=== PATIENT | female | born 1975 | race Caucasian/White ===

== ENCOUNTER 2023-09-02 18:25 | Emergency (ER) | payer OTHER, SELFPAY ==
[2023-09-02] VITALS (12 sets, daily range): BP systolic 134–200; BP diastolic 99–113; PULSE 102–114; RESP 8–26; TEMP 36.7; O2SAT 95–99; BMI 33.8
--- NOTE | 2023-09-02 18:37 | XR_ITS ---
The [address] [address] Patient Name: DAMION SARAVIA MRN: [id number] date: 1975 Sex: F Assigned Patient Location: ED.MAIN Current Patient Location: ER Accession/Order Number: [id number] Exam Date: 09/02/2023 18:40 Report Date: 09/02/2023 19:10 At the request of: YOANDY JOE Procedure: XR wrist LT min 3V IMAGES REVIEWED: XR wrist LT min 3V r COMPARISON: None available. CLINICAL INDICATION: injury FINDINGS/IMPRESSION: Acute intra-articular comminuted distal radial fracture demonstrating approximately 2 cm dorsal displacement, fairly significant foreshortening of fracture fragments, mild apex volar angulation. Acute comminuted distal ulnar fracture demonstrating moderate dorsal displacement, foreshortening, apex volar angulation. Radiocarpal alignment maintained. No dislocation. Positive ulnar variance. Otherwise the left wrist appears intact. Electronically authenticated by: GI ANDRADE Date: 09/02/2023 19:10
[2023-09-02] MEDS: HYDROMORPHONE HCL 1 MG/ML CARTRIDGE IVP (18:41)
[2023-09-02] MEDS: ONDANSETRON PF 4 MG/2 ML VIAL IV (18:42)
[2023-09-02] MEDS: CEFAZOLIN SODIUM/DEXTROSE,ISO 1 GM/50 ML IV.SOLN IV (18:51)
--- NOTE | 2023-09-02 18:57 | ED.TRAUMA1 ---
HPI - Trauma General Chief Complaint: Extremity Injury, Upper Stated Complaint: LAC TO LEFT HAND Time Seen by Provider: 09/02/23 18:36 Source: patient Mode of arrival: Wheelchair History of Present Illness HPI narrative: patient is a good historian. She said she slipped at home and fell on her left wrist. She has no other injury today. He has no known ALLERGIES. She has obvious deformity to the left wrist witha small laceration to the volar side of her wrist. She has no pain in her elbow or shoulder. She was Nothing by mouth.she was given analgesics on arrival here area I immediately sent the pictures of her injury to the on-call orthopedic surgeon Dr. Roman. He suggested that we do a reduction here in the Emergency Room and he can see her this coming Monday in the office. Related Data Previous Rx's Medication Instructions Recorded amoxicillin 875 mg-potassium 1 tab PO BID #20 tabs 09/02/23 clavulanate 125 mg tablet ondansetron 4 mg disintegrating 4 mg PO Q8H PRN nausea and 09/02/23 tablet vomiting 3 days #10 tabs Allergies Allergy/AdvReac Type Severity Reaction Status Date / Time No Known Drug Allergies Allergy Verified 09/02/23 18:34 [facility] Medical History (Updated 09/04/23 @ 13:28 by Jyoti Diaz) Fx. left wrist ?S62.102A - Fracture of unspecified carpal bone, left wrist, initial encounter for closed fracture (ICD-10) Surgical History (Updated 09/04/23 @ 13:26 by Jyoti Diaz) History of colectomy ?Z90.49 - Acquired absence of other specified parts of digestive tract (ICD-10) History of colonoscopy ?Z98.890 - Other specified postprocedural states (ICD-10) History of foot surgery ?Z98.890 - Other specified postprocedural states (ICD-10) History of hysterectomy ?Z90.710 - Acquired absence of both cervix and uterus (ICD-10) Family History (Updated 09/04/23 @ 13:30 by Jyoti Diaz) Other Family history not known due to adoption Social History (Updated 09/04/23 @ 13:31 by Jyoti Diaz) Within the past year, how often did you have a drink containing alcohol: 2-4 times a month Smoking status: Current every day smoker Non-prescribed substance use: denies use Previous occupational history: [employer] Known occupational exposures/hazards: No Highest level of school completed/degree received: some college, no degree Exam Narrative Exam Narrative: awake alert oriented ?3 some elevation of her blood pressure. Cognition is normal no evidence of alcohol. Her wrist shows obvious deformity with silver-fork deformity. X-rays confirm a distal both bone fracture with wide separation of fracture fragments. She does have good pulses distally. Her elbow and shoulder are normal. The rest her extremities are atraumatic. Constitutional Vital Signs, click to edit/add: Last Vital Signs Temp 98.1 F 09/02/23 18:30 Pulse 108 H 09/02/23 19:50 Resp 8 L 09/02/23 19:05 BP 200/100 H 09/02/23 20:20 Pulse Ox 96 09/02/23 19:50 O2 Del Method Room Air 09/02/23 18:30 Course Vital Signs Vital signs: Vital Signs Temperature 98.1 F 09/02/23 18:30 Pulse Rate 102 H 09/02/23 18:30 Respiratory Rate 26 H 09/02/23 18:30 Blood Pressure 159/110 H 09/02/23 18:30 Pulse Oximetry 95 09/02/23 18:30 Oxygen Delivery Method Room Air 09/02/23 18:30 Temperature 98.1 F 09/02/23 18:30 Pulse Rate 108 H 09/02/23 19:50 Respiratory Rate 8 L 09/02/23 19:05 Blood Pressure 200/100 H 09/02/23 20:20 Pulse Oximetry 96 09/02/23 19:50 Oxygen Delivery Method Room Air 09/02/23 18:30 MDM - Trauma Lab Data Labs: Lab Results 09/02/23 Range/Units 18:50 WBC 10.5 (4.0-11.0) 10^3/uL RBC 4.46 (4.20-5.40) 10^6/uL Hgb 14.5 (12.0-16.0) g/dL Hct 42.4 (36.0-48.0) % MCV 95.1 (81.0-99.0) fL MCH 32.5 (26.7-34.0) pg MCHC 34.2 (29.9-35.2) g/dL RDW 12.1 (11.0-15.0) % Plt Count 272 (150-450) 10^3/uL MPV 8.9 L (9.5-13.5) fL Neut % (Auto) 47.0 (43.0-75.0) % Lymph % (Auto) 42.8 (20.5-60.0) % [place] % (Auto) 6.9 (1.7-12.0) % Eos % (Auto) 2.0 (0.9-7.0) % Baso % (Auto) 0.6 (0.2-2.0) % Neut # (Auto) 4.9 (1.4-6.5) 10^3/uL Lymph # (Auto) 4.5 H (1.2-3.8) 10^3/uL [place] # (Auto) 0.7 (0.3-0.8) 10^3/uL Eos # (Auto) 0.2 (0.0-0.7) 10^3/uL Baso # (Auto) 0.1 (0.0-0.1) 10^3/uL Abs Immat Gran (auto) 0.07 H (0.00-0.03) 10^3/uL Imm/Tot Granulo (auto) 0.7 H (0.0-0.5) % Sodium 132 L (136-145) mmol/L Potassium 3.2 L (3.5-5.1) mmol/L Chloride 97 L (98-107) mmol/L Carbon Dioxide 20.8 L (21.0-32.0) mmol/L Anion Gap 17.4 BUN 7.0 (7.0-18.0) mg/dL Creatinine 0.71 (0.55-1.02) mg/dL Est GFR ( Amer) >60 (>=60) Est GFR (Non-Af Amer) >60 (>=60) BUN/Creatinine Ratio 9.9 Glucose 186 H (74-106) mg/dL Calcium 8.8 (8.5-10.1) mg/dL Total Bilirubin 0.2 (0.2-1.0) mg/dL AST 53 H (15-37) U/L ALT 101 H (14-59) U/L Alkaline Phosphatase 97 (46-116) U/L Total Protein 7.5 (6.4-8.2) g/dL Albumin 3.5 (3.4-5.0) g/dL Globulin 4.0 g/dL Albumin/Globulin Ratio 0.9 Discharge Plan Discharge Chief Complaint: Extremity Injury, Upper Clinical Impression: Compound fracture Patient Disposition: Home, Self-Care Time of Disposition Decision: 20:02 Condition: Good Prescriptions / Home Meds: New ondansetron 4 mg tablet,disintegrating 4 mg PO Q8H PRN (Reason: nausea and vomiting) 3 Days Qty: 10 0RF amoxicillin-pot clavulanate 875-125 mg tablet 1 tab PO BID Qty: 20 0RF Instructions: Wrist Fracture in Adults (ED) Stand Alone Forms: Portal Instructions Referrals: LEW SOLO [Primary Care Provider] - 1 week Milton Roman MD [Physician] - 09/04/23 8:04 am Discharge Date/Time: 09/02/23 20:37
[2023-09-02 19:09] LABS: Basophils Absolute Auto 0.1 10^3/uL (0.0-0.1); Basophils Percent Auto 0.6 % (0.2-2.0); Eosinophils Absolute Auto 0.2 10^3/uL (0.0-0.7); Hematocrit 42.4 % (36.0-48.0); Hemoglobin 14.5 g/dL (12.0-16.0); Immature Granulocytes Abs Auto 0.07 10^3/uL (0.00-0.03); Immature Granulocytes Pct Auto 0.7 % (0.0-0.5); Lymphocytes Absolute Auto 4.5 10^3/uL (1.2-3.8); Lymphocytes Percent Auto 42.8 % (20.5-60.0); Mean Corpuscular HGB Conc 34.2 g/dL (29.9-35.2); Mean Corpuscular Hemoglobin 32.5 pg (26.7-34.0); Mean Corpuscular Volume 95.1 fL (81.0-99.0); Mean Platelet Volume 8.9 fL (9.5-13.5); Monocytes Absolute Auto 0.7 10^3/uL (0.3-0.8); Monocytes Percent Auto 6.9 % (1.7-12.0); Neutrophils Absolute Auto 4.9 10^3/uL (1.4-6.5); Platelet Count 272 10^3/uL (150-450); Red Blood Count 4.46 10^6/uL (4.20-5.40); Red Cell Distribution Width 12.1 % (11.0-15.0); White Blood Count 10.5 10^3/uL (4.0-11.0)
--- NOTE | 2023-09-02 19:17 | XR_ITS ---
The [address] [address] Patient Name: DAMION SARAVIA MRN: [id number] date: 1975 Sex: F Assigned Patient Location: ER Current Patient Location: ER Accession/Order Number: [id number] Exam Date: 09/02/2023 19:20 Report Date: 09/02/2023 19:50 At the request of: YOANDY JOE Procedure: XR wrist LT 2V IMAGES REVIEWED: XR wrist LT 2V COMPARISON: X-ray earlier same day. CLINICAL INDICATION: ppost reduction FINDINGS/IMPRESSION: Status post interval closed reduction and splinting of comminuted distal radial and ulnar fractures in significantly improved and more nearly anatomic alignment. Mild residual displacement and impaction of fracture fragments. Electronically authenticated by: GI ANDRADE Date: 09/02/2023 19:50
[2023-09-02 19:20] LABS: Alanine Aminotransferase 101 U/L (14-59); Albumin Globulin Ratio 0.9; Albumin Level 3.5 g/dL (3.4-5.0); Alkaline Phosphatase 97 U/L (46-116); Anion Gap 17.4; Aspartate Amino Transferase 53 U/L (15-37); BUN Creatinine Ratio 9.9; Bilirubin Total 0.2 mg/dL (0.2-1.0); Calcium 8.8 mg/dL (8.5-10.1); Carbon Dioxide 20.8 mmol/L (21.0-32.0); Chloride 97 mmol/L (98-107); Estimated GFR (African America >60 (>=60); Estimated GFR (Non-African Ame >60 (>=60); Glucose 186 mg/dL (74-106); Potassium 3.2 mmol/L (3.5-5.1); Sodium 132 mmol/L (136-145); Total Protein 7.5 g/dL (6.4-8.2)
[2023-09-02] MEDS: HYDROMORPHONE HCL 1 MG/ML CARTRIDGE IV (19:38)
--- NOTE | 2023-09-02 20:10 | ED.GENADUL1 ---
HPI - General Adult General Chief complaint: Extremity Injury, Upper Stated complaint: LAC TO LEFT HAND Time Seen by Provider: 09/02/23 18:36 Source: patient Mode of arrival: Wheelchair History of Present Illness HPI narrative: 47-year-old female percents chief complaint of left wrist injury. Patient states she slipped down stairs and fell approximately 10-13 steps. Patient landed outstretched hand. She presents here with deformed wrists. Injury occurred just prior to arrival. Patient does have two superficial abrasions appears to be a open complex fracture. She is right-hand dominant. Patient states she last ate around 2 PM. Denies any other injury or trauma. Denies head and neck pain. Denies loss of conscious. Related Data Previous Rx's Medication Instructions Recorded amoxicillin 875 mg-potassium 1 tab PO BID #20 tabs 09/02/23 clavulanate 125 mg tablet ondansetron 4 mg disintegrating 4 mg PO Q8H PRN nausea and 09/02/23 tablet vomiting 3 days #10 tabs Allergies Allergy/AdvReac Type Severity Reaction Status Date / Time No Known Drug Allergies Allergy Verified 09/02/23 18:34 Review of Systems ROS Narrative All Systems are negative except as noted/marked. Exam Narrative Exam Narrative: Nurses note and vital signs reviewed and patient is not hypoxic. General: The patient appears well and in no apparent distress. Patient is resting comfortably on cart. Skin: Warm, dry, no pallor noted. There is no rash noted. Head: Normocephalic, atraumatic Eye: Normal conjunctiva, no drainage, EOMI. PERRL Musculoskeletal: Obvious deformity left wrist with two superficial open wounds to the volar aspect of the left wrist one measuring 2 cm, 2nd measuring 1 cm. No active bleeding, pulses are intact distally to radial ulnar region Neurological: A&O x4, normal speech Psychiatric: Cooperative Constitutional Vital Signs, click to edit/add: Last Vital Signs Temp 98.1 F 09/02/23 18:30 Pulse 108 H 09/02/23 19:50 Resp 8 L 09/02/23 19:05 BP 173/113 H 09/02/23 19:45 Pulse Ox 96 09/02/23 19:50 O2 Del Method Room Air 09/02/23 18:30 Course Vital Signs Vital signs: Vital Signs Temperature 98.1 F 09/02/23 18:30 Pulse Rate 102 H 09/02/23 18:30 Respiratory Rate 26 H 09/02/23 18:30 Blood Pressure 159/110 H 09/02/23 18:30 Pulse Oximetry 95 09/02/23 18:30 Oxygen Delivery Method Room Air 09/02/23 18:30 Temperature 98.1 F 09/02/23 18:30 Pulse Rate 108 H 09/02/23 19:50 Respiratory Rate 8 L 09/02/23 19:05 Blood Pressure 173/113 H 09/02/23 19:45 Pulse Oximetry 96 09/02/23 19:50 Oxygen Delivery Method Room Air 09/02/23 18:30 Medical Decision Making MDM Narrative Medical decision making narrative: Patient presented here to the emergency room after he sustained a fall just prior to arrival. She had a complex fracture on x-ray which did require sedation for reduction please see Dr. Barahona's note. Patient is stable at this time she received IV Ancef for her open fractures. Amelia were also placed to two lacerations to the area that were cleaned with Hibiclens normal saline. Dr. Roman was contacted in regards this patient's care. He was able to see the before and after x-rays of wrist fractures and reduction films. He has agreed to follow-up with her on Monday two days. Patient will be discharged home with a volar splint and sling in place. Patient was medicated with Ancef as stated previously. She'll be discharged home with Augmentin and Percocet and Zofran. Patient also be discharged home with Zofran and Percocet from here in the emergency room to take throughout the evening tonight and tomorrow prior to getting her prescriptions filled. Patient was told no eating after midnight on Monday prior to her appointment on Monday. Patient verbalizes understanding agrees with plan of care. She'll be given Dr. Roman's information. She notes for the office is located. 's reduction and sedation patient had a volar splint applied by myself and Dr. Barahona. Extremities neurovascular intact before and after application of the splint. Sling was placed by nursing staff. Patient denies any other pain or other injuries at this time. She is alert and oriented. She states she feels much better. Differential Diagnosis Differential Diagnosis: Mom Jagdish fracture Medical Records Medical records reviewed: Yes I reviewed the patient's medical records Lab Data Lab results reviewed: Yes I reviewed the patient's lab results Labs: Lab Results 09/02/23 Range/Units 18:50 WBC 10.5 (4.0-11.0) 10^3/uL RBC 4.46 (4.20-5.40) 10^6/uL Hgb 14.5 (12.0-16.0) g/dL Hct 42.4 (36.0-48.0) % MCV 95.1 (81.0-99.0) fL MCH 32.5 (26.7-34.0) pg MCHC 34.2 (29.9-35.2) g/dL RDW 12.1 (11.0-15.0) % Plt Count 272 (150-450) 10^3/uL MPV 8.9 L (9.5-13.5) fL Neut % (Auto) 47.0 (43.0-75.0) % Lymph % (Auto) 42.8 (20.5-60.0) % [place] % (Auto) 6.9 (1.7-12.0) % Eos % (Auto) 2.0 (0.9-7.0) % Baso % (Auto) 0.6 (0.2-2.0) % Neut # (Auto) 4.9 (1.4-6.5) 10^3/uL Lymph # (Auto) 4.5 H (1.2-3.8) 10^3/uL [place] # (Auto) 0.7 (0.3-0.8) 10^3/uL Eos # (Auto) 0.2 (0.0-0.7) 10^3/uL Baso # (Auto) 0.1 (0.0-0.1) 10^3/uL Abs Immat Gran (auto) 0.07 H (0.00-0.03) 10^3/uL Imm/Tot Granulo (auto) 0.7 H (0.0-0.5) % Sodium 132 L (136-145) mmol/L Potassium 3.2 L (3.5-5.1) mmol/L Chloride 97 L (98-107) mmol/L Carbon Dioxide 20.8 L (21.0-32.0) mmol/L Anion Gap 17.4 BUN 7.0 (7.0-18.0) mg/dL Creatinine 0.71 (0.55-1.02) mg/dL Est GFR ( Amer) >60 (>=60) Est GFR (Non-Af Amer) >60 (>=60) BUN/Creatinine Ratio 9.9 Glucose 186 H (74-106) mg/dL Calcium 8.8 (8.5-10.1) mg/dL Total Bilirubin 0.2 (0.2-1.0) mg/dL AST 53 H (15-37) U/L ALT 101 H (14-59) U/L Alkaline Phosphatase 97 (46-116) U/L Total Protein 7.5 (6.4-8.2) g/dL Albumin 3.5 (3.4-5.0) g/dL Globulin 4.0 g/dL Albumin/Globulin Ratio 0.9 Imaging Data wrist: Attestation: I have reviewed the pertinent imaging results. Radiologist's impression: Patient Name: DAMION SARAVIA MRN: [id number] date: 1975 Sex: F Assigned Patient Location: ED.MAIN Current Patient Location: ER Accession/Order Number: [id number] Exam Date: 09/02/2023 18:40 Report Date: 09/02/2023 19:10 At the request of: YOANDY JOE Procedure: XR wrist LT min 3V IMAGES REVIEWED: XR wrist LT min 3V r COMPARISON: None available. CLINICAL INDICATION: injury FINDINGS/IMPRESSION: Acute intra-articular comminuted distal radial fracture demonstrating approximately 2 cm dorsal displacement, fairly significant foreshortening of fracture fragments, mild apex volar angulation. Acute comminuted distal ulnar fracture demonstrating moderate dorsal displacement, foreshortening, apex volar angulation. Radiocarpal alignment maintained. No dislocation. Positive ulnar variance. Otherwise the left wrist appears intact. Electronically authenticated by: GI ANDRADE Date: 09/02/2023 19:10 Patient Name: DAMION SARAVIA MRN: [id number] date: 1975 Sex: F Assigned Patient Location: ER Current Patient Location: ER Accession/Order Number: [id number] Exam Date: 09/02/2023 19:20 Report Date: 09/02/2023 19:50 At the request of: YOANDY JOE Procedure: XR wrist LT 2V IMAGES REVIEWED: XR wrist LT 2V COMPARISON: X-ray earlier same day. CLINICAL INDICATION: ppost reduction FINDINGS/IMPRESSION: Status post interval closed reduction and splinting of comminuted distal radial and ulnar fractures in significantly improved and more nearly anatomic alignment. Mild residual displacement and impaction of fracture fragments. Electronically authenticated by: GI ANDRADE Date: 09/02/2023 19:50 Discharge Plan Discharge Chief Complaint: Extremity Injury, Upper Clinical Impression: Compound fracture Patient Disposition: Home, Self-Care Time of Disposition Decision: 20:02 Condition: Good Prescriptions / Home Meds: New ondansetron 4 mg tablet,disintegrating 4 mg PO Q8H PRN (Reason: nausea and vomiting) 3 Days Qty: 10 0RF amoxicillin-pot clavulanate 875-125 mg tablet 1 tab PO BID Qty: 20 0RF Instructions: Wrist Fracture in Adults (ED) Stand Alone Forms: Portal Instructions Referrals: LEW SOLO [Primary Care Provider] - 1 week Milton Roman MD [Physician] - 09/04/23 8:04 am
[2023-09-02] MEDS: ONDANSETRON 4 MG RAPDIS TABLET 16 MG SL (20:30)
[2023-09-02] MEDS: OXYCODONE HCL/ACETAMINOPHEN 5MG/325MG 6 TAB PO (20:30)
== END 2023-09-02 20:37 | disposition home or self-care (01) ==
PROVIDERS: Emergency Provider Emergency Medicine Emergency Medical Services; PCP Family Medicine
DX: S52.502A Unspecified fracture of the lower end of left radius, initial encounter for closed fracture (principal); S52.602A Unspecified fracture of lower end of left ulna, initial encounter for closed fracture; S61.512A Laceration without foreign body of left wrist, initial encounter; W10.9XXA Fall (on) (from) unspecified stairs and steps, initial encounter
CPT/HCPCS: 12002; 25605; 36415; 73100; 73110; 80053; 85025; 96365; 96375; 96376; 99152; 99285; J0690; J1170; J2405; Q0162

== ENCOUNTER 2023-09-04 19:06 | Observation (INO) | payer OTHER, SELFPAY ==
[2023-09-04] VITALS (17 sets, daily range): BP systolic 130–196; BP diastolic 78–114; PULSE 66–107; RESP 10–21; TEMP 36.2–36.9; O2SAT 88–99; BMI 35.8
--- NOTE | 2023-09-04 | FL_ITS ---
[address] [address] Patient Name: DAMION SARAVIA MRN: [id number] date: 1975 Sex: F Assigned Patient Location: ICU Current Patient Location: Accession/Order Number: [id number] Exam Date: 09/04/2023 15:25 Report Date: 09/06/2023 07:26 At the request of: MARGRET PAEZ Procedure: FL fluoroscopy <1hr NON-READ EXAM: FL fluoroscopy <1hr NON-READ HISTORY: LEFT WRIST FRACTURE TECHNIQUE: FINDINGS: Please see Operative Report. Electronically authenticated by: RADIOLOGIST NO Date: 09/06/2023 07:26
--- OUTSIDE RECORDS SUMMARY | 2023-09-04 12:37 | XMS_ITS | CCD ---
Author Name Unknown Address [address] [facility] [address] [place] [address] Organization [facility] Care Team Providers Care Putter In Name Role Phone GREG CORONADO Unavailable Unavailabl e BOHTRU, GREG Kelly Unavailable Unavailabl e BOHTRU, GREG Kelly Unavailable Unavailabl e BOHTRU, GREG Kelly Unavailable Unavailabl e IVONNE, GREG Kelly Unavailable Unavailabl e IVONNE, GREG Kelly Unavailable Unavailabl e IVONNE, GREG Kelly Unavailable Unavailneil e GERMANIA, DR HACKETT Primary Care Unavailable GOOD ALAN Admitting Unavailable GOOD ALAN Attending Unavailable GERMANIA, DR HACKETT Admitting Unavailable GERMANIA, DR HACKETT Attending Unavailable GERMANIA, DR HACKETT Consulting Unavailable GERMANIA, DR HACKETT Primary Care Unavailable JOSE L, DR MARGRET Torres Consulting Unavailable GERMANIA, DR HACKETT Primary Care Unavailable GERMANIA, DR HACKETT Admitting Unavailable GERMANIA, DR HACKETT Attending Unavailable LINCOLN, DR HACKETT Consulting Unavailable Good Alan Unavailable David Valle Unavailable DO Rajesh Solo [facility] Danica Mueller Emergency Provider 1( [phone] Rajesh Solo Primary Care Unavailable Mable Curtis Attending Unavailable Mable Curtis Admitting Unavailable Medications Current Medications Medication Drug Class(es) Dates Sig (Normalized) Sig (Original) acetaminophen 325 mg / oxyCODONE hydrochloride 5 mg oral tablet (2 sources) Opioid Agonist Start: 04-28-2022 take 1 tablet by mouth every six hours Oxycodone-Acetami nophen Active 1 TAB PO Q6H 10 3 April 28, 2022 Start: 08-24-2021 End: 12-19-2021 take 1 tablet by mouth every four hours Oxycodone-Acetaminophen (Percocet) 5-325 mg tablet Discontinued 1 TAB PO Q4H 26 03August 24, 2021 December 19, 2021 11:36am atenolol 50 mg oral tablet (3 sources) beta-Adrenergic Sofia Start: 01-10-2022 take 50 mg by mouth once daily in the morning Atenolol Active 50 MG PO Every morning January 10, 2022 12:00am Atenolol Active ibuprofen 800 mg oral tablet (1 source) Nonsteroidal Anti-inflammatory Drug Start: 04-28-2022 take 800 mg by mouth every six hours Ibuprofen Active 800 MG PO Q6H April 28, 2022 12:00am meloxicam 15 mg oral tablet (2 sources) Nonsteroidal Anti-inflammatory Drug take 1 tablet by mouth every twenty-four hours Meloxicam 15 MG 1 tablet Orally Once a day for 30 day(s) Active mesalamine 1200 mg delayed release oral tablet (2 sources) Aminosalicylate Start: 12-31-2021 take 4 tablets by mouth once daily Mesalamine 1.2 GM 4 TABS Orally Once a day for 30 day(s) December, Active ondansetron 4 mg oral tablet (1 source) Serotonin-3 Receptor Antagonist Start: 01-20-2022 take 4 mg by mouth every six hours Ondansetron Hcl Active 4 MG PO Q6H January 20, 2022 12:00am traMADol hydrochloride 50 mg oral tablet (1 source) Opioid Agonist Start: 01-24-2022 take 1 tablet by mouth every four to six hours Tramadol (Ultram) 50 mg tablet Active 50 MG PO EVERY 4-6 HOURS 20 03January 24, 2022 12:00am Completed/Discontinued Medications Medication Drug Class(es) Dates Sig (Normalized) Sig (Original) Acetaminophen (5 sources) Tylenol Not-Taki ng Tylenol Active acetaminophen 325 mg / HYDROcodone bitartrate 5 mg oral tablet (4 sources) Opioid Agonist Start: 01-10-2022 End: 01-24-2022 take 1 tablet by mouth every four to six hours Hydrocodone-Acetaminophen Discontinued 1 - 2 TAB PO EVERY 4-6 HOURS 08 11January 10, 2022 January 24, 2022 11:09am take 1 tablet by mikey th every four hours HYDROcodone-Acetaminophen 5-325 MG 1 tab let as needed Oral every 4 hrs for 7 days Not-Taking amoxicillin 875 mg / clavulanate 125 mg oral tablet (1 source) Penicillin-class Antibacterial Start: 12-22-2021 End: 01-10-2022 take 1 tablet by mouth every twelve hours Amoxicillin-Pot Clavulanate Discontinued 1 TAB PO Q12H December 22, 2021 12:00am January 10, 2022 10:16am aspirin 81 mg oral tablet (3 sources) Platelet Aggregation Inhibitor, Nonsteroidal Anti-inflammatory Drug take 1 tablet by mouth twice daily Aspirin 81 MG 1 tablet Orally twice a day Not-Taking take 1 tablet by mikey th every twelve hours Aspirin 81 MG 1 tablet Orally twice a da y Not-Taking cephalexin 500 mg oral capsule (1 source) Cephalosporin Antibacterial Start: 01-10-2022 End: 01-13-2022 take 1000 mg by mouth twice daily Cephalexin Discontinued 1000 MG PO Twice daily 40 January 10, 2022 12:00am January 13, 2022 3:09pm hyoscyamine sulfate 0.125 mg oral tablet (1 source) Start: 12-19-2021 End: 01-10-2022 take 0.125 mg by mouth every six hours Hyoscyamine Sulfate Discontinued 0.125 MG PO Q6H December 19, 2021 12:00am January 10, 2022 10:16am levoFLOXacin 750 mg oral tablet (1 source) Quinolone Antimicrobial Start: 01-13-2022 End: 01-24-2022 take 1 tablet by mouth once daily in the morning Levofloxacin (Levaquin) 750 mg Tablet Discontinued 750 MG PO Every morning January 13, 2022 12:00January 24, 2022 11:09am metroNIDAZOLE 500 mg oral tablet (2 sources) Nitroimidazole Antimicrobial Start: 01-13-2022 End: 01-24-2022 take 500 mg by mouth three times daily Metronidazole Discontinued 500 MG PO Three times daily January 13, 2022 3:10pm January 24, 2022 11:09am Start: 01-10-2022 End: 01-13-2022 take 500 mg by mouth twice daily Metronidazole Discontinued 500 MG PO Twice daily 20 January 10, 2022 12:00am January 13, 2022 3:10pm polyethylene glycol 3350 24513 mg powder for oral solution (2 sources) Osmotic Laxative Start: 01-20-2022 End: 01-24-2022 Polyethylene Glycol 3350 (Miralax) 17 gram/dose powder Discontinued 17 GM PO Three times daily January 20, 2022 2:04pm January 24, 2022 11:09am Start: 01-10-2022 End: 01-20-2022 Polyethylene Glycol 3350 (Mi ralax) 17 gram/dose powder Discontinued 17 GM PO Daily 238 January 10, 2022 12:00am January 20, 2022 2:04pm sulfaSALAzine (1 source) Aminosalicylate Start: 05-26-2020 End: 08-24-2021 take 0.5 g by mouth four times daily Sulfasalazine Discontinued 0.5 GM PO Four times daily 120 May 26, 2020 12:00am August 24, 2021 7:20am Triamcinolone (2 sources) Corticosteroid Start: 06-07-2021 Kenalog -40 mg May, 40 mg Problems Active Problems Problem Classification Problem Date Documented Da te Episodic/Chronic Abdominal pain (6 sources) Abdominal pain; Translations: [Unspecified abdominal pain] 01-10-2022 Episodic Crushing injury or internal injury (1 source) Crushing injury of hand; Translations: [Crushing injury of unspecified hand, initial encounter] 04-28-2022 Episodic Diverticulosis and diverticulitis (4 sources) Diverticulitis; Translations: [Diverticulitis of intestine, part unspecified, without perforation or abscess without bleeding] Onset: 12-31-2021 Resolved: 12-31-2021 Chronic Intestinal obstruction without hernia (3 sources) Small bowel obstruction; Translations: [Unspecified intestinal obstruction, unspecified as to partial versus complete obstruction] Onset: 12-31-2021 Resolved: 12-31-2021 Episodic Joint disorders and dislocations; trauma-related (7 sources) Disorder of patellofemoral joint; Translations: [Unspecified internal derangement of right knee] Onset: 08-04-2021 Resolved: 09-01-2021 Chronic Joint disorders and dislocations; trauma-related (7 sources) Disorder of patellofemoral joint; Translations: [Unspecified internal derangement of left knee] Onset: 08-04-2021 Resolved: 09-01-2021 Chronic Osteoarthritis (19 sources) Unspecified osteoarthritis, unspecified site; Translations: [Unilateral primary osteoarthritis, right knee] Onset: 03-24-2021 Resolved: 09-01-2021 Chronic Other gastrointestinal disorders (1 source) Disorder of colon; Translations: [Disease of intestine, unspecified] 01-10-2022 Episodic Other nutritional; endocrine; and metabolic disorders (5 sources) Weight loss; Translations: [Abnormal weight loss] Episodic Pancreatic disorders (not diabetes) (5 sources) Pancreatitis; Translations: [Acute pancreatitis without necrosis or infection, unspecified] Episodic Residual codes; unclassified (5 sources) Other specified postprocedural states; Translations: [OTH SPECIFIED POSTPROCEDURAL STATES] Onset: 09-01-2021 Resolved: 09-01-2021 Episodic Residual codes; unclassified (1 source) History of arthroscopy of knee joint; Translations: [Other specified postprocedural states] 08-24-2021 Episodic Substance-related disorders (1 source) Smoker; Translations: [Nicotine dependence, unspecified, uncomplicated] 12-24-2021 Chronic Unclassified (1 source) LEFT FOOT NEUROMA / LEFT FOOT NEUROMA() Onset: 06-06-2017 Unclassified (1 source) Pain in left foot; Translations: [Pain in left foot] Onset: 06-04-2023 Past or Other Problems Problem Classification Problem Date Documented Date Episodic/Chronic Medical examination/evaluatio n (2 sources) Encounter for other preprocedural examination; Translations: [Encounter for other preprocedural examination] Onset: 05-22-2017 Episodic Other aftercare (1 source) Encounter for removal of sutures Onset: 09-01-2021 Resolved: 09-01-2021 Episodic Other non-traumatic joint disorders (4 sources) Pain in unspecified joint; Translations: [PAIN IN UNSPECIFIED JOINT] Onset: 03-29-2021 Episodic Other non-traumatic joint disorders (3 sources) Pain in right knee; Translations: [PAIN IN RIGHT KNEE] Onset: 03-31-2021 Resolved: 09-01-2021 Episodic Other non-traumatic joint disorders (2 sources) Pain in left knee Onset: 08-04-2021 Resolved: 09-01-2021 Episodic Unclassified (1 source) LEFT FOOT NEUROMA; Translations: [LEFT FOOT NEUROMA] Onset: 06-06-2017 Results Test Name Value Interpretation Reference Range Facility XR foot LT min 3V*on 023 XR foot LT min 3V* [facility] [place] [address] [place] [address] XRay Report Signed Patient: Maggie Yip MR#: [id number] 9 : 1975 Acct:[id number] Age/Sex: 47 / F ADM Date: 06/04/23 Loc: ER Room: Type: [facility] ER Attending Dr: Copies to: Mable Curtis APRN Ordering Provider: Mable Curtis APRN Date of Service: 06/04/23 XR/XR foot LT min 3V*: Extremity Injury, Lower LEFT FOOT - 3 views CLINICAL DATA: Patient fell down stairs 2 days ago. Lateral left foot pain. History of resection of neuromas. COMPARISON: None AP, lateral and oblique views were obtained. Deformity at the head of the proximal phalanx of the second toe may be postoperative. There is no acute fracture or dislocation. There are tiny calcaneal spurs. There are no significant soft tissue abnormalities. XR/XR foot LT min 3V* IMPRESSION: NO ACUTE BONY INJURY. Impression dictated by: Jaylin Magallanes M.D.06/04/2023 12:32 PM Dictation Location: [place] [address] Transcribed By: [facility] 06/04/23 1232 Dictated By: Jaylin Magallanes MD 06/04/23 1231 Signed By: 06/04/23 1232 Normal [facility] CYCLIC CITRULLINATED PEPTIDE AB (CCP)on 04-01-2021 CCP Antibodies IgG/IgA 5 units Normal 0-19 [facility] Comment on above: Result Comment: Nega tive <20 Weak positive 20 - 39 Moderate positive 40 - 59 Strong positive >59 Performed By: #### C CPAB #### [facility] [address] [address] Germán GARRETT by IFAon 03-25-2021 Antinuclear Antibodies, IFA Negative Normal [facility] Comment on above: Result Comment: Nega tive <1:80 Borderline 1:80 Positive >1:80 ICAP nomenclature: AC-0 For more information about Hep-2 cell patterns use ANApatterns.org, the official website for the International Consensus on Antinuclear Antibody (TAMI) Patterns (ICAP). Performed By: #### A NAIFA #### [facility] [address] [place], [place] [address] Germán Mosqueda RHEUMATOID FACTORon 03-25-20 RA Latex Turbid. <10.0 Normal 0.0-13.9 [facility] Comment on above: Performed By: #### R F #### [facility] [address] [place], [place] [address] Germán Jaylin CBC AUTO DIFFon 03-24-2021 BASO # 0.1 103/ul Normal 0.0-0.1 [facility] Comment on above: Performed By: #### C BC #### [facility] [address] [place], [place] [address] Germánsimone Mosqueda Basophils/100 WBC (Bld) 0.6 % Normal 0.2-2.0 [facility] Comment on above: Performed By: #### C BC #### [facility] [address] [place] [address] Germánsimone Mosqueda EO # 0.1 103/ul Normal 0.0-0.7 [facility] Comment on above: Performed By: #### C BC #### [facility] [address] [place], [place] [address] Germán Jaylin Eosinophils/100 WBC (Bld) 1.2 % Normal 0.9-7.0 [facility] Comment on above: Performed By: #### C BC #### [facility] [address] [place], [place] [address] Germán Jaylin Erythrocyte distribution width (RBC) [Ratio] 13.2 % Normal 11.0-15.0 [facility] Comment on above: Performed By: #### C BC #### [facility] [address] [place], [place] [address] Germán Jaylin Hematocrit (Bld) [Volume fraction] 45.3 % Normal 36.0-48.0 [facility] Comment on above: Performed By: #### C BC #### [facility] [address] [place], [place] [address] Germán Jaylin Hemoglobin (Bld) [Mass/Vol] 15.1 g/dL Normal 12.0-16.0 [facility] Comment on above: Performed By: #### C BC #### [facility] [address] [place] [address] Germán Mosqueda IG # 0.07 10e3/ul Critically high 0.00-0.03 [facility] Comment on above: Performed By: #### C BC #### [facility] [address] [address] Germán Mosqueda IG % 0.6 % Critically high 0.0-0.5 [facility] Comment on above: Performed By: #### C BC #### [facility] [address] [place] [address] Germán Mosqueda LYMPH # 3.4 103/ul Normal 1.2-3.8 [facility] Comment on above: Performed By: #### C BC #### [facility] [address] [place] [address] Germán Mosqueda Lymphocytes/100 WBC (Bld) 30.1 % Normal 20.5-60.0 [facility] Comment on above: Performed By: #### C BC #### [facility] [address] [place] [address] Germán Mosqueda MANUAL DIFF REQ NO Normal [facility] Comment on above: Performed By: #### C BC #### [facility] [address] [place] [address] Germán Mosqueda MCH (RBC) [Entitic mass] 31.3 pg Normal 26.7-34.0 [facility] Comment on above: Performed By: #### C BC #### [facility] [address] [place] [address] Germán Mosqueda MCHC (RBC) [Mass/Vol] 33.3 g/dL Normal 29.9-35.2 [facility] Comment on above: Performed By: #### C BC #### [facility] [address] [place] [address] Germán Mosqueda MCV (RBC) [Entitic vol] 94.0 fL Normal 81.0-99.0 [facility] Comment on above: Performed By: #### C BC #### [facility] [address] [place], [place] [address] Germán Mosqueda MONO # 0.8 103/ul Normal 0.3-0.8 [facility] Comment on above: Performed By: #### C BC #### [facility] [address] [id number] Germán Mosqueda Monocytes/100 WBC (Bld) 7.2 % Normal 1.7-12.0 [facility] Comment on above: Performed By: #### C BC #### [facility] [address] [id number] Germán Jaylin NEUT # 6.7 103/ul Critically high 1.4-6.5 [facility] Comment on above: Performed By: #### C BC #### [facility] [address] [id number] Germán Mosqueda Neutrophils/100 WBC (Bld) 60.3 % Normal 43.0-75.0 [facility] Comment on above: Performed By: #### C BC #### [facility] [address] [id number] Germán Mosqueda Platelet mean volume (Bld) [Entitic vol] 9.0 fL Critically low 9.5-13.5 [facility] Comment on above: Performed By: #### C BC #### [facility] [address] [id number] Germán Jaylin PLT 288 103/ul Normal 150-450 [facility] Comment on above: Performed By: #### C BC #### [facility] [address] [id number] Germán Jaylin RBC 4.82 106/ul Normal 4.20-5.40 [facility] Comment on above: Performed By: #### C BC #### [facility] [address] [id number] Germán Jaylin WBC 11.2 103/ul Critically high 4.0-11.0 [facility] Comment on above: Performed By: #### C BC #### [facility] [address] [id number] Germán Jaylin PROF 14(COMP METB)on 021 Albumin [Mass/Vol] 3.8 g/dL Normal 3.5-5.0 [facility] Comment on above: Performed By: #### C MP, URIC #### [facility] [address] [place], [place] [address] Germán Jaylin Albumin/Globulin [Mass ratio] 0.9 {ratio} Normal [facility] Comment on above: Performed By: #### C MP, URIC #### [facility] [address] [place], [place] [address] Germán Jaylin ALP [Catalytic activity/Vol] 109 U/L Normal 38-126 [facility] Comment on above: Performed By: #### C MP, URIC #### [facility] [address] [place] [address] Germán Jaylin ALT [Catalytic activity/Vol] 56 U/L Critically high 9-52 [facility] Comment on above: Performed By: #### C MP, URIC #### [facility] [address] [place], [place] [address] Germán Jaylin Anion gap [Moles/Vol] 17.6 mmol/L Normal [facility] Comment on above: Performed By: #### C MP, URIC #### [facility] [address] [place] [address] Germán Jaylin AST [Catalytic activity/Vol] 36 U/L Normal 14-36 [facility] Comment on above: Performed By: #### C MP, URIC #### [facility] [address] [place], [place] [address] Germán Jaylin Bilirubin [Mass/Vol] 0.3 mg/dL Normal 0.2-1.3 [facility] Comment on above: Performed By: #### C MP, URIC #### [facility] [address] [place], [place] [address] Germán Jaylin Calcium [Mass/Vol] 9.0 mg/dL Normal 8.4-10.2 [facility] Comment on above: Performed By: #### C MP, URIC #### [facility] [address] [place], [place] [address] Germán Jaylin Chloride [Moles/Vol] 104 mmol/L Normal 98-107 [facility] Comment on above: Performed By: #### C MP, URIC #### [facility] [address] [place] [address] Germán Jaylin CO2 [Moles/Vol] 23.4 mmol/L Normal 22.0-30.0 [facility] Comment on above: Performed By: #### C MP, URIC #### [facility] [address] [place], [place] [address] Germán Jaylin Creatinine [Mass/Vol] 0.61 mg/dL Normal 0.52-1.04 [facility] Comment on above: Performed By: #### C MP, URIC #### [facility] [address] [place], [place] [address] Germán Jaylin EGFR-AF NORWEGIAN >60 Normal >=60 [facility] Comment on above: Performed By: #### C MP, URIC #### [facility] [address] [place], [place] [address] Germán Jaylin EGFR-NON AF NORWEGIAN >60 Normal >=60 [facility] Comment on above: Performed By: #### C MP, URIC #### [facility] [address] [place], [place] [address] Germán Jaylin Globulin (S) [Mass/Vol] 4.2 g/dL Normal [facility] Comment on above: Performed By: #### C MP, URIC #### [facility] [address] [place] [address] Germán Jaylin Glucose [Mass/Vol] 90 mg/dL Normal 74-106 [facility] Comment on above: Performed By: #### C MP, URIC #### [facility] [address] [place] [address] Germán Jaylin Potassium [Moles/Vol] 4.0 mmol/L Normal 3.4-5.0 [facility] Comment on above: Performed By: #### C MP, URIC #### [facility] [address] [place], [place] [address] Germán Jaylin Protein [Mass/Vol] 8.0 g/dL Normal 6.1-8.2 [facility] Comment on above: Performed By: #### C MP, URIC #### [facility] [address] [place], [place] [address] Germán Jaylin Sodium [Moles/Vol] 141 mmol/L Normal 137-145 [facility] Comment on above: Performed By: #### C MP, URIC #### [facility] [address] [place], [place] [address] Germán Jaylin Urea nitrogen [Mass/Vol] 11.0 mg/dL Normal 7.0-17.0 [facility] Comment on above: Performed By: #### C MP, URIC #### [facility] [address] [id number] Germán Jaylin Urea nitrogen/Creatini ne [Mass ratio] 18.0 mg/mg Normal [facility] Comment on above: Performed By: #### C MP, URIC #### [facility] [address] [id number] Germán Jaylin [facility] SED RATE 60 mm/hr Critically high <=20 [facility] Comment on above: Performed By: #### S EDR #### [facility] [address] [place], [place] [address] Germán Jaylin URIC ACID SERUMon 03-24-2021 Urate [Mass/Vol] 4.9 mg/dL Normal 2.5-6.2 [facility] Comment on above: Performed By: #### C MP, URIC #### [facility] [address] [place], [place] [address] Germán Jaylin Coding Summary.on 10-15-2019 Coding Summary. CODING DATE: 020 FINAL [facility] STATUS: Home (Routine DC) PAYOR: Medicaid ADMIT DX: REASON FOR VISIT DX: R10.11 Right upper quadrant pain FINAL DX: PRINCIPAL: R10.11 Right upper quadrant pain SECONDARY: F17.210 Nicotine dependence, cigarettes, uncomplicated PYMT PROC APC STAT DESCRIPTION DOCTOR NAME DATE NOTE: The code number assigned matches the documented diagnosis and / or procedure in the patient's chart. However, the narrative phrase printed from the coding software may appear abbreviated, or result in slightly different terminology. Revised Coded By: Maria R Hernandez Revised Date Saved: 10/15/2019 01:45 pm Normal [facility] Auto Diffon 10-08-2019 Basophils/100 WBC (Bld) 0.2 % Normal 0.0-2.0 [facility] Comment on above: Order Comment: Order Added by Discern Expert. Performed By: #### 2 [id number] #### [facility] [address] [place] [address] Basophils/Leukocy cj Auto (Bld) [Pure # fraction] 0.0 E9/L Normal 0.0-0.2 [facility] Comment on above: Order Comment: Order Added by Discern Expert. Performed By: #### 2 [id number] #### [facility] [address] [place] [address] Eosinophils/100 WBC (Bld) 1.0 % Normal 0.0-8.0 [facility] Comment on above: Order Comment: Order Added by Discern Expert. Performed By: #### 2 [id number] #### [facility] [address] [place] [address] Eosinophils/Leuko cytes Auto (Bld) [Pure # fraction] 0.1 E9/L Normal 0.0-0.5 [facility] Comment on above: Order Comment: Order Added by Discern Expert. Performed By: #### 2 [id number] #### [facility] [address] [place] [address] Lymphocytes/100 WBC (Bld) 25.0 % Normal 14.0-50.0 [facility] Comment on above: Order Comment: Order Added by Discern Expert. Performed By: #### 2 [id number], [id number], [id number] #### [facility] [address] [place] [address] Lymphocytes/Leuko cytes Auto (Bld) [Pure # fraction] 2.9 E9/L Normal 1.0-4.0 [facility] Comment on above: Order Comment: Order Added by Discern Expert. Performed By: #### 2 [id number], [id number] #### [facility] [address] [place] [address] Monocytes/100 WBC (Bld) 6.9 % Normal 4.0-14.0 [facility] Comment on above: Order Comment: Order Added by Discern Expert. Performed By: #### 2 [id number], [id number], [id number], [id number] #### [facility] [address] [place] [address] Monocytes/Leukocy cj Auto (Bld) [Pure # fraction] 0.8 E9/L Normal 0.2-1.0 [facility] Comment on above: Order Comment: Order Added by Discern Expert. Performed By: #### 2 [id number], [id number], [id number], [id number] #### [facility] [address] [place] [address] Neutrophils/100 WBC (Bld) 66.9 % Normal 36.0-75.0 [facility] Comment on above: Order Comment: Order Added by Discern Expert. Performed By: #### 2 [id number], [id number], [id number], [id number] #### [facility] [address] [place] [address] Neutrophils/Leuko cytes Auto (Bld) [Pure # fraction] 7.9 E9/L High 2.0-7.5 [facility] Comment on above: Order Comment: Order Added by Discern Expert. Performed By: #### 2 [id number], [id number], [id number], [id number] #### [facility] [address] [place] [address] BMPon 10-08-2019 Creatinine [Mass/Vol] 0.6 mg/dL Normal 0.5-1.3 [facility] Comment on above: Performed By: #### 2 154647, [id number], [id number], [id number] #### [facility] [address] [place] [address] Urea nitrogen [Mass/Vol] 12 mg/dL Normal 5-21 [facility] Comment on above: Performed By: #### 2 541585, 5733057, 6581705, [id number] #### [facility] [address] [place] [address] Urea nitrogen/Creatini ne [Mass ratio] 20 No Units Normal 10-20 [facility] Comment on above: Performed By: #### 2 759038, 1703137, 3071301, [id number] #### [facility] [address] [place] [address] Anion gap [Moles/Vol] 15 mmol/L Normal 6-16 [facility] Comment on above: Performed By: #### 2 257051, 3959846, 2699830, [id number] #### [facility] [address] [place] [address] Calcium [Mass/Vol] 9.5 mg/dL Normal 8.9-11.1 [facility] Comment on above: Performed By: #### 2 282718, 8316682, 7685161, [id number] #### [facility] [address] [place] [address] Chloride [Moles/Vol] 102 mmol/L Normal 101-111 [facility] Comment on above: Performed By: #### 2 264978, 9961265, 8567443, [id number] #### [facility] [address] [place] [address] CO2 [Moles/Vol] 21 mmol/L Normal 21-31 [facility] Comment on above: Performed By: #### 2 435854, 6713391, 8716377, [id number] #### [facility] [address] [place] [address] Glucose [Mass/Vol] 88 mg/dL Normal 55-199 [facility] Comment on above: Result Comment: If t his glucose result represents a fasting glucose, interpretation should refer to the following reference range: 55-99 mg/dL Performed By: #### 2 974634, 2511258, 7886385, [id number] #### [facility] [address] [place] [address] Potassium [Moles/Vol] 4.1 mmol/L Normal 3.5-5.3 [facility] Comment on above: Performed By: #### 2 509131, 6324749, 9032166, [id number] #### [facility] [address] [place] [address] Sodium [Moles/Vol] 134 mmol/L Low 135-145 [facility] Comment on above: Performed By: #### 2 550245, 6388986, 5971607, [id number] #### [facility] [address] [place] [address] CBC w/ Auto Diffon 0 Erythrocyte distribution width (RBC) [Ratio] 13.7 % Normal 10.9-14.2 [facility] Comment on above: Performed By: #### 2 510349, 5212683, 2907030, [id number] #### [facility] [address] [place] [address] Hematocrit (Bld) [Volume fraction] 44.6 % Normal 34.0-46.0 [facility] Comment on above: Performed By: #### 2 220464, 6684079, 9839540, 29804294 #### [facility] [address] [place] [address] Hemoglobin (Bld) [Mass/Vol] 15.3 g/dL Normal 12.0-16.0 [facility] Comment on above: Performed By: #### 2 801835, 0964937, 0274522, [id number] #### [facility] [address] [place] [address] MCH (RBC) [Entitic mass] 32.6 pg Normal 27.0-34.0 [facility] Comment on above: Performed By: #### 2 222896, 8648210, 4066319, [id number] #### [facility] [address] [place] [address] MCHC (RBC) [Mass/Vol] 34.4 g/dL Normal 31.4-36.0 [facility] Comment on above: Performed By: #### 2 350181, 2850188, 3210691, [id number] #### [facility] [address] [place], [place] [address] MCV (RBC) [Entitic vol] 94.9 fL Normal 80.0-100.0 [facility] Comment on above: Performed By: #### 2 320313, 9019247, 9877292, 11295682 #### [facility] [address] [place] [address] Platelet mean volume (Bld) [Entitic vol] 7.2 fL Normal 6.4-10.8 [facility] Comment on above: Performed By: #### 2 452617, 8390611, 2115098, 86654176 #### [facility] [address] [place] [address] Platelets (Bld) [#/Vol] 361.0 E9/L Normal 150.0-500.0 [facility] Comment on above: Performed By: #### 2 833985, 0177170, 4670692, 46415852 #### [facility] [address] [place] [address] RBC (Bld) [#/Vol] 4.7 E12/L Normal 4.3-5.9 [facility] Comment on above: Performed By: #### 2 618483, 6609786, 8840249, [id number] #### [facility] [address] [place] [address] WBC corrected for nucl RBC Auto (Bld) [#/Vol] 11.8 E9/L High 4.0-11.0 [facility] Comment on above: Performed By: #### 2 167141, 6792937, 6276376, 14796901 #### [facility] [address] [place] [address] ED Clinical Summaryon 2019 ED Clinical Summary [address] [address] ED Clinical Summary Person Information Name: MAGGIE DEL ROSARIO [place] Age: 43 Years : 1975 Sex: Female Language: Azerbaijani PCP: Rajesh Solo DO Marital Status: Phone: [phone] Visit Id: Visit Reason: Vomiting; Abdominal pain; UPPER RT ABD PAIN Speciality: Acuity: 3 Enc Type: Emergency Med Service: Emergency Arrival: 10/08/2019 10:18:57 Discharge: 10/08/2019 13:21:22 LOS: 000 03:03 Checkin: 10/08/2019 10:18:57 Checkout: 10/08/2019 13:21:22 Dispo Type: Home (Routine DC) EVENTS: Event Name Event Status Request Date/Time Start Date/Time Complete Date/Time Arrive Complete 10/08/2019 10:18:57 10/08/2019 10:18:57 10/08/2019 10:18:57 Document Home Meds Complete 10/08/2019 10:18:57 10/08/2019 11:32:49 10/08/2019 11:32:49 Triage Complete 10/08/2019 10:18:57 10/08/2019 10:31:19 10/08/2019 10:31:19 Bed Assign Complete 10/08/2019 10:25:35 10/08/2019 10:25:35 10/08/2019 10:25:35 Dr Exam Complete 10/08/2019 10:25:35 10/08/2019 10:28:00 10/08/2019 10:28:00 RN Exam Complete 10/08/2019 10:25:35 10/08/2019 10:34:10 10/08/2019 10:34:10 Registration Complete 10/08/2019 10:28:00 10/08/2019 10:54:35 10/08/2019 10:54:35 Dr Exam Complete 10/08/2019 10:28:59 10/08/2019 10:28:59 10/08/2019 10:28:59 EKG Complete 10/08/2019 10:37:45 10/08/2019 10:55:54 Meds Admin Complete 10/08/2019 10:37:45 10/08/2019 11:39:00 Pending Labs Complete 10/08/2019 10:37:45 10/08/2019 11:43:44 Lab Complete 10/08/2019 10:37:45 10/08/2019 11:43:44 Patient Care Request 10/08/2019 10:37:45 Reg Complete Request 10/08/2019 10:54:35 Reg Bed Request Complete 10/08/2019 10:54:35 10/08/2019 10:54:35 10/08/2019 10:54:35 Pending Labs Complete 10/08/2019 10:59:46 10/08/2019 10:59:46 10/08/2019 11:43:47 Lab Complete 10/08/2019 10:59:46 10/08/2019 10:59:46 10/08/2019 11:43:47 Pending Labs Complete 10/08/2019 11:05:57 10/08/2019 11:05:57 10/08/2019 11:06:07 Lab Complete 10/08/2019 11:05:57 10/08/2019 11:05:57 10/08/2019 11:06:07 Meds Admin Complete 10/08/2019 11:06:10 10/08/2019 11:32:11 US Complete 10/08/2019 11:39:30 10/08/2019 11:49:41 10/08/2019 12:08:25 Pending Labs Complete 10/08/2019 11:41:09 10/08/2019 11:41:09 10/08/2019 11:41:09 Meds Admin Complete 10/08/2019 11:50:11 10/08/2019 12:42:39 Meds Admin Complete 10/08/2019 12:58:53 10/08/2019 13:14:58 Discharge Complete 10/08/2019 12:59:22 10/08/2019 13:21:31 10/08/2019 13:21:31 Transfer Complete 10/08/2019 13:21:31 10/08/2019 13:21:31 10/08/2019 13:21:31 ADDRESS: [address] [facility] [id number] PHYS DOC NOTES: MEDICAL INFORMATION: Prescriptions Given: [facility], [address] [facility] Kerry Berkowitz [place] [phone], [phone] sucralfate (Carafate 1 g/10 mL Susp-Oral) 10 Milliliter By Mouth 4 times a day for 7 Days. Refills: 0. PATIENT EDUCATION INFORMATION: Instructions: Gastritis, Adult; Abdominal Pain, Adult Follow up: With: Address: When: [facility], [address] [place] [address] Business (1) In 3 days 10/11/2019 With: Address: When: [facility] [address] [place], [place] [id number] Business (1) In 3 days 10/11/2019 DIAGNOSIS: Right upper quadrant abdominal pain Normal [facility] ED Note-Physicianon 10-08-19 ED Note-Physician Basic Information Time Seen: Rishi Martinez PA-C 10/08/2019 10:28 Chief Complaint pain under right breast that radiates to abd. started a few days ago but has increased. reports N/V. hx hysterectomy History of Present Illness 43-year-old female comes to the ED for evaluation of abdominal pains. Over the last week she has had progressive right upper quadrant pain. Pain is worse with movement, breathing, laying flat. Pain with eating, but does report decreased appetite. She had a cup of coffee this morning but no food intake. She has had nausea, vomiting and greasy stools. No fever or chills. She has had previous hysterectomy, no previous abdominal surgeries. No associated chest pain. No urinary complaints. Review of Systems A 10 point review of systems is negative except as noted above. Medical and Surgical History: Reviewed and noted Social history: Lives at home Tobacco: Denies Physical Exam Vitals & Measurements T: 36.7 ?C (Oral) HR: 82(Peripheral) RR: 18 BP: 140/88 SpO2: 98% HT: 165 cm WT: 103 kg BMI: 37.83 Nurses notes and vital signs reviewed and patient is not hypoxic. General: Awake and alert, appears uncomfortable Skin: Warm, dry, no pallor noted. Head: Atraumatic. Neck: No JVD. Eye: Normal conjunctiva. Ears, Nose, Mouth, and Throat: Moist mucous membranes Cardiovascular: Strong distal pulses. Chest wall: Respiratory: Respirations are nonlabored. Lungs clear to auscultation. Back: Normal range of motion, no CVA tenderness. Musculoskeletal: Normal ROM with no gross deformity. Gastrointestinal: Significant right upper quadrant tenderness with positive Mireles's. No rashes or lesions. Remainder the abdomen is nontender. Abdomen is soft. Urological: Neurological: Awake and alert. No focal deficits. Follows commands. GCS 15. Psychiatric: Cooperative. Medical Decision Making Laboratory studies reviewed and noted. With her significant right upper quadrant tenderness gallbladder ultrasound was obtained. This is discussed with seed laboratory technician as negative for acute findings. Patient is feeling improved here after treatment. With her negative ultrasound, possible etiologies such as gastritis or peptic ulcer disease are discussed. She will be discharged home with Carafate and is given GI follow-up. Patient was encouraged to return to the ED if symptoms worsen or change. Assessment/Plan Right upper quadrant abdominal pain (R10.11: Right upper quadrant pain) Orders: Al hydroxide/Mg hydroxide/simethicone, 30 mL, Susp-Oral, Oral, Once, Stop date 10/08/19 12:58:00 EST, STAT, Start date 10/08/19 12:58:00 EST atropine/hyoscyamine/PB/scop olamine, 10 mL, Elixir, Oral, Once, Stop date 10/08/19 12:58:00 EST, STAT, Start date 10/08/19 12:58:00 EST lidocaine topical, 200 mg, 10 mL, Soln-Oral, Oral, Once, Stop date 10/08/19 12:58:00 EST, STAT, Start date 10/08/19 12:58:00 EST morphine, 4 mg = 2 mL, Injection, IV Push, Once, Stop date 10/08/19 11:05:00 EST, STAT, Start date 10/08/19 11:05:00 EST morphine, 4 mg = 2 mL, Injection, IV Push, Once, Stop date 10/08/19 11:50:00 EST, STAT, Start date 10/08/19 11:50:00 EST ondansetron, 4 mg = 2 mL, Injection, IV Push, Once, Stop date 10/08/19 11:06:00 EST, STAT, Start date 10/08/19 11:06:00 EST Sodium Chloride 0.9% intravenous solution 1,000 mL, 1,000 mL, IV, 1,000 mL/hr, for 1 hour(s), Stop date 10/08/19 11:36:00 EST, STAT, Start date 10/08/19 10:37:00 EST, 1 hour(s), Total volume (mL): 1,000, Bolus Dose: 1,000 mL sucralfate, 1 gram = 10 mL, Oral, QID, X 7 day(s), # 280 mL, Refills(s) 0, Pharmacy: [facility], 165, cm, 10/08/19 10:25:00 EST, Height/Length Measured, 103, kg, 10/08/19 10:25:00 EST, Weight Measured Automated Diff Basic Metabolic Panel CBC w/ Auto Diff ECG 12 Lead Adult eGFR Extra Blue Tube Extra SST Tube Hepatic Function Panel Lipase Level Troponin 0 Hr. Urine Dipstick POC US Gallbladder Medications Administered Given NS 1000 ml Bolus 1,000 mL, 1000 mL, IV morphine 2 mg/mL Inj, 4 mg, IV Push morphine 2 mg/mL Inj, 4 mg, IV Push Zofran 4 mg/2 mL Injection, 4 mg, IV Push Disposition Plan Patient Discharge Condition Disposition: Discharged home Condition: Improved and stable Counseled: Patient and/or family were counseled to workup, results, treatment plan and follow-up recommendations Discharge Prescription List Prescriptions Carafate 1 g/10 mL Susp-Oral, 1 gram= 10 mL, Oral, QID Follow-up With When Contact Information Yudelka RIOS In 3 days 10/11/2019 [facility] [address] [place] [address]- Business (1) Additional Instructions: Rajesh Solo In 3 days 10/11/2019 [facility] [address] [place] [address]- Business (1) Additional Instructions: Patient Education Gastritis, Adult Abdominal Pain, Adult Attestation Patient seen and evaluated by the physician animal assistant. Attending physician was present in the emergency department and supervised care. This report was transcribed using voice recognition software. Every effort was made to ensure accuracy, however, inadvertently computerized croze cutter mistakes may be present. Problem List/Past Medical History Ongoing Smoker Historical No qualifying data Medications Inpatient morphine 2 mg/mL Inj, 4 mg= 2 mL, IV Push, Once NS 1000 ml Bolus 1,000 mL, 1000 mL, IV Zofran 4 mg/2 mL Injection, 4 mg= 2 mL, IV Push, Once Home No active home medications Allergies No Known Allergies Social History Alcohol - Denies Alcohol Use, 10/08/2019 Substance Abuse - Denies Substance Abuse, 10/08/2019 Tobacco - High Risk, 10/08/2019 Cigarettes, 10/08/2019 Lab Results WBC: 11.8 E9/L High (10/08/19 10:41:00) RBC: 4.7 E12/L (10/08/19 10:41:00) Hgb: 15.3 gm/dL (10/08/19 10:41:00) Hct: 44.6 % (10/08/19 10:41:00) MCV: 94.9 fL (10/08/19 10:41:00) MCH: 32.6 pg (10/08/19 10:41:00) MCHC: 34.4 gm/dL (10/08/19 10:41:00) RDW: 13.7 % (10/08/19 10:41:00) Platelet: 361 E9/L (10/08/19 10:41:00) MPV: 7.2 fL (10/08/19 10:41:00) Neutro Auto: 66.9 % (10/08/19 10:41:00) Lymph Auto: 25 % (10/08/19 10:41:00) [place] Auto: 6.9 % (10/08/19 10:41:00) Eos Auto: 1 % (10/08/19 10:41:00) Basophil Auto: 0.2 % (10/08/19 10:41:00) Neutro Absolute: 7.9 E9/L High (10/08/19 10:41:00) Lymph Absolute: 2.9 E9/L (10/08/19 10:41:00) [place] Absolute: 0.8 E9/L (10/08/19 10:41:00) Eos Absolute: 0.1 E9/L (10/08/19 10:41:00) Basophil Absolute: 0 E9/L (10/08/19 10:41:00) Glucose Lvl: 88 mg/dL (10/08/19 10:41:00) BUN: 12 mg/dL (10/08/19 10:41:00) Creatinine: 0.6 mg/dL (10/08/19 10:41:00) eGFR: >60 (10/08/19 10:41:00) eGFR AA: >60 (10/08/19 10:41:00) BUN/Creat Ratio: 20 (10/08/19 10:41:00) Sodium Lvl: 134 mmol/L Low (10/08/19 10:41:00) Potassium Lvl: 4.1 mmol/L (10/08/19 10:41:00) Chloride: 102 mmol/L (10/08/19 10:41:00) CO2: 21 mmol/L (10/08/19 10:41:00) AGAP: 15 mEq/L (10/08/19 10:41:00) Calcium Lvl: 9.5 mg/dL (10/08/19 10:41:00) Alk Phos: 77 Int._Unit/L (10/08/19 10:41:00) ALT: 64 Int._Unit/L High (10/08/19 10:41:00) AST: 47 Int._Unit/L High (10/08/19 10:41:00) Total Protein: 7.8 gm/dL (10/08/19 10:41:00) Albumin Lvl: 4.2 gm/dL (10/08/19 10:41:00) Globulin: 3.6 gm/dL (10/08/19 10:41:00) A/G Ratio: 1.2 (10/08/19 10:41:00) Bili Total: 0.4 mg/dL (10/08/19 10:41:00) Bili Direct: 0.1 mg/dL (10/08/19 10:41:00) Bili Indirect: 0.3 mg/dL (10/08/19 10:41:00) Lipase Lvl: 50 unit/L (10/08/19 10:41:00) Troponin: <0.03 (10/08/19 10:41:00) Diagnostic Results US Gallbladder 02/11/20 12:15:45 IMPRESSION: FATTY INFILTRATION OF A BORDERLINE ENLARGED LIVER. OTHERWISE, NEGATIVE LIMITED RIGHT UPPER QUADRANT ULTRASOUND. EXAM: US Gallbladder DATE: 10/08/2019 11:49 AM CLINICAL HISTORY: Worsening right upper quadrant pain, nausea and vomiting. COMPARISON: None available. TECHNIQUE: Transabdominal ultrasound of the right upper quadrant was performed. FINDINGS: The study is limited by the patient?s body habitus. The liver is borderline enlarged measuring approximately 18.5 cm in length. Mild to moderate increased echogenicity throughout the liver is consistent with fatty infiltration. There are no liver masses or other findings of concern identified, within the limits of the study. The gallbladder, poorly visualized pancreas, right kidney, and great vessels are unremarkable. There is no significant gallbladder distention, wall thickening, calculi, sludge, pericholecystic fluid, biliary dilatation, or ascites identified. The common duct measures approximately 5 mm at the abbie hepatis. Signed By: Javon SMITH, Pillo Kelly EKG Results EC10/08/19: SINUS RHYTHM EKG: Normal sinus rhythm rate is normocardic, the axis is normal there is no ectopy there are no acute ST changes. EKG interpretation by Dr. Esquivel. NORMAL ECG Signed By: Trevin Esquivel DO 10/08/2019 10:57:10 Normal [facility] Comment on above: Result Comment: Elec tronically Signed By: Rishi Martinez PA-C\.br\Date and Time Signed: 10/08/19 13:09 EST\.br\Electronically Co-Signed By: Trevin Esquivel DO\.br\Date and Time Co-Signed: 10/08/19 16:14 EST ED Patient Education Noteon 10-08-2019 ED Patient Education Note Emergency Medicine Abdominal Pain Many things can cause abdominal pain. Usually, abdominal pain is not caused by a disease and will improve without treatment. It can often be observed and treated at home. Your health care provider will do a physical exam and possibly order blood tests and X-rays to help determine the seriousness of your pain. However, in many cases, more time must pass before a clear cause of the pain can be found. Before that point, your health care provider may not know if you need more testing or further treatment. HOME CARE INSTRUCTIONS Monitor your abdominal pain for any changes. The following actions may help to alleviate any discomfort you are experiencing: ? Only take [id number] or prescription medicines as directed by your health care provider. ? Do not take laxatives unless directed to do so by your health care provider. ? Try a clear liquid diet (broth, tea, or water) as directed by your health care provider. Slowly move to a bland diet as tolerated. SEEK MEDICAL CARE IF: ? You have unexplained abdominal pain. ? You have abdominal pain associated with nausea or diarrhea. ? You have pain when you urinate or have a bowel movement. ? You experience abdominal pain that wakes you in the night. ? You have abdominal pain that is worsened or improved by eating food. ? You have abdominal pain that is worsened with eating fatty foods. ? You have a fever. SEEK IMMEDIATE MEDICAL CARE IF: ? Your pain does not go away within 2 hours. ? You keep throwing up (vomiting). ? Your pain is felt only in portions of the abdomen, such as the right side or the left lower portion of the abdomen. ? You pass bloody or black tarry stools. MAKE SURE YOU: ? Understand these instructions. ? ? Will watch your condition. ? ? Will get help right away if you are not doing well or get worse. ? Document Released: 05/24/2006 Document Revised: 08/19/2014 Document Reviewed: 04/23/2014 ExitCare? Patient Information ?2015 [employer]. This information is not intended to replace advice given to you by your health care provider. Make sure you discuss any questions you have with your health care provider. Family Medicine Gastritis, Adult Gastritis is soreness and swelling (inflammation) of the lining of the stomach. Gastritis can develop as a sudden onset (acute) or long-term (chronic) condition. If gastritis is not treated, it can lead to stomach bleeding and ulcers. CAUSES Gastritis occurs when the stomach lining is weak or damaged. Digestive juices from the stomach then inflame the weakened stomach lining. The stomach lining may be weak or damaged due to viral or bacterial infections. One common bacterial infection is the Helicobacter pylori infection. Gastritis can also result from excessive alcohol consumption, taking certain medicines, or having too much acid in the stomach. SYMPTOMS In some cases, there are no symptoms. When symptoms are present, they may include: ? Pain or a burning sensation in the upper abdomen. ? Nausea. ? Vomiting. ? An uncomfortable feeling of fullness after eating. DIAGNOSIS Your caregiver may suspect you have gastritis based on your symptoms and a physical exam. To determine the cause of your gastritis, your caregiver may perform the following: ? Blood or stool tests to check for the H pylori bacterium. ? Gastroscopy. A thin, flexible tube (endoscope) is passed down the esophagus and into the stomach. The endoscope has a light and camera on the end. Your caregiver uses the endoscope to view the inside of the stomach. ? Taking a tissue sample (biopsy) from the stomach to examine under a microscope. TREATMENT Depending on the cause of your gastritis, medicines may be prescribed. If you have a bacterial infection, such as an H pylori infection, antibiotics may be given. If your gastritis is caused by too much acid in the stomach, H2 blockers or antacids may be given. Your caregiver may recommend that you stop taking aspirin, ibuprofen, or other nonsteroidal anti-inflammatory drugs (NSAIDs). HOME CARE INSTRUCTIONS ? Only take [id number] or prescription medicines as directed by your caregiver. ? If you were given antibiotic medicines, take them as directed. Finish them even if you start to feel better. ? Drink enough fluids to keep your urine clear or pale yellow. ? Avoid foods and drinks that make your symptoms worse, such as: ? Caffeine or alcoholic drinks. ? Chocolate. ? Peppermint or mint flavorings. ? Garlic and onions. ? Spicy foods. ? [place] fruits, such as oranges, todd, or limes. ? Tomato-based foods such as sauce, chili, salsa, and pizza. ? Fried and fatty foods. ? Eat small, frequent meals instead of large meals. SEEK IMMEDIATE MEDICAL CARE IF: ? You have black or dark red stools. ? You vomit blood or material that looks like coffee grounds. ? You are unable to keep fluids down. ? Your abdominal pain gets worse. ? You have a fever. ? You do not feel better after 1 week. ? You have any other questions or concerns. MAKE SURE YOU: ? Understand these instructions. ? Will watch your condition. ? Will get help right away if you are not doing well or get worse. Document Released: 08/08/2002 Document Revised: 02/12/2013 Document Reviewed: 09/26/2012 ExitCare? Patient Information ?2015 [employer]. This information is not intended to replace advice given to you by your health care provider. Make sure you discuss any questions you have with your health care provider. Normal [facility] ED Patient Summaryon 020 ED Patient Summary [address] [address] Patient Discharge Instructions Person Information Name: MAGGIE DEL ROSARIO Age: 43 Years Arrival Date: 10/08/2019 10:18:57 Discharge Diagnosis: Right upper quadrant abdominal pain Primary Care Physician: Rajesh Solo DO Provider Information Primary Provider: Trevin Esquivel DO Advanced Watch Inspector Final Movement:Rishi Martinez PA-C The exam and treatment you received in the Emergency Department were for an urgent problem and are not intended as complete care. It is important that you follow up with a doctor, nurse practitioner, or physician?s animal assistant for ongoing care. If your symptoms become worse or you do not improve as expected and you are unable to reach your usual health care provider, you should return to the Emergency Department. We are available 24 hours a day. MAGGIE DEL ROSARIO has been given the following list of patient education materials, prescriptions and follow-up instructions: Follow-up Instructions: With: Address: When: [facility], [address] [place] [address] Business (1) In 3 days 10/11/2019 With: Address: When: Rajesh Solo [address] [place] [address] Business (1) In 3 days 10/11/2019 In the event that this physician does not participate in your insurance network, please consult with your insurance company to find a nearby participating provider. Patient Education Materials: Gastritis, Adult; Abdominal Pain, Adult A MESSAGE TO ALL PATIENTS REGARDING OPIOIDS PRESCRIPTION OPIOIDS: WHAT YOU NEED TO KNOW Prescription opioids can be used to help relieve muuqmwhi-ji-zjmrls pain and are often prescribed following a surgery or injury, or for certain health conditions. These medications can be an important part of the treatment but also come with serious risks. It is important to work with your healthcare provider to make sure you are getting the safest, most effective care. WHAT ARE THE RISKS AND SIDE EFFECTS OF OPIOID USE? Prescription opioids carry serious risks of addiction and overdose, especially with prolonged use. An opioid overdose, often marked by slowed breathing, can cause sudden . The use of prescription opioids can have a number of side effects as well, even when taken as directed: ? Tolerance?meaning you might need to take more of the medication for the same pain relief ? Physical dependence?meaning you have symptoms of withdrawal when a medication is stopped ? Increased sensitivity to pain ? Constipation ? Nausea, vomiting, and dry mouth ? Sleepiness and dizziness ? Confusion ? Depression ? Low levels of testosterone that can result in lower sex drive, energy, and strength ? Itching and sweating RISKS ARE GREATER WITH: ? History of drug misuse, substance use disorder, or overdose ? Mental health conditions (such as depression or anxiety) ? Sleep apnea ? Older age (65 years and older) ? Avoid alcohol while taking prescription opioids. Also, unless specifically advised by your health care provider, medications to avoid include: ? Benzodiazepines (such as Xanax or Valium) ? Muscle relaxants (such as Soma or Flexeril) ? Hypnotics (such as Ambien or Lunesta) ? Other prescription opioids KNOW YOUR OPTIONS Talk to your health care provider about ways to manage your pain that don?t involve prescription opioids. Some of these options may actually work better and have fewer risks and side effects. Options may include: ? Pain relievers such as acetaminophen, ibuprofen, and naproxen ? Some medication that are also used for depression or seizures ? Physical therapy and exercise ? Cognitive behavioral therapy, a psychological, goal-directed approach, in which patients learn how to modify physical, behavioral, and emotional triggers of pain and stress. IF YOU ARE PRESCRIBED OPIOIDS FOR PAIN: ? Never take opioids in greater amounts or more often than prescribed. ? Follow up with your primary health care provider. o Work together to create a plan on how to manage your pain. o Talk about ways to help manage your pain that don?t involve prescription opioids. o Talk about any and all concerns and side effects. ? Help prevent misuse and abuse o Never sell or share prescription opioids. o Never use another person?s prescription opioids. ? Store prescription opioids in a secure place and out of reach of others (this may include visitors, children, friends, and family). ? Safely dispose of unused prescription opioids: Find your community drug take-back program or your pharmacy mail-back program, or flush them down the toilet, following guidance from the Food and Drug Administration (www.fda.gov/Drugs/Resources ForYou). ? Visit www.cdc.gov/drugoverdose to learn about the risks of opioids abuse and overdose. ? If you believe you may be struggling with addiction, tell your health medicare contact specialist and ask for guidance or call [facility]S National Helpline at 7-819-389-DLII. b Source: US Department of Health and Human Services/Center for Disease Control & Prevention [facility] Medications Given: Medication Dose Route Sodium Chloride 0.9% intravenous solution 1000.00 mL Initial Volume 1000.00 mL/hr IV Right Hand morphine 4.00 mg IV Push Right Hand ondansetron 4.00 mg IV Push Right Hand morphine 4.00 mg IV Push Right Hand Al hydroxide/Mg hydroxide/simethicone 30.00 mL Oral atropine/hyoscyamine/PB/scop olamine 10.00 mL Oral lidocaine topical 200.00 mg Oral Medication Information: [facility], [address], [place] [id number], [phone] sucralfate (Carafate 1 g/10 mL Susp-Oral) 10 Milliliter By Mouth 4 times a day for 7 Days. Refills: 0. Comment: Pharmacy Information: Thank you for choosing [facility] Patient Education Materials: Gastritis, Adult Gastritis is soreness and swelling (inflammation) of the lining of the stomach. Gastritis can develop as a sudden onset (acute) or long-term (chronic) condition. If gastritis is not treated, it can lead to stomach bleeding and ulcers. CAUSES Gastritis occurs when the stomach lining is weak or damaged. Digestive juices from the stomach then inflame the weakened stomach lining. The stomach lining may be weak or damaged due to viral or bacterial infections. One common bacterial infection is the Helicobacter pylori infection. Gastritis can also result from excessive alcohol consumption, taking certain medicines, or having too much acid in the stomach. SYMPTOMS In some cases, there are no symptoms. When symptoms are present, they may include: ? Pain or a burning sensation in the upper abdomen. ? Nausea. ? Vomiting. ? An uncomfortable feeling of fullness after eating. DIAGNOSIS Your caregiver may suspect you have gastritis based on your symptoms and a physical exam. To determine the cause of your gastritis, your caregiver may perform the following: ? Blood or stool tests to check for the H pylori bacterium. ? Gastroscopy. A thin, flexible tube (endoscope) is passed down the esophagus and into the stomach. The endoscope has a light and camera on the end. Your caregiver uses the endoscope to view the inside of the stomach. ? Taking a tissue sample (biopsy) from the stomach to examine under a microscope. TREATMENT Depending on the cause of your gastritis, medicines may be prescribed. If you have a bacterial infection, such as an H pylori infection, antibiotics may be given. If your gastritis is caused by too much acid in the stomach, H2 blockers or antacids may be given. Your caregiver may recommend that you stop taking aspirin, ibuprofen, or other nonsteroidal anti-inflammatory drugs (NSAIDs). HOME CARE INSTRUCTIONS ? Only take hbls-sdi-asrhccw or prescription medicines as directed by your caregiver. ? If you were given antibiotic medicines, take them as directed. Finish them even if you start to feel better. ? Drink enough fluids to keep your urine clear or pale yellow. ? Avoid foods and drinks that make your symptoms worse, such as: ? Caffeine or alcoholic drinks. ? Chocolate. ? Peppermint or mint flavorings. ? Garlic and onions. ? Spicy foods. ? [place] fruits, such as oranges, todd, or limes. ? Tomato-based foods such as sauce, chili, salsa, and pizza. ? Fried and fatty foods. ? Eat small, frequent meals instead of large meals. SEEK IMMEDIATE MEDICAL CARE IF: ? You have black or dark red stools. ? You vomit blood or material that looks like coffee grounds. ? You are unable to keep fluids down. ? Your abdominal pain gets worse. ? You have a fever. ? You do not feel better after 1 week. ? You have any other questions or concerns. MAKE SURE YOU: ? Understand these instructions. ? Will watch your condition. ? Will get help right away if you are not doing well or get worse. Document Released: 08/08/2002 Document Revised: 02/12/2013 Document Reviewed: 09/26/2012 ExitCare? Patient Information ?2015 [employer]. This information is not intended to replace advice given to you by your health care provider. Make sure you discuss any questions you have with your health care provider. Abdominal Pain Many things can cause abdominal pain. Usually, abdominal pain is not caused by a disease and will improve without treatment. It can often be observed and treated at home. Your health care provider will do a physical exam and possibly order blood tests and X-rays to help determine the seriousness of your pain. However, in many cases, more time must pass before a clear cause of the pain can be found. Before that point, your health care provider may not know if you need more testing or further treatment. HOME CARE INSTRUCTIONS Monitor your abdominal pain for any changes. The following actions may help to alleviate any discomfort you are experiencing: ? Only take kjbr-nnu-tuxkcgq or prescription medicines as directed by your health care provider. ? Do not take laxatives unless directed to do so by your health care provider. ? Try a clear liquid diet (broth, tea, or water) as directed by your health care provider. Slowly move to a bland diet as tolerated. SEEK MEDICAL CARE IF: ? You have unexplained abdominal pain. ? You have abdominal pain associated with nausea or diarrhea. ? You have pain when you urinate or have a bowel movement. ? You experience abdominal pain that wakes you in the night. ? You have abdominal pain that is worsened or improved by eating food. ? You have abdominal pain that is worsened with eating fatty foods. ? You have a fever. SEEK IMMEDIATE MEDICAL CARE IF: ? Your pain does not go away within 2 hours. ? You keep throwing up (vomiting). ? Your pain is felt only in portions of the abdomen, such as the right side or the left lower portion of the abdomen. ? You pass bloody or black tarry stools. MAKE SURE YOU: ? Understand these instructions. ? ? Will watch your condition. ? ? Will get help right away if you are not doing well or get worse. ? Document Released: 05/24/2006 Document Revised: 08/19/2014 Document Reviewed: 04/23/2014 ExitCare? Patient Information ?2014 [employer]. This information is not intended to replace advice given to you by your health care provider. Make sure you discuss any questions you have with your health care provider. MIGUEL ÁNGEL Aguirre LISA L , have received the following patient education materials/instructions and have verbalized understanding: Patient Education Materials: Gastritis, Adult; Abdominal Pain, Adult Follow-up Instructions: With: Address: When: [facility], [address] [place], [place] [address]krist[facility] [place] [address] Business (1) In 3 days 10/11/2019 With: Address: When: [address] [address] Business (1) In 3 days 10/11/2019 Patient Signature Date Clinician/Nurse Signature Date 10/08/2019 13:21:33 Normal [facility] Hep Func Panelon 10-08-2019 Albumin [Mass/Vol] 4.2 g/dL Normal 3.3-5.0 [facility] Comment on above: Performed By: #### 2 [id number], [id number], 6128938, [id number] #### [facility] [address] [place] [address] Albumin [Mass/Vol] 1.2 g/dL Normal 1.1-2.2 [facility] Comment on above: Performed By: #### 2 612383, 8305674, 4330038, [id number] #### [facility] [address] [place] [address] Bilirubin [Mass/Vol] 0.4 mg/dL Normal 0.0-1.1 [facility] Comment on above: Performed By: #### 2 407356, 6057977, 0783711, [id number] #### [facility] [address] [place] [address] Bilirubin.direct [Mass/Vol] 0.3 mg/dL Normal 0.1-0.9 [facility] Comment on above: Performed By: #### 2 707549, 6040903, 1466978, [id number] #### [facility] [address] [place] [address] Globulin (S) [Mass/Vol] 3.6 g/dL Normal 1.4-4.0 [facility] Comment on above: Performed By: #### 2 719361, 5506774, 9565084, [id number] #### [facility] [address] [place] [address] Protein [Mass/Vol] 7.8 g/dL Normal 6.0-7.8 [facility] Comment on above: Performed By: #### 2 773713, 7606586, 9421624, 26583133 #### [facility] [address] [place] [address] ALP [Catalytic activity/Vol] 77 Int._Unit/L Normal 21-98 [facility] Comment on above: Performed By: #### 2 847780, 9895463, 0015688, [id number] #### [facility] [address] [place] [address] ALT No additional P-5'-P [Catalytic activity/Vol] 64 Int._Unit/L High 6-46 [facility] Comment on above: Performed By: #### 2 672127, 1541311, 7786287, 62702302 #### [facility] [address] [place] [address] AST [Catalytic activity/Vol] 47 Int._Unit/L High 5-43 [facility] Comment on above: Performed By: #### 2 852286, 6684715, 8888746, 88318060 #### [facility] [address] [place] [address] Bilirubin.direct [Mass/Vol] 0.1 mg/dL Normal 0.1-0.4 [facility] Comment on above: Performed By: #### 2 508913, 5509964, 3773306, 72215273 #### [facility] [address] [place] [address] Lipase Levelon 10-08-2019 Lipase [Catalytic activity/Vol] 50 unit/L Normal 13-58 [facility] Comment on above: Performed By: #### 2 237754, 2671063, 9802957, 21300801 #### [facility] [address] [place] [address] Troponin 0 Hr.on 10-08-2019 Troponin I.cardiac [Mass/Vol] ng/mL Normal <=0.03 [facility] Comment on above: Result Comment: New Troponin Assay 01/09/14 [place] Cutoff value > or = 0.03 ng/mL in conjunction with clinical conditions of myocardial infarction. ([email or web address].org/guidelines) Performed By: #### 2 053915, 4037136, 8902702, [id number] #### [facility] [address] [place] [address] US Gallbladderon 10-08-2019 US Gallbladder Exam Date/Time: 10/08/2019 12:08 EST Reason for Exam: Abdominal pain Report IMPRESSION: FATTY INFILTRATION OF A BORDERLINE ENLARGED LIVER. OTHERWISE, NEGATIVE LIMITED RIGHT UPPER QUADRANT ULTRASOUND. EXAM: US Gallbladder DATE: 10/08/2019 11:49 AM CLINICAL HISTORY: Worsening right upper quadrant pain, nausea and vomiting. COMPARISON: None available. TECHNIQUE: Transabdominal ultrasound of the right upper quadrant was performed. FINDINGS: The study is limited by the patient's body habitus. The liver is borderline enlarged measuring approximately 18.5 cm in length. Mild to moderate increased echogenicity throughout the liver is consistent with fatty infiltration. There are no liver masses or other findings of concern identified, within the limits of the study. The gallbladder, poorly visualized pancreas, right kidney, and great vessels are unremarkable. There is no significant gallbladder distention, wall thickening, calculi, sludge, pericholecystic fluid, biliary dilatation, or ascites identified. The common duct measures approximately 5 mm at the abbie hepatis. FINAL REPORT Dictated: 10/08/2019 12:12 pm Pillo Alejandro MD Signed (Electronic Signature): 10/08/2019 12:12 pm Signed by: Pillo Alejandro MD Transcribed by: IMAN Technologist: HW Normal [facility] eGFRon 10-08-2019 GFR/1.73 sq M predicted among blacks MDRD (S/P/Bld) [Vol rate/Area] mL/min/{1.73_m2} Normal >=59 [facility] Comment on above: Order Comment: Order added by Discern Expert. Result Comment: eGFR is race adjusted. AA=. Performed By: #### 2 053401, 5236656, 4177655, [id number] #### [facility] [address] [place] [address] GFR/1.73 sq M predicted among non-blacks MDRD (S/P/Bld) [Vol rate/Area] mL/min/{1.73_m2} Normal >=59 [facility] Comment on above: Order Comment: Order added by Discern Expert. Result Comment: Boring Mill Operator bhavin kidney disease could be indicated at eGFR's of less than 60 mL/min/1.73m2. Kidney failure is indicated at less than 15 mL/min/1.73m2. Performed By: #### 2 463560, 7397697, 3693828, [id number] #### [facility] [address] [place] [address] Coding Summary.on 12-24-2018 Coding Summary. CODING DATE: 019 FINAL [facility] STATUS: Home (Routine DC) PAYOR: Self Pay APC DESCRIPTION 8005 CT and CTA without Contrast Composite 5024 Level 4 Type A ED Visits ADMIT DX: REASON FOR VISIT DX: S01.511A Laceration without foreign body of lip, initial encounter FINAL DX: PRINCIPAL: S06.0X1A Concussion with loss of consciousness of 30 minutes or less, initial encounter SECONDARY: S01.511A Laceration without foreign body of lip, initial encounter W10.9XXA Fall (on) (from) unspecified stairs and steps, initial encounter F10.929 Alcohol use, unspecified with intoxication, unspecified PYMT PROC APC STAT DESCRIPTION DOCTOR NAME DATE NOTE: The code number assigned matches the documented diagnosis and / or procedure in the patient's chart. However, the narrative phrase printed from the coding software may appear abbreviated, or result in slightly different terminology. Revised Coded By: Koki Reid Revised Date Saved: 12/24/2018 08:11 am Normal [facility] Auto Diffon 12-23-2018 Basophils/100 WBC (Bld) 0.7 % Normal 0.0-2.0 [facility] Comment on above: Order Comment: Order Added by Discern Expert. Performed By: #### 2 869902, 4339616, 0471833, [id number] #### [facility] [address] [place] [address] Basophils/Leukocy cj Auto (Bld) [Pure # fraction] 0.1 E9/L Normal 0.0-0.2 [facility] Comment on above: Order Comment: Order Added by Discern Expert. Performed By: #### 2 334568, 8531497, 1411823, 73467952 #### [facility] [address] [place] [address] Eosinophils/100 WBC (Bld) 1.1 % Normal 0.0-8.0 [facility] Comment on above: Order Comment: Order Added by Discern Expert. Performed By: #### 2 970589, 9068970, 0176532, 78772710 #### [facility] [address] [place] [address] Eosinophils/Leuko cytes Auto (Bld) [Pure # fraction] 0.1 E9/L Normal 0.0-0.5 [facility] Comment on above: Order Comment: Order Added by Discern Expert. Performed By: #### 2 300076, 5532812, 3935447, 90309798 #### [facility] [address] [place] [address] Lymphocytes/100 WBC (Bld) 37.9 % Normal 14.0-50.0 [facility] Comment on above: Order Comment: Order Added by Discern Expert. Performed By: #### 2 218611, 1817842, 5779352, 82079539 #### [facility] [address] [place] [address] Lymphocytes/Leuko cytes Auto (Bld) [Pure # fraction] 4.2 E9/L High 1.0-4.0 [facility] Comment on above: Order Comment: Order Added by Discern Expert. Performed By: #### 2 892103, 1284460, 8100707, 25015998 #### [facility] [address] [place] [address] Monocytes/100 WBC (Bld) 5.3 % Normal 4.0-14.0 [facility] Comment on above: Order Comment: Order Added by Discern Expert. Performed By: #### 2 719776, 4561817, 8783362, 44987478 #### [facility] [address] [place] [address] Monocytes/Leukocy cj Auto (Bld) [Pure # fraction] 0.6 E9/L Normal 0.2-1.0 [facility] Comment on above: Order Comment: Order Added by Discern Expert. Performed By: #### 2 349248, 1955222, 9668124, 62233634 #### [facility] [address] [place] [address] Neutrophils/100 WBC (Bld) 55.0 % Normal 36.0-75.0 [facility] Comment on above: Order Comment: Order Added by Discern Expert. Performed By: #### 2 727071, 0176506, 1907912, 83745445 #### [facility] [address] [place] [address] Neutrophils/Leuko cytes Auto (Bld) [Pure # fraction] 6.1 E9/L Normal 2.0-7.5 [facility] Comment on above: Order Comment: Order Added by Discern Expert. Performed By: #### 2 659453, 2555169, 3599856, 69661412 #### [facility] [address] [place] [address] BMPon 12-23-2018 Creatinine [Mass/Vol] 0.6 mg/dL Normal 0.5-1.3 [facility] Comment on above: Performed By: #### 2 437030, 7647142, 4847274, 36614374 #### [facility] [address] [place] [address] Urea nitrogen [Mass/Vol] 10 mg/dL Normal 5-21 [facility] Comment on above: Performed By: #### 2 535520, 7919593, 1435069, 91292377 #### [facility] [address] [place] [address] Urea nitrogen/Creatini ne [Mass ratio] 17 No Units Normal 10-20 [facility] Comment on above: Performed By: #### 2 944655, 4508718, 9176889, 23793525 #### [facility] [address] [place] [address] Anion gap [Moles/Vol] 15 mmol/L Normal 6-16 [facility] Comment on above: Performed By: #### 2 915170, 0073068, 8215365, 60492421 #### [facility] [address] [place] [address] Calcium [Mass/Vol] 10.1 mg/dL Normal 8.9-11.1 [facility] Comment on above: Performed By: #### 2 196627, 6371850, 7237993, 71734084 #### [facility] [address] [place] [address] Chloride [Moles/Vol] 99 mmol/L Low 101-111 [facility] Comment on above: Performed By: #### 2 196670, 2450767, 6817530, 35379062 #### [facility] [address] [place] [address] CO2 [Moles/Vol] 22 mmol/L Normal 21-31 [facility] Comment on above: Performed By: #### 2 472432, 3070168, 9891772, 02555745 #### [facility] [address] [place] [address] Glucose [Mass/Vol] 137 mg/dL Normal 55-199 [facility] Comment on above: Result Comment: If t his glucose result represents a fasting glucose, interpretation should refer to the following reference range: 55-99 mg/dL Performed By: #### 2 831120, 6425537, 8463233, 36711373 #### [facility] [address] [place] [address] Potassium [Moles/Vol] 3.1 mmol/L Low 3.5-5.3 [facility] Comment on above: Performed By: #### 2 747765, 4121839, 5138424, 13455578 #### [facility] [address] [place] [address] Sodium [Moles/Vol] 133 mmol/L Low 135-145 [facility] Comment on above: Performed By: #### 2 498694, 2463260, 2112290, 93965758 #### [facility] [address] [place] [address] CBC w/ Auto Diffon Erythrocyte distribution width (RBC) [Ratio] 13.0 % Normal 10.9-14.2 [facility] Comment on above: Performed By: #### 2 529096, 7868929, 7399505, 90221589 #### [facility] [address] [place] [address] Hematocrit (Bld) [Volume fraction] 45.9 % Normal 34.0-46.0 [facility] Comment on above: Performed By: #### 2 915007, 8892605, 4374303, 14886835 #### [facility] [address] [place] [address] Hemoglobin (Bld) [Mass/Vol] 15.7 g/dL Normal 12.0-16.0 [facility] Comment on above: Performed By: #### 2 389402, 4744800, 7146946, 67490572 #### [facility] [address] [place] [address] MCH (RBC) [Entitic mass] 32.8 pg Normal 27.0-34.0 [facility] Comment on above: Performed By: #### 2 235178, 0425465, 2736475, 75475305 #### [facility] [facility] [address] [place] [address] [id number] MCHC (RBC) [Mass/Vol] 34.2 g/dL Normal 33.3-35.7 [facility] Comment on above: Performed By: #### 2 [id number] #### [facility] [address] [place] [address] 28401 MCV (RBC) [Entitic vol] 95.9 fL Normal 80.0-100.0 [facility] Comment on above: Performed By: #### 2 [id number], [id number] #### [facility] [address] [place] [address] [id number] Platelet mean volume (Bld) [Entitic vol] 7.5 fL Normal 6.4-10.8 [facility] Comment on above: Performed By: #### 2 [id number], [id number] #### [facility] [address] [place] [address] [id number] Platelets (Bld) [#/Vol] 373.0 E9/L Normal 150.0-500.0 [facility] Comment on above: Performed By: #### 2 [id number], [id number] #### [facility] [address] [place] [address] 16499 RBC (Bld) [#/Vol] 4.8 E12/L Normal 4.3-5.9 [facility] Comment on above: Performed By: #### 2 [id number], [id number], [id number] #### [facility] [address] [place] [address] WBC corrected for nucl RBC Auto (Bld) [#/Vol] 11.2 E9/L High 4.0-11.0 [facility] Comment on above: Performed By: #### 2 [id number], [id number], [id number], [id number] #### [facility] [address] [place] [address] CT Head or Brain w/o Contras ton 12-23-2018 CT Head or Brain w/o Contrast Exam Date/Time: 12/23/2018 02:20 EDT Reason for Exam: Injury Report IMPRESSION: NO EVIDENCE FOR ACUTE INTRACRANIAL PROCESS. MUCOSAL THICKENING LEFT MAXILLARY SINUS. RHINITIS. CLINICAL HISTORY: Trauma level 2. Patient fell down a flight of stairs. Head and neck pain. COMPARISONS: NONE TECHNIQUE: Unenhanced brain CT . FINDINGS: The ventricles are normal in position. No focal abnormalities are seen within the brain parenchyma. There is no evidence of mass effect. There is no significant atrophy. There is normal brian- white matter differentiation. There is no evidence of hemorrhage. Mucosal thickening in the left maxillary sinus. Mastoid air cells are clear. Views of the skull are unremarkable. The orbits are unremarkable. Nasal septum is deviated to the right. There is hypertrophy of nasal turbinates, consistent with rhinitis. All CT scans at this facility use dose modulation, iterative reconstruction, and/or weight based dosing when appropriate to reduce radiation dose to as low as reasonably achievable. FINAL REPORT Dictated: 12/23/2018 8:12 am Meliza Fontaine MD Signed (Electronic Signature): 12/23/2018 8:12 am Signed by: Meliza oFntaine MD Transcribed by: IMAN Technologist: HAIDER Normal [facility] CT Spine Cervical w/o Contra ston 12-23-2018 CT Spine Cervical w/o Contrast Exam Date/Time: 12/23/2018 02:20 EDT Reason for Exam: Trauma Report IMPRESSION: DEGENERATIVE CHANGES WITHOUT EVIDENCE OF ACUTE FRACTURE OR MALALIGNMENT. CLINICAL HISTORY: Trauma level 2. Patient fell down a flight of stairs. Head and neck pain. COMPARISONS: NONE TECHNIQUE: Thin axial sections were obtained through the cervical spine. Images were reformatted in the coronal and sagittal projections. FINDINGS: There is reversal of normal cervical lordosis. There is good alignment of the spine present. No fracture nor spondylolisthesis is seen. There are some narrowing of the C5-C6 and C6-C7 disc levels with posterior bony spurring. The prevertebral soft tissues are unremarkable. The pulmonary apices are clear. Please note subtle soft tissue abnormalities can be obscured in these radiographic setting. Degenerative changes atlantoaxial joint. No definite central canal stenosis. C4/5: Unremarkable. C5/6: Mild narrowing of disc with mild bilateral posterior lateral bony spurring. C6/7: Mild narrowing of disc with mild bilateral posterior lateral bony spurring. C7/T1: Mild bilateral posterior lateral bony spurring. All CT scans at this facility use dose modulation, iterative reconstruction, and/or weight based dosing when appropriate to reduce radiation dose to as low as reasonably achievable. FINAL REPORT Dictated: 12/23/2018 8:18 am Meliza Fontaine MD Signed (Electronic Signature): 12/23/2018 8:18 am Signed by: Meliza Fontaine MD Transcribed by: IMAN Technologist: HAIDER Mcmanus [facility] ED Clinical Summaryon 2018 ED Clinical Summary [place] [id number] ED Clinical Summary Person Information Name: MAGGIE DEL ROSARIO [facility] Age: 43 Years : 1975 12:00 AM Sex: Female Language: Azerbaijani PCP: Rajesh Solo DO Marital Status: Single Phone: [phone] Visit Id: Visit Reason: Fall; PT FELL DOWN STEPS Speciality: Acuity: 3 Enc Type: Emergency Med Service: Emergency Arrival: 12/23/2018 1:53 AM Discharge: 12/23/2018 3:33 AM LOS: 000 01:40 Checkin: 12/23/2018 1:53 AM Checkout: 12/23/2018 3:33 AM Dispo Type: Home (Routine DC) EVENTS: Event Name Event Status Request Date/Time Start Date/Time Complete Date/Time Arrive Complete 12/23/2018 1:53 AM 12/23/2018 1:53 AM 12/23/2018 1:53 AM Document Home Meds Request 12/23/2018 1:53 AM Triage Complete 12/23/2018 1:53 AM 12/23/2018 2:33 AM 12/23/2018 2:33 AM Bed Assign Complete 12/23/2018 1:56 AM 12/23/2018 1:56 AM 12/23/2018 1:[address] Exam Complete 12/23/2018 1:56 AM 12/23/2018 2:08 AM 12/23/2018 2:08 AM RN Exam Request 12/23/2018 1:56 AM Pending Labs Complete 12/23/2018 2:00 AM 12/23/2018 2:44 AM Lab Complete 12/23/2018 2:00 AM 12/23/2018 2:[address] Complete 12/23/2018 2:00 AM 12/23/2018 2:11 AM 12/23/2018 2:20 AM Pending Labs Complete 12/23/2018 2:08 AM 12/23/2018 2:08 AM 12/23/2018 2:32 AM Lab Complete 12/23/2018 2:08 AM 12/23/2018 2:08 AM 12/23/2018 2:32 AM Registration Complete 12/23/2018 2:08 AM 12/23/2018 3:18 AM 12/23/2018 3:18 AM Trauma Request 12/23/2018 2:11 AM Pending Labs Complete 12/23/2018 2:23 AM 12/23/2018 2:23 AM 12/23/2018 2:24 AM Lab Complete 12/23/2018 2:23 AM 12/23/2018 2:23 AM 12/23/2018 2:24 AM Discharge Complete 12/23/2018 3:14 AM 12/23/2018 3:33 AM 12/23/2018 3:33 AM Reg Complete Request 12/23/2018 3:18 AM Reg Bed Request Complete 12/23/2018 3:18 AM 12/23/2018 3:18 AM 12/23/2018 3:18 AM Transfer Complete 12/23/2018 3:33 AM 12/23/2018 3:33 AM 12/23/2018 3:33 AM ADDRESS: [address] [place] [id number] PHYS DOC NOTES: MEDICAL INFORMATION: Prescriptions Given: PATIENT EDUCATION INFORMATION: Instructions: Alcohol Intoxication; Concussion, Adult, Zbib-fn-Wnay; Open Wound, Lip, Wkhc-ci-Ctkj; Mouth Laceration, Rrca-pq-Ehlv Follow up: With: Address: When: WHITNEY KENNEDY [address] [place] [address] [place] [address] Business (1) Within 1 to 2 days, only if needed DIAGNOSIS: 1:Acute alcohol intoxication; 2:Concussion with loss of consciousness <= 30 min; 3:Lip laceration Normal [facility] ED Note-Physicianon 12-24-19 ED Note-Physician Basic Information Time Seen: Juan Francisco Munoz MD 12/23/2018 02:09 Chief Complaint pt fell down aprox half flight stairs to floor. loc and confusion initially. pt lac to upper lip. History of Present Illness 43-year-old female brought by ambulance after a fall down half a flight of steps. Patient had been drinking tonight and apparently fell. She is amnesic with regard to the injury but does recall the ambulance squad at the scene. She does not complain of pain at this time. She does admit to the alcohol. She denies any headache pain neck pain chest pain or abdominal pain. There is no back pain she denies any pain in extremities. Review of Systems Additional ROS info: Except as noted in the above Review of Systems and in the History of Present Illness all other systems have been reviewed and are negative or noncontributory.Unless otherwise stated in this report the patient's positive and negative responses for review of systems for constitutional, eyes, ENT, cardiovascular, respiratory, gastrointestinal, neurological, , musculoskeletal, and integument systems and related systems to the presenting problem are either stated in the history of present illness or were not pertinent or were negative for the symptoms and/or complaints related to the presenting medical problemOS Physical Exam Vitals & Measurements T: 36.6 ?C (Tympanic) HR: 114(Peripheral) RR: 16 BP: 167/101 SpO2: 94% WT: 103 kg This is a overweight 43-year-old female she is awake and attentive [place] Coma Scale 15. There is a superficial laceration just to the left of midline on the mucosal surface of the upper lip. Pupils are round equal and reactive extraocular muscles do show lateral gaze nystagmus left and right. The rest of the scalp is nontender. C-collar was removed briefly the neck was palpated there is no point tenderness. C-collar was in placed in position again. Chest wall is nontender to palpation. Breath sounds are equal left and right there is full inspiration without splinting. The heart is regular slightly accelerated. The abdomen is obese soft and nontender. Pelvis is nontender and AP lateral compression. Extremities show full range of motion with normal and symmetric strength. The back is nontender. Medical Decision Making The c-collar was removed. The patient again awake fully oriented. I was able to examine the lip a second time. The laceration is somewhat irregular I did recommend stitches it probably could take 3 stitches to approximate the wound. The wound does not cross the vermilion border. The patient at this time refuses stitches. I did explain to her that she does have about a 12 are window in which we could come back later and put the stitches in. If she changes her mind she can return for stitches. The patient will go home with her father and her daughter. She was cautioned against not driving for the next 12 hours because of her alcohol level. And any dangerous activity such as stairs should be done with assistance. Assessment/Plan 1. Acute alcohol intoxication 2. Concussion with loss of consciousness <= 30 min 3. Lip laceration Orders: Automated Diff Basic Metabolic Panel CBC w/ Auto Diff CT Head or Brain w/o Contrast CT Spine Cervical w/o Contrast eGFR Ethanol Level Disposition Plan Patient Discharge Condition Stable Discharge Disposition Home Discharge Prescription List Prescriptions No active prescription medications Follow-up With When Contact Information WHITNEY KENNEDY Within 1 to 2 days, only if needed [address] [place] [address]- [facility] (1) Additional Instructions: Patient Education Alcohol Intoxication Concussion, Adult, Wbhh-au-Rvyi Open Wound, Lip, Kxqq-wy-Vycs Mouth Laceration, Ioet-nm-Wjmh Problem List/Past Medical History Ongoing No qualifying data Historical No qualifying data Medications Inpatient No active inpatient medications Home No active home medications Allergies No Known Allergies Lab Results WBC: 11.2 E9/L High (12/23/18 01:55:00 EDT) RBC: 4.8 E12/L (12/23/18 01:55:00 EDT) Hgb: 15.7 gm/dL (12/23/18 01:55:00 EDT) Hct: 45.9 % (12/23/18 01:55:00 EDT) MCV: 95.9 fL (12/23/18 01:55:00 EDT) MCH: 32.8 pg (12/23/18 01:55:00 EDT) MCHC: 34.2 gm/dL (12/23/18 01:55:00 EDT) RDW: 13 % (12/23/18 01:55:00 EDT) Platelet: 373 E9/L (12/23/18 01:55:00 EDT) MPV: 7.5 fL (12/23/18 01:55:00 EDT) Neutro Auto: 55 % (12/23/18 01:55:00 EDT) Lymph Auto: 37.9 % (12/23/18 01:55:00 EDT) [place] Auto: 5.3 % (12/23/18 01:55:00 EDT) Eos Auto: 1.1 % (12/23/18 01:55:00 EDT) Basophil Auto: 0.7 % (12/23/18 01:55:00 EDT) Neutro Absolute: 6.1 E9/L (12/23/18 01:55:00 EDT) Lymph Absolute: 4.2 E9/L High (12/23/18 01:55:00 EDT) [place] Absolute: 0.6 E9/L (12/23/18 01:55:00 EDT) Eos Absolute: 0.1 E9/L (12/23/18 01:55:00 EDT) Basophil Absolute: 0.1 E9/L (12/23/18 01:55:00 EDT) Glucose Lvl: 137 mg/dL (12/23/18 01:55:00 EDT) BUN: 10 mg/dL (12/23/18 01:55:00 EDT) Creatinine: 0.6 mg/dL (12/23/18 01:55:00 EDT) eGFR: >60 (12/23/18 01:55:00 EDT) eGFR AA: >60 (12/23/18 01:55:00 EDT) BUN/Creat Ratio: 17 (12/23/18 01:55:00 EDT) Sodium Lvl: 133 mmol/L Low (12/23/18 01:55:00 EDT) Potassium Lvl: 3.1 mmol/L Low (12/23/18 01:55:00 EDT) Chloride: 99 mmol/L Low (12/23/18 01:55:00 EDT) CO2: 22 mmol/L (12/23/18 01:55:00 EDT) AGAP: 15 mEq/L (12/23/18 01:55:00 EDT) Calcium Lvl: 10.1 mg/dL (12/23/18 01:55:00 EDT) Ethanol Lvl: 268 mg/dL Critical (12/23/18 01:55:00 EDT) Diagnostic Results CT Head or Brain w/o Contrast * Preliminary * 12/23/18 02:47:53 NEGATIVE: Teleradiography. No significant abnormalities Read By: Juan Francisco Munoz MD CT Spine Cervical w/o Contrast * Preliminary * 12/23/18 02:56:49 NEGATIVE: Teleradiography no acute fracture or malalignment Read By: Juan Francisco Munoz MD [facility] Comment on above: Result Comment: Elec tronically Signed By: Juan Francisco Munoz MD\.br\Date and Time Signed: 12/23/18 03:15 EDT ED Patient Education Noteon 12-23-2018 ED Patient Education Note Uipv-in-Jhue Open Wound, Lip An open wound is a break in the skin caused by an injury. An open wound to the lip can be a scrape, cut, or hole (puncture). Good wound care will help: ? Lessen pain. ? Prevent infection. ? Lessen scarring. HOME CARE ? Wash off all dirt. ? Clean your wounds daily with gentle soap and water. ? Eat soft foods or liquids while your wound is healing. ? Rinse the wound with salt water after each meal. ? Apply medicated cream after the wound has been cleaned as told by your doctor. ? Follow up with your doctor as told. GET HELP RIGHT AWAY IF: ? There is more redness or puffiness (swelling) in or around the wound. ? There is increasing pain. ? You have a temperature by mouth above 102? F (38.9? C), not controlled by medicine. ? Your baby is older than 3 months with a rectal temperature of 102? F (38.9? C) or higher. ? Your baby is 3 months old or younger with a rectal temperature of 100.4? F (38? C) or higher. ? There is yellowish white fluid (pus) coming from the wound. ? Very bad pain develops that is not controlled with medicine. ? There is a red line on the skin above or below the wound. MAKE SURE YOU: ? Understand these instructions. ? Will watch this condition. ? Will get help right away if you are not doing well or get worse. Document Released: 11/10/2009 Document Revised: 11/05/2012 Document Reviewed: 11/30/2010 ExitCare? Patient Information ?2015 [employer]. This information is not intended to replace advice given to you by your health care provider. Make sure you discuss any questions you have with your health care provider. Family Medicine Concussion A concussion is a brain injury. It is caused by: ? A hit to the head. ? A quick and sudden movement (jolt) of the head or neck. A concussion is usually not life threatening. Even so, it can cause serious problems. If you had a concussion before, you may have concussion-like problems after a hit to your head. HOME CARE General Instructions ? Follow your doctor's directions carefully. ? Take medicines only as told by your doctor. ? Only take medicines your doctor says are safe. ? Do not drink alcohol until your doctor says it is okay. Alcohol and some drugs can slow down healing. They can also put you at risk for further injury. ? If you are having trouble remembering things, write them down. ? Try to do one thing at a time if you get distracted easily. For example, do not watch TV while making dinner. ? Talk to your family members or close friends when making important decisions. ? Follow up with your doctor as told. ? Watch your symptoms. Tell others to do the same. Serious problems can sometimes happen after a concussion. Older adults are more likely to have these problems. ? Tell your teachers, school nurse, school counselor, motor coach chauffeur, hardware trainer, or cooler worker about your concussion. Tell them about what you can or cannot do. They should watch to see if: ? It gets even harder for you to pay attention or concentrate. ? It gets even harder for you to remember things or learn new things. ? You need more time than normal to finish things. ? You become annoyed (irritable) more than before. ? You are not able to deal with stress as well. ? You have more problems than before. ? Rest. Make sure you: ? Get plenty of sleep at night. ? Go to sleep early. ? Go to bed at the same time every day. Try to wake up at the same time. ? Rest during the day. ? Take naps when you feel tired. ? Limit activities where you have to think a lot or concentrate. These include: ? Doing homework. ? Doing work related to a job. ? Watching TV. ? Using the computer. Returning To Your Regular Activities Return to your normal activities slowly, not all at once. You must give your body and brain enough time to heal. ? Do not play sports or do other athletic activities until your doctor says it is okay. ? Ask your doctor when you can drive, ride a bicycle, or work other vehicles or machines. Never do these things if you feel dizzy. ? Ask your doctor about when you can return to work or school. Preventing Another Concussion It is very important to avoid another brain injury, especially before you have healed. In rare cases, another injury can lead to permanent brain damage, brain swelling, or . The risk of this is greatest during the first 7?10 days after your injury. Avoid injuries by: ? Wearing a seat belt when riding in a car. ? Not drinking too much alcohol. ? Avoiding activities that could lead to a second concussion (such as contact sports). ? Wearing a helmet when doing activities like: ? Biking. ? Skiing. ? Skateboarding. ? Skating. ? Making your home safer by: ? Removing things from the floor or stairways that could make you trip. ? Using grab bars in bathrooms and handrails by stairs. ? Placing non-slip mats on floors and in bathtubs. ? Improve lighting in dark areas. GET HELP IF: ? It gets even harder for you to pay attention or concentrate. ? It gets even harder for you to remember things or learn new things. ? You need more time than normal to finish things. ? You become annoyed (irritable) more than before. ? You are not able to deal with stress as well. ? You have more problems than before. ? You have problems keeping your balance. ? You are not able to react quickly when you should. Get help if you have any of these problems for more than 2 weeks: ? Lasting (chronic) headaches. ? Dizziness or trouble balancing. ? Feeling sick to your stomach (nausea). ? Seeing (vision) problems. ? Being affected by noises or light more than normal. ? Feeling sad, low, down in the dumps, blue, gloomy, or empty (depressed). ? Mood changes (mood swings). ? Feeling of fear or nervousness about what may happen (anxiety). ? Feeling annoyed. ? Memory problems. ? Problems concentrating or paying attention. ? Sleep problems. ? Feeling tired all the time. GET HELP RIGHT AWAY IF: ? You have bad headaches or your headaches get worse. ? You have weakness (even if it is in one hand, leg, or part of the face). ? You have loss of feeling (numbness). ? You feel off balance. ? You keep throwing up (vomiting). ? You feel tired. ? One black center of your eye (pupil) is larger than the other. ? You twitch or shake violently (convulse). ? Your speech is not clear (slurred). ? You are more confused, easily angered (agitated), or annoyed than before. ? You have more trouble resting than before. ? You are unable to recognize people or places. ? You have neck pain. ? It is difficult to wake you up. ? You have unusual behavior changes. ? You pass out (lose consciousness). MAKE SURE YOU: ? Understand these instructions. ? Will watch your condition. ? Will get help right away if you are not doing well or get worse. Document Released: 08/02/2010 Document Revised: 12/29/2014 Document Reviewed: 03/06/2014 ExitCare? Patient Information ?2015 [employer]. This information is not intended to replace advice given to you by your health care provider. Make sure you discuss any questions you have with your health care provider. Mouth Laceration A mouth laceration is a cut inside the mouth. HOME CARE ? Rinse your mouth with warm salt water 4 to 6 times a day. ? [place] your teeth as usual if you can. ? Do not eat hot food or have hot drinks while your mouth is still numb. ? Avoid acidic foods or other foods that bother your cut. ? Only take medicine as told by your doctor. ? Keep all doctor visits as told. ? If there are stitches (sutures) in the mouth, do not play with them with your tongue. You may need a tetanus shot if: ? You cannot remember when you had your last tetanus shot. ? You have never had a tetanus shot. If you need a tetanus shot and you choose not to have one, you may get tetanus. Sickness from tetanus can be serious. GET HELP RIGHT AWAY IF: ? Your cut or other parts of your face are puffy (swollen) or painful. ? You have a fever. ? Your throat is puffy or tender. ? Your cut breaks open after stitches have been removed. ? You see yellowish-white fluid (pus) coming from the cut. MAKE SURE YOU: ? Understand these instructions. ? Will watch your condition. ? Will get help right away if you are not doing well or get worse. Document Released: 01/30/2009 Document Revised: 12/29/2014 Document Reviewed: 02/16/2012 ExitCare? Patient Information ?2015 [employer]. This information is not intended to replace advice given to you by your health care provider. Make sure you discuss any questions you have with your health care provider. Internal Medicine Alcohol Intoxication Alcohol intoxication occurs when the amount of alcohol that a person has consumed impairs his or her ability to mentally and physically function. Alcohol directly impairs the normal chemical activity of the brain. Drinking large amounts of alcohol can lead to changes in mental function and behavior, and it can cause many physical effects that can be harmful. Alcohol intoxication can range in severity from mild to very severe. Various factors can affect the level of intoxication that occurs, such as the person's age, gender, weight, frequency of alcohol consumption, and the presence of other medical conditions (such as diabetes, seizures, or heart conditions). Dangerous levels of alcohol intoxication may occur when people drink large amounts of alcohol in a short period (binge drinking). Alcohol can also be especially dangerous when combined with certain prescription medicines or recreational drugs. SIGNS AND SYMPTOMS Some common signs and symptoms of mild alcohol intoxication include: ? Loss of coordination. ? Changes in mood and behavior. ? Impaired judgment. ? Slurred speech. As alcohol intoxication progresses to more severe levels, other signs and symptoms will appear. These may include: ? Vomiting. ? Confusion and impaired memory. ? Slowed breathing. ? Seizures. ? Loss of consciousness. DIAGNOSIS Your health care provider will take a medical history and perform a physical exam. You will be asked about the amount and type of alcohol you have consumed. Blood tests will be done to measure the concentration of alcohol in your blood. In many places, your blood alcohol level must be lower than 80 mg/dL (0.08%) to legally drive. However, many dangerous effects of alcohol can occur at much lower levels. TREATMENT People with alcohol intoxication often do not require treatment. Most of the effects of alcohol intoxication are temporary, and they go away as the alcohol naturally leaves the body. Your health care provider will monitor your condition until you are stable enough to go home. Fluids are sometimes given through an IV access tube to help prevent dehydration. HOME CARE INSTRUCTIONS ? Do not drive after drinking alcohol. ? Stay hydrated. Drink enough water and fluids to keep your urine clear or pale yellow. Avoid caffeine. ? ? Only take veod-cvh-htecjjp or prescription medicines as directed by your health care provider. ? SEEK MEDICAL CARE IF: ? You have persistent vomiting. ? ? You do not feel better after a few days. ? You have frequent alcohol intoxication. Your health care provider can help determine if you should see a substance use treatment counselor. SEEK IMMEDIATE MEDICAL CARE IF: ? You become shaky or tremble when you try to stop drinking. ? ? You shake uncontrollably (seizure). ? ? You throw up (vomit) blood. This may be bright red or may look like black coffee grounds. ? ? You have blood in your stool. This may be bright red or may appear as a black, tarry, bad smelling stool. ? ? You become lightheaded or faint. ? MAKE SURE YOU: ? Understand these instructions. ? Will watch your condition. ? Will get help right away if you are not doing well or get worse. Document Released: 05/24/2006 Document Revised: 04/16/2014 Document Reviewed: 01/17/2014 ExitCare? Patient Information ?2015 [employer]. This information is not intended to replace advice given to you by your health care provider. Make sure you discuss any questions you have with your health care provider. Normal [facility] ED Patient Summaryon 019 ED Patient Summary [address] [address] Patient Discharge Instructions Person Information Name: MAGGIE DEL ROSARIO Age: 43 Years Arrival Date: 12/23/2018 1:53 AM Discharge Diagnosis: 1:Acute alcohol intoxication; 2:Concussion with loss of consciousness <= 30 min; 3:Lip laceration Primary Care Physician: Rajesh Solo DO Provider Information Primary Provider: Juan Francisco Munoz MD Advanced Watch Inspector Final Movement:None The exam and treatment you received in the Emergency Department were for an urgent problem and are not intended as complete care. It is important that you follow up with a doctor, nurse practitioner, or physician?s animal assistant for ongoing care. If your symptoms become worse or you do not improve as expected and you are unable to reach your usual health care provider, you should return to the Emergency Department. We are available 24 hours a day. MAGGIE DEL ROSARIO has been given the following list of patient education materials, prescriptions and follow-up instructions: Follow-up Instructions: With: Address: When: WHITNEY KENNEDY [address] [place] [id number] [facility] (1) Within 1 to 2 days, only if needed In the event that this physician does not participate in your insurance network, please consult with your insurance company to find a nearby participating provider. Patient Education Materials: Alcohol Intoxication; Concussion, Adult, Kcbp-oa-Yuqn; Open Wound, Lip, Fpuo-un-Afsq; Mouth Laceration, Pzvs-gd-Qupz A MESSAGE TO ALL PATIENTS REGARDING OPIOIDS PRESCRIPTION OPIOIDS: WHAT YOU NEED TO KNOW Prescription opioids can be used to help relieve aalzwwcr-gh-chqyqf pain and are often prescribed following a surgery or injury, or for certain health conditions. These medications can be an important part of the treatment but also come with serious risks. It is important to work with your healthcare provider to make sure you are getting the safest, most effective care. WHAT ARE THE RISKS AND SIDE EFFECTS OF OPIOID USE? Prescription opioids carry serious risks of addiction and overdose, especially with prolonged use. An opioid overdose, often marked by slowed breathing, can cause sudden . The use of prescription opioids can have a number of side effects as well, even when taken as directed: ? Tolerance?meaning you might need to take more of the medication for the same pain relief ? Physical dependence?meaning you have symptoms of withdrawal when a medication is stopped ? Increased sensitivity to pain ? Constipation ? Nausea, vomiting, and dry mouth ? Sleepiness and dizziness ? Confusion ? Depression ? Low levels of testosterone that can result in lower sex drive, energy, and strength ? Itching and sweating RISKS ARE GREATER WITH: ? History of drug misuse, substance use disorder, or overdose ? Mental health conditions (such as depression or anxiety) ? Sleep apnea ? Older age (65 years and older) ? Avoid alcohol while taking prescription opioids. Also, unless specifically advised by your health care provider, medications to avoid include: ? Benzodiazepines (such as Xanax or Valium) ? Muscle relaxants (such as Soma or Flexeril) ? Hypnotics (such as Ambien or Lunesta) ? Other prescription opioids KNOW YOUR OPTIONS Talk to your health care provider about ways to manage your pain that don?t involve prescription opioids. Some of these options may actually work better and have fewer risks and side effects. Options may include: ? Pain relievers such as acetaminophen, ibuprofen, and naproxen ? Some medication that are also used for depression or seizures ? Physical therapy and exercise ? Cognitive behavioral therapy, a psychological, goal-directed approach, in which patients learn how to modify physical, behavioral, and emotional triggers of pain and stress. IF YOU ARE PRESCRIBED OPIOIDS FOR PAIN: ? Never take opioids in greater amounts or more often than prescribed. ? Follow up with your primary health care provider. o Work together to create a plan on how to manage your pain. o Talk about ways to help manage your pain that don?t involve prescription opioids. o Talk about any and all concerns and side effects. ? Help prevent misuse and abuse o Never sell or share prescription opioids. o Never use another person?s prescription opioids. ? Store prescription opioids in a secure place and out of reach of others (this may include visitors, children, friends, and family). ? Safely dispose of unused prescription opioids: Find your community drug take-back program or your pharmacy mail-back program, or flush them down the toilet, following guidance from the Food and Drug Administration (www.fda.gov/Drugs/Resources ForYou). ? Visit www.cdc.gov/drugoverdose to learn about the risks of opioids abuse and overdose. ? If you believe you may be struggling with addiction, tell your health medicare contact specialist and ask for guidance or call NIURKA[employer] National Helpline at 4-522-564-HELP. v Source: US Department of Health and Human Services/Center for Disease Control & Prevention [facility] Medications Given: Medication Dose Route No medications found. Medication Information: Comment: Pharmacy Information: Thank you for choosing [facility] Patient Education Materials: Alcohol Intoxication Alcohol intoxication occurs when the amount of alcohol that a person has consumed impairs his or her ability to mentally and physically function. Alcohol directly impairs the normal chemical activity of the brain. Drinking large amounts of alcohol can lead to changes in mental function and behavior, and it can cause many physical effects that can be harmful. Alcohol intoxication can range in severity from mild to very severe. Various factors can affect the level of intoxication that occurs, such as the person's age, gender, weight, frequency of alcohol consumption, and the presence of other medical conditions (such as diabetes, seizures, or heart conditions). Dangerous levels of alcohol intoxication may occur when people drink large amounts of alcohol in a short period (binge drinking). Alcohol can also be especially dangerous when combined with certain prescription medicines or recreational drugs. SIGNS AND SYMPTOMS Some common signs and symptoms of mild alcohol intoxication include: ? Loss of coordination. ? Changes in mood and behavior. ? Impaired judgment. ? Slurred speech. As alcohol intoxication progresses to more severe levels, other signs and symptoms will appear. These may include: ? Vomiting. ? Confusion and impaired memory. ? Slowed breathing. ? Seizures. ? Loss of consciousness. DIAGNOSIS Your health care provider will take a medical history and perform a physical exam. You will be asked about the amount and type of alcohol you have consumed. Blood tests will be done to measure the concentration of alcohol in your blood. In many places, your blood alcohol level must be lower than 80 mg/dL (0.08%) to legally drive. However, many dangerous effects of alcohol can occur at much lower levels. TREATMENT People with alcohol intoxication often do not require treatment. Most of the effects of alcohol intoxication are temporary, and they go away as the alcohol naturally leaves the body. Your health care provider will monitor your condition until you are stable enough to go home. Fluids are sometimes given through an IV access tube to help prevent dehydration. HOME CARE INSTRUCTIONS ? Do not drive after drinking alcohol. ? Stay hydrated. Drink enough water and fluids to keep your urine clear or pale yellow. Avoid caffeine. ? ? Only take wavq-ixl-dvbauho or prescription medicines as directed by your health care provider. ? SEEK MEDICAL CARE IF: ? You have persistent vomiting. ? ? You do not feel better after a few days. ? You have frequent alcohol intoxication. Your health care provider can help determine if you should see a substance use treatment counselor. SEEK IMMEDIATE MEDICAL CARE IF: ? You become shaky or tremble when you try to stop drinking. ? ? You shake uncontrollably (seizure). ? ? You throw up (vomit) blood. This may be bright red or may look like black coffee grounds. ? ? You have blood in your stool. This may be bright red or may appear as a black, tarry, bad smelling stool. ? ? You become lightheaded or faint. ? MAKE SURE YOU: ? Understand these instructions. ? Will watch your condition. ? Will get help right away if you are not doing well or get worse. Document Released: 05/24/2006 Document Revised: 04/16/2014 Document Reviewed: 01/17/2014 ExitCare? Patient Information ?2015 [employer]. This information is not intended to replace advice given to you by your health care provider. Make sure you discuss any questions you have with your health care provider. Concussion A concussion is a brain injury. It is caused by: ? A hit to the head. ? A quick and sudden movement (jolt) of the head or neck. A concussion is usually not life threatening. Even so, it can cause serious problems. If you had a concussion before, you may have concussion-like problems after a hit to your head. HOME CARE General Instructions ? Follow your doctor's directions carefully. ? Take medicines only as told by your doctor. ? Only take medicines your doctor says are safe. ? Do not drink alcohol until your doctor says it is okay. Alcohol and some drugs can slow down healing. They can also put you at risk for further injury. ? If you are having trouble remembering things, write them down. ? Try to do one thing at a time if you get distracted easily. For example, do not watch TV while making dinner. ? Talk to your family members or close friends when making important decisions. ? Follow up with your doctor as told. ? Watch your symptoms. Tell others to do the same. Serious problems can sometimes happen after a concussion. Older adults are more likely to have these problems. ? Tell your teachers, school nurse, school counselor, motor coach chauffeur, hardware trainer, or cooler worker about your concussion. Tell them about what you can or cannot do. They should watch to see if: ? It gets even harder for you to pay attention or concentrate. ? It gets even harder for you to remember things or learn new things. ? You need more time than normal to finish things. ? You become annoyed (irritable) more than before. ? You are not able to deal with stress as well. ? You have more problems than before. ? Rest. Make sure you: ? Get plenty of sleep at night. ? Go to sleep early. ? Go to bed at the same time every day. Try to wake up at the same time. ? Rest during the day. ? Take naps when you feel tired. ? Limit activities where you have to think a lot or concentrate. These include: ? Doing homework. ? Doing work related to a job. ? Watching TV. ? Using the computer. Returning To Your Regular Activities Return to your normal activities slowly, not all at once. You must give your body and brain enough time to heal. ? Do not play sports or do other athletic activities until your doctor says it is okay. ? Ask your doctor when you can drive, ride a bicycle, or work other vehicles or machines. Never do these things if you feel dizzy. ? Ask your doctor about when you can return to work or school. Preventing Another Concussion It is very important to avoid another brain injury, especially before you have healed. In rare cases, another injury can lead to permanent brain damage, brain swelling, or . The risk of this is greatest during the first 7?10 days after your injury. Avoid injuries by: ? Wearing a seat belt when riding in a car. ? Not drinking too much alcohol. ? Avoiding activities that could lead to a second concussion (such as contact sports). ? Wearing a helmet when doing activities like: ? Biking. ? Skiing. ? Skateboarding. ? Skating. ? Making your home safer by: ? Removing things from the floor or stairways that could make you trip. ? Using grab bars in bathrooms and handrails by stairs. ? Placing non-slip mats on floors and in bathtubs. ? Improve lighting in dark areas. GET HELP IF: ? It gets even harder for you to pay attention or concentrate. ? It gets even harder for you to remember things or learn new things. ? You need more time than normal to finish things. ? You become annoyed (irritable) more than before. ? You are not able to deal with stress as well. ? You have more problems than before. ? You have problems keeping your balance. ? You are not able to react quickly when you should. Get help if you have any of these problems for more than 2 weeks: ? Lasting (chronic) headaches. ? Dizziness or trouble balancing. ? Feeling sick to your stomach (nausea). ? Seeing (vision) problems. ? Being affected by noises or light more than normal. ? Feeling sad, low, down in the dumps, blue, gloomy, or empty (depressed). ? Mood changes (mood swings). ? Feeling of fear or nervousness about what may happen (anxiety). ? Feeling annoyed. ? Memory problems. ? Problems concentrating or paying attention. ? Sleep problems. ? Feeling tired all the time. GET HELP RIGHT AWAY IF: ? You have bad headaches or your headaches get worse. ? You have weakness (even if it is in one hand, leg, or part of the face). ? You have loss of feeling (numbness). ? You feel off balance. ? You keep throwing up (vomiting). ? You feel tired. ? One black center of your eye (pupil) is larger than the other. ? You twitch or shake violently (convulse). ? Your speech is not clear (slurred). ? You are more confused, easily angered (agitated), or annoyed than before. ? You have more trouble resting than before. ? You are unable to recognize people or places. ? You have neck pain. ? It is difficult to wake you up. ? You have unusual behavior changes. ? You pass out (lose consciousness). MAKE SURE YOU: ? Understand these instructions. ? Will watch your condition. ? Will get help right away if you are not doing well or get worse. Document Released: 08/02/2010 Document Revised: 12/29/2014 Document Reviewed: 03/06/2014 ExitCare? Patient Information ?2014 [employer]. This information is not intended to replace advice given to you by your health care provider. Make sure you discuss any questions you have with your health care provider. Open Wound, Lip An open wound is a break in the skin caused by an injury. An open wound to the lip can be a scrape, cut, or hole (puncture). Good wound care will help: ? Lessen pain. ? Prevent infection. ? Lessen scarring. HOME CARE ? Wash off all dirt. ? Clean your wounds daily with gentle soap and water. ? Eat soft foods or liquids while your wound is healing. ? Rinse the wound with salt water after each meal. ? Apply medicated cream after the wound has been cleaned as told by your doctor. ? Follow up with your doctor as told. GET HELP RIGHT AWAY IF: ? There is more redness or puffiness (swelling) in or around the wound. ? There is increasing pain. ? You have a temperature by mouth above 102? F (38.9? C), not controlled by medicine. ? Your baby is older than 3 months with a rectal temperature of 102? F (38.9? C) or higher. ? Your baby is 3 months old or younger with a rectal temperature of 100.4? F (38? C) or higher. ? There is yellowish white fluid (pus) coming from the wound. ? Very bad pain develops that is not controlled with medicine. ? There is a red line on the skin above or below the wound. MAKE SURE YOU: ? Understand these instructions. ? Will watch this condition. ? Will get help right away if you are not doing well or get worse. Document Released: 11/10/2009 Document Revised: 11/05/2012 Document Reviewed: 11/30/2010 ExitCare? Patient Information ?2015 [employer]. This information is not intended to replace advice given to you by your health care provider. Make sure you discuss any questions you have with your health care provider. Mouth Laceration A mouth laceration is a cut inside the mouth. HOME CARE ? Rinse your mouth with warm salt water 4 to 6 times a day. ? [place] your teeth as usual if you can. ? Do not eat hot food or have hot drinks while your mouth is still numb. ? Avoid acidic foods or other foods that bother your cut. ? Only take medicine as told by your doctor. ? Keep all doctor visits as told. ? If there are stitches (sutures) in the mouth, do not play with them with your tongue. You may need a tetanus shot if: ? You cannot remember when you had your last tetanus shot. ? You have never had a tetanus shot. If you need a tetanus shot and you choose not to have one, you may get tetanus. Sickness from tetanus can be serious. GET HELP RIGHT AWAY IF: ? Your cut or other parts of your face are puffy (swollen) or painful. ? You have a fever. ? Your throat is puffy or tender. ? Your cut breaks open after stitches have been removed. ? You see yellowish-white fluid (pus) coming from the cut. MAKE SURE YOU: ? Understand these instructions. ? Will watch your condition. ? Will get help right away if you are not doing well or get worse. Document Released: 01/30/2009 Document Revised: 12/29/2014 Document Reviewed: 02/16/2012 ExitCare? Patient Information ?2015 [employer]. This information is not intended to replace advice given to you by your health care provider. Make sure you discuss any questions you have with your health care provider. MIGUEL ÁNGEL Aguirre LISA L , have received the following patient education materials/instructions and have verbalized understanding: Patient Education Materials: Alcohol Intoxication; Concussion, Adult, Teay-gg-Rhjo; Open Wound, Lip, Xtok-wt-Ripb; Mouth Laceration, Zqpo-xi-Lwdh Follow-up Instructions: With: Address: When: WHITNEY KENENDY [address] [facility] [address] Business (1) Within 1 to 2 days, only if needed Prescriptions: Patient Signature Date Clinician/Nurse Signature Date 12/23/18 03:33:31 Normal [facility] Ethanolon 12-23-2018 Ethanol [Mass/Vol] 268 mg/dL Abnormal <=7 [facility] Comment on above: Result Comment: Nano ical Result S_ETOH:268.0 Called to [facility] AT ER by LLOYD ABBOTT And Read Back For Confirmation at: 12/23/2018 02:44:14\Critical Result verified by repeat analysis Performed By: #### [id number] #### [facility] [address] [place] [address] Pre-Arrival Noteon 9 Pre-Arrival Note Pre-Arrival Summary Name: , Current Date: 12/23/2018 01:56:40 EDT Gender: Female Date of : Age: 43 Pre-Arrival Type: EMS ETA: 12/23/2018 02:14:00 EDT Primary Care Physician: Presenting Problem: fall stairs 5min eta Pre-Arrival User: Harry Aragon RN Referring Source: Location: OR Completion Date/Time: 12/23/18 01:44:00 [facility] Emergency Department Pre-Hospital Report Form Vital Signs: Pre-Hospital Report: Treatment in Route: Response to Treatment: Misc. Issues: Normal [facility] eGFRon 12-23-2018 GFR/1.73 sq M predicted among blacks MDRD (S/P/Bld) [Vol rate/Area] mL/min/{1.73_m2} Normal >=59 [facility] Comment on above: Order Comment: Order added by Discern Expert. Result Comment: eGFR is race adjusted. AA=. Performed By: #### 2 [id number] #### [facility] [address] [place] [address] GFR/1.73 sq M predicted among non-blacks MDRD (S/P/Bld) [Vol rate/Area] mL/min/{1.73_m2} Normal >=59 [facility] Comment on above: Order Comment: Order added by Discern Expert. Result Comment: Boring Mill Operator bhavin kidney disease could be indicated at eGFR's of less than 60 mL/min/1.73m2. Kidney failure is indicated at less than 15 mL/min/1.73m2. Performed By: #### 2 [id number], [id number] #### [facility] [address] [place] [address] Interval History and Physion 06-06-2017 HIM IP Note OR Biomedical Engineer Normal [facility] OPERATIVE REPORTon 7 OPERATIVE REPORT [facility] [address] [place] [address] OPERATIVE REPORTPATIENT NAME: MAGGIE YIP : 1975[facility] REC NO: [id number] ROOM:ACCOUNT NO: [id number] ADMISSION DATE:06/06/2017PROVIDER: Greg XiongTE OF PROCEDURE: 06/06/2017PREOPERATIVE DIAGNOSIS: Painful neuroma, left third space.POSTOPERATIVE DIAGNOSIS: Painful neuroma, left third space.OPERATION PERFORMED: Lobo's neuroma excision, left foot.ANESTHESIA: Local MAC per Osvaldo Lewis.INDICATIONS: The patient has had chronic left forefoot pain. 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 Conservativetreatment has been of little benefit. Surgery has been requested.OPERATIVE PROCEDURE: The patient was brought to the OR and placed insupine position with attention drawn to the left foot. Localanesthesia was administered after IV sedation. Sterile prep anddrape followed along and ankle tourniquet application. The cuff wasinflated to 250 mmHg and a 3-cm incision was performed over the dorsalthird space. Bovie cautery was used for hemostasis and neurovascularstructures were retracted. After releasing the deep transverseintermetatarsal ligament, a tortuous, bulbous, inflamed white mass wasfound, this seemed to represent the common digital nerve. Aftercomplete dissection, proximally the structure returned to normalappearance and this was released with a #15 blade behind themetatarsal heads. Distally, it was followed medially and lateral intoeach of the third and fourth toe. This was also released. Subcutaneous fat was incorporated into complete excision plantarly asthis was removed in one piece. This is sent for specimen and thewound was inspected for any other pathology and none was found. Thedeep transverse intermetatarsal ligament was noted to be completelyreleased and copious irrigation followed. 4-0 Monocryl was used withone subcu suture and 4-0 Prolene for skin. Decadron was injected andBetadine and Adaptic with dry sterile dressing was put in place withtourniquet time of approximately 30 minutes. Jaime wrap and stockinettewere utilized. The patient then transported to recovery room withvital signs stable and perfusion to all digits. The procedure wastolerated quite well and Thompson was prescribed for pain management withfollowup on Monday in our office.GREG CORONADOD: 06/06/2017 9:38:09 [id number]#: [id number] Doc#: [id number] Normal [facility] Surgical Pathologyon 017 Surgical Pathology (NOTE)[id number] LABORATORIESCONSULTING PATHOLOGISTS [facility] [id number] [place] [address]. [place], [place] [address] Fax: SURGICAL PATHOLOGY CONSULTATIONPatient Name: Carroll YIP Rec: [id number] Number: [id number]: 06/06/2017Received: 06/06/2017Reported: 06/07/2017 11:51-- Diagnosis --SOFT TISSUE, LEFT FOOT: NEUROMA.Maxi VillarrealElectronically Signed Out ajb/06/07/2017Clinical InformationPre-op Diagnosis: LEFT FOOT NEUROMA Operative Findings: NEUROMA LEFT FOOTOperation Performed: LEFT 3RD SPACE NEUROMA EXCISIONSource of Specimen1: NEUROMA -LEFT FOOT (A)Gross Description MAGGIE YIP, NEUROMA LEFT FOOT 1.5 x 0.8 x 0.6 cm portion offibrofatty tissue. Bisected 1cs. tmMicroscopic DescriptionFibroadipose tissue with entangled appearing nerve tissue showingmyxoid degeneration and perineural fibrosis, compatible withtraumatic-type neuroma. Normal [facility] History and Physicalon 06-05 HIM IP Note OR Biomedical Engineer Normal [facility] Basic Metabolic Profon 05-22 (cont.) Normal [facility] Comment on above: Result Comment: Aver age GFR for 40-49 years old: 99 mL/min/1.73sq mChronic Kidney Disease: <60 mL/min/1.73sq mKidney failure: <15 mL/min/1.73sq meGFR calculated using average adult body mass. Additional eGFR calculator available at:http://www.CRV/multiple_crcl_2012.htmPerformed at [facility] [place] [address] [place] [address] (167) Performed By: #### C BC, BMP ####[facility] [place] [address](982) Anion gap 14 mmol/L Normal - [facility] Comment on above: Performed By: #### C BC, BMP ####[facility] [place] [address](747) BUN/CRE Ratio 31 High - [facility] Comment on above: Performed By: #### C BC, BMP ####[facility] [place] [address](233) Calcium 9.4 mg/dL Normal 8.6-10.4 [facility] Comment on above: Performed By: #### C BC, BMP ####[facility] [place] [address] Chloride 101 mmol/L Normal 98-107 [facility] Comment on above: Performed By: #### C BC, BMP ####[facility] [place] [address] CO2 22 mmol/L Normal 20-31 [facility] Comment on above: Performed By: #### C BC, BMP ####[facility] [place] [address] Creatinine 0.55 mg/dL Normal 0.50-0.90 [facility] Comment on above: Performed By: #### C BC, BMP ####[facility] [place] [address] eGFR (non-black) mL/min/{1.73_m2} Normal >60 [facility] Comment on above: Performed By: #### C BC, BMP ####[facility] [place] [address] Glucose mass conc 99 mg/dL Normal 70-99 [facility] Comment on above: Performed By: #### C BC, BMP ####[facility] [place] [address] Potassium molar conc 4.3 mmol/L Normal 3.7-5.3 [facility] Comment on above: Performed By: #### C BC, BMP ####[facility] [place] [address] Sodium 137 mmol/L Normal 135-144 [facility] Comment on above: Performed By: #### C BC, BMP ####[facility] [place] [address] Urea nitrogen 17 mg/dL Normal 6-20 [facility] Comment on above: Performed By: #### C BC, BMP ####[facility] [address] Staging: NOT REPORTED Normal [facility] Comment on above: Performed By: #### C BC, BMP ####[facility] [place] [address] CBCon 05-22-2017 Erythrocyte distribution width Auto Ratio (RBC) 13.1 % Normal 12.1-15.2 [facility] Comment on above: Performed By: #### C BC, BMP ####[facility] [place] [address] Erythrocytes (RBC) 4.59 10*6/uL Normal 4.0-5.2 [facility] Comment on above: Performed By: #### C BC, BMP ####[facility] [place] [address] Hematocrit (HCT) 42.8 % Normal 36-46 [facility] Comment on above: Performed By: #### C BC, BMP ####[facility] [address] Hemoglobin mass conc (Bld) 14.6 g/dL Normal 12.0-16.0 [facility] Comment on above: Performed By: #### C BC, BMP ####[facility] [place] [address] MCH 31.9 pg Normal 26-34 [facility] Comment on above: Performed By: #### C BC, BMP ####[facility] [place] [address] MCHC mass conc (RBC) 34.2 g/dL Normal 31-37 [facility] Comment on above: Performed By: #### C BC, BMP ####[facility] [place] [address] MCV 93.3 fL Normal 80-100 [facility] Comment on above: Performed By: #### C BC, BMP ####[facility] [place] [address] Platelets 366 10*3/uL Normal 140-450 [facility] Comment on above: Result Comment: Perf ormed at [facility] [place] [address] [place] [address] Performed By: #### C BC, BMP ####[facility] [place] [address] WBC (Leukocytes) 9.3 10*3/uL Normal 3.5-11.0 [facility] Comment on above: Performed By: #### C BC, BMP ####[facility] [place] [address] Platelet mean volume (PMV) NOT REPORTED Normal 6.0-12.0 [facility] Comment on above: Performed By: #### C BC, BMP ####[facility] [place] [address] Vital Signs Date Time Vital Sign Value Performing Clinician Facility 04-28-2022 15:01-0400 Body height 167.64 cm DO [facility] Work Phone: [facility] 04-28-2022 15:01-0400 Body temperature 97.9 [degF] DO [facility] Work Phone: [facility] 04-28-2022 15:01-0400 Body weight 89.81 kg DO [facility] Work Phone: [facility] 04-28-2022 15:01-0400 Diastolic blood pressure 107 mm[Hg] DO [facility] Work Phone: [facility] 04-28-2022 15:01-0400 Heart rate 113 /min DO [facility] Work Phone: [facility] 04-28-2022 15:01-0400 Respiratory rate 18 /min DO Rajesh Solo Work Phone: [facility] 04-28-2022 15:01-0400 SaO2% (BldA) [Mass fraction] 94 % DO Rajesh Solo Work Phone: [facility] 04-28-2022 15:01-0400 Systolic blood pressure 181 mm[Hg] DO Rajesh Solo Work Phone: [facility] 12-31-2021 10:00-0400 Body height 167.64 cm David Valle Other [facility] 12-31-2021 10:00-0400 Body mass index (BMI) [Ratio] 29.86 kg/m2 David Valle Other [facility] 12-31-2021 10:00-0400 Body weight 83.92 kg David Valle Other [facility] 08-04-2021 16:00-0500 Body height 167.64 cm Good Alan Other [facility] Other 08-04-2021 16:00-0500 Body mass index (BMI) [Ratio] 32.12 kg/m2 Good Alan Other [facility] 08-04-2021 16:00-0500 Body weight 90.27 kg Good Alan Other [facility] Other Encounters Encounter Date Encounter Type Care Provider Facility Start: 06-04-2023 End: 06-04-2023 Emergency department patient visit Rajesh Solo Facility:[facility] Start: 04-28-2022 End: 04-28-2022 Emergency department patient visit DO Rajesh Solo Work Phone: [facility] Start: 01-06-2022 End: 01-06-2022 ambulatory David Valle Other [facility] Start: 01-06-2022 Telephone encounter David Leblanc ck [facility] Start: 12-31-2021 End: 12-31-2021 ambulatory David De Leonack Other [facility] Other Start: 12-31-2021 Office outpatient visit 15 minutes David Valle [facility] Start: 09-14-2021 End: 10-22-[address] RAJESH SOLO Facility:[facility] Start: 09-01-2021 End: 09-01-2021 ambulatory Good Alan Other [facility] Start: 09-01-2021 Postop follow up visit related to original px Good Alan [facility] Start: 08-24-2021 End: 08-24-2021 ambulatory Good Alan Other [facility] Start: 08-24-2021 Telephone encounter Good VILLEGAS [facility] Start: 08-04-2021 End: 08-04-2021 ambulatory Good Alan Other [facility] Other Start: 08-04-2021 Office outpatient visit 25 minutes Good Alan [facility] Start: 03-29-2021 End: 03-30-[address] RAJESH SOLO Facility:[facility] Start: 03-24-2021 End: 03-25-[address] RAJESH SOLO Facility:[facility] Start: 06-06-2017 End: 06-06-2017 Ambulatory [facility] Start: 05-22-2017 End: 05-23-2017 Ambulatory [facility] Procedures Date Procedure Procedure Detail Performing Clinician Start: 04-28-2022 Plain X-ray of right hand DO Rajesh House Work Phone: Start: 06-06-2017 ELEVATE EXTREMITY WILBER CORONADO Start: 06-06-2017 NON WEIGHT BEARING SELENE CORONADO Start: 06-06-2017 POST OP SHOE BERNARDINO CORONADO Start: 06-06-2017 DISCHARGE PATIENT WILBER CORONADO Start: 06-06-2017 SURGICAL PATHOLOGY SELENE CORONADO Start: 05-22-2017 BASIC METABOLIC PANEL C LUCY CORONADO Start: 05-22-2017 CBC BERNARDINO CORONADO Plan of Treatment Date Care Activity Detail Author Patient Education Crush Injury (DC) [facility] Work Phone: Patient referral [facility] Work Phone: Payers Date Payer Category Payer Medicaid [id number] 2023 Self-pay [id number] 2014 Unknown [id number] 1975 Unknown [id number] [id number] 1975 Unknown [id number] [id number] [id number] 1975 Unknown [id number] 2.16.84 [id number] 1959 Unknown [id number] Unknown [id number] 2.16.8 [id number] Worker's Compensation [id number] Social History Date Type Detail Facility Sex Assigned At [facility] Other Start: 04-28-2022 Tobacco smoking stat [facility] Smoker (finding) [facility] Start: 1975 Sex Assigned At Female F [facility] Evaluation note 12-31-2021 Note Date & Type Note Facility 12-31-2021 Evaluation note Encounter Date Diagnosis Assessment Notes December, Small bowel obstruction (ICD-10 - K56.609) December, Diverticulitis (ICD-10 - K57.92) START MESALAMINE 1.2 GRAM 4 PO Q AM PATIENT ENCOURAGED TO STOP SMOKING RTO 6 WEEKS [facility] Other Evaluation note 09-01-2021 Note Date & Type Note Facility 09-01-2021 Evaluation note Encounter Date Diagnosis Assessment Notes Aug, Pain in right knee (ICD-10 - M25.561) Aug, Pain in left knee (ICD-10 - M25.562) Aug, Primary osteoarthritis of right knee (ICD-10 - M17.11) Maggie returns with R>L knee DJD now 1 week s/p right knee arthroscopy. At this juncture we have discussed the findings and diagnosis as well as personally reviewed appropriate imaging and performed interpretation of related testing and examination with the patient in office today. We discussed the findings of degenerative arthritis seen on her knee arthroscopy. We will continue to rehabilitate this and see if she gets any relief but I do feel that she will benefit from a total knee arthroplasty whenever she is ready to proceed. Ordered formal physical therapy today and I will plan to see her back in 6 weeks. Patient is progressing well from surgery at this time. Sutures removed under clean conditions. Provided therapy order. Patient to be off work until next appointment. Call with questions/con cerns. Aug, Primary osteoarthritis of left knee (ICD-10 - M17.12) Today we have discussed degenerative joint disease of the knee and its treatment. Imaging was discussed and explained to the patient. We discussed recommended conservative therapies including physical therapy, anti-inflammatory medications, and weight loss strategies. We also discussed other treatment options including cortisone injections, Visco supplementation injections which are options for treatment. I have laid out the course of knee DJD including the end-stage treatment of total joint arthroplasty. The patient recognizes and understands our options and goals and we will move forward with our treatment. 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 At this juncture we have discussed the findings and diagnosis as well as personally reviewed appropriate imaging and performed interpretation of related testing and examination with the patient in office today. Prior medical notes from Dr. Solo and history have been reviewed. Prior cortisone injection did well for about 3 weeks as he has a recurrent effusion today. We have discussed the overall findings in regards to this including baseline degenerative changes seen at the knee but the possibility of cartilage or meniscal pathology causing this recurrent effusion. We did discuss possible repeat aspiration and injection today versus a knee arthroscopy. Patient would like to proceed with a knee arthroscopy at this time. We did discuss that the possibility that this is more of a chronic degenerative issue which could still continue after knee arthroscopy and patient understands this. At this juncture we have discussed the findings and diagnosis as well as reviewed appropriate imaging and performed interpretation of testing. Surgical intervention is recommended. Prior medical notes and history have been reviewed. Surgical versus non-operative management have been discussed in detail and non-operative management was given as an option. The risks of surgical intervention were given. Pre-operative optimization will be done prior to surgical procedure to limit aster-operative risks. I have discussed the planned procedure, how and who performs the procedure, and the personnel involved. Cardiovascular, pulmonary, and other life threatening episodes can occur during surgery although there is a low risk of these happening. Surgical risks including bleeding, neurovascular injury, wound closure problems and infection were discussed. Aster-operative risks including infection, bleeding, wound healing problems, and need for further surgery were discussed. It was discussed that there is a possibility of blood transfusion with any surgical procedure and the risks involved in receiving a blood transfusion. Possibility of, and need for, future bracing or DME use, physical or occupational therapy, mental therapy, rehabilitation, pain management and need for secondary procedures was discussed. I have warned against smoking and the use of tobacco products due to the risks associated with them, in particular, poor healing. I have advised against the half-way use of narcotic pain medication. I have advised to follow all post-operative instructions in order to obtain the best outcome. Informed consent has been verbally affirmed and signed as indicated. Plan for right knee arthroscopy. Ancef 2 g We will plan on right arthroscopy . We have discussed continued non-operative treatments including gentle exercise, use of medications and activity modification. Patient states that they would like to proceed with surgery at this time. We discussed the surgery process in detail including nothing by mouth 8 hrs prior to sugery, thorough washing of leg pior to coming to surgery. We discussed the multiple potential risks of anesthesia including respiratory, cardiac and patient positioning issues. We discussed the multiple risks of surgery particularly wound infection, deep venous thrombosis(DVT) , persistent swelling, pain and stiffness after surgery, as well as worsening of pre-existing arthritic symptoms. Patient has agreed to understanding of these risks and would like to proceed. Jul, Primary osteoarthritis of left knee (ICD-10 - M17.12) Jul, Patellar malalignment syndrome of right knee (ICD-10 - M23.91) Jul, Patellar malalignment syndrome of left knee (ICD-10 - M23.92) Jul, Other See orders for this visit as documented in the electronic medical record. [facility] Other Clinical Note 03-25-2021 Note Date & Type Note Facility 03-25-2021 Note PROCEDURE: XR KNEE R T 4V or > HISTORY: Pain in right knee , chronic COMPARISON: None. FINDINGS: BONES:Moderate narrowing of the medial and lateral joint spaces with slight lateral subluxation of the tibial plateau. Small-moderate periarticular degenerative osteophytes involving all 3 compartments. No fracture, dislocation, bone lesion. SOFT TISSUES:No visible soft tissue swelling. EFFUSION:None visible. OTHER: Negative. IMPRESSION: 1. Moderate degenerative joint disease. 2. No acute bone abnormality. Electronically authenticated by: MARGRET DOMINGO Date: 2021-03-25 07:50 [facility] Evaluation note Note Date & Type Note Facility Evaluation note No Information [facility] Other Evaluation note Note Date & Type Note Facility Evaluation note No assessment information availa ble [facility] Work Phone: History general Narrative - Reported Note Date & Type Note Facility History general Narrative - Reported Type Medical History diverticulitis Medical History irritable bowel syndrome Surgical History hysterectomy Surgical History gallbladder Surgical History neuroma removal x2 in left foot Hospitalization History PANCREATITIS 02/2020 Hospitalization History PANCREATITIS 2018 Hospitalization History ABDOMINAL PAIN Hospitalization History PANCREATITIS [facility] Other History general Narrative - Reported Note Date & Type Note Facility History general Narrative - Reported Type Medical History diverticulitis Medical History irritable bowel syndrome Surgical History hysterectomy Surgical History gallbladder Surgical History neuroma removal x2 in left foot Surgical History right knee scope med ial/lateral menisectemy Hospitalization History PANCREATITIS 02/2020 Hospitalization History PANCREATITIS 2018 Hospitalization History ABDOMINAL PAIN Hospitalization History PANCREATITIS [facility] Other Hospital Discharge instructions Note Date & Type Note Facility Hospital Discharge instructions Additional Instructions Rest ice elevate your hand ice on for 20 minutes off for 20 minutes especially today and tomorrow Use the Jaime wrap for comfort compression Take 1 ibuprofen every 6 hours for pain Take 1 oxycodone every 6 hours for severe pain If you feel like your hand is not improving please call [facility] to follow-up with a hand surgeon You can also follow-up with [facility] as needed for minor concerns Return to the ER for more severe pain loss of circulation in your fingers or any other concerns [facility] Work Phone: Summary Purpose Family History No Family History Records Found Relationship Condition Age at Onset Recorded Date/T pat Not Specified Diverticulitis Unknown grandparent Malignant neoplasm of pancreas Unknown father Medical history unknown Unknown Advance Directives No Advanced Directives Records Found Advance Directive Response Recorded Date/ Time Advance Directives No April 9:13am Chief Complaint and Reason for Visit Chief Complaint rt hand caught in pi arnaldoza ico bar i01 Additional Source Comments INFORMATION SOURCE (unrecogn ized section and content) DATE CREATED AUTHOR 02/23/2018 Sindy mckenna DATE CREATED AUTHOR AUTHOR'S ORGANIZ ATION 10/15/2019 Armaan Diaz [facility] DATE CREATED AUTHOR AUTHOR'S ORGANIZ ATION 10/29/2021 [facility] DATE CREATED AUTHOR AUTHOR'S ORGANIZ ATION 06/15/2023 [facility] REASON FOR VISIT (unrecogniz ed section and content) INCISION BLEEDINGRight Knee PainRecheck Right KneeINPATIENT FOLLOW UP-TO BE SEEN IN [address] VALLE FOR DIVERTICULITIS/ BOWEL OBSTRUCTION, SHE FISNISHED ANTIBIOTICS INSTRUCTED SHE IS STARTING TO FEEL BETTERclinical Care Teams (unrecognized sec tion and content) Team Status: Inactive Member Role Status Dates Rajesh Solo , Primary Care Provider Active [facility] Emergency Provider Active Team Status: Active Member Role Status Dates Rajesh Solo , Primary Care Provider Active Goals (unrecognized section and content) Goals may be documented in a n alternate section FOR RECORDS PERTAINING TO PATIENTS WHO ARE OR HAVE BEEN ENROLLED IN A CHEMICAL DEPENDENCY/SUBSTANCEABUSE PROGRAM, SOME INFORMATION MAY BE OMITTED. This clinical summary was aggregated from multiple sources. Caution should be exercised in using it in the provision of clinical care. This summary normalizes information from multiple sources, and as a consequence, information in this document may materially change the coding, format and clinical context of patient data. In addition, data may be omitted in some cases. CLINICAL DECISIONS SHOULD BE BASED ON THE PRIMARY CLINICAL RECORDS. [employer] [facility]. provides no warranty or guarantee of the accuracy or completeness of information in this document.
[2023-09-04 12:53] LABS: Basophils Absolute Auto 0.1 10^3/uL (0.0-0.1); Basophils Percent Auto 0.6 % (0.2-2.0); Eosinophils Absolute Auto 0.1 10^3/uL (0.0-0.7); Hematocrit 39.2 % (36.0-48.0); Immature Granulocytes Abs Auto 0.06 10^3/uL (0.00-0.03); Immature Granulocytes Pct Auto 0.6 % (0.0-0.5); Lymphocytes Absolute Auto 2.8 10^3/uL (1.2-3.8); Lymphocytes Percent Auto 25.9 % (20.5-60.0); Mean Corpuscular HGB Conc 33.2 g/dL (29.9-35.2); Mean Corpuscular Hemoglobin 31.9 pg (26.7-34.0); Mean Corpuscular Volume 96.1 fL (81.0-99.0); Monocytes Absolute Auto 0.7 10^3/uL (0.3-0.8); Monocytes Percent Auto 6.9 % (1.7-12.0); Neutrophils Absolute Auto 6.9 10^3/uL (1.4-6.5); Platelet Count 227 10^3/uL (150-450); Red Blood Count 4.08 10^6/uL (4.20-5.40); Red Cell Distribution Width 12.2 % (11.0-15.0); White Blood Count 10.6 10^3/uL (4.0-11.0)
[2023-09-04 13:04] LABS: Anion Gap 11.6; BUN Creatinine Ratio 6.9; Calcium 8.5 mg/dL (8.5-10.1); Carbon Dioxide 26.3 mmol/L (21.0-32.0); Chloride 95 mmol/L (98-107); Estimated GFR (African America >60 (>=60); Estimated GFR (Non-African Ame >60 (>=60); Glucose 141 mg/dL (74-106); Potassium 3.9 mmol/L (3.5-5.1); Sodium 129 mmol/L (136-145)
--- NOTE | 2023-09-04 13:12 | ECG_ITS ---
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
[2023-09-04] MEDS: LACTATED RINGER'S SOLUTION 1,000 ML 50 ML IV ×2 (13:51→17:20)
[2023-09-04] MEDS: HYDROMORPHONE HCL 0.5 MG/0.5 ML SYRINGE IV ×4 (13:53→18:55)
--- NOTE | 2023-09-04 14:00 | PC.NURSE ---
Medicated as ordered with Dilaudid IV as ordered by anesthesia
--- NOTE | 2023-09-04 14:28 | PC.NURSE ---
Splint intact to left wrist/arm; fingers pink and warm with brisk capillary refill; sitting in chair with left arm elevated on 2 pillows
[2023-09-04] MEDS: CEFAZOLIN SODIUM/DEXTROSE,ISO 2 GM/50 ML PIGGYBACK IV (15:25)
--- NOTE | 2023-09-04 15:32 | PM.ORPRC ---
Procedure Note Date of procedure: 09/04/23 Pre-op diagnosis: Left distal radius and ulna fracture Post-op diagnosis: same as pre-op Procedure: Operation performed: ORIF left distal radius and ulna fractures Detailed Description of Procedure: After informed consent was obtained the patient brought to the operating room where general anesthetic was administered. Preoperatively regional block was placed. A well-padded proximal arm tourniquet was placed on the right arm was prepped and draped in usual sterile fashion. The arm was elevated, exsanguinated, and the tourniquet was inflated to 200 mmHg. There were two 5 mm wounds overlying the more ulnar side of the volar wrist which were probed and irrigated. No gross contamination was identified. These were repaired with 3-0 nylon suture in simple fashion. A 6 cm incision made overlying the flexor carpi radialis tendon overlying the distal radius. Blunt dissection was carried down through soft tissue. The flexor carpi radialis tendon was retracted ulnarly along with the flexor pollicis longus muscle and tendon. Pronator quadratus was incised in an L-shaped fashion off of the bone. Distal radius fracture was identified at this point and found to be intra-articular and severely comminuted. Using a combination of traction and manipulation and reduction was performed and appropriate reduction was confirmed under x-ray. A Synthes by column distal radius plate was then placed and provisionally held into place with K wires. This was adjusted until the appropriate position was achieved under multiple fluoroscopy views. The plate was then first fixed with a 2.7 bicortical nonlocking screw in the oblong hole in the shaft. Holding the distal fragments reduced a total of 6 unicortical 2.4 mm locking screws were placed at the distal fragments followed by an additional 2 screws placed in the shaft in a bicortical locking fashion. There is severe [place] at the metadiaphyseal region resulting in this being a bridge plating technique. X-rays in multiple planes revealed a reduced distal radius fracture with appropriate implant placement and lengths. Wound was irrigated. Pronator quadratus was repaired with an 0 Vicryl suture. Skin was closed with observable suture in layers. Attention was next turned to ORIF of the left distal ulna fracture. A 6 cm incision was made over the distal ulna fracture. Blunt dissection was carried down between flexor and extensor compartments. The fracture was found to be comminuted. The fracture fragments were reduced and then a Synthes distal ulna plate was placed. The fracture was next fixed using a combination of locking and nonlocking 2.0 mm screws. Solid fixation was achieved. X-rays confirmed good reduction and plate/screw placement. The wound was irrigated and closed in layers. A sterile dressing was placed. Next a fiberglass volar splint was placed. Tourniquet was deflated. Patient was awakened and brought to the recovery room in stable condition. There are no intraoperative or immediate postoperative complications. Anesthesia: regional and General-LMA Surgeon: Milton Roman Cutter Operator Asbestos Shingle: Altagracia Briones Estimated blood loss (mL): 5 Pathology: none sent Condition: stable Disposition: PACU
[2023-09-04] MEDS: LABETALOL HCL 100 MG/20 ML MDV IVP ×5 (18:02→18:36)
[2023-09-04] MEDS: OXYCODONE HCL/ACETAMINOPHEN 5MG/325MG 1 TAB PO ×2 (18:14→21:16)
[2023-09-04] MEDS: HYDRALAZINE HCL 20 MG/ML VIAL 10 MG IVP (19:00)
--- OUTSIDE RECORDS SUMMARY | 2023-09-04 19:09 | XMS_ITS | CCD ---
Author Name Unknown Address [address] [facility] [address] [place] [address] Organization [facility] Care Team Providers Care Cover Remover Name Role Phone GREG CORONADO Unavailable Unavailabl [...] Admitting Unavailable GERMANIA, DR HACKETT Attending Unavailable ASHLAND, DR HACKETT Consulting Unavailable Good Alan Unavailable David Valle Unavailable DO Rajesh Solo Primary [facility] Danica Mueller Emergency Provider Rajesh Solo Primary Care Unavailable Mable Curtis [...] January 13, 2022 3:10pm polyethylene glycol 3350 39514 mg powder for oral solution (2 sources) [...] 3V*on 023 XR foot LT min 3V* [facility] Main [place] [address] [place] [address] XRay Report Signed Patient: Maggie Yip MR#: [id number] 9 : 1975 Acct:[id number] Age/Sex: 47 / F ADM Date: 06/04/23 Loc: ER Room: Type: [facility] ER Attending Dr: Copies to: Mable Curtis [...] Jaylin Magallanes M.D.06/04/2023 12:32 PM Dictation Location: [place] [address] Transcribed By: [facility] 06/04/23 1232 Dictated By: Jaylin Magallanes MD 06/04/23 1231 Signed By: 06/04/23 1232 Normal [facility] CYCLIC CITRULLINATED PEPTIDE AB (CCP)on 04-01-2021 CCP Antibodies IgG/IgA 5 units Normal 0-19 [facility] Comment on above: Result Comment: Nega tive <20 Weak positive 20 - 39 Moderate positive 40 - 59 Strong positive >59 Performed By: #### C CPAB #### [facility] [address] [place] [address] Germán GARRETT by IFAon 03-25-2021 Antinuclear Antibodies, IFA Negative Normal [facility] Comment on above: Result Comment: Nega tive <1:80 Borderline 1:80 Positive >1:80 ICAP nomenclature: AC-0 For more information about Hep-2 cell patterns use ANApatterns.org, the official website for the International Consensus on Antinuclear Antibody (TAMI) Patterns (ICAP). Performed By: #### A NAIFA #### [facility] [address] [place], [place] [address] Germán Mosqueda RHEUMATOID FACTORon 03-25-20 RA Latex Turbid. <10.0 Normal 0.0-13.9 [facility] Comment on above: Performed By: #### R F #### [facility] [address] [place], [place] [address] Germán Jaylin CBC AUTO DIFFon 03-24-2021 BASO # 0.1 103/ul Normal 0.0-0.1 [facility] Comment on above: Performed By: #### C BC #### [facility] [address] [place], [place] [address] Germánsimone Mosqueda Basophils/100 WBC (Bld) 0.6 % Normal 0.2-2.0 [facility] Comment on above: Performed By: #### C BC #### [facility] [address] [place] [address] Germánsimone Mosqueda EO # 0.1 103/ul Normal 0.0-0.7 [facility] Comment on above: Performed By: #### C BC #### [facility] [address] [place], [place] [address] Germán Jaylin Eosinophils/100 WBC (Bld) 1.2 % Normal 0.9-7.0 [facility] Comment on above: Performed By: #### C BC #### [facility] [address] [place], [place] [address] Germán Jaylin Erythrocyte distribution width (RBC) [Ratio] 13.2 % Normal 11.0-15.0 [facility] Comment on above: Performed By: #### C BC #### [facility] [address] [place], [place] [address] Germán Jaylin Hematocrit (Bld) [Volume fraction] 45.3 % Normal 36.0-48.0 [facility] Comment on above: Performed By: #### C BC #### [facility] [address] [place], [place] [address] Germán Jaylin Hemoglobin (Bld) [Mass/Vol] 15.1 g/dL Normal 12.0-16.0 [facility] Comment on above: Performed By: #### C BC #### [facility] [address] [place] [address] Germán Mosqueda IG # 0.07 10e3/ul Critically high 0.00-0.03 [facility] Comment on above: Performed By: #### C BC #### [facility] [address] [address] Germán Mosqueda IG % 0.6 % Critically high 0.0-0.5 [facility] Comment on above: Performed By: #### C BC #### [facility] [address] [place] [address] Germán Mosqueda LYMPH # 3.4 103/ul Normal 1.2-3.8 [facility] Comment on above: Performed By: #### C BC #### [facility] [address] [place] [address] Germán Mosqueda Lymphocytes/100 WBC (Bld) 30.1 % Normal 20.5-60.0 [facility] Comment on above: Performed By: #### C BC #### [facility] [address] [place] [address] Germán Mosqueda MANUAL DIFF REQ NO Normal [facility] Comment on above: Performed By: #### C BC #### [facility] [address] [place] [address] Germán Mosqueda MCH (RBC) [Entitic mass] 31.3 pg Normal 26.7-34.0 [facility] Comment on above: Performed By: #### C BC #### [facility] [address] [place] [address] Germán Mosqueda MCHC (RBC) [Mass/Vol] 33.3 g/dL Normal 29.9-35.2 [facility] Comment on above: Performed By: #### C BC #### [facility] [address] [place] [address] Germán Mosqueda MCV (RBC) [Entitic vol] 94.0 fL Normal 81.0-99.0 [facility] Comment on above: Performed By: #### C BC #### [facility] [address] [place], [place] [address] Germán Mosqueda MONO # 0.8 103/ul Normal 0.3-0.8 [facility] Comment on above: Performed By: #### C BC #### [facility] [address] [place] [address] Germán Mosqueda Monocytes/100 WBC (Bld) 7.2 % Normal 1.7-12.0 [facility] Comment on above: Performed By: #### C BC #### [facility] [address] [address] Germán Jaylin NEUT # 6.7 103/ul Critically high 1.4-6.[address] [facility] Comment on above: Performed By: #### C BC #### [facility] [address] [address] Germán Mosqueda Neutrophils/100 WBC (Bld) 60.3 % Normal 43.0-75.0 [facility] Comment on above: Performed By: #### C BC #### [facility] [address] [address] Germán Mosqueda Platelet mean volume (Bld) [Entitic vol] 9.0 fL Critically low 9.5-13.5 [facility] Comment on above: Performed By: #### C BC #### [facility] [address] [address] Germán Jaylin PLT 288 103/ul Normal 150-450 [facility] Comment on above: Performed By: #### C BC #### [facility] [address] [place] [address] Germán Jaylin RBC 4.82 106/ul Normal 4.20-5.40 [facility] Comment on above: Performed By: #### C BC #### [facility] [address] [place] [address] Germán Jaylin WBC 11.2 103/ul Critically high 4.0-11.0 [facility] Comment on above: Performed By: #### C BC #### [facility] [address] [address] Germán Jaylin PROF 14(COMP METB)on 021 Albumin [Mass/Vol] 3.8 g/dL Normal 3.5-5.0 [facility] Comment on above: Performed By: #### C MP, URIC #### [facility] [address] [place], [place] [address] Germán Jaylin Albumin/Globulin [Mass ratio] 0.9 {ratio} Normal [facility] Comment on above: Performed By: #### C MP, URIC #### [facility] [address] [place], [place] [address] Germán Jaylin ALP [Catalytic activity/Vol] 109 U/L Normal 38-126 [facility] Comment on above: Performed By: #### C MP, URIC #### [facility] [address] [place] [address] Germán Jaylin ALT [Catalytic activity/Vol] 56 U/L Critically high 9-52 [facility] Comment on above: Performed By: #### C MP, URIC #### [facility] [address] [place], [place] [address] Germán Jaylin Anion gap [Moles/Vol] 17.6 mmol/L Normal [facility] Comment on above: Performed By: #### C MP, URIC #### [facility] [address] [place] [address] Germán Jaylin AST [Catalytic activity/Vol] 36 U/L Normal 14-36 [facility] Comment on above: Performed By: #### C MP, URIC #### [facility] [address] [place], [place] [address] Germán Jaylin Bilirubin [Mass/Vol] 0.3 mg/dL Normal 0.2-1.3 [facility] Comment on above: Performed By: #### C MP, URIC #### [facility] [address] [place], [place] [address] Germán Jaylin Calcium [Mass/Vol] 9.0 mg/dL Normal 8.4-10.2 [facility] Comment on above: Performed By: #### C MP, URIC #### [facility] [address] [place], [place] [address] Germán Jaylin Chloride [Moles/Vol] 104 mmol/L Normal 98-107 [facility] Comment on above: Performed By: #### C MP, URIC #### [facility] [address] [place] [address] Germán Jaylin CO2 [Moles/Vol] 23.4 mmol/L Normal 22.0-30.0 [facility] Comment on above: Performed By: #### C MP, URIC #### [facility] [address] [place], [place] [address] Germán Jaylin Creatinine [Mass/Vol] 0.61 mg/dL Normal 0.52-1.04 [facility] Comment on above: Performed By: #### C MP, URIC #### [facility] [address] [place], [place] [address] Germán Jaylin EGFR-AF ZAMBIAN >60 Normal >=60 [facility] Comment on above: Performed By: #### C MP, URIC #### [facility] [address] [place], [place] [address] Germán Jaylin EGFR-NON AF ZAMBIAN >60 Normal >=60 [facility] Comment on above: Performed By: #### C MP, URIC #### [facility] [address] [place], [place] [address] Germán Jaylin Globulin (S) [Mass/Vol] 4.2 g/dL Normal [facility] Comment on above: Performed By: #### C MP, URIC #### [facility] [address] [place] [address] Germán Jaylin Glucose [Mass/Vol] 90 mg/dL Normal 74-106 [facility] Comment on above: Performed By: #### C MP, URIC #### [facility] [address] [place] [address] Germán Jaylin Potassium [Moles/Vol] 4.0 mmol/L Normal 3.4-5.0 [facility] Comment on above: Performed By: #### C MP, URIC #### [facility] [address] [place], [place] [address] Germán Jaylin Protein [Mass/Vol] 8.0 g/dL Normal 6.1-8.2 [facility] Comment on above: Performed By: #### C MP, URIC #### [facility] [address] [place], [place] [address] Germán Jaylin Sodium [Moles/Vol] 141 mmol/L Normal 137-145 [facility] Comment on above: Performed By: #### C MP, URIC #### [facility] [address] [place], [place] [address] Germán Jaylin Urea nitrogen [Mass/Vol] 11.0 mg/dL Normal 7.0-17.0 [facility] Comment on above: Performed By: #### C MP, URIC #### [facility] [address] [address] Germán Jaylin Urea nitrogen/Creatini ne [Mass ratio] 18.0 mg/mg Normal [facility] Comment on above: Performed By: #### C MP, URIC #### [facility] [address] [address] Germán Jaylin SED RATE WESTSIERRA TUCSONRENon 2020 SED RATE 60 mm/hr Critically high <=[address] [facility] Comment on above: Performed By: #### S EDR #### [facility] [address] [place], [place] [address] Germán Jaylin URIC ACID SERUMon 03-24-2021 Urate [Mass/Vol] 4.9 mg/dL Normal 2.5-6.2 [facility] Comment on above: Performed By: #### C MP, URIC #### [facility] [address] [place], [place] [address] Germán Jaylin Coding Summary.on 10-15-2019 Coding Summary. CODING DATE: 020 FINAL [facility] STATUS: Home (Routine DC) PAYOR: Medicaid ADMIT [...] Revised Date Saved: 10/15/2019 01:45 pm Normal [facility] Auto Diffon 10-08-2019 Basophils/100 WBC (Bld) 0.2 % Normal 0.0-2.0 [facility] Comment on above: Order Comment: Order Added by Discern Expert. Performed By: #### 2 930286, 2054600, 2297403, [id number] #### [facility] [address] [place] [address] Basophils/Leukocy cj Auto (Bld) [Pure # fraction] 0.0 E9/L Normal 0.0-0.2 [facility] Comment on above: Order Comment: Order Added by Discern Expert. Performed By: #### 2 871429, 8384611, 2643448, 68410403 #### [facility] [address] [place] [address] Eosinophils/100 WBC (Bld) 1.0 % Normal 0.0-8.0 [facility] Comment on above: Order Comment: Order Added by Discern Expert. Performed By: #### 2 566354, 0356254, 5754420, [id number] #### [facility] [address] [place] [address] Eosinophils/Leuko cytes Auto (Bld) [Pure # fraction] 0.1 E9/L Normal 0.0-0.5 [facility] Comment on above: Order Comment: Order Added by Discern Expert. Performed By: #### 2 903479, 7840944, 7768728, 88171251 #### [facility] [address] [place] [address] Lymphocytes/100 WBC (Bld) 25.0 % Normal 14.0-50.0 [facility] Comment on above: Order Comment: Order Added by Discern Expert. Performed By: #### 2 262258, 8115650, 5781279, 71223972 #### [facility] [address] [place] [address] Lymphocytes/Leuko cytes Auto (Bld) [Pure # fraction] 2.9 E9/L Normal 1.0-4.0 [facility] Comment on above: Order Comment: Order Added by Discern Expert. Performed By: #### 2 938493, 2484587, 7125095, 06961344 #### [facility] [address] [place] [address] Monocytes/100 WBC (Bld) 6.9 % Normal 4.0-14.0 [facility] Comment on above: Order Comment: Order Added by Discern Expert. Performed By: #### 2 929269, 5283298, 4037033, 02888582 #### [facility] [address] [place] [address] Monocytes/Leukocy cj Auto (Bld) [Pure # fraction] 0.8 E9/L Normal 0.2-1.0 [facility] Comment on above: Order Comment: Order Added by Discern Expert. Performed By: #### 2 541910, 0971914, 1058662, 50642494 #### [facility] [address] [place] [address] Neutrophils/100 WBC (Bld) 66.9 % Normal 36.0-75.0 [facility] Comment on above: Order Comment: Order Added by Discern Expert. Performed By: #### 2 858596, 5824117, 1153367, 00411688 #### [facility] [address] [place] [address] Neutrophils/Leuko cytes Auto (Bld) [Pure # fraction] 7.9 E9/L High 2.0-7.5 [facility] Comment on above: Order Comment: Order Added by Discern Expert. Performed By: #### 2 717625, 3716496, 4661061, 24460002 #### [facility] [address] [place] [address] BMPon 10-08-2019 Creatinine [Mass/Vol] 0.6 mg/dL Normal 0.5-1.3 [facility] Comment on above: Performed By: #### 2 442527, 8130212, 5529572, 70912298 #### [facility] [address] [place] [address] Urea nitrogen [Mass/Vol] 12 mg/dL Normal 5-21 [facility] Comment on above: Performed By: #### 2 899416, 3701418, 9988116, 97307420 #### [facility] [address] [place] [address] Urea nitrogen/Creatini ne [Mass ratio] 20 No Units Normal 10-20 [facility] Comment on above: Performed By: #### 2 961825, 4970879, 1689644, 26062661 #### [facility] [address] [place] [address] Anion gap [Moles/Vol] 15 mmol/L Normal 6-16 [facility] Comment on above: Performed By: #### 2 678227, 3100743, 7069996, 48371366 #### [facility] [address] [place] [address] Calcium [Mass/Vol] 9.5 mg/dL Normal 8.9-11.1 [facility] Comment on above: Performed By: #### 2 031914, 3288419, 4642099, 04269933 #### [facility] [address] [place] [address] Chloride [Moles/Vol] 102 mmol/L Normal 101-111 [facility] Comment on above: Performed By: #### 2 595781, 9546645, 7779102, 62371950 #### [facility] [address] [place] [address] CO2 [Moles/Vol] 21 mmol/L Normal 21-31 [facility] Comment on above: Performed By: #### 2 557758, 1941234, 8578046, 29340769 #### [facility] [address] [place] [address] Glucose [Mass/Vol] 88 mg/dL Normal 55-199 [facility] Comment on above: Result Comment: If t his glucose result represents a fasting glucose, interpretation should refer to the following reference range: 55-99 mg/dL Performed By: #### 2 706909, 4816103, 1095526, 18960717 #### [facility] [address] [place] [address] Potassium [Moles/Vol] 4.1 mmol/L Normal 3.5-5.3 [facility] Comment on above: Performed By: #### 2 539834, 5257010, 1887400, 74643204 #### [facility] [address] [place] [address] Sodium [Moles/Vol] 134 mmol/L Low 135-145 [facility] Comment on above: Performed By: #### 2 393444, 9224240, 6139610, 35561608 #### [facility] [address] [place] [address] CBC w/ Auto Diffon 0 Erythrocyte distribution width (RBC) [Ratio] 13.7 % Normal 10.9-14.2 [facility] Comment on above: Performed By: #### 2 245739, 2304598, 8772325, 37455285 #### [facility] [address] [place] [address] Hematocrit (Bld) [Volume fraction] 44.6 % Normal 34.0-46.0 [facility] Comment on above: Performed By: #### 2 071939, 5607808, 7881958, 90245178 #### [facility] [address] [place] [address] Hemoglobin (Bld) [Mass/Vol] 15.3 g/dL Normal 12.0-16.0 [facility] Comment on above: Performed By: #### 2 426812, 1245197, 7933388, 70650812 #### [facility] [address] [place] [address] MCH (RBC) [Entitic mass] 32.6 pg Normal 27.0-34.0 [facility] Comment on above: Performed By: #### 2 192792, 6947466, 4534407, 32045368 #### [facility] [address] [place] [address] MCHC (RBC) [Mass/Vol] 34.4 g/dL Normal 31.4-36.0 [facility] Comment on above: Performed By: #### 2 583625, 2288109, 2724370, 42016511 #### [facility] [address] [place], [place] [address] MCV (RBC) [Entitic vol] 94.9 fL Normal 80.0-100.0 [facility] Comment on above: Performed By: #### 2 227493, 0988903, 4164481, 38068554 #### [facility] [address] [place] [address] Platelet mean volume (Bld) [Entitic vol] 7.2 fL Normal 6.4-10.8 [facility] Comment on above: Performed By: #### 2 940044, 2971977, 8231808, 33512669 #### [facility] [address] [place] [address] Platelets (Bld) [#/Vol] 361.0 E9/L Normal 150.0-500.0 [facility] Comment on above: Performed By: #### 2 768078, 3603654, 4283248, 31428547 #### [facility] [address] [place] [address] RBC (Bld) [#/Vol] 4.7 E12/L Normal 4.3-5.9 [facility] Comment on above: Performed By: #### 2 779973, 4747870, 9088314, 32350293 #### [facility] [address] [place] [address] WBC corrected for nucl RBC Auto (Bld) [#/Vol] 11.8 E9/L High 4.0-11.0 [facility] Comment on above: Performed By: #### 2 806825, 4450037, 5987988, 11423076 #### [facility] [address] [place] [address] ED Clinical Summaryon 2019 ED Clinical Summary [address] [address] ED Clinical Summary Person Information Name: MAGGIE DEL ROSARIO [place] Age: 43 Years : 1975 Sex: Female Language: Lebanese PCP: Rajesh Solo DO Marital Status: Phone: [phone] Visit Id: Visit Reason: Vomiting; Abdominal pain; [...] 13:21:31 10/08/2019 13:21:31 10/08/2019 13:21:31 AD[address]ESS: [address] [facility] [id number] PHYS DOC NOTES: MEDICAL INFORMATION: Prescriptions Given: [facility], [address] [facility] [place] [id number], [phone] sucralfate (Carafate 1 g/10 mL Susp-Oral) 10 Milliliter By Mouth 4 times a day for 7 Days. Refills: 0. PATIENT EDUCATION INFORMATION: Instructions: Gastritis, Adult; Abdominal Pain, Adult Follow up: With: Address: When: [facility], [address] [place] [address] Business (1) In 3 days 10/11/2019 With: Address: When: [facility] [address] [place], [place] [id number] Business (1) In 3 days 10/11/2019 DIAGNOSIS: Right upper quadrant abdominal pain Normal [facility] ED Note-Physicianon 10-08-19 ED Note-Physician Basic [...] ultrasound was obtained. This is discussed with patient services technician as negative for acute findings. Patient [...] day(s), # 280 mL, Refills(s) 0, Pharmacy: [facility], 165, cm, 10/08/19 10:25:00 EST, Height/Length [...] Information Yudelka RIOS In 3 days 10/11/2019 [facility] [address] [place] [address]- Business (1) Additional Instructions: Rajesh Solo In 3 days 10/11/2019 [facility] [address] [place] [address]- Business (1) Additional Instructions: Patient Education Gastritis, Adult Abdominal Pain, Adult Attestation Patient seen and evaluated by the physician assistant to the ceo. Attending physician was present in the emergency department and supervised care. This report was transcribed using voice recognition software. Every effort was made to ensure accuracy, however, inadvertently computerized supervisor prepress mistakes may be present. Problem List/Past Medical [...] 10:41:00) Lymph Auto: 25 % (10/08/19 10:41:00) Rhea Auto: 6.9 % (10/08/19 10:41:00) Eos Auto: 1 % (10/08/19 10:41:00) Basophil Auto: 0.2 % (10/08/19 10:41:00) Neutro Absolute: 7.9 E9/L High (10/08/19 10:41:00) Lymph Absolute: 2.9 E9/L (10/08/19 10:41:00) Rhea Absolute: 0.8 E9/L (10/08/19 10:41:00) Eos Absolute: [...] By: Trevin Esquivel DO 10/08/2019 10:57:10 Normal [facility] Comment on above: Result Comment: Elec [...] discomfort you are experiencing: ? Only take juyo-wvs-jtmrogi or prescription medicines as directed by your [...] Document Reviewed: 04/23/2014 ExitCare? Patient Information ?2015 Mobile-[employer]. This information is not intended to replace [...] (NSAIDs). HOME CARE INSTRUCTIONS ? Only take xuat-zpb-optoubj or prescription medicines as directed by your [...] Garlic and onions. ? Spicy foods. ? [place] fruits, such as oranges, todd, or limes. [...] Document Reviewed: 09/26/2012 ExitCare? Patient Information ?2015 Mobile-XL. This information is not intended to replace advice given to you by your health care provider. Make sure you discuss any questions you have with your health care provider. Normal [facility] ED Patient Summaryon 020 ED Patient Summary [address] [address] Patient Discharge Instructions Person Information Name: MAGGIE DEL ROSARIO Age: 43 Years Arrival Date: 10/08/2019 10:18:57 Discharge Diagnosis: Right upper quadrant abdominal pain Primary Care Physician: Rajesh Solo DO Provider Information Primary Provider: Trevin Esquivel DO [employer] Analyst:Rishi Martinez PA-C The exam and treatment you received in the Emergency Department were for an urgent problem and are not intended as complete care. It is important that you follow up with a doctor, nurse practitioner, or physician?s assistant to the ceo for ongoing care. If your symptoms become worse or you do not improve as expected and you are unable to reach your usual health care provider, you should return to the Emergency Department. We are available 24 hours a day. MAGGEI DEL ROSARIO has been given the following list of patient education materials, prescriptions and follow-up instructions: Follow-up Instructions: With: Address: When: [facility], [address] [place] [address] Business (1) In 3 days 10/11/2019 With: Address: When: Rajesh Solo [address] [place] [address] Business (1) In 3 days 10/11/2019 In the event that this physician does not participate in your insurance network, please consult with your insurance company to find a nearby participating provider. Patient Education Materials: Gastritis, Adult; Abdominal Pain, Adult A MESSAGE TO ALL PATIENTS REGARDING OPIOIDS PRESCRIPTION OPIOIDS: WHAT YOU NEED TO KNOW Prescription opioids can be used to help relieve tgzedurx-vk-ppmomz pain and are often prescribed following a [...] be struggling with addiction, tell your health occasional caregiver and ask for guidance or call [facility]?S National Helpline at 1-123-228-JERP. x Source: US Department of Health and Human Services/Center for Disease Control & Prevention [facility] Medications Given: Medication Dose Route [...] New Medications [facility], [address], [place] [id number], [phone] sucralfate (Carafate 1 g/10 mL Susp-Oral) 10 Milliliter By Mouth 4 times a day for 7 Days. Refills: 0. Comment: Pharmacy Information: Thank you for choosing [facility] Patient Education Materials: Gastritis, Adult Gastritis is [...] (NSAIDs). HOME CARE INSTRUCTIONS ? Only take hwtg-ejl-fqdelpb or prescription medicines as directed by your [...] Garlic and onions. ? Spicy foods. ? [place] fruits, such as oranges, todd, or limes. [...] Document Reviewed: 09/26/2012 ExitCare? Patient Information ?2015 [employer]. This information is not intended to replace [...] discomfort you are experiencing: ? Only take qpfe-ccy-zhmxidm or prescription medicines as directed by your [...] Document Reviewed: 04/23/2014 ExitCare? Patient Information ?2014 [employer]. This information is not intended to replace advice given to you by your health care provider. Make sure you discuss any questions you have with your health care provider. MIGUEL ÁNGEL Aguirre LISA L , have received the following patient education materials/instructions and have verbalized understanding: Patient Education Materials: Gastritis, Adult; Abdominal Pain, Adult Follow-up Instructions: With: Address: When: [facility], [address] [place], [place] [address]kristopher [facility] [place] [address] Business (1) In 3 days 10/11/2019 With: Address: When: [address] [address] Business (1) In 3 days 10/11/2019 Patient Signature Date Clinician/Nurse Signature Date 10/08/2019 13:21:33 Normal [facility] Hep Func Panelon 10-08-2019 Albumin [Mass/Vol] 4.2 g/dL Normal 3.3-5.0 [facility] Comment on above: Performed By: #### 2 102612, 7889107, 5994778, [id number] #### [facility] [address] [place] [address] Albumin [Mass/Vol] 1.2 g/dL Normal 1.1-2.2 [facility] Comment on above: Performed By: #### 2 444603, 0831501, 5287415, 16554735 #### [facility] [address] [place] [address] Bilirubin [Mass/Vol] 0.4 mg/dL Normal 0.0-1.1 [facility] Comment on above: Performed By: #### 2 878021, 5836027, 2240431, 08838384 #### [facility] [address] [place] [address] Bilirubin.direct [Mass/Vol] 0.3 mg/dL Normal 0.1-0.9 [facility] Comment on above: Performed By: #### 2 699151, 9215108, 6419527, 94835946 #### [facility] [address] [place] [address] Globulin (S) [Mass/Vol] 3.6 g/dL Normal 1.4-4.0 [facility] Comment on above: Performed By: #### 2 555988, 0022900, 2694083, 93903622 #### [facility] [address] [place] [address] Protein [Mass/Vol] 7.8 g/dL Normal 6.0-7.8 [facility] Comment on above: Performed By: #### 2 903595, 7681666, 3121556, 35834809 #### [facility] [address] [place] [address] ALP [Catalytic activity/Vol] 77 Int._Unit/L Normal 21-98 [facility] Comment on above: Performed By: #### 2 434202, 5924644, 0859580, 27369621 #### [facility] [address] [place] [address] ALT No additional P-5'-P [Catalytic activity/Vol] 64 Int._Unit/L High 6-46 [facility] Comment on above: Performed By: #### 2 755801, 4319384, 9354360, 91342736 #### [facility] [address] [place] [address] AST [Catalytic activity/Vol] 47 Int._Unit/L High 5-43 [facility] Comment on above: Performed By: #### 2 749101, 2575623, 0134673, 86606363 #### [facility] [address] [place] [address] Bilirubin.direct [Mass/Vol] 0.1 mg/dL Normal 0.1-0.4 [facility] Comment on above: Performed By: #### 2 637567, 3559398, 8296157, 55824993 #### [facility] [address] [place] [address] Lipase Levelon 10-08-2019 Lipase [Catalytic activity/Vol] 50 unit/L Normal 13-58 [facility] Comment on above: Performed By: #### 2 059576, 0585480, 0488583, 47941525 #### [facility] [address] [place] [address] Troponin 0 Hr.on 10-08-2019 Troponin I.cardiac [Mass/Vol] ng/mL Normal <=0.03 [facility] Comment on above: Result Comment: New Troponin Assay 01/09/14 LAN PR Cutoff value > or = 0.03 ng/mL in conjunction with clinical conditions of myocardial infarction. (www.escardio.org/guidelines) Performed By: #### 2 032654, 3954578, 8423858, 46160701 #### [facility] [address] [place] [address] US Gallbladderon 10-08-2019 US Gallbladder Exam Date/Time: [...] MD Transcribed by: IMAN Technologist: HW Normal [facility] eGFRon 10-08-2019 GFR/1.73 sq M predicted among blacks MDRD (S/P/Bld) [Vol rate/Area] mL/min/{1.73_m2} Normal >=59 [facility] Comment on above: Order Comment: Order added by Discern Expert. Result Comment: eGFR is race adjusted. AA=. Performed By: #### 2 877092, 3879666, 7144077, 59557507 #### [facility] [address] [place] [address] GFR/1.73 sq M predicted among non-blacks MDRD (S/P/Bld) [Vol rate/Area] mL/min/{1.73_m2} Normal >=59 [facility] Comment on above: Order Comment: Order added by Discern Expert. Result Comment: Observer Gravity Prospecting bhavin kidney disease could be indicated at eGFR's of less than 60 mL/min/1.73m2. Kidney failure is indicated at less than 15 mL/min/1.73m2. Performed By: #### 2 554416, 5821412, 9420460, 77634232 #### [facility] [address] [place] [address] Coding Summary.on 12-24-2018 Coding Summary. CODING DATE: 019 FINAL [facility] STATUS: Home (Routine DC) PAYOR: Self Pay [...] Revised Date Saved: 12/24/2018 08:11 am Normal [facility] Auto Diffon 12-23-2018 Basophils/100 WBC (Bld) 0.7 % Normal 0.0-2.0 [facility] Comment on above: Order Comment: Order Added by Discern Expert. Performed By: #### 2 587304, 2683437, 1662374, 61552470 #### [facility] [address] [place] [address] Basophils/Leukocy cj Auto (Bld) [Pure # fraction] 0.1 E9/L Normal 0.0-0.2 [facility] Comment on above: Order Comment: Order Added by Discern Expert. Performed By: #### 2 127542, 8184727, 9586884, 03041608 #### [facility] [address] [place] [address] Eosinophils/100 WBC (Bld) 1.1 % Normal 0.0-8.0 [facility] Comment on above: Order Comment: Order Added by Discern Expert. Performed By: #### 2 179242, 1117049, 6630285, 33361589 #### [facility] [address] [place] [address] Eosinophils/Leuko cytes Auto (Bld) [Pure # fraction] 0.1 E9/L Normal 0.0-0.5 [facility] Comment on above: Order Comment: Order Added by Discern Expert. Performed By: #### 2 430740, 3993075, 6566405, 85112241 #### [facility] [address] [place] [address] Lymphocytes/100 WBC (Bld) 37.9 % Normal 14.0-50.0 [facility] Comment on above: Order Comment: Order Added by Discern Expert. Performed By: #### 2 495158, 5359170, 9258683, 13243397 #### [facility] [address] [place] [address] Lymphocytes/Leuko cytes Auto (Bld) [Pure # fraction] 4.2 E9/L High 1.0-4.0 [facility] Comment on above: Order Comment: Order Added by Discern Expert. Performed By: #### 2 025193, 2574535, 5654529, 08939198 #### [facility] [address] [place] [address] Monocytes/100 WBC (Bld) 5.3 % Normal 4.0-14.0 [facility] Comment on above: Order Comment: Order Added by Discern Expert. Performed By: #### 2 808842, 4081908, 6268760, 16326301 #### [facility] [address] [place] [address] Monocytes/Leukocy cj Auto (Bld) [Pure # fraction] 0.6 E9/L Normal 0.2-1.0 [facility] Comment on above: Order Comment: Order Added by Discern Expert. Performed By: #### 2 285851, 4723848, 8905555, 95689427 #### [facility] [address] [place] [address] Neutrophils/100 WBC (Bld) 55.0 % Normal 36.0-75.0 [facility] Comment on above: Order Comment: Order Added by Discern Expert. Performed By: #### 2 853542, 3826069, 6732633, 20085938 #### [facility] [address] [place] [address] Neutrophils/Leuko cytes Auto (Bld) [Pure # fraction] 6.1 E9/L Normal 2.0-7.5 [facility] Comment on above: Order Comment: Order Added by Discern Expert. Performed By: #### 2 034117, 6196770, 9122157, 10075734 #### [facility] [address] [place] [address] BMPon 12-23-2018 Creatinine [Mass/Vol] 0.6 mg/dL Normal 0.5-1.3 [facility] Comment on above: Performed By: #### 2 838110, 3207989, 1141531, 48810466 #### [facility] [address] [place] [address] Urea nitrogen [Mass/Vol] 10 mg/dL Normal 5-21 [facility] Comment on above: Performed By: #### 2 635531, 0838315, 2265539, 19131740 #### [facility] [address] [place] [address] Urea nitrogen/Creatini ne [Mass ratio] 17 No Units Normal 10-20 [facility] Comment on above: Performed By: #### 2 590604, 1489585, 7070910, 24811681 #### [facility] [address] [place] [address] Anion gap [Moles/Vol] 15 mmol/L Normal 6-16 [facility] Comment on above: Performed By: #### 2 768522, 3852442, 2612948, 30032185 #### [facility] [address] [place] [address] Calcium [Mass/Vol] 10.1 mg/dL Normal 8.9-11.1 [facility] Comment on above: Performed By: #### 2 718765, 7816474, 5918886, 35259291 #### [facility] [address] [place] [address] Chloride [Moles/Vol] 99 mmol/L Low 101-111 [facility] Comment on above: Performed By: #### 2 571721, 1724788, 5238090, 88310316 #### [facility] [address] [place] [address] CO2 [Moles/Vol] 22 mmol/L Normal 21-31 [facility] Comment on above: Performed By: #### 2 147266, 9732232, 8875527, 43762552 #### [facility] [address] [place] [address] Glucose [Mass/Vol] 137 mg/dL Normal 55-199 [facility] Comment on above: Result Comment: If t his glucose result represents a fasting glucose, interpretation should refer to the following reference range: 55-99 mg/dL Performed By: #### 2 592933, 3304153, 2383926, 85620938 #### [facility] [address] [place] [address] Potassium [Moles/Vol] 3.1 mmol/L Low 3.5-5.3 [facility] Comment on above: Performed By: #### 2 852909, 4781741, 9406016, 56732281 #### [facility] [address] [place] [address] Sodium [Moles/Vol] 133 mmol/L Low 135-145 [facility] Comment on above: Performed By: #### 2 356612, 4314257, 1694603, 44483200 #### [facility] [address] [place] [address] CBC w/ Auto Diffon Erythrocyte distribution width (RBC) [Ratio] 13.0 % Normal 10.9-14.2 [facility] Comment on above: Performed By: #### 2 912305, 5741022, 0041328, 19595298 #### [facility] [address] [place] [address] Hematocrit (Bld) [Volume fraction] 45.9 % Normal 34.0-46.0 [facility] Comment on above: Performed By: #### 2 647257, 8807512, 9166361, 03048164 #### [facility] [address] [place] [address] Hemoglobin (Bld) [Mass/Vol] 15.7 g/dL Normal 12.0-16.0 [facility] Comment on above: Performed By: #### 2 589757, 0253778, 9165729, 67197990 #### [facility] [address] [place] [address] MCH (RBC) [Entitic mass] 32.8 pg Normal 27.0-34.0 [facility] Comment on above: Performed By: #### 2 524495, 2275322, 0142947, 70943738 #### [facility] [address] [place] [address] MCHC (RBC) [Mass/Vol] 34.2 g/dL Normal 33.3-35.7 [facility] Comment on above: Performed By: #### 2 306874, 2337334, 4291518, 03099417 #### [facility] [address] [place] [address] MCV (RBC) [Entitic vol] 95.9 fL Normal 80.0-100.0 [facility] Comment on above: Performed By: #### 2 939071, 7090562, 1844567, 86835353 #### [facility] [address] [place] [address] Platelet mean volume (Bld) [Entitic vol] 7.5 fL Normal 6.4-10.8 [facility] Comment on above: Performed By: #### 2 209800, 4622619, 4675824, 61243628 #### [facility] [address] [place] [address] Platelets (Bld) [#/Vol] 373.0 E9/L Normal 150.0-500.0 [facility] Comment on above: Performed By: #### 2 346718, 7525007, 5988361, 60998670 #### [facility] [address] [place] [address] RBC (Bld) [#/Vol] 4.8 E12/L Normal 4.3-5.9 [facility] Comment on above: Performed By: #### 2 745646, 7873459, 3304117, 34314846 #### [facility] [address] [place] [address] WBC corrected for nucl RBC Auto (Bld) [#/Vol] 11.2 E9/L High 4.0-11.0 [facility] Comment on above: Performed By: #### 2 417151, 1661826, 5556238, 15406296 #### [facility] [address] [place] [address] CT Head or Brain w/o Contras ton [...] Signature): 12/23/2018 8:12 am Signed by: Meliza Fontaine MD Transcribed by: IMAN Technologist: HAIDER Normal [facility] CT Spine Cervical w/o Contra ston [...] MD Transcribed by: IMAN Technologist: HAIDER Mcmanus [facility] ED Clinical Summaryon 2018 ED Clinical Summary [place] [id number] ED Clinical Summary Person Information Name: MAGGIE DEL ROSARIO Duyen/[facility] Age: 43 Years : 1975 12:00 AM Sex: Female Language: Lebanese PCP: Rajesh Solo DO Marital Status: Single Phone: [phone] Visit Id: Visit Reason: Fall; PT FELL [...] 12/23/2018 3:33 AM 12/23/2018 3:33 AM ADDRESS: [address] [place] [id number] PHYS DOC NOTES: MEDICAL INFORMATION: Prescriptions Given: PATIENT EDUCATION INFORMATION: Instructions: Alcohol Intoxication; Concussion, Adult, Itsv-ja-Fxqk; Open Wound, Lip, Oxkl-xr-Ygvt; Mouth Laceration, Gurq-yl-Qmxp Follow up: With: Address: When: [facility] [address] [place] [address] [place] [address] Business (1) Within 1 to 2 days, only if needed DIAGNOSIS: 1:Acute alcohol intoxication; 2:Concussion with loss of consciousness <= 30 min; 3:Lip laceration Normal [facility] ED Note-Physicianon 12-24-19 ED Note-Physician Basic [...] 43-year-old female she is awake and attentive Wayne Coma Scale 15. There is a superficial [...] 1 to 2 days, only if needed [address] [place] [address]- [facility] (1) Additional Instructions: Patient Education Alcohol Intoxication Concussion, Adult, Hgql-sp-Suph Open Wound, Lip, Yjgn-xh-Pbul Mouth Laceration, Hvuk-fs-Dazi Problem List/Past Medical History Ongoing No qualifying [...] Lymph Auto: 37.9 % (12/23/18 01:55:00 EDT) Rhea Auto: 5.3 % (12/23/18 01:55:00 EDT) Eos Auto: 1.1 % (12/23/18 01:55:00 EDT) Basophil Auto: 0.7 % (12/23/18 01:55:00 EDT) Neutro Absolute: 6.1 E9/L (12/23/18 01:55:00 EDT) Lymph Absolute: 4.2 E9/L High (12/23/18 01:55:00 EDT) Rhea Absolute: 0.6 E9/L (12/23/18 01:55:00 EDT) Eos [...] malalignment Read By: Juan Francisco Munoz MD [facility] Comment on above: Result Comment: Elec tronically Signed By: Juan Francisco Munoz MD\.br\Date and Time Signed: 12/23/18 03:15 EDT ED Patient Education Noteon 12-23-2018 ED Patient Education Note Ggox-sn-Hkwi Open Wound, Lip An open wound is [...] Document Reviewed: 11/30/2010 ExitCare? Patient Information ?2015 [employer]. This information is not intended to replace [...] Tell your teachers, school nurse, school counselor, farmer and grazier, customer service trainer, or personnel worker about your concussion. Tell them about [...] Document Reviewed: 03/06/2014 ExitCare? Patient Information ?2015 Mobile[employer]. This information is not intended to replace advice given to you by your health care provider. Make sure you discuss any questions you have with your health care provider. Mouth Laceration A mouth laceration is a cut inside the mouth. HOME CARE ? Rinse your mouth with warm salt water 4 to 6 times a day. ? [place] your teeth as usual if you can. [...] Document Reviewed: 02/16/2012 ExitCare? Patient Information ?2015 Mobile[employer]. This information is not intended to replace [...] yellow. Avoid caffeine. ? ? Only take qxqu-aeg-htisjkw or prescription medicines as directed by your [...] Document Reviewed: 01/17/2014 ExitCare? Patient Information ?2015 [employer]. This information is not intended to replace advice given to you by your health care provider. Make sure you discuss any questions you have with your health care provider. Normal [facility] ED Patient Summaryon 019 ED Patient Summary [address] [address] Patient Discharge Instructions Person Information Name: MAGGIE DEL ROSARIO Age: 43 Years Arrival Date: 12/23/2018 1:53 AM Discharge Diagnosis: 1:Acute alcohol intoxication; 2:Concussion with loss of consciousness <= 30 min; 3:Lip laceration Primary Care Physician: Rajesh Solo DO Provider Information Primary Provider: Juan Francisco Munoz MD [employer] Analyst:None The exam and treatment you received in the Emergency Department were for an urgent problem and are not intended as complete care. It is important that you follow up with a doctor, nurse practitioner, or physician?s assistant to the ceo for ongoing care. If your symptoms become [...] Follow-up Instructions: With: Address: When: [facility] KENN[facility] [address] [place] [address] [facility] (1) Within 1 to 2 days, only if needed In the event that this physician does not participate in your insurance network, please consult with your insurance company to find a nearby participating provider. Patient Education Materials: Alcohol Intoxication; Concussion, Adult, Rehq-yd-Tmoc; Open Wound, Lip, Kfaj-or-Cbdr; Mouth Laceration, Zkaf-ix-Ycxf A MESSAGE TO ALL PATIENTS REGARDING OPIOIDS PRESCRIPTION OPIOIDS: WHAT YOU NEED TO KNOW Prescription opioids can be used to help relieve zqghhkmz-oj-ezdhrd pain and are often prescribed following a [...] be struggling with addiction, tell your health occasional caregiver and ask for guidance or call NIURKA?[employer]isa National Helpline at 6-346-457-HELP. v Source: US Department of Health and Human Services/Center for Disease Control & Prevention [facility] Medications Given: Medication Dose Route No medications found. Medication Information: Comment: Pharmacy Information: Thank you for choosing [facility] Patient Education Materials: Alcohol Intoxication Alcohol intoxication [...] yellow. Avoid caffeine. ? ? Only take lldb-cox-ujtejqv or prescription medicines as directed by your [...] Document Reviewed: 01/17/2014 ExitCare? Patient Information ?2015 Mobile-XL. This information is not intended to replace [...] Tell your teachers, school nurse, school counselor, farmer and grazier, customer service trainer, or personnel worker about your concussion. Tell them about [...] Document Reviewed: 03/06/2014 ExitCare? Patient Information ?2014 Mobile-[employer]. This information is not intended to replace [...] Document Reviewed: 11/30/2010 ExitCare? Patient Information ?2015 Mobile-XL. This information is not intended to replace advice given to you by your health care provider. Make sure you discuss any questions you have with your health care provider. Mouth Laceration A mouth laceration is a cut inside the mouth. HOME CARE ? Rinse your mouth with warm salt water 4 to 6 times a day. ? [place] your teeth as usual if you can. [...] Document Reviewed: 02/16/2012 ExitCare? Patient Information ?2015 Mobile-XL. This information is not intended to replace advice given to you by your health care provider. Make sure you discuss any questions you have with your health care provider. MIGUEL ÁNGEL Aguirre LISA L , have received the following patient education materials/instructions and have verbalized understanding: Patient Education Materials: Alcohol Intoxication; Concussion, Adult, Imqo-vs-Glpx; Open Wound, Lip, Bnfs-qw-Kfzh; Mouth Laceration, Parh-nn-Kjok Follow-up Instructions: With: Address: When: [facility] [address] [facility] [place] [address] Business (1) Within 1 to 2 days, only if needed Prescriptions: Patient Signature Date Clinician/Nurse Signature Date 12/23/18 03:33:31 Normal [facility] Ethanolon 12-23-2018 Ethanol [Mass/Vol] 268 mg/dL Abnormal <=7 [facility] Comment on above: Result Comment: Nano ical Result S_ETOH:268.0 Called to [facility] AT ER by LLOYD ABBOTT And Read Back For Confirmation at: 12/23/2018 02:44:14\Critical Result verified by repeat analysis Performed By: #### 2 588120 #### [facility] [address] [place] [address] Pre-Arrival Noteon 9 Pre-Arrival Note Pre-Arrival Summary Name: , Current Date: 12/23/2018 01:56:40 EDT Gender: Female Date of : Age: 43 Pre-Arrival Type: EMS ETA: 12/23/2018 02:14:00 EDT Primary Care Physician: Presenting Problem: fall stairs 5min eta Pre-Arrival User: Harry Aragon RN Referring Source: Location: [place] Completion Date/Time: 12/23/18 01:44:00 [facility] Emergency Department Pre-Hospital Report Form Vital Signs: Pre-Hospital Report: Treatment in Route: Response to Treatment: Misc. Issues: Normal [facility] eGFRon 12-23-2018 GFR/1.73 sq M predicted among blacks MDRD (S/P/Bld) [Vol rate/Area] mL/min/{1.73_m2} Normal >=59 [facility] Comment on above: Order Comment: Order added by Discern Expert. Result Comment: eGFR is race adjusted. AA=. Performed By: #### 2 388847, 6023941, 8953647, 22854758 #### [facility] [address] [place] [address] GFR/1.73 sq M predicted among non-blacks MDRD (S/P/Bld) [Vol rate/Area] mL/min/{1.73_m2} Normal >=59 [facility] Comment on above: Order Comment: Order added by Discern Expert. Result Comment: Observer [employer]ing bhavin kidney disease could be indicated at eGFR's of less than 60 mL/min/1.73m2. Kidney failure is indicated at less than 15 mL/min/1.73m2. Performed By: #### 2 216988, 4470545, 0179696, [id number] #### [facility] [address] [place] [address] Interval History and Physion 06-06-2017 HIM IP Note OR Wholesale Manager Normal [facility] OPERATIVE REPORTon 7 OPERATIVE REPORT [facility] [address] [place] [address] OPERATIVE REPORTPATIENT NAME: MAGGIE YIP : 1975 [employer] REC NO: [id number] ROOM:ACCOUNT NO: [id number] ADMISSION DATE:06/06/2017PROVIDER: Greg XiongTE OF PROCEDURE: 06/06/2017PREOPERATIVE [...] digits. The procedure wastolerated quite well and Lorenzo was prescribed for pain management withfollowup on Monday in our office.GREG CORONADOD: 06/06/2017 9:38:09 [id number]#: [id number] Doc#: [id number] Normal [facility] Surgical Pathologyon 017 Surgical Pathology (NOTE)[id number] LABORATORIESCONSULTING PATHOLOGISTS [facility] [id number] [place] [address]. [place], [place] [address] Fax: SURGICAL PATHOLOGY CONSULTATIONPatient Name: Carroll YIP Rec: [id number] Number: [id number]: 06/06/2017Received: 06/06/2017Reported: 06/07/2017 11:51-- Diagnosis --SOFT TISSUE, [...] and perineural fibrosis, compatible withtraumatic-type neuroma. Normal [facility] History and Physicalon 06-05 HIM IP Note OR Wholesale Manager Normal [facility] Basic Metabolic Profon 05-22 (cont.) Normal [facility] Comment on above: Result Comment: Aver age GFR for 40-49 years old: 99 mL/min/1.73sq mChronic Kidney Disease: <60 mL/min/1.73sq mKidney failure: <15 mL/min/1.73sq meGFR calculated using average adult body mass. Additional eGFR calculator available at:[email or web address]_crcl_2012.htmPerformed at [facility] [address] [place] [address] (460) Performed By: #### C BC, BMP ####[facility] [place] [address](346) Anion gap 14 mmol/L Normal - [facility] Comment on above: Performed By: #### C BC, BMP ####[facility] [place] [address](824) BUN/CRE Ratio 31 High - [facility] Comment on above: Performed By: #### C BC, BMP ####[facility] [place] [address](025) Calcium 9.4 mg/dL Normal 8.6-10.4 [facility] Comment on above: Performed By: #### C BC, BMP ####[facility] [place] [address] Chloride 101 mmol/L Normal 98-107 [facility] Comment on above: Performed By: #### C BC, BMP ####[facility] [place] [address] CO2 22 mmol/L Normal 20-31 [facility] Comment on above: Performed By: #### C BC, BMP ####[facility] [place] [address] Creatinine 0.55 mg/dL Normal 0.50-0.90 [facility] Comment on above: Performed By: #### C BC, BMP ####[facility] [place] [address] eGFR (non-black) mL/min/{1.73_m2} Normal >60 [facility] Comment on above: Performed By: #### C BC, BMP ####[facility] [place] [address] Glucose mass conc 99 mg/dL Normal 70-99 [facility] Comment on above: Performed By: #### C BC, BMP ####[facility] [place] [address] Potassium molar conc 4.3 mmol/L Normal 3.7-5.3 [facility] Comment on above: Performed By: #### C BC, BMP ####[facility] [place] [address] Sodium 137 mmol/L Normal 135-144 [facility] Comment on above: Performed By: #### C BC, BMP ####[facility] [place] [address] Urea nitrogen 17 mg/dL Normal 6-20 [facility] Comment on above: Performed By: #### C BC, BMP ####[facility] [address] Staging: NOT REPORTED Normal [facility] Comment on above: Performed By: #### C BC, BMP ####[facility] [place] [address] CBCon 05-22-2017 Erythrocyte distribution width Auto Ratio (RBC) 13.1 % Normal 12.1-15.2 [facility] Comment on above: Performed By: #### C BC, BMP ####[facility] [place] [address] Erythrocytes (RBC) 4.59 10*6/uL Normal 4.0-5.2 [facility] Comment on above: Performed By: #### C BC, BMP ####[facility] [address] Hematocrit (HCT) 42.8 % Normal 36-46 [facility] Comment on above: Performed By: #### C BC, BMP ####[facility] [place] [address] Hemoglobin mass conc (Bld) 14.6 g/dL Normal 12.0-16.0 [facility] Comment on above: Performed By: #### C BC, BMP ####[facility] [place] [address] MCH 31.9 pg Normal 26-34 [facility] Comment on above: Performed By: #### C BC, BMP ####[facility] [place] [address] MCHC mass conc (RBC) 34.2 g/dL Normal 31-37 [facility] Comment on above: Performed By: #### C BC, BMP ####[facility] [address] MCV 93.3 fL Normal 80-100 [facility] Comment on above: Performed By: #### C BC, BMP ####[facility] [place] [address] Platelets 366 10*3/uL Normal 140-450 [facility] Comment on above: Result Comment: Perf ormed at [facility] [address] [place] [address] Performed By: #### C BC, BMP ####[facility] [address] WBC (Leukocytes) 9.3 10*3/uL Normal 3.5-11.0 [facility] Comment on above: Performed By: #### C BC, BMP ####[facility] [place] [address] Platelet mean volume (PMV) NOT REPORTED Normal 6.0-12.0 [facility] Comment on above: Performed By: #### C BC, BMP ####[facility] [place] [address] Vital Signs Date Time Vital Sign Value Performing Clinician Facility 04-28-2022 15:01-0400 Body height 167.64 cm DO Spir[facility] Work Phone: [facility] 04-28-2022 15:01-0400 Body temperature 97.9 [degF] DO [employer] Work Phone: [facility] 04-28-2022 15:01-0400 Body weight 89.81 kg DO [employer] Work Phone: [facility] 04-28-2022 15:01-0400 Diastolic blood pressure 107 mm[Hg] DO [employer] Work Phone: [facility] 04-28-2022 15:01-0400 Heart rate 113 /min DO [employer] Work Phone: [facility] 04-28-2022 15:01-0400 Respiratory rate 18 /min DO Rajesh Solo Work Phone: [facility] 04-28-2022 15:01-0400 SaO2% (BldA) [Mass fraction] 94 % DO Rajesh Solo Work Phone: [facility] 04-28-2022 15:01-0400 Systolic blood pressure 181 mm[Hg] DO Rajesh Solo Work Phone: [facility] 12-31-2021 10:00-0400 Body height 167.64 cm David Valle Other [email or web address] Other 12-31-2021 10:00-0400 Body mass index (BMI) [Ratio] 29.86 kg/m2 David Valle Other [email or web address] Other 12-31-2021 10:00-0400 Body weight 83.92 kg David Valle Other [email or web address] Other 08-04-2021 16:00-0500 Body height 167.64 cm Good Alan Other [email or web address] Other 08-04-2021 16:00-0500 Body mass index (BMI) [Ratio] 32.12 kg/m2 Good Alan Other [email or web address] Other 08-04-2021 16:00-0500 Body weight 90.27 kg Good Alan Other [email or web address] Other Encounters Encounter Date Encounter Type Care Provider Facility Start: 06-04-2023 End: 06-04-2023 Emergency department patient visit Rajesh Solo Facility:[facility] Start: 04-28-2022 End: 04-28-2022 Emergency department patient visit DO Rajesh Solo Work Phone: [facility] Start: 01-06-2022 End: 01-06-2022 ambulatory David Valle Other [email or web address] Other Start: 01-06-2022 Telephone encounter David Leblanc ck [facility] Start: 12-31-2021 End: 12-31-2021 ambulatory David De Leonack Other [email or web address] Other Start: 12-31-2021 Office outpatient visit 15 minutes David Valle [facility] Start: 09-14-2021 End: 10-22-[address] RAJESH SOLO Facility:[facility] Start: 09-01-2021 End: 09-01-2021 ambulatory Good Alan Other [email or web address] Other Start: 09-01-2021 Postop follow up visit related to original px Good Alan [facility] Start: 08-24-2021 End: 08-24-2021 ambulatory Good Alan Other [email or web address] Other Start: 08-24-2021 Telephone encounter Good VILLEGAS G [facility] Start: 08-04-2021 End: 08-04-2021 ambulatory Good Alan Other [email or web address] Other Start: 08-04-2021 Office outpatient visit 25 minutes Good Alan [facility] Start: 03-29-2021 End: 03-30-[address] [...] Detail Author Patient Education [facility] ([place]) [facility] Work Phone: Patient referral [facility] Work Phone: Payers Date Payer Category Payer Medicaid [id number] 2023 Self-pay [id number] 2014 Unknown [id number] 1975 Unknown [id number] [id number] 1976 Unknown [id number] [id number] [id number] 1976 Unknown [id number] 2.16.84 [id number] 1959 Unknown [id number] Unknown [id number] [id number] Worker's Compensation [id number] Social History Date Type Detail Facility Sex Assigned At [email or web address] Other Start: 04-28-2022 Tobacco smoking stat [facility] Smoker (finding) [facility] Start: 1975 Sex Assigned At Female F [facility] Evaluation note 12-31-2021 Note Date & Type Note Facility 12-31-2021 Evaluation note Encounter Date Diagnosis Assessment Notes December, Small bowel obstruction (ICD-10 - K56.609) December, Diverticulitis (ICD-10 - K57.92) START MESALAMINE 1.2 GRAM 4 PO Q AM PATIENT ENCOURAGED TO STOP SMOKING RTO 6 WEEKS [email or web address] Other Evaluation note 09-01-2021 Note Date & [...] for removal of sutures (ICD-10 - Z48.02) [email or web address] Other Evaluation note 08-04-2021 Note Date & [...] poor healing. I have advised against the detention use of narcotic pain medication. I have [...] as documented in the electronic medical record. [email or web address] Other Clinical Note 03-25-2021 Note Date & [...] by: MARGRET DOMINGO Date: 2021-03-25 07:50 [facility] Evaluation note Note Date & Type Note Facility Evaluation note No Information [employer] Other Evaluation note Note Date & Type Note Facility Evaluation note No assessment information availa ble [facility] Work Phone: History general Narrative - Reported Note Date & Type Note Facility History general Narrative - Reported Type Medical History diverticulitis Medical History irritable bowel syndrome Surgical History hysterectomy Surgical History gallbladder Surgical History neuroma removal x2 in left foot Hospitalization History PANCREATITIS 02/2020 Hospitalization History PANCREATITIS 2018 Hospitalization History ABDOMINAL PAIN Hospitalization History PANCREATITIS [email or web address] Other History general Narrative - Reported Note Date & Type Note Facility History general Narrative - Reported Type Medical History diverticulitis Medical History irritable bowel syndrome Surgical History hysterectomy Surgical History gallbladder Surgical History neuroma removal x2 in left foot Surgical History right knee scope med ial/lateral menisectemy Hospitalization History PANCREATITIS 02/2020 Hospitalization History PANCREATITIS 2018 Hospitalization History ABDOMINAL PAIN Hospitalization History PANCREATITIS [email or web address] Other Hospital Discharge instructions Note Date & [...] your hand is not improving please call [facility] to follow-up with a hand surgeon You can also follow-up with [facility] as needed for minor concerns Return to the ER for more severe pain loss of circulation in your fingers or any other concerns [facility] Work Phone: Summary Purpose Family History No [...] AUTHOR AUTHOR'S ORGANIZ ATION 10/15/2019 Armaan Diaz [facility] DATE CREATED AUTHOR AUTHOR'S ORGANIZ ATION 10/29/2021 [facility] DATE CREATED AUTHOR AUTHOR'S ORGANIZ ATION 06/15/[address] [facility] REASON FOR VISIT (unrecogniz ed section and content) INCISION BLEEDINGRight Knee PainRecheck Right KneeINPATIENT FOLLOW UP-TO BE SEEN IN [address] VALLE FOR DIVERTICULITIS/ BOWEL OBSTRUCTION, SHE FISNISHED ANTIBIOTICS INSTRUCTED SHE IS STARTING TO FEEL BETTERclinical Care Teams (unrecognized sec tion and content) Team Status: Inactive Member Role Status Dates Rajesh Solo , Primary Care Provider Active Danica Nuñez [facility] Emergency Provider Active Team Status: Active Member [...] BE BASED ON THE PRIMARY CLINICAL RECORDS. [employer] [facility]. provides no warranty or guarantee of the accuracy or completeness of information in this document.
--- NOTE | 2023-09-04 20:10 | P.HP_ITS ---
H&P: HPI History of Present Illness Chief complaint: LT WRIST FX Narrative: Patient was seen in the operating room today for repair of her radius and ulna fracture from 2 days ago. In the postanesthesia care unit was having difficulty maintaining her blood pressure. She was given 2 doses of labetalol. No impr ovement given 1 dose of hydralazine with some improvement patient was admitted for monitoring significantly elevated blood pressures in the 200/110 range Review of Systems ROS Status of ROS 10 or more systems reviewed and unremark able except as noted in history and below PFSH PFS Medical History (Updated 09/04/23 @ 20:11 by Roverto Hoang MD) Fx. left wrist ?S62.102A - Fracture of unspecified carpal bone, left wrist, initial encounter for closed fracture (ICD-10) Surgical History (Updated 09/04/23 @ 13:26 by Jyoti Diaz) History of colectomy ?Z90.49 - Acquired absence of other specified parts of digestive tract (ICD- 10) History of colonoscopy ?Z98.890 - Other specified postprocedural states (ICD-10) History of foot surgery ?Z98.890 - Other specified postprocedural states (ICD-10) History of hysterectomy ?Z90.710 - Acquired absence of both cervix and uterus (ICD-10) Family History (Updated 09/04/23 @ 13:30 by Jyoti Diaz) Other Family history not known due to adoption Social History (Updated 09/04/23 @ 13:31 by Jyoti Diaz) Within the past year, how often did you have a drink containing alcohol: 2-4 times a month Smoking status: Current every day smoker Non-prescribed substance use: denies use 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 Known occupational exposures/hazards: No Highest level of school completed/degree received: high school graduate Meds Home Medications and Allergies Home Medications Medication Instructions Recorded Confirmed Type amoxicillin 875 mg-potassium 1 tab PO BID #20 tabs 09/02/23 09/04/23 Rx clavulanate 125 mg tablet ondansetron 4 mg disintegrating 4 mg PO Q8H PRN nausea and 09/02/23 09/04/23 Rx tablet vomiting 3 days #10 tabs oxycodone-acetaminophen 5 mg-325 1 tab PO Q6H PRN pain 09/04/23 09/04/23 History mg tablet oxycodone-acetaminophen 5 mg-325 1 tab PO Q4H PRN pain #30 tabs 09/04/23 Rx mg tablet (Percocet) Allergies Allergy/AdvReac Type Severity Reaction Status Date / Time No Known Drug Allergies Allergy Verified 09/02/23 18:34 Exam Constitutional Vital Signs, click to edit/add: Last Vital Signs Temp 97.2 F L 09/04/23 19:12 Pulse 86 09/04/23 19:12 Resp 20 09/04/23 19:12 BP 130/88 09/04/23 19:12 Pulse Ox 91 L 09/04/23 19:12 O2 Del Method Room Air 09/04/23 19:12 O2 Flow Rate 10 09/04/23 17:47 Documenting provider has reviewed patient's vital signs: yes Common normals: no apparent distress HENMT Common normals: moist oral mucous membranes Respiratory Common normals: normal respiratory effort Cardio Common normals: regular rate and regular rhythm Results Labs Labs: Short CBC 09/04/23 Range/Units 12:48 WBC 10.6 (4.0-11.0) 10^3/uL Hgb 13.0 (12.0-16.0) g/dL Hct 39.2 (36.0-48.0) % Plt Count 227 (150-450) 10^3/uL BMP 09/04/23 12:48 Sodium 129 L Potassium 3.9 Chloride 95 L Carbon Dioxide 26.3 BUN 5.0 L Creatinine 0.72 Glucose 141 H Calcium 8.5 Assessment and Plan Assessment and Plan (1) Compound fracture: (2) Hypertension: Plan Uncontrolled hypertension-no symptoms so cannot say hypertensive emergency. Blood pressure is significant elevated not responding to IV medications initially. Patient will be observed overnight. Started on metoprolol orally. As needed hydralazine which so far has seemed to be effective. Check cardiac markers. Serial labs. Radius and ulnar fracture-plan per Dr. Roman. Will discuss case with him. Not likely needs to be seen tomorrow for this, we will just follow-up as an outpatient With patient being asymptomatic with her high blood pressure, improving so far with current regimen, likely discharge in a.m., will maintain patient as an observation status
[2023-09-04 20:22] LABS: Troponin I High Sensitivity 4.9 pg/mL (4.0-51.3)
[2023-09-04] MEDS: LACTATED RINGER'S SOLUTION 1,000 ML 75 ML IV (20:26)
[2023-09-04] MEDS: ONDANSETRON PF 4 MG/2 ML VIAL IV (20:27)
[2023-09-04] MEDS: METOPROLOL TARTRATE 50 MG TABLET PO (20:27)
[2023-09-04] MEDS: AMOXICILLIN/POTASSIUM CLAV 1 TAB TABLET PO (20:27)
[2023-09-04 20:33] LABS: Magnesium 1.9 mg/dL (1.8-2.4); Thyroid Stimulating Hormone 2.076 uIU/mL (0.358-3.740)
[2023-09-04] MEDS: NICOTINE 21 MG PATCH.TD24 TD (20:50)
[2023-09-04 23:50] LABS: Troponin I High Sensitivity 5.1 pg/mL (4.0-51.3)
[2023-09-05] VITALS (44 sets, daily range): BP systolic 113–153; BP diastolic 77–115; PULSE 66–88; RESP 13–28; TEMP 36.6–36.7; O2SAT 90–100
[2023-09-05] MEDS: OXYCODONE HCL/ACETAMINOPHEN 5MG/325MG 1 TAB PO ×2 (01:18→06:44)
[2023-09-05] MEDS: ONDANSETRON PF 4 MG/2 ML VIAL IV (01:20)
[2023-09-05 02:47] LABS: Troponin I High Sensitivity <4.0 pg/mL (4.0-51.3)
[2023-09-05 04:30] LABS: Basophils Percent Auto 0.1 % (0.2-2.0); Eosinophils Percent Auto 0.1 % (0.9-7.0); Hemoglobin 12.3 g/dL (12.0-16.0); Immature Granulocytes Abs Auto 0.09 10^3/uL (0.00-0.03); Immature Granulocytes Pct Auto 0.7 % (0.0-0.5); Lymphocytes Absolute Auto 1.1 10^3/uL (1.2-3.8); Mean Corpuscular HGB Conc 32.4 g/dL (29.9-35.2); Mean Corpuscular Hemoglobin 31.6 pg (26.7-34.0); Mean Corpuscular Volume 97.7 fL (81.0-99.0); Mean Platelet Volume 9.7 fL (9.5-13.5); Monocytes Absolute Auto 0.6 10^3/uL (0.3-0.8); Monocytes Percent Auto 4.1 % (1.7-12.0); Neutrophils Absolute Auto 11.7 10^3/uL (1.4-6.5); Platelet Count 235 10^3/uL (150-450); Red Blood Count 3.89 10^6/uL (4.20-5.40); Red Cell Distribution Width 12.2 % (11.0-15.0); White Blood Count 13.4 10^3/uL (4.0-11.0)
[2023-09-05 04:43] LABS: Anion Gap 11.9; BUN Creatinine Ratio 9.5; Calcium 8.6 mg/dL (8.5-10.1); Carbon Dioxide 26.2 mmol/L (21.0-32.0); Chloride 99 mmol/L (98-107); Estimated GFR (African America >60 (>=60); Estimated GFR (Non-African Ame >60 (>=60); Glucose 217 mg/dL (74-106); Potassium 4.1 mmol/L (3.5-5.1); Sodium 133 mmol/L (136-145)
[2023-09-05] MEDS: ONDANSETRON 4 MG RAPDIS TABLET PO (06:43)
[2023-09-05] MEDS: CEFAZOLIN SODIUM/DEXTROSE,ISO 2 GM/50 ML PIGGYBACK IV (07:27)
--- NOTE | 2023-09-05 08:46 | P.DS_ITS ---
DS: Providers Provider Date of admission: 09/04/23 19:06 Primary care physician: LEW SOLO DS: Diagnosis Discharge Diagnosis (1) Compound fracture: (2) Hypertension: Plan Uncontrolled hypertension Radius and ulnar fracture DS: Summary Hospital Course Hospital Course: Patient is being treated in the PACU for uncontrolled hypertension postoperatively from radius and ulnar fracture repair. Unable to control blood pressure even with IV agents initially. Given hydralazine with some improvement. She was watched in the hospital overnight. Started on metoprolol. Did not need any further as needed doses of hydralazine. Blood pressure still somewhat on the high side but I suspect this is secondary to pain and being in the hospital. Will send her home with metoprolol. Follow-up with her new PCP Delaney Hancock within the next week. Medications see list. Care unit overnight Time Spent with Patient Time attestation: Total time spent providing and/or coordinating discharge services: Exam Constitutional Vital Signs, click to edit/add: Last Vital Signs Temp 98.0 F 09/05/23 07:00 Pulse 72 09/05/23 07:25 Resp 16 09/05/23 07:00 BP 121/77 09/05/23 07:00 Pulse Ox 98 09/05/23 07:00 O2 Del Method Room Air 09/05/23 07:00 O2 Flow Rate 2 09/05/23 03:00 Documenting provider has reviewed patient's vital signs: yes Common normals: no apparent distress HENMT Common normals: moist oral mucous membranes Respiratory Common normals: normal respiratory effort Cardio Common normals: regular rate and regular rhythm DS: Data Data Completed and Pending Labs on day of discharge: Labs from last 24 hours 09/05/23 09/05/23 09/04/23 04:00 02:28 23:08 WBC 13.4 H RBC 3.89 L Hgb 12.3 Hct 38.0 MCV 97.7 MCH 31.6 MCHC 32.4 RDW 12.2 Plt Count 235 MPV 9.7 Neut % (Auto) 87.0 H Lymph % (Auto) 8.0 L Shackelford % (Auto) 4.1 Eos % (Auto) 0.1 L Baso % (Auto) 0.1 L Neut # (Auto) 11.7 H Lymph # (Auto) 1.1 L Shackelford # (Auto) 0.6 Eos # (Auto) 0.0 Baso # (Auto) 0.0 Abs Immat Gran (auto) 0.09 H Imm/Tot Granulo (auto) 0.7 H Sodium 133 L Potassium 4.1 Chloride 99 Carbon Dioxide 26.2 Anion Gap 11.9 BUN 6.0 L Creatinine 0.63 Est GFR ( Amer) >60 Est GFR (Non-Af Amer) >60 BUN/Creatinine Ratio 9.5 Glucose 217 H Calcium 8.6 Magnesium Troponin I High Sens <4.0 L 5.1 NT-Pro-B Natriuret Pep TSH Thyroxine (T4) 09/04/23 09/04/23 19:33 12:48 WBC 10.6 RBC 4.08 L Hgb 13.0 Hct 39.2 MCV 96.1 MCH 31.9 MCHC 33.2 RDW 12.2 Plt Count 227 MPV 9.0 L Neut % (Auto) 65.0 Lymph % (Auto) 25.9 Shackelford % (Auto) 6.9 Eos % (Auto) 1.0 Baso % (Auto) 0.6 Neut # (Auto) 6.9 H Lymph # (Auto) 2.8 Shackelford # (Auto) 0.7 Eos # (Auto) 0.1 Baso # (Auto) 0.1 Abs Immat Gran (auto) 0.06 H Imm/Tot Granulo (auto) 0.6 H Sodium 129 L Potassium 3.9 Chloride 95 L Carbon Dioxide 26.3 Anion Gap 11.6 BUN 5.0 L Creatinine 0.72 Est GFR ( Amer) >60 Est GFR (Non-Af Amer) >60 BUN/Creatinine Ratio 6.9 Glucose 141 H Calcium 8.5 Magnesium 1.9 Troponin I High Sens 4.9 NT-Pro-B Natriuret Pep 15.0 TSH 2.076 Thyroxine (T4) 12.70 Discharge Plan Discharge Disposition: Home, Self-Care Condition: Good Discharge Medications: New oxycodone-acetaminophen [Percocet] 5-325 mg tablet 1 tab PO Q4H PRN (Reason: pain) Qty: 30 0RF metoprolol tartrate 50 mg Tablet 50 mg PO BID Qty: 60 11RF Continued ondansetron 4 mg tablet,disintegrating 4 mg PO Q8H PRN (Reason: nausea and vomiting) 3 Days Qty: 10 0RF amoxicillin-pot clavulanate 875-125 mg tablet 1 tab PO BID Qty: 20 0RF oxycodone-acetaminophen 5-325 mg tablet 1 tab PO Q6H PRN (Reason: pain) Activity: increase activity as tolerated Diet: advance to your usual diet Print Language: [place] Patient Instructions: Metoprolol (By mouth), Oxycodone/Acetaminophen (By mouth) (Percocet, Roxicet), ORIF of a Wrist Fracture (DC) Activity Restrictions/Additional Instructions: SAME DAY SURGERY INSTRUCTIONS 1. Do not drive or operate hazardous machinery. 2. Do not make important personal or business decisions for 24 hours. 3. Do not drink alcoholic beverages. 4. Do not smoke tobacco products. 5. Eat light foods initially (i.e., Jell-O, soups, etc) and drink plenty of fluids. 6. If your bandages become soaked with a bright red blood, place another dr essing pad over your bandages. (Do not remove original bandage.) Call your surgeon for further instructions. 7. Limit your activities. Do not engage in heavy work until your surgeon gives you permission. 8. Report the following signs or any questions regarding your physical condition to your surgeon immediately: Excessive swelling of, or around, the wound area Redness Temperature of 101 (degrees F) or above Excessive pain 9. Call your surgeon, , for any questions regarding your surgery. Call [phone] for urgent questions after 5PM until 8AM 10. Call for an appointment to see your surgeon in 2 weeks. SPECIAL INSTRUCTIONS AND MEDICATIONS 1. No gripping, pushing, pulling, lifting 2. Move fingers to improve circulation and restore motion.. Work on restoring full finger range of motion. At your 2 week follow up appointment you should be able to make a complete fist. 3. Use prescribed pain medicine as needed. Take Tylenol if narcotic pain medication not needed 4. Do not remove dressing or get wet 5. Elevate hand high 6. Ice hand as needed for pain relief 7. Keep incision dry SEDATION - For the next 24 hours: * Take it easy and rest today. You do not need to stay in bed, but avoid strenuous activities. * You may resume normal activities tomorrow. * DO NOT drive a car. * DO NOT leave your child unattended. * DO NOT make any important personal or business decisions or sign any legal documents. * DO NOT operate machinery such as power tools, lawn mowers, snow blowers, sewing machines, etc. * DO NOT stay alone. Follow Up Appointments: Sep 18 8 am. Ella Deutsch Sep 12 10:30am Discharge Date/Time: 09/05/23 09:00
--- NOTE | 2023-09-05 08:53 | CM.NOTE ---
Rounds made with rossana Simmons for discharge to home. Pt does not want to continue to see Dr. Damon d/t him relocating. Dr. Hoang discussed with pt about f/u with [employer] Delaney Alvarado pt in agreement. RN notified.
[2023-09-05] MEDS: AMOXICILLIN/POTASSIUM CLAV 1 TAB TABLET PO (08:57)
[2023-09-05] MEDS: METOPROLOL TARTRATE 50 MG TABLET PO (08:57)
--- NOTE | 2023-09-06 14:00 | CM.DCFOLLOWU ---
Person spoke with:patient How are you feeling? better everyday How is your pain? some pain Did you understand your discharge instructions? yes Do you have any questions about your discharge instructions? no Were you given any prescriptions at discharge? yes Were you able to get your prescriptions filled? yes Do you understand how to take your medications as ordered? yes Do you have any questions about your follow up appointment and do you plan to keep your follow up appointment? yes, keeping follow up appointment Is there anything else that you would like to discuss? no Questions/Comments/Concerns/Other:
== END 2023-09-05 09:00 | disposition home or self-care (01) ==
LOC: ICU 19:07
PROVIDERS: Orthopaedic Surgery; Admitting Provider Family Medicine; PCP Family Medicine; Visit Provider Family Medicine
PROC: (CPT 1830; principal; 2023-09-04 14:00)
DX: S52.502A Unspecified fracture of the lower end of left radius, initial encounter for closed fracture (principal); S52.602A Unspecified fracture of lower end of left ulna, initial encounter for closed fracture; I10 Essential (primary) hypertension; W01.0XXA Fall on same level from slipping, tripping and stumbling without subsequent striking against object, initial encounter; Z90.49 Acquired absence of other specified parts of digestive tract; Z98.890 Other specified postprocedural states; Z90.710 Acquired absence of both cervix and uterus; F17.210 Nicotine dependence, cigarettes, uncomplicated; Z79.899 Other long term (current) drug therapy
CPT/HCPCS: 25608; 25652; 36415; 64418; 76000; 76942; 80048; 83735; 83880; 84436; 84443; 84484; 85025; 93005; 94761; 94762; 96365; 96366; C1713; G0378; J0131; J0360; J0665; J0690; J1100; J1170; J1290; J1885; J2250; J2405; J2704; J3010; Q0162

== ENCOUNTER 2023-09-18 08:04 | Outpatient (OUT) | payer OTHER, SELFPAY ==
--- NOTE | 2023-09-18 | XR_ITS ---
The [address] [address] Patient Name: DAMION SARAVIA MRN: [id number] date: 1975 Sex: F Assigned Patient Location: [facility] Current Patient Location: [facility] Accession/Order Number: [id number] Exam Date: 09/18/2023 08:08 Report Date: 09/18/2023 08:54 At the request of: MARGRET PAEZ Procedure: XR wrist LT min 3V EXAM: XR wrist LT min 3V HISTORY: Pain; fracture. COMPARISON: Left wrist series dated 09/02/2023 and intraoperative fluoroscopic body images dated 09/04/2023. TECHNIQUE: AP and lateral views of the wrist performed. FINDINGS: Intact plate and screw device along the volar aspect of the distal radius traversing and fixating the comminuted intra-articular fracture of the distal radius in near anatomic alignment. There is 0.1 cm step-off along the articular surface. There is 0.4 cm on her minus variance. There is an intact hook type plate and screw device along the volar aspect of the distal ulna traversing the comminuted fracture of the distal ulna. There is new posterior displacement of a 2.5 x 0.6 x 1.0 cm distal ulnar fracture fragment. There are a few fracture fragments overlying the ulnar carpal interspace, largest measuring 0.8 x 0.5 cm. There are a few fracture fragments within the soft tissues along the volar aspect of the distal radius, largest measuring 1.3 x 0.5 cm. The carpal bones are normally aligned. There are no degenerative changes. There is worsened severe soft tissue swelling of the hand, most pronounced along the dorsal aspect of the hand. XR/XR wrist LT min 3V IMPRESSION: Intact plate and screw device along the volar aspect of the distal radius traversing and fixating the comminuted intra-articular fracture of the distal radius in near anatomic alignment. There is 0.1 cm step-off along the articular surface. There is 0.4 cm on her minus variance. There is an intact hook type plate and screw device along the volar aspect of the distal ulna traversing the comminuted fracture of the distal ulna. There is new posterior displacement of a 2.5 x 0.6 x 1.0 cm distal ulnar fracture fragment. There are a few fracture fragments overlying the ulnar carpal interspace, largest measuring 0.8 x 0.5 cm. There are a few fracture fragments within the soft tissues along the volar aspect of the distal radius, largest measuring 1.3 x 0.5 cm. There is worsened severe soft tissue swelling of the hand, most pronounced along the dorsal aspect of the hand. Electronically authenticated by: JAYME BUSH Date: 09/18/2023 08:54
--- OUTSIDE RECORDS SUMMARY | 2023-09-18 08:07 | XMS_ITS | CCD ---
Author Name Unknown Address [address] [facility] [address] [place] [address] Organization [facility] Care Team Providers Care Documentation Specialist Name Role Phone GREG CORONADO Unavailable Unavailabl e BOHTRU, GREG Kelly Unavailable Unavailabl e BOHACH, GREG Kelly Unavailable Unavailabl e BOHTRU, GREG [...] Attending Unavailable GERMANIA, DR HACKETT Consulting Unavailable Good Alan Unavailable David Valle Unavailable DO Rajesh Solo Primary Care Provider [facility] [place] [facility] Danica Mueller Emergency Provider Rajesh Solo Primary [...] January 13, 2022 3:10pm polyethylene glycol 3350 99358 mg powder for oral solution (2 sources) [...] 3V*on 023 XR foot LT min 3V* [facility] [place] [address] [place] [address] XRay Report Signed Patient: Maggie Yip MR#: [id number] 9 : 1975 Acct:[id number] Age/Sex: 47 / F ADM Date: 06/04/23 Loc: ER Room: Type: [facility] ER Attending Dr: Copies to: Mable [...] Jaylin Magallanes M.D.06/04/2023 12:32 PM Dictation Location: [place] [address] Transcribed By: [facility] 06/04/23 1232 Dictated By: Jaylin Magallanes MD 06/04/23 1231 Signed By: 06/04/23 1232 Normal [facility] CYCLIC CITRULLINATED PEPTIDE AB (CCP)on 04-01-2021 CCP Antibodies IgG/IgA 5 units Normal 0-19 [facility] Comment on above: Result Comment: Nega tive <20 Weak positive 20 - 39 Moderate positive 40 - 59 Strong positive >59 Performed By: #### C CPAB #### [facility] [address] [address] Germán GARRETT by IFAon 03-25-2021 Antinuclear Antibodies, IFA Negative Normal [facility] Comment on above: Result Comment: Nega tive <1:80 Borderline 1:80 Positive >1:80 ICAP nomenclature: AC-0 For more information about Hep-2 cell patterns use ANApatterns.org, the official website for the International Consensus on Antinuclear Antibody (TAMI) Patterns (ICAP). Performed By: #### A NAIFA #### [facility] [address] [place], [place] [id number] Germán Mosqueda RHEUMATOID FACTORon 03-25-20 RA Latex Turbid. <10.0 Normal 0.0-13.9 [facility] Comment on above: Performed By: #### R F #### [facility] [address] [place], [place] [id number] Germán Jaylin CBC AUTO DIFFon 03-24-2021 BASO # 0.1 103/ul Normal 0.0-0.1 [facility] Comment on above: Performed By: #### C BC #### [facility] [address] [place] [address] Germán Mosqueda Basophils/100 WBC (Bld) 0.6 % Normal 0.2-2.0 [facility] Comment on above: Performed By: #### C BC #### [facility] [address] [place] [address] Germán Jaylin EO # 0.1 103/ul Normal 0.0-0.7 [facility] Comment on above: Performed By: #### C BC #### [facility] [address] [place], [place] [address] Germánsimone Mosqueda Eosinophils/100 WBC (Bld) 1.2 % Normal 0.9-7.0 [facility] Comment on above: Performed By: #### C BC #### [facility] [address] [place], [place] [address] Germán Jaylin Erythrocyte distribution width (RBC) [Ratio] 13.2 % Normal 11.0-15.0 [facility] Comment on above: Performed By: #### C BC #### [facility] [address] [place], [place] [address] Germán Jaylin Hematocrit (Bld) [Volume fraction] 45.3 % Normal 36.0-48.0 [facility] Comment on above: Performed By: #### C BC #### [facility] [address] [place], [place] [address] Germán Jaylin Hemoglobin (Bld) [Mass/Vol] 15.1 g/dL Normal 12.0-16.0 [facility] Comment on above: Performed By: #### C BC #### [facility] [address] [place] [address] Germán Mosqueda IG # 0.07 10e3/ul Critically high 0.00-0.03 [facility] Comment on above: Performed By: #### C BC #### [facility] [address] [address] Germán Mosqueda IG % 0.6 % Critically high 0.0-0.5 [facility] Comment on above: Performed By: #### C BC #### [facility] [address] [place] [address] Germán Mosqueda LYMPH # 3.4 103/ul Normal 1.2-3.8 [facility] Comment on above: Performed By: #### C BC #### [facility] [address] [place] [address] Germán Mosqueda Lymphocytes/100 WBC (Bld) 30.1 % Normal 20.5-60.0 [facility] Comment on above: Performed By: #### C BC #### [facility] [address] [place] [address] Germán Mosqueda MANUAL DIFF REQ NO Normal [facility] Comment on above: Performed By: #### C BC #### [facility] [address] [place] [address] Germán Mosqueda MCH (RBC) [Entitic mass] 31.3 pg Normal 26.7-34.0 [facility] Comment on above: Performed By: #### C BC #### [facility] [address] [place] [address] Germán Mosqueda MCHC (RBC) [Mass/Vol] 33.3 g/dL Normal 29.9-35.2 [facility] Comment on above: Performed By: #### C BC #### [facility] [address] [place] [address] Germán Mosqueda MCV (RBC) [Entitic vol] 94.0 fL Normal 81.0-99.0 [facility] Comment on above: Performed By: #### C BC #### [facility] [address] [place], [place] [address] Germán Guoen MONO # 0.8 103/ul Normal 0.3-0.8 [facility] Comment on above: Performed By: #### C BC #### [facility] [address] [id number] Germán Guoen Monocytes/100 WBC (Bld) 7.2 % Normal 1.7-12.0 [facility] Comment on above: Performed By: #### C BC #### [facility] [address] [place] [id number] Germán Jaylin NEUT # 6.7 103/ul Critically high 1.4-6.5 [facility] Comment on above: Performed By: #### C BC #### [facility] [address] [id number] Germán Guoen Neutrophils/100 WBC (Bld) 60.3 % Normal 43.0-75.0 [facility] Comment on above: Performed By: #### C BC #### [facility] [address] [place] [id number] Germán Mosqueda Platelet mean volume (Bld) [Entitic vol] 9.0 fL Critically low 9.5-13.5 [facility] Comment on above: Performed By: #### C BC #### [facility] [address] [address] Germán Jaylin PLT 288 103/ul Normal 150-450 [facility] Comment on above: Performed By: #### C BC #### [facility] [address] [address] Germán Jaylin RBC 4.82 106/ul Normal 4.20-5.40 [facility] Comment on above: Performed By: #### C BC #### [facility] [address] [place] [phone] Germán Jaylin WBC 11.2 103/ul Critically high 4.0-11.0 [facility] Comment on above: Performed By: #### C BC #### [facility] [address] [place], [place] [address] Germán Jaylin PROF 14(COMP METB)on 021 Albumin [Mass/Vol] 3.8 g/dL Normal 3.5-5.0 [facility] Comment on above: Performed By: #### C MP, URIC #### [facility] [address] [place], [place] [address] Germán Jaylin Albumin/Globulin [Mass ratio] 0.9 {ratio} Normal [facility] Comment on above: Performed By: #### C MP, URIC #### [facility] [address] [place] [address] Germán Jaylin ALP [Catalytic activity/Vol] 109 U/L Normal 38-126 [facility] Comment on above: Performed By: #### C MP, URIC #### [facility] [address] [place] [address] Germán Jaylin ALT [Catalytic activity/Vol] 56 U/L Critically high 9-52 [facility] Comment on above: Performed By: #### C MP, URIC #### [facility] [address] [place] [address] Germán Jaylin Anion gap [Moles/Vol] 17.6 mmol/L Normal [facility] Comment on above: Performed By: #### C MP, URIC #### [facility] [address] [place] [address] Germán Jaylin AST [Catalytic activity/Vol] 36 U/L Normal 14-36 [facility] Comment on above: Performed By: #### C MP, URIC #### [facility] [address] [place] [address] Germán Jaylin Bilirubin [Mass/Vol] 0.3 mg/dL Normal 0.2-1.3 [facility] Comment on above: Performed By: #### C MP, URIC #### [facility] [address] [place], [place] [address] Germán Jaylin Calcium [Mass/Vol] 9.0 mg/dL Normal 8.4-10.2 [facility] Comment on above: Performed By: #### C MP, URIC #### [facility] [address] [place], [place] [address] Germán Jaylin Chloride [Moles/Vol] 104 mmol/L Normal 98-107 [facility] Comment on above: Performed By: #### C MP, URIC #### [facility] [address] [place] [address] Germán Jaylin CO2 [Moles/Vol] 23.4 mmol/L Normal 22.0-30.0 [facility] Comment on above: Performed By: #### C MP, URIC #### [facility] [address] [place], [place] [address] Germán Jaylin Creatinine [Mass/Vol] 0.61 mg/dL Normal 0.52-1.04 [facility] Comment on above: Performed By: #### C MP, URIC #### [facility] [address] [place], [place] [address] Germán Jaylin EGFR-AF BERMUDIAN >60 Normal >=60 [facility] Comment on above: Performed By: #### C MP, URIC #### [facility] [address] [place] [address] Germán Jaylin EGFR-NON AF BERMUDIAN >60 Normal >=60 [facility] Comment on above: Performed By: #### C MP, URIC #### [facility] [address] [place] [address] Germán Jaylin Globulin (S) [Mass/Vol] 4.2 g/dL Normal [facility] Comment on above: Performed By: #### C MP, URIC #### [facility] [address] [place] [address] Germán Jaylin Glucose [Mass/Vol] 90 mg/dL Normal 74-106 [facility] Comment on above: Performed By: #### C MP, URIC #### [facility] [address] [place] [address] Germán Jaylin Potassium [Moles/Vol] 4.0 mmol/L Normal 3.4-5.0 [facility] Comment on above: Performed By: #### C MP, URIC #### [facility] [address] [place] [address] Germán Jaylin Protein [Mass/Vol] 8.0 g/dL Normal 6.1-8.2 [facility] Comment on above: Performed By: #### C MP, URIC #### [facility] [address] [place], [place] [address] Germán Jaylin Sodium [Moles/Vol] 141 mmol/L Normal 137-145 [facility] Comment on above: Performed By: #### C MP, URIC #### [facility] [address] [place], [place] [address] Germán Jaylin Urea nitrogen [Mass/Vol] 11.0 mg/dL Normal 7.0-17.0 [facility] Comment on above: Performed By: #### C MP, URIC #### [facility] [address] [place], [place] [address] Germán Jaylin Urea nitrogen/Creatini ne [Mass ratio] 18.0 mg/mg Normal [facility] Comment on above: Performed By: #### C MP, URIC #### [facility] [address] [place], [place] [address] Germán Jaylin SED [facility] SED RATE 60 mm/hr Critically high <=20 [facility] Comment on above: Performed By: #### S EDR #### [facility] [address] [place], [place] [address] Germán Jaylin URIC ACID SERUMon 03-24-2021 Urate [Mass/Vol] 4.9 mg/dL Normal 2.5-6.2 [facility] Comment on above: Performed By: #### C MP, URIC #### [facility] [address] [place], [place] [address] Germán Jaylin Coding Summary.on 10-15-2019 Coding Summary. CODING DATE: 020 FINAL [facility] STATUS: Home (Routine DC) PAYOR: Medicaid [...] Revised Date Saved: 10/15/2019 01:45 pm Normal [facility] Auto Diffon 10-08-2019 Basophils/100 WBC (Bld) 0.2 % Normal 0.0-2.0 [facility] Comment on above: Order Comment: Order Added by Discern Expert. Performed By: #### 2 679091, 4095862, 8475695, [id number] #### [facility] [address] [place] [address] Basophils/Leukocy cj Auto (Bld) [Pure # fraction] 0.0 E9/L Normal 0.0-0.2 [facility] Comment on above: Order Comment: Order Added by Discern Expert. Performed By: #### 2 623353, 7396770, 3288363, [id number] #### [facility] [address] [place] [address] Eosinophils/100 WBC (Bld) 1.0 % Normal 0.0-8.0 [facility] Comment on above: Order Comment: Order Added by Discern Expert. Performed By: #### 2 539550, 3893454, 5522991, [id number] #### [facility] [address] [place] [address] Eosinophils/Leuko cytes Auto (Bld) [Pure # fraction] 0.1 E9/L Normal 0.0-0.5 [facility] Comment on above: Order Comment: Order Added by Discern Expert. Performed By: #### 2 770744, 4151143, 2951483, [id number] #### [facility] [address] [place] [address] Lymphocytes/100 WBC (Bld) 25.0 % Normal 14.0-50.0 [facility] Comment on above: Order Comment: Order Added by Discern Expert. Performed By: #### 2 692894, 6370117, 0034980, 86722597 #### [facility] [address] [place] [address] Lymphocytes/Leuko cytes Auto (Bld) [Pure # fraction] 2.9 E9/L Normal 1.0-4.0 [facility] Comment on above: Order Comment: Order Added by Discern Expert. Performed By: #### 2 560730, 0526971, 8775458, 60331410 #### [facility] [address] [place] [address] Monocytes/100 WBC (Bld) 6.9 % Normal 4.0-14.0 [facility] Comment on above: Order Comment: Order Added by Discern Expert. Performed By: #### 2 012346, 7265932, 6874367, 46087639 #### [facility] [address] [place] [address] Monocytes/Leukocy cj Auto (Bld) [Pure # fraction] 0.8 E9/L Normal 0.2-1.0 [facility] Comment on above: Order Comment: Order Added by Discern Expert. Performed By: #### 2 826838, 4046231, 6940557, [id number] #### [facility] [address] [place] [address] Neutrophils/100 WBC (Bld) 66.9 % Normal 36.0-75.0 [facility] Comment on above: Order Comment: Order Added by Discern Expert. Performed By: #### 2 278179, 5986357, 3779088, 81368325 #### [facility] [address] [place] [address] Neutrophils/Leuko cytes Auto (Bld) [Pure # fraction] 7.9 E9/L High 2.0-7.5 [facility] Comment on above: Order Comment: Order Added by Discern Expert. Performed By: #### 2 188508, 0113325, 3278657, 78400525 #### [facility] [address] [place] [address] BMPon 10-08-2019 Creatinine [Mass/Vol] 0.6 mg/dL Normal 0.5-1.3 [facility] Comment on above: Performed By: #### 2 550137, 1331450, 2151731, 80784924 #### [facility] [address] [place] [address] Urea nitrogen [Mass/Vol] 12 mg/dL Normal 5-21 [facility] Comment on above: Performed By: #### 2 258215, 2313014, 8335029, 14310654 #### [facility] [address] [place] [address] Urea nitrogen/Creatini ne [Mass ratio] 20 No Units Normal 10-20 [facility] Comment on above: Performed By: #### 2 439501, 9389047, 8837320, 03401206 #### [facility] [address] [place] [address] Anion gap [Moles/Vol] 15 mmol/L Normal 6-16 [facility] Comment on above: Performed By: #### 2 565513, 9499104, 0402023, 82466044 #### [facility] [address] [place] [address] Calcium [Mass/Vol] 9.5 mg/dL Normal 8.9-11.1 [facility] Comment on above: Performed By: #### 2 050444, 1205272, 3938028, 02000984 #### [facility] [address] [place] [address] Chloride [Moles/Vol] 102 mmol/L Normal 101-111 [facility] Comment on above: Performed By: #### 2 441040, 4878670, 7020742, 38054333 #### [facility] [address] [place] [address] CO2 [Moles/Vol] 21 mmol/L Normal 21-31 [facility] Comment on above: Performed By: #### 2 871569, 5085124, 1504547, 90209144 #### [facility] [address] [place] [address] Glucose [Mass/Vol] 88 mg/dL Normal 55-199 [facility] Comment on above: Result Comment: If t his glucose result represents a fasting glucose, interpretation should refer to the following reference range: 55-99 mg/dL Performed By: #### 2 839616, 5210244, 1636728, 44836483 #### [facility] [address] [place] [address] Potassium [Moles/Vol] 4.1 mmol/L Normal 3.5-5.3 [facility] Comment on above: Performed By: #### 2 229696, 6833862, 3754464, 21186238 #### [facility] [address] [place] [address] Sodium [Moles/Vol] 134 mmol/L Low 135-145 [facility] Comment on above: Performed By: #### 2 297059, 8361418, 3981336, 50170175 #### [facility] [address] [place] [address] CBC w/ Auto Diffon 0 Erythrocyte distribution width (RBC) [Ratio] 13.7 % Normal 10.9-14.2 [facility] Comment on above: Performed By: #### 2 771770, 8366876, 4682455, 81301290 #### [facility] [address] [place] [address] Hematocrit (Bld) [Volume fraction] 44.6 % Normal 34.0-46.0 [facility] Comment on above: Performed By: #### 2 518881, 7952370, 7762555, 27360912 #### [facility] [address] [place] [address] Hemoglobin (Bld) [Mass/Vol] 15.3 g/dL Normal 12.0-16.0 [facility] Comment on above: Performed By: #### 2 346403, 4034667, 0942868, 29954157 #### [facility] [address] [place] [address] MCH (RBC) [Entitic mass] 32.6 pg Normal 27.0-34.0 [facility] Comment on above: Performed By: #### 2 253366, 2360766, 1604996, 88759430 #### [facility] [address] [place] [address] MCHC (RBC) [Mass/Vol] 34.4 g/dL Normal 31.4-36.0 [facility] Comment on above: Performed By: #### 2 926740, 4135446, 9802938, 35995428 #### [facility] [address] [place] [address] MCV (RBC) [Entitic vol] 94.9 fL Normal 80.0-100.0 [facility] Comment on above: Performed By: #### 2 857971, 8837355, 6716707, 59846014 #### [facility] [address] [place] [address] Platelet mean volume (Bld) [Entitic vol] 7.2 fL Normal 6.4-10.8 [facility] Comment on above: Performed By: #### 2 341122, 9197545, 0004325, 28402038 #### [facility] [address] [place] [address] Platelets (Bld) [#/Vol] 361.0 E9/L Normal 150.0-500.0 [facility] Comment on above: Performed By: #### 2 954347, 8018774, 5663237, 50010778 #### [facility] [address] [place] [address] RBC (Bld) [#/Vol] 4.7 E12/L Normal 4.3-5.9 [facility] Comment on above: Performed By: #### 2 024613, 6283822, 6980361, 62145335 #### [facility] [address] [place] [address] WBC corrected for nucl RBC Auto (Bld) [#/Vol] 11.8 E9/L High 4.0-11.0 [facility] Comment on above: Performed By: #### 2 196147, 5510865, 3613065, 99392650 #### [facility] [address] [place] [address] ED Clinical Summaryon 2019 ED Clinical Summary [address] [address] ED Clinical Summary Person Information Name: MAGIGE DEL ROSARIO [place] Age: 43 Years : 1975 Sex: Female Language: Ugandan PCP: Rajesh Solo DO Marital Status: Phone: [phone] Visit Id: Visit Reason: Vomiting; Abdominal pain; [...] 10/08/2019 13:21:31 10/08/2019 13:21:31 10/08/2019 13:21:31 ADDRESS: [facility] [id number] PHYS DOC NOTES: MEDICAL INFORMATION: Prescriptions Given: [facility], [address] [facility] [place] [id number], [phone] sucralfate (Carafate 1 g/10 mL Susp-Oral) 10 Milliliter By Mouth 4 times a day for 7 Days. Refills: 0. PATIENT EDUCATION INFORMATION: Instructions: Gastritis, Adult; Abdominal Pain, Adult Follow up: With: Address: When: [facility], [address] [place] [address] Business (1) In 3 days 10/11/2019 With: Address: When: [facility] [address] [place] [address] Business (1) In 3 days 10/11/2019 DIAGNOSIS: Right upper quadrant abdominal pain Normal [facility] ED Note-Physicianon 10-08-19 ED Note-Physician Basic Information [...] ultrasound was obtained. This is discussed with solar technician as negative for acute findings. Patient [...] day(s), # 280 mL, Refills(s) 0, Pharmacy: [facility], 165, cm, 10/08/19 10:25:00 EST, Height/Length [...] Information Yudelka RIOS In 3 days 10/11/2019 [facility] [address] [place] [address]- Business (1) Additional Instructions: Rajesh Solo In 3 days 10/11/2019 [facility] [address] [place] [address]- Business (1) Additional Instructions: Patient Education Gastritis, Adult Abdominal Pain, Adult Attestation Patient seen and evaluated by the physician assistant refinery operator. Attending physician was present in the emergency department and supervised care. This report was transcribed using voice recognition software. Every effort was made to ensure accuracy, however, inadvertently computerized provider relations rep mistakes may be present. Problem List/Past Medical [...] 10:41:00) Lymph Auto: 25 % (10/08/19 10:41:00) [place] Auto: 6.9 % (10/08/19 10:41:00) Eos Auto: 1 % (10/08/19 10:41:00) Basophil Auto: 0.2 % (10/08/19 10:41:00) Neutro Absolute: 7.9 E9/L High (10/08/19 10:41:00) Lymph Absolute: 2.9 E9/L (10/08/19 10:41:00) [place]field Absolute: 0.8 E9/L (10/08/19 10:41:00) Eos Absolute: [...] <0.03 (10/08/19 10:41:00) Diagnostic Results US Gallbladder 10/08/19 12:15:45 IMPRESSION: FATTY INFILTRATION OF A BORDERLINE [...] By: Trevin Esquivel DO 10/08/2019 10:57:10 Normal [facility] Comment on above: Result Comment: Elec tronically [...] discomfort you are experiencing: ? Only take tvod-qcg-njjlveo or prescription medicines as directed by your [...] Document Reviewed: 04/23/2014 ExitCare? Patient Information ?2015 [employer]. This information is not intended to replace [...] (NSAIDs). HOME CARE INSTRUCTIONS ? Only take ngcz-ibs-zovzjtk or prescription medicines as directed by your [...] Garlic and onions. ? Spicy foods. ? [place] fruits, such as oranges, todd, or limes. [...] Document Reviewed: 09/26/2012 ExitCare? Patient Information ?2015 [employer]idly. This information is not intended to replace advice given to you by your health care provider. Make sure you discuss any questions you have with your health care provider. Normal [facility] ED Patient Summaryon 020 ED Patient Summary [address] [address] Patient Discharge Instructions Person Information Name: MAGGIE DEL ROSARIO Age: 43 Years Arrival Date: 10/08/2019 10:18:57 Discharge Diagnosis: Right upper quadrant abdominal pain Primary Care Physician: Rajesh Solo DO Provider Information Primary Provider: Trevin Esquivel DO [employer] Processor:Rishi Martinez PA-C The exam and treatment you received in the Emergency Department were for an urgent problem and are not intended as complete care. It is important that you follow up with a doctor, nurse practitioner, or physician?s assistant refinery operator for ongoing care. If your symptoms become worse or you do not improve as expected and you are unable to reach your usual health care provider, you should return to the Emergency Department. We are available 24 hours a day. MAGGIE DEL ROSARIO has been given the following list of patient education materials, prescriptions and follow-up instructions: Follow-up Instructions: With: Address: When: [facility], [address] [place] [address] Business (1) In 3 days 10/11/2019 With: Address: When: Rajesh Solo [address] [place] [address] Business (1) In 3 days 10/11/2019 In the event that this physician does not participate in your insurance network, please consult with your insurance company to find a nearby participating provider. Patient Education Materials: Gastritis, Adult; Abdominal Pain, Adult A MESSAGE TO ALL PATIENTS REGARDING OPIOIDS PRESCRIPTION OPIOIDS: WHAT YOU NEED TO KNOW Prescription opioids can be used to help relieve yplgmgtw-qe-jerfnf pain and are often prescribed following a [...] be struggling with addiction, tell your health home care companion and ask for guidance or call [facility]?S National Helpline at 0-623-436-ZJGR. z Source: [place] Department of Health and Human Services/Center for Disease Control & Prevention [facility] Medications Given: Medication Dose Route [...] New Medications [facility], [address], [place] [id number], [phone] sucralfate (Carafate 1 g/10 mL Susp-Oral) 10 Milliliter By Mouth 4 times a day for 7 Days. Refills: 0. Comment: Pharmacy Information: Thank you for choosing [facility] Patient Education Materials: Gastritis, Adult Gastritis [...] (NSAIDs). HOME CARE INSTRUCTIONS ? Only take wawq-thx-ezrgsfp or prescription medicines as directed by your [...] Garlic and onions. ? Spicy foods. ? [place] fruits, such as oranges, todd, or limes. [...] Document Reviewed: 09/26/2012 ExitCare? Patient Information ?2015 Vidly. This information is not intended to replace [...] discomfort you are experiencing: ? Only take blgh-tlo-baeedok or prescription medicines as directed by your [...] Document Reviewed: 04/23/2014 ExitCare? Patient Information ?2014 [employer]idly. This information is not intended to replace advice given to you by your health care provider. Make sure you discuss any questions you have with your health care provider. MIGUEL ÁNGEL Aguirre LISA L , have received the following patient education materials/instructions and have verbalized understanding: Patient Education Materials: Gastritis, Adult; Abdominal Pain, Adult Follow-up Instructions: With: Address: When: [facility] [address] [place] [address] Business (1) In 3 days 10/11/2019 With: Address: When: [address] [address] Business (1) In 3 days 10/11/2019 Patient Signature Date Clinician/Nurse Signature Date 10/08/2019 13:21:33 Normal [facility] Hep Func Panelon 10-08-2019 Albumin [Mass/Vol] 4.2 g/dL Normal 3.3-5.0 [facility] Comment on above: Performed By: #### 2 510861, 9939676, 4530271, [id number] #### [facility] Laboratory [address] [place] [address] Albumin [Mass/Vol] 1.2 g/dL Normal 1.1-2.2 [facility] Comment on above: Performed By: #### 2 747455, 2817573, 4867752, [id number] #### [facility] Laboratory [address] [place] [address] Bilirubin [Mass/Vol] 0.4 mg/dL Normal 0.0-1.1 [facility] Comment on above: Performed By: #### 2 510425, 1991074, 1336503, 91478100 #### [facility] [address] [place] [address] Bilirubin.direct [Mass/Vol] 0.3 mg/dL Normal 0.1-0.9 [facility] Comment on above: Performed By: #### 2 619756, 9116226, 6152560, [id number] #### [facility] [address] [place] [address] Globulin (S) [Mass/Vol] 3.6 g/dL Normal 1.4-4.0 [facility] Comment on above: Performed By: #### 2 002766, 0725395, 8631081, 75397233 #### [facility] [address] [place] [address] Protein [Mass/Vol] 7.8 g/dL Normal 6.0-7.8 [facility] Comment on above: Performed By: #### 2 589680, 9951584, 5065983, 51804286 #### [facility] Laboratory [address] [place] [address] ALP [Catalytic activity/Vol] 77 Int._Unit/L Normal 21-98 [facility] Comment on above: Performed By: #### 2 355858, 8543291, 1417978, 97885314 #### [facility] [address] [place] [address] ALT No additional P-5'-P [Catalytic activity/Vol] 64 Int._Unit/L High 6-46 [facility] Comment on above: Performed By: #### 2 580549, 3762432, 9690165, 17471204 #### [facility] [address] [place] [address] AST [Catalytic activity/Vol] 47 Int._Unit/L High 5-43 [facility] Comment on above: Performed By: #### 2 059699, 9048132, 8421089, 01594737 #### [facility] [address] [place] [address] Bilirubin.direct [Mass/Vol] 0.1 mg/dL Normal 0.1-0.4 [facility] Comment on above: Performed By: #### 2 919663, 5381687, 4304767, 07508277 #### [facility] [address] [place] [address] Lipase Levelon 10-08-2019 Lipase [Catalytic activity/Vol] 50 unit/L Normal 13-58 [facility] Comment on above: Performed By: #### 2 051908, 3121163, 9768801, 00348186 #### [facility] [address] [place] [address] Troponin 0 Hr.on 10-08-2019 Troponin I.cardiac [Mass/Vol] ng/mL Normal <=0.03 [facility] Comment on above: Result Comment: New Troponin Assay 01/09/14 LAN [place] Cutoff value > or = 0.03 ng/mL in conjunction with clinical conditions of myocardial infarction. ([email or web address].org/guidelines) Performed By: #### 2 622147, 0120928, 4364685, 30844297 #### [facility] [address] [place] [address] US Gallbladderon 10-08-2019 US Gallbladder Exam Date/Time: [...] MD Transcribed by: IMAN Technologist: HW Normal [facility] eGFRon 10-08-2019 GFR/1.73 sq M predicted among blacks MDRD (S/P/Bld) [Vol rate/Area] mL/min/{1.73_m2} Normal >=59 [facility] Comment on above: Order Comment: Order added by Discern Expert. Result Comment: eGFR is race adjusted. AA=. Performed By: #### 2 138930, 7929336, 8815951, 80861426 #### [facility] [address] [place] [address] GFR/1.73 sq M predicted among non-blacks MDRD (S/P/Bld) [Vol rate/Area] mL/min/{1.73_m2} Normal >=59 [facility] Comment on above: Order Comment: Order added by Discern Expert. Result Comment: Manager Service Desk bhavin kidney disease could be indicated at eGFR's of less than 60 mL/min/1.73m2. Kidney failure is indicated at less than 15 mL/min/1.73m2. Performed By: #### 2 780069, 5574117, 6528583, 22562597 #### [facility] [address] [place] [address] Coding Summary.on 12-24-2018 Coding Summary. CODING DATE: 019 FINAL [facility] STATUS: Home (Routine DC) PAYOR: Self [...] Revised Date Saved: 12/24/2018 08:11 am Normal [facility] Auto Diffon 12-23-2018 Basophils/100 WBC (Bld) 0.7 % Normal 0.0-2.0 [facility] Comment on above: Order Comment: Order Added by Discern Expert. Performed By: #### 2 703684, 4249107, 3894058, 74524557 #### [facility] [address] [place] [address] Basophils/Leukocy cj Auto (Bld) [Pure # fraction] 0.1 E9/L Normal 0.0-0.2 [facility] Comment on above: Order Comment: Order Added by Discern Expert. Performed By: #### 2 169439, 5596979, 4780245, 20306935 #### [facility] [address] [place] [address] Eosinophils/100 WBC (Bld) 1.1 % Normal 0.0-8.0 [facility] Comment on above: Order Comment: Order Added by Discern Expert. Performed By: #### 2 285980, 3674030, 4843846, 89688321 #### [facility] [address] [place] [address] Eosinophils/Leuko cytes Auto (Bld) [Pure # fraction] 0.1 E9/L Normal 0.0-0.5 [facility] Comment on above: Order Comment: Order Added by Discern Expert. Performed By: #### 2 969909, 0398840, 6914030, 70295908 #### [facility] Laboratory [address] [place] [address] Lymphocytes/100 WBC (Bld) 37.9 % Normal 14.0-50.0 [facility] Comment on above: Order Comment: Order Added by Discern Expert. Performed By: #### 2 737417, 7125756, 7818522, 64148992 #### [facility] [address] [place] [address] Lymphocytes/Leuko cytes Auto (Bld) [Pure # fraction] 4.2 E9/L High 1.0-4.0 [facility] Comment on above: Order Comment: Order Added by Discern Expert. Performed By: #### 2 259674, 6096127, 7775958, 26644849 #### [facility] [address] [place] [address] Monocytes/100 WBC (Bld) 5.3 % Normal 4.0-14.0 [facility] Comment on above: Order Comment: Order Added by Discern Expert. Performed By: #### 2 954922, 3140781, 4302076, 89462617 #### [facility] [address] [place] [address] Monocytes/Leukocy cj Auto (Bld) [Pure # fraction] 0.6 E9/L Normal 0.2-1.0 [facility] Comment on above: Order Comment: Order Added by Discern Expert. Performed By: #### 2 686300, 4836860, 3925738, 13024888 #### [facility] [address] [place] [address] Neutrophils/100 WBC (Bld) 55.0 % Normal 36.0-75.0 [facility] Comment on above: Order Comment: Order Added by Discern Expert. Performed By: #### 2 362670, 9417966, 6357250, 84875343 #### [facility] [address] [place] [address] Neutrophils/Leuko cytes Auto (Bld) [Pure # fraction] 6.1 E9/L Normal 2.0-7.5 [facility] Comment on above: Order Comment: Order Added by Discern Expert. Performed By: #### 2 702570, 2311024, 0409683, 60138438 #### [facility] [address] [place] [address] BMPon 12-23-2018 Creatinine [Mass/Vol] 0.6 mg/dL Normal 0.5-1.3 [facility] Comment on above: Performed By: #### 2 242885, 4274962, 4538355, 84384639 #### [facility] [address] [place] [address] Urea nitrogen [Mass/Vol] 10 mg/dL Normal 5-21 [facility] Comment on above: Performed By: #### 2 019603, 3585252, 7582736, 65978080 #### [facility] [address] [place] [address] Urea nitrogen/Creatini ne [Mass ratio] 17 No Units Normal 10-20 [facility] Comment on above: Performed By: #### 2 573366, 4511636, 1094801, 83866503 #### [facility] [address] [place] [address] Anion gap [Moles/Vol] 15 mmol/L Normal 6-16 [facility] Comment on above: Performed By: #### 2 571699, 8853450, 2254716, 98038945 #### [facility] [address] [place] [address] Calcium [Mass/Vol] 10.1 mg/dL Normal 8.9-11.1 [facility] Comment on above: Performed By: #### 2 121743, 2141864, 2999559, 20079346 #### [facility] [address] [place] [address] Chloride [Moles/Vol] 99 mmol/L Low 101-111 [facility] Comment on above: Performed By: #### 2 221675, 4395859, 6872046, 94606145 #### [facility] [address] [place] [address] CO2 [Moles/Vol] 22 mmol/L Normal 21-31 [facility] Comment on above: Performed By: #### 2 133809, 5348230, 0016693, 34807059 #### [facility] [address] [place] [address] Glucose [Mass/Vol] 137 mg/dL Normal 55-199 [facility] Comment on above: Result Comment: If t his glucose result represents a fasting glucose, interpretation should refer to the following reference range: 55-99 mg/dL Performed By: #### 2 109239, 0590428, 1996094, 45402620 #### [facility] [address] [place] [address] Potassium [Moles/Vol] 3.1 mmol/L Low 3.5-5.3 [facility] Comment on above: Performed By: #### 2 709922, 8432455, 9934785, 46277773 #### [facility] [address] [place] [address] Sodium [Moles/Vol] 133 mmol/L Low 135-145 [facility] Comment on above: Performed By: #### 2 569817, 8003175, 3951262, 93701065 #### [facility] [address] [place] [address] CBC w/ Auto Diffon 9 Erythrocyte distribution width (RBC) [Ratio] 13.0 % Normal 10.9-14.2 [facility] Comment on above: Performed By: #### 2 490280, 4370121, 0051502, 19332917 #### [facility] [address] [place] [address] Hematocrit (Bld) [Volume fraction] 45.9 % Normal 34.0-46.0 [facility] Comment on above: Performed By: #### 2 750896, 9641196, 3658135, 13897342 #### [facility] [address] [place] [address] Hemoglobin (Bld) [Mass/Vol] 15.7 g/dL Normal 12.0-16.0 [facility] Comment on above: Performed By: #### 2 911694, 5027165, 8529660, 07037551 #### [facility] Laboratory [address] [place] [address] MCH (RBC) [Entitic mass] 32.8 pg Normal 27.0-34.0 [facility] Comment on above: Performed By: #### 2 388223, 5794684, 5556287, 29135063 #### [facility] Laboratory [address] [place] [address] MCHC (RBC) [Mass/Vol] 34.2 g/dL Normal 33.3-35.7 [facility] Comment on above: Performed By: #### 2 550046, 0171772, 1757898, 64858390 #### [facility] Laboratory [address] [place] [address] MCV (RBC) [Entitic vol] 95.9 fL Normal 80.0-100.0 [facility] Comment on above: Performed By: #### 2 501303, 6812738, 9950961, 82929427 #### [facility] Laboratory [address] [place] [address] Platelet mean volume (Bld) [Entitic vol] 7.5 fL Normal 6.4-10.8 [facility] Comment on above: Performed By: #### 2 123509, 2363101, 5960868, 53939571 #### [facility] Laboratory [address] [place] [address] Platelets (Bld) [#/Vol] 373.0 E9/L Normal 150.0-500.0 [facility] Comment on above: Performed By: #### 2 375868, 5418170, 7995009, 61869263 #### [facility] Laboratory [address] [place] [address] RBC (Bld) [#/Vol] 4.8 E12/L Normal 4.3-5.9 [facility] Comment on above: Performed By: #### 2 251188, 8830352, 3117741, 80802367 #### [facility] [address] [place] [address] WBC corrected for nucl RBC Auto (Bld) [#/Vol] 11.2 E9/L High 4.0-11.0 [facility] Comment on above: Performed By: #### 2 992892, 3433796, 1042418, 54846726 #### [facility] [address] [place] [address] CT Head or Brain w/o Contras ton [...] MD Transcribed by: IMAN Technologist: HAIDER Normal [facility] CT Spine Cervical w/o Contra ston 12-23-2018 [...] MD Transcribed by: IMAN Technologist: HAIDER Mcmanus [facility] ED Clinical Summaryon 2018 ED Clinical Summary [place] [id number] ED Clinical Summary Person Information Name: MAGGIE DEL ROSARIO Duyen/[facility] Age: 43 Years : 1975 12:00 AM Sex: Female Language: Ugandan PCP: Rajehs Solo DO Marital Status: Single Phone: [phone] Visit Id: Visit Reason: Fall; PT FELL [...] 12/23/2018 3:33 AM 12/23/2018 3:33 AM ADDRESS: [address] [place] [id number] PHYS DOC NOTES: MEDICAL INFORMATION: Prescriptions Given: PATIENT EDUCATION INFORMATION: Instructions: Alcohol Intoxication; Concussion, Adult, Jcww-dy-Fhvi; Open Wound, Lip, Ater-vm-Xjwz; Mouth Laceration, Rlxj-zv-Tzgj Follow up: With: Address: When: [facility]ENN[facility] [address] [place] [address] [place] [address] Business (1) Within 1 to 2 days, only if needed DIAGNOSIS: 1:Acute alcohol intoxication; 2:Concussion with loss of consciousness <= 30 min; 3:Lip laceration Normal [facility] ED Note-Physicianon 12-24-19 ED Note-Physician Basic Information [...] 43-year-old female she is awake and attentive [place] Coma Scale 15. There is a superficial [...] 1 to 2 days, only if needed [address] [place] [address] [facility] (1) Additional Instructions: Patient Education Alcohol Intoxication Concussion, Adult, Undm-yw-Vjzv Open Wound, Lip, Gxhu-uq-Zisw Mouth Laceration, Okul-hn-Bmsd Problem List/Past Medical History Ongoing No qualifying [...] Lymph Auto: 37.9 % (12/23/18 01:55:00 EDT) [place] Auto: 5.3 % (12/23/18 01:55:00 EDT) Eos Auto: 1.1 % (12/23/18 01:55:00 EDT) Basophil Auto: 0.7 % (12/23/18 01:55:00 EDT) Neutro Absolute: 6.1 E9/L (12/23/18 01:55:00 EDT) Lymph Absolute: 4.2 E9/L High (12/23/18 01:55:00 EDT) [place] Absolute: 0.6 E9/L (12/23/18 01:55:00 EDT) Eos [...] malalignment Read By: Juan Francisco Munoz MD [facility] Comment on above: Result Comment: Elec tronically Signed By: Juan Francisco Munoz MD\.br\Date and Time Signed: 12/23/18 03:15 EDT ED Patient Education Noteon 12-23-2018 ED Patient Education Note Hqjd-mh-Lpmv Open Wound, Lip An open wound is [...] Document Reviewed: 11/30/2010 ExitCare? Patient Information ?2015 [employer]. This information is not intended to replace [...] Tell your teachers, school nurse, school counselor, financial wellness coach, development trainer, or recycling worker about your concussion. Tell them about [...] Document Reviewed: 03/06/2014 ExitCare? Patient Information ?2015 [employer]. This information is not intended to replace advice given to you by your health care provider. Make sure you discuss any questions you have with your health care provider. Mouth Laceration A mouth laceration is a cut inside the mouth. HOME CARE ? Rinse your mouth with warm salt water 4 to 6 times a day. ? [place] your teeth as usual if you can. [...] Document Reviewed: 02/16/2012 ExitCare? Patient Information ?2015 [employer]. This information is not intended to replace [...] yellow. Avoid caffeine. ? ? Only take aokc-epb-oemtyts or prescription medicines as directed by your [...] Document Reviewed: 01/17/2014 ExitCare? Patient Information ?2015 [employer]. This information is not intended to replace advice given to you by your health care provider. Make sure you discuss any questions you have with your health care provider. Normal [facility] ED Patient Summaryon 019 ED Patient Summary [address] [address] Patient Discharge Instructions Person Information Name: MAGGIE DEL ROSARIO Age: 43 Years Arrival Date: 12/23/2018 1:53 AM Discharge Diagnosis: 1:Acute alcohol intoxication; 2:Concussion with loss of consciousness <= 30 min; 3:Lip laceration Primary Care Physician: Rajesh Solo DO Provider Information Primary Provider: Juan Francisco Munoz MD [employer] Processor:None The exam and treatment you received in the Emergency Department were for an urgent problem and are not intended as complete care. It is important that you follow up with a doctor, nurse practitioner, or physician?s assistant refinery operator for ongoing care. If your symptoms become worse or you do not improve as expected and you are unable to reach your usual health care provider, you should return to the Emergency Department. We are available 24 hours a day. MAGGIE DEL ROSARIO has been given the following list of patient education materials, prescriptions and follow-up instructions: Follow-up Instructions: With: Address: When: WHITNEY OCONNELL[address] [address] [facility] (1) Within 1 to 2 days, only if needed In the event that this physician does not participate in your insurance network, please consult with your insurance company to find a nearby participating provider. Patient Education Materials: Alcohol Intoxication; Concussion, Adult, Bqvf-ub-Hukh; Open Wound, Lip, Cabe-yh-Avoz; Mouth Laceration, Qhtp-qc-Fyoj A MESSAGE TO ALL PATIENTS REGARDING OPIOIDS PRESCRIPTION OPIOIDS: WHAT YOU NEED TO KNOW Prescription opioids can be used to help relieve zjiguugc-ti-boidtg pain and are often prescribed following a [...] be struggling with addiction, tell your health home care companion and ask for guidance or call NIURKA?Lisa National Helpline at 9-072-491-HELP. v Source: US Department of Health and Human Services/Center for Disease Control & Prevention [facility] Medications Given: Medication Dose Route No medications found. Medication Information: Comment: Pharmacy Information: Thank you for choosing [facility] Patient Education Materials: Alcohol Intoxication Alcohol [...] yellow. Avoid caffeine. ? ? Only take gqao-shp-cpnvhxl or prescription medicines as directed by your [...] Document Reviewed: 01/17/2014 ExitCare? Patient Information ?2015 [employer]. This information is not intended to replace [...] Tell your teachers, school nurse, school counselor, financial wellness coach, development trainer, or recycling worker about your concussion. Tell them about [...] Document Reviewed: 03/06/2014 ExitCare? Patient Information ?2015 [employer]. This information is not intended to replace [...] Document Reviewed: 11/30/2010 ExitCare? Patient Information ?2015 [employer]. This information is not intended to replace advice given to you by your health care provider. Make sure you discuss any questions you have with your health care provider. Mouth Laceration A mouth laceration is a cut inside the mouth. HOME CARE ? Rinse your mouth with warm salt water 4 to 6 times a day. ? [place] your teeth as usual if you can. [...] Document Reviewed: 02/16/2012 ExitCare? Patient Information ?2015 [employer]. This information is not intended to replace advice given to you by your health care provider. Make sure you discuss any questions you have with your health care provider. MIGUEL ÁNGEL Aguirre LISA L , have received the following patient education materials/instructions and have verbalized understanding: Patient Education Materials: Alcohol Intoxication; Concussion, Adult, Mktr-oy-Dahj; Open Wound, Lip, Tovw-vr-Fvjb; Mouth Laceration, Yxfr-dt-Dhns Follow-up Instructions: With: Address: When: WHITNEY KENNEDY [address] [place] [address], [place] [address] Business (1) Within 1 to 2 days, only if needed Prescriptions: Patient Signature Date Clinician/Nurse Signature Date 12/23/18 03:33:31 Normal [facility] Ethanolon 12-23-2018 Ethanol [Mass/Vol] 268 mg/dL Abnormal <=7 [facility] Comment on above: Result Comment: Nano ical Result S_ETOH:268.0 Called to [facility] AT ER by LLOYD ABBOTT And Read Back For Confirmation at: 12/23/2018 02:44:14\Critical Result verified by repeat analysis Performed By: #### 2 [id number] #### [facility] Laboratory [address] [place] [address] Pre-Arrival Noteon 9 Pre-Arrival Note Pre-Arrival Summary Name: , Current Date: 12/23/2018 01:56:40 EDT Gender: Female Date of : Age: 43 Pre-Arrival Type: EMS ETA: 12/23/2018 02:14:00 EDT Primary Care Physician: Presenting Problem: fall stairs 5min eta Pre-Arrival User: Harry Aragon RN Referring Source: Location: [place] Completion Date/Time: 12/23/18 01:44:00 [facility] Emergency Department Pre-Hospital Report Form Vital Signs: Pre-Hospital Report: Treatment in Route: Response to Treatment: Misc. Issues: Normal [facility] eGFRon 12-23-2018 GFR/1.73 sq M predicted among blacks MDRD (S/P/Bld) [Vol rate/Area] mL/min/{1.73_m2} Normal >=59 [facility] Comment on above: Order Comment: Order added by Discern Expert. Result Comment: eGFR is race adjusted. AA=. Performed By: #### 2 [id number], [id number], [id number] #### [facility] Laboratory [address] [place] [address] GFR/1.73 sq M predicted among non-blacks MDRD (S/P/Bld) [Vol rate/Area] mL/min/{1.73_m2} Normal >=59 [facility] Comment on above: Order Comment: Order added by Discern Expert. Result Comment: Manager Service Desk bhavin kidney disease could be indicated at eGFR's of less than 60 mL/min/1.73m2. Kidney failure is indicated at less than 15 mL/min/1.73m2. 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 The procedure wastolerated quite well and [place] was prescribed for pain management withfollowup on Monday in our office.GREG CORONADOD: 06/06/2017 9:38:09 DEBBIE/[id number]_IJob#: [id number] Doc#: [id number] Normal [facility] Surgical Pathologyon 017 Surgical Pathology (NOTE)[id number] LABORATORIESCONSULTING PATHOLOGISTS [facility]ATIONANATOMIC YIK[address]US[address] [place] [address]. [place], [place] [address] Fax: SURGICAL PATHOLOGY CONSULTATIONPatient Name: Carroll YIP Rec: [id number] Number: [id number]: 06/06/2017Received: 06/06/2017Reported: 06/07/2017 11:51-- Diagnosis --SOFT TISSUE, [...] and perineural fibrosis, compatible withtraumatic-type neuroma. 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 Additional eGFR calculator available at:http://www.Opposing Views/multiple_crcl_2012.htmPerformed at [facility] [address] [place] [address] (551) Performed By: #### C CAMERON, BMP ####[facility] [place] [address](809) Anion gap 14 mmol/L Normal - [facility] Comment on above: Performed By: #### C BC, BMP ####[facility] [place] [address](877) BUN/CRE Ratio 31 High - [facility] Comment on above: Performed By: #### C BC, BMP ####[facility] [place] [address](596) Calcium 9.4 mg/dL Normal 8.6-10.4 [facility] Comment on above: Performed By: #### C BC, BMP ####[facility] [place] [address] Chloride 101 mmol/L Normal 98-107 [facility] Comment on above: Performed By: #### C BC, BMP ####[facility] [place] [address] CO2 22 mmol/L Normal 20-31 [facility] Comment on above: Performed By: #### C BC, BMP ####[facility] [place] [address] Creatinine 0.55 mg/dL Normal 0.50-0.90 [facility] Comment on above: Performed By: #### C BC, BMP ####[facility] [place] [address] eGFR (non-black) mL/min/{1.73_m2} Normal >60 [facility] Comment on above: Performed By: #### C BC, BMP ####[facility] [place] [address] Glucose mass conc 99 mg/dL Normal 70-99 [facility] Comment on above: Performed By: #### C BC, BMP ####[facility] [id number] Potassium molar conc 4.3 mmol/L Normal 3.7-5.3 [facility] Comment on above: Performed By: #### C BC, BMP ####[facility] [id number] Sodium 137 mmol/L Normal 135-144 [facility] Comment on above: Performed By: #### C BC, BMP ####[facility] [place] [address] Urea nitrogen 17 mg/dL Normal 6-20 [facility] Comment on above: Performed By: #### C BC, BMP ####[facility] [place] [address] Staging: NOT REPORTED Normal [facility] Comment on above: Performed By: #### C BC, BMP ####[facility] [place] [address] CBCon 05-22-2017 Erythrocyte distribution width Auto Ratio (RBC) 13.1 % Normal 12.1-15.2 [facility] Comment on above: Performed By: #### C BC, BMP ####[facility] [place] [address] Erythrocytes (RBC) 4.59 10*6/uL Normal 4.0-5.2 [facility] Comment on above: Performed By: #### C BC, BMP ####[facility] [id number] Hematocrit (HCT) 42.8 % Normal 36-46 [facility] Comment on above: Performed By: #### C BC, BMP ####[facility] [place] [address] Hemoglobin mass conc (Bld) 14.6 g/dL Normal 12.0-16.0 [facility] Comment on above: Performed By: #### C BC, BMP ####[facility] [place] [address] MCH 31.9 pg Normal 26-34 [facility] Comment on above: Performed By: #### C BC, BMP ####[facility] [place] [address] MCHC mass conc (RBC) 34.2 g/dL Normal 31-37 [facility] Comment on above: Performed By: #### C BC, BMP ####[facility] [place] [address] MCV 93.3 fL Normal 80-100 [facility] Comment on above: Performed By: #### C BC, BMP ####[facility] [place] [address] Platelets 366 10*3/uL Normal 140-450 [facility] Comment on above: Result Comment: Perf ormed at [facility] [place] [facility] [address] [place] [address] Performed By: #### C BC, BMP ####[facility] [place] [address] WBC (Leukocytes) 9.3 10*3/uL Normal 3.5-11.0 [facility] Comment on above: Performed By: #### C BC, BMP ####[facility] [place] [address] Platelet mean volume (PMV) NOT REPORTED Normal 6.0-12.0 [facility] Comment on above: Performed By: #### C BC, BMP ####[facility] [place] [address] Vital Signs Date Time Vital Sign Value Performing Clinician Facility 04-28-2022 15:01-0400 Body height 167.64 cm DO [employer] Work Phone: [facility] 04-28-2022 15:01-0400 Body temperature 97.9 [degF] DO [employer] Work Phone: [facility] 04-28-2022 15:01-0400 Body weight 89.81 kg DO [employer] Work Phone: [facility] 04-28-2022 15:01-0400 Diastolic blood pressure 107 mm[Hg] DO [employer] Work Phone: [facility] 04-28-2022 15:01-0400 Heart rate 113 /min DO [employer] Work Phone: [facility] 04-28-2022 15:01-0400 Respiratory rate 18 /min DO Rajesh Solo Work Phone: [facility] 04-28-2022 15:01-0400 SaO2% (BldA) [Mass fraction] 94 % DO Rajesh Solo Work Phone: [facility] 04-28-2022 15:01-0400 Systolic blood pressure 181 mm[Hg] DO Rajesh Solo Work Phone: [facility] 12-31-2021 10:00-0400 Body height 167.64 cm David Valle Other [facility] Other 12-31-2021 10:00-0400 Body mass index (BMI) [Ratio] 29.86 kg/m2 David Valle Other [facility] Other 12-31-2021 10:00-0400 Body weight 83.92 kg David Valle Other [facility] Other 08-04-2021 16:00-0500 Body height 167.64 cm Good Alan Other [facility] Other 08-04-2021 16:00-0500 Body mass index (BMI) [Ratio] 32.12 kg/m2 Good Alan Other [facility] Other 08-04-2021 16:00-0500 Body weight 90.27 kg Good Alan Other [facility] Other Encounters Encounter Date Encounter Type Care Provider Facility Start: 06-04-2023 End: 06-04-2023 Emergency department patient visit Rajesh Solo Facility:[facility] Start: 04-28-2022 End: 04-28-2022 Emergency department patient visit DO Rajesh Solo Work Phone: [facility] Start: 01-06-2022 End: 01-06-2022 ambulatory Davdi Valle Other [facility] Other Start: 01-06-2022 Telephone encounter David Leblanc ck [facility] Start: 12-31-2021 End: 12-31-2021 ambulatory David Valle Other [facility] Other Start: 12-31-2021 Office outpatient visit 15 minutes David Valle [facility] Start: 09-14-2021 End: 10-22-[address] RAJESH SOLO Facility:[facility] Start: 09-01-2021 End: 09-01-2021 ambulatory Good Alna Other [facility] Other Start: 09-01-2021 Postop follow up visit related to original px Good Alan [facility] Start: 08-24-2021 End: 08-24-2021 ambulatory Good Alan Other [facility] Other Start: 08-24-2021 Telephone encounter Good VILLEGAS [facility] Start: 08-04-2021 End: 08-04-2021 ambulatory Good Alan Other [facility] Other Start: 08-04-2021 Office outpatient visit 25 minutes Good Alan [facility] Start: 03-29-2021 End: 03-30-[address] RAJESH SOLO Facility:[facility] Start: 03-24-2021 End: 03-25-[address] RAJESH SOLO Facility:[facility] Start: 06-06-2017 End: 06-06-2017 Ambulatory [facility] Start: 05-22-2017 End: 05-23-2017 Ambulatory [facility] Procedures Date Procedure Procedure Detail Performing Clinician Start: 04-28-2022 Plain X-ray of right hand DO Rajesh Solo Work Phone: Start: 06-06-2017 ELEVATE EXTREMITY WILBER CORONADO Start: 06-06-2017 NON WEIGHT BEARING SELENE HOFFMAN JENNIETRU Start: 06-06-2017 POST OP SHOE BERNARDINO CORONADO Start: 06-06-2017 DISCHARGE PATIENT WILBER CORONADO Start: 06-06-2017 SURGICAL PATHOLOGY SELENE HOFFMAN JENNIETRU Start: 05-22-2017 BASIC METABOLIC PANEL C HRNISSA JENNIETRU Start: 05-22-2017 CBC BERNARDINO CORONADO Plan of Treatment Date Care Activity Detail Author Patient Education Crush Injury (DC) [facility] Work Phone: Patient referral [facility] Work Phone: Payers Date Payer Category Payer Medicaid [id number] 2023 Self-pay [id number] 2014 Unknown [id number] 1975 Unknown [id number] 2.16.84 [id number] 1975 Unknown [id number] 2.16.84 [id number] 1975 Unknown [id number] 2.16.84 [id number] 1959 Unknown [id number] Unknown [id number] 2.16.8 [id number] Worker's Compensation [id number] Social History Date Type Detail Facility Sex Assigned At [facility] Other Start: 04-28-2022 Tobacco smoking stat [facility] Smoker (finding) [facility] Start: 1975 Sex Assigned At Female F [facility] Evaluation note 12-31-2021 Note Date & Type Note Facility 12-31-2021 Evaluation note Encounter Date Diagnosis Assessment Notes December, Small bowel obstruction (ICD-10 - K56.609) December, Diverticulitis (ICD-10 - K57.92) START MESALAMINE 1.2 GRAM 4 PO Q AM PATIENT ENCOURAGED TO STOP SMOKING RTO 6 WEEKS [facility] Other Evaluation note 09-01-2021 Note Date & [...] for removal of sutures (ICD-10 - Z48.02) [facility] Other Evaluation note 08-04-2021 Note Date & [...] poor healing. I have advised against the assisted use of narcotic pain medication. I have [...] as documented in the electronic medical record. [facility] Other Clinical Note 03-25-2021 Note Date & [...] by: MARGRET DOMINGO Date: 2021-03-25 07:50 [facility] Evaluation note Note Date & Type Note Facility Evaluation note No Information [facility] Other Evaluation note Note Date & Type Note Facility Evaluation note No assessment information availa ble [facility] Work Phone: History general Narrative - Reported Note Date & Type Note Facility History general Narrative - Reported Type Medical History diverticulitis Medical History irritable bowel syndrome Surgical History hysterectomy Surgical History gallbladder Surgical History neuroma removal x2 in left foot Hospitalization History PANCREATITIS 02/2020 Hospitalization History PANCREATITIS 2018 Hospitalization History ABDOMINAL PAIN Hospitalization History PANCREATITIS [facility] Other History general Narrative - Reported Note Date & Type Note Facility History general Narrative - Reported Type Medical History diverticulitis Medical History irritable bowel syndrome Surgical History hysterectomy Surgical History gallbladder Surgical History neuroma removal x2 in left foot Surgical History right knee scope med ial/lateral menisectemy Hospitalization History PANCREATITIS 02/2020 Hospitalization History PANCREATITIS 2018 Hospitalization History ABDOMINAL PAIN Hospitalization History PANCREATITIS [facility] Other Hospital Discharge instructions Note Date & [...] your hand is not improving please call [facility] to follow-up with a hand surgeon You can also follow-up with [facility] as needed for minor concerns Return to the ER for more severe pain loss of circulation in your fingers or any other concerns [facility] Work Phone: Summary Purpose Family History [...] Chief Complaint rt hand caught in pi zza ico bar i01 Additional Source Comments INFORMATION SOURCE (unrecogn ized section and content) DATE CREATED AUTHOR 02/23/2018 Sindy mckenna DATE CREATED AUTHOR AUTHOR'S ORGANIZ ATION 10/15/2019 Armaan Diaz [facility] DATE CREATED AUTHOR AUTHOR'S ORGANIZ ATION 10/29/2021 [facility] DATE CREATED AUTHOR AUTHOR'S ORGANIZ ATION 06/15/2023 [facility] REASON FOR VISIT (unrecogniz ed section and content) INCISION BLEEDINGRight Knee PainRecheck Right KneeINPATIENT FOLLOW UP-TO BE SEEN IN [address] VALLE FOR DIVERTICULITIS/ BOWEL OBSTRUCTION, SHE FISNISHED ANTIBIOTICS INSTRUCTED SHE IS STARTING TO FEEL BETTERclinical Care Teams (unrecognized sec tion and content) Team Status: Inactive Member Role Status Dates Rajesh Solo , Primary Care Provider Active Danica Nuñez [facility] Emergency Provider Active Team Status: Active [...] BE BASED ON THE PRIMARY CLINICAL RECORDS. [employer] [facility]. provides no warranty or guarantee of the accuracy or completeness of information in this document.
== END 2023-09-18 08:05 | disposition home or self-care (01) ==
LOC: RAD 08:04
PROVIDERS: Visit Provider Orthopaedic Surgery
DX: S52.602A Unspecified fracture of lower end of left ulna, initial encounter for closed fracture (principal); S52.572A Other intraarticular fracture of lower end of left radius, initial encounter for closed fracture
CPT/HCPCS: 73110

== ENCOUNTER 2023-10-02 11:15 | Outpatient (OUT) | payer OTHER, SELFPAY ==
--- NOTE | 2023-10-02 | XR_ITS ---
The [address] [address] Patient Name: DAMION SARAVIA MRN: [id number] date: 1975 Sex: F Assigned Patient Location: [facility] Current Patient Location: [facility] Accession/Order Number: [id number] Exam Date: 10/02/2023 12:08 Report Date: 10/02/2023 12:33 At the request of: MARGRET PAEZ Procedure: XR wrist LT min 3V EXAM: XR wrist LT min 3V HISTORY: LEFT WRIST PAIN . Follow-up study. COMPARISON: 09/18/2023 TECHNIQUE: 3 views of left wrist were obtained. FINDINGS: The study is limited, and the extremity is now wrapped in a circular cast. There is a comminuted impacted fracture of the distal radius, fixated with a palmar plate and multiple screws. Some sclerotic changes are present indicating ongoing osseous healing, while fracture lines persist. Position and alignment remain unchanged. There is a comminuted fracture involving the distal ulna, fixated with a palmar plate and multiple screws. A prominent fracture fragment involving the very distal ulna is displaced dorsally and ulnarly, and overrides the adjacent fracture fragment. Additional soft tissue calcifications which are presumably fracture fragments are seen at the expected location of the ulnar styloid process. Soft tissue opacities are seen along the palmar aspect of the distal radius, which may be additional fracture fragments. XR/XR wrist LT min 3V IMPRESSION: The study is limited by the overlying circular cast. Comminuted fractures of the distal radius and ulna are noted, fixated with plate and screws. Additional calcifications and fracture fragments are reported. The fracture lines remain visible. Position and alignment of the fracture fragments are unchanged. Electronically authenticated by: JAYME AVILA Date: 10/02/2023 12:33
--- OUTSIDE RECORDS SUMMARY | 2023-10-02 11:19 | XMS_ITS | CCD ---
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 Role Phone GREG CORONADO Unavailable Unavailabl [...] Unavailable DO Rajesh Solo Primary [facility] Danica Mueller Emergency Provider [phone] Rajesh Solo Primary Care Unavailable Mable Curtis [...] a day Not-Taking take 1 tablet by mikye th every twelve hours Aspirin 81 MG [...] January 13, 2022 3:10pm polyethylene glycol 3350 76131 mg powder for oral solution (2 sources) [...] 3V*on 023 XR foot LT min 3V* [facility] Main [place] [address] [place] [address] XRay Report Signed Patient: Maggie Yip MR#: [id number] 9 : 1975 Acct:[id number] Age/Sex: 47 / F ADM Date: 06/04/23 Loc: ER Room: Type: [facility] ER Attending Dr: Copies to: Mable Curtis [...] Jaylin Magallanes M.D.06/04/2023 12:32 PM Dictation Location: [place] [address] Transcribed By: [facility] 06/04/23 1232 Dictated By: Jaylin Magallanes MD 06/04/23 1231 Signed By: 06/04/23 1232 Normal [facility] CYCLIC CITRULLINATED PEPTIDE AB (CCP)on 04-01-2021 CCP Antibodies IgG/IgA 5 units Normal 0-19 [facility] Comment on above: Result Comment: Nega tive <20 Weak positive 20 - 39 Moderate positive 40 - 59 Strong positive >59 Performed By: #### C CPAB #### [facility] [address] [address] Germán GARRETT by IFAon 03-25-2021 Antinuclear Antibodies, IFA Negative Normal [facility] Comment on above: Result Comment: Nega tive <1:80 Borderline 1:80 Positive >1:80 ICAP nomenclature: AC-0 For more information about Hep-2 cell patterns use ANApatterns.org, the official website for the International Consensus on Antinuclear Antibody (TAMI) Patterns (ICAP). Performed By: #### A NAIFA #### [facility] [address] [place], [place] [address] Germán Mosqueda RHEUMATOID FACTORon 03-25-20 RA Latex Turbid. <10.0 Normal 0.0-13.9 [facility] Comment on above: Performed By: #### R F #### [facility] [address] [place], [place] [address] Germán Jaylin CBC AUTO DIFFon 03-24-2021 BASO # 0.1 103/ul Normal 0.0-0.1 [facility] Comment on above: Performed By: #### C BC #### [facility] [address] [place] [address] Germán Mosqueda Basophils/100 WBC (Bld) 0.6 % Normal 0.2-2.0 [facility] Comment on above: Performed By: #### C BC #### [facility] [address] [place] [address] Germán Jaylin EO # 0.1 103/ul Normal 0.0-0.7 [facility] Comment on above: Performed By: #### C BC #### [facility] [address] [place], [place] [address] Germánsimone Mosqueda Eosinophils/100 WBC (Bld) 1.2 % Normal 0.9-7.0 [facility] Comment on above: Performed By: #### C BC #### [facility] [address] [place], [place] [address] Germán Jaylin Erythrocyte distribution width (RBC) [Ratio] 13.2 % Normal 11.0-15.0 [facility] Comment on above: Performed By: #### C BC #### [facility] [address] [place], [place] [address] Germán Jaylin Hematocrit (Bld) [Volume fraction] 45.3 % Normal 36.0-48.0 [facility] Comment on above: Performed By: #### C BC #### [facility] [address] [place], [place] [address] Germán Jaylin Hemoglobin (Bld) [Mass/Vol] 15.1 g/dL Normal 12.0-16.0 [facility] Comment on above: Performed By: #### C BC #### [facility] [address] [place] [address] Germán Mosqueda IG # 0.07 10e3/ul Critically high 0.00-0.03 [facility] Comment on above: Performed By: #### C BC #### [facility] [address] [address] Germán Mosqueda IG % 0.6 % Critically high 0.0-0.5 [facility] Comment on above: Performed By: #### C BC #### [facility] [address] [place] [address] Germán Mosqueda LYMPH # 3.4 103/ul Normal 1.2-3.8 [facility] Comment on above: Performed By: #### C BC #### [facility] [address] [place] [address] Germán Mosqueda Lymphocytes/100 WBC (Bld) 30.1 % Normal 20.5-60.0 [facility] Comment on above: Performed By: #### C BC #### [facility] [address] [place] [address] Germán Mosqueda MANUAL DIFF REQ NO Normal [facility] Comment on above: Performed By: #### C BC #### [facility] [address] [place] [address] Germán Mosqueda MCH (RBC) [Entitic mass] 31.3 pg Normal 26.7-34.0 [facility] Comment on above: Performed By: #### C BC #### [facility] [address] [place] [address] Germán Mosqueda MCHC (RBC) [Mass/Vol] 33.3 g/dL Normal 29.9-35.2 [facility] Comment on above: Performed By: #### C BC #### [facility] [address] [place] [address] Germán Mosqueda MCV (RBC) [Entitic vol] 94.0 fL Normal 81.0-99.0 [facility] Comment on above: Performed By: #### C BC #### [facility] [address] [place], [place] [address] Germán Guoen MONO # 0.8 103/ul Normal 0.3-0.8 [facility] Comment on above: Performed By: #### C BC #### [facility] [address] [id number] Germán Guoen Monocytes/100 WBC (Bld) 7.2 % Normal 1.7-12.0 [facility] Comment on above: Performed By: #### C BC #### [facility] [address] [id number] Germán Jaylin NEUT # 6.7 103/ul Critically high 1.4-6.5 [facility] Comment on above: Performed By: #### C BC #### [facility] [address] [id number] Germán Guoen Neutrophils/100 WBC (Bld) 60.3 % Normal 43.0-75.0 [facility] Comment on above: Performed By: #### C BC #### [facility] [address] [id number] Germán Mosqueda Platelet mean volume (Bld) [Entitic vol] 9.0 fL Critically low 9.5-13.5 [facility] Comment on above: Performed By: #### C BC #### [facility] [address] [address] Germán Jaylin PLT 288 103/ul Normal 150-450 [facility] Comment on above: Performed By: #### C BC #### [facility] [address] [id number] Germán Jaylin RBC 4.82 106/ul Normal 4.20-5.40 [facility] Comment on above: Performed By: #### C BC #### [facility] [address] [id number] Germán Jaylin WBC 11.2 103/ul Critically high 4.0-11.0 [facility] Comment on above: Performed By: #### C BC #### [facility] [address] [place], [place] [address] Germán Jaylin PROF 14(COMP METB)on 021 Albumin [Mass/Vol] 3.8 g/dL Normal 3.5-5.0 [facility] Comment on above: Performed By: #### C MP, URIC #### [facility] [address] [place], [place] [address] Germán Jaylin Albumin/Globulin [Mass ratio] 0.9 {ratio} Normal [facility] Comment on above: Performed By: #### C MP, URIC #### [facility] [address] [place] [address] Germán Jaylin ALP [Catalytic activity/Vol] 109 U/L Normal 38-126 [facility] Comment on above: Performed By: #### C MP, URIC #### [facility] [address] [place] [address] Germán Jaylin ALT [Catalytic activity/Vol] 56 U/L Critically high 9-52 [facility] Comment on above: Performed By: #### C MP, URIC #### [facility] [address] [place] [address] Germán Jaylin Anion gap [Moles/Vol] 17.6 mmol/L Normal [facility] Comment on above: Performed By: #### C MP, URIC #### [facility] [address] [place] [address] Germán Jaylin AST [Catalytic activity/Vol] 36 U/L Normal 14-36 [facility] Comment on above: Performed By: #### C MP, URIC #### [facility] [address] [place] [address] Germán Jaylin Bilirubin [Mass/Vol] 0.3 mg/dL Normal 0.2-1.3 [facility] Comment on above: Performed By: #### C MP, URIC #### [facility] [address] [place], [place] [address] Germán Jaylin Calcium [Mass/Vol] 9.0 mg/dL Normal 8.4-10.2 [facility] Comment on above: Performed By: #### C MP, URIC #### [facility] [address] [place], [place] [address] Germán Jaylin Chloride [Moles/Vol] 104 mmol/L Normal 98-107 [facility] Comment on above: Performed By: #### C MP, URIC #### [facility] [address] [place] [address] Germán Jaylin CO2 [Moles/Vol] 23.4 mmol/L Normal 22.0-30.0 [facility] Comment on above: Performed By: #### C MP, URIC #### [facility] [address] [place], [place] [address] Germán Jaylin Creatinine [Mass/Vol] 0.61 mg/dL Normal 0.52-1.04 [facility] Comment on above: Performed By: #### C MP, URIC #### [facility] [address] [place], [place] [address] Germán Jaylin EGFR-AF TONGAN >60 Normal >=60 [facility] Comment on above: Performed By: #### C MP, URIC #### [facility] [address] [place] [address] Germán Jaylin EGFR-NON AF TONGAN >60 Normal >=60 [facility] Comment on above: Performed By: #### C MP, URIC #### [facility] [address] [place] [address] Germán Jaylin Globulin (S) [Mass/Vol] 4.2 g/dL Normal [facility] Comment on above: Performed By: #### C MP, URIC #### [facility] [address] [place] [address] Germán Jaylin Glucose [Mass/Vol] 90 mg/dL Normal 74-106 [facility] Comment on above: Performed By: #### C MP, URIC #### [facility] [address] [place] [address] Germán Jaylin Potassium [Moles/Vol] 4.0 mmol/L Normal 3.4-5.0 [facility] Comment on above: Performed By: #### C MP, URIC #### [facility] [address] [place] [address] Germán Jaylin Protein [Mass/Vol] 8.0 g/dL Normal 6.1-8.2 [facility] Comment on above: Performed By: #### C MP, URIC #### [facility] [address] [place], [place] [address] Germán Jaylin Sodium [Moles/Vol] 141 mmol/L Normal 137-145 [facility] Comment on above: Performed By: #### C MP, URIC #### [facility] [address] [place], [place] [address] Germán Jaylin Urea nitrogen [Mass/Vol] 11.0 mg/dL Normal 7.0-17.0 [facility] Comment on above: Performed By: #### C MP, URIC #### [facility] [address] [place], [place] [address] Germán Jaylin Urea nitrogen/Creatini ne [Mass ratio] 18.0 mg/mg Normal [facility] Comment on above: Performed By: #### C MP, URIC #### [facility] [address] [place], [place] [address] Germán Jaylin SED RATE WESTBANNERRENon 2020 SED RATE 60 mm/hr Critically high <=20 [facility] Comment on above: Performed By: #### S EDR #### [facility] [address] [place], [place] [address] Germán Jaylin URIC ACID SERUMon 03-24-2021 Urate [Mass/Vol] 4.9 mg/dL Normal 2.5-6.2 [facility] Comment on above: Performed By: #### C MP, URIC #### [facility] [address] [place], [place] [address] Germán Jaylin Coding Summary.on 10-15-2019 Coding Summary. CODING DATE: 020 FINAL [facility] STATUS: Home (Routine DC) PAYOR: [...] Revised Date Saved: 10/15/2019 01:45 pm Normal [facility] Auto Diffon 10-08-2019 Basophils/100 WBC (Bld) 0.2 % Normal 0.0-2.0 [facility] Comment on above: Order Comment: Order Added by Discern Expert. Performed By: #### 2 [id number], 6158582, 6679892, [id number] #### [facility] [address] [place] [address] Basophils/Leukocy cj Auto (Bld) [Pure # fraction] 0.0 E9/L Normal 0.0-0.2 [facility] Comment on above: Order Comment: Order Added by Discern Expert. Performed By: #### 2 114891, 4706958, 6801940, [id number] #### [facility] [address] [place] [address] Eosinophils/100 WBC (Bld) 1.0 % Normal 0.0-8.0 [facility] Comment on above: Order Comment: Order Added by Discern Expert. Performed By: #### 2 957766, 0093793, 6465263, [id number] #### [facility] [address] [place] [address] Eosinophils/Leuko cytes Auto (Bld) [Pure # fraction] 0.1 E9/L Normal 0.0-0.5 [facility] Comment on above: Order Comment: Order Added by Discern Expert. Performed By: #### 2 603403, 2659524, 3677252, [id number] #### [facility] [address] [place] [address] Lymphocytes/100 WBC (Bld) 25.0 % Normal 14.0-50.0 [facility] Comment on above: Order Comment: Order Added by Discern Expert. Performed By: #### 2 571646, 7033782, 3575153, [id number] #### [facility] [address] [place] [address] Lymphocytes/Leuko cytes Auto (Bld) [Pure # fraction] 2.9 E9/L Normal 1.0-4.0 [facility] Comment on above: Order Comment: Order Added by Discern Expert. Performed By: #### 2 837510, 9748136, 1257392, [id number] #### [facility] [address] [place] [address] Monocytes/100 WBC (Bld) 6.9 % Normal 4.0-14.0 [facility] Comment on above: Order Comment: Order Added by Discern Expert. Performed By: #### 2 038675, 5414089, 1723022, [id number] #### [facility] [address] [place] [address] Monocytes/Leukocy cj Auto (Bld) [Pure # fraction] 0.8 E9/L Normal 0.2-1.0 [facility] Comment on above: Order Comment: Order Added by Discern Expert. Performed By: #### 2 802703, 1006371, 9987278, 72735285 #### [facility] [address] [place] [address] Neutrophils/100 WBC (Bld) 66.9 % Normal 36.0-75.0 [facility] Comment on above: Order Comment: Order Added by Discern Expert. Performed By: #### 2 282558, 0686872, 6371731, 48197933 #### [facility] [address] [place] [address] Neutrophils/Leuko cytes Auto (Bld) [Pure # fraction] 7.9 E9/L High 2.0-7.5 [facility] Comment on above: Order Comment: Order Added by Discern Expert. Performed By: #### 2 607744, 0601462, 0989206, [id number] #### [facility] [address] [place] [address] BMPon 10-08-2019 Creatinine [Mass/Vol] 0.6 mg/dL Normal 0.5-1.3 [facility] Comment on above: Performed By: #### 2 407896, 8316601, 3752032, 13499110 #### [facility] [address] [place] [address] Urea nitrogen [Mass/Vol] 12 mg/dL Normal 5-21 [facility] Comment on above: Performed By: #### 2 859767, 7635609, 8850385, 90947757 #### [facility] [address] [place] [address] Urea nitrogen/Creatini ne [Mass ratio] 20 No Units Normal 10-20 [facility] Comment on above: Performed By: #### 2 629870, 6827078, 6578034, 80923967 #### [facility] [address] [place] [address] Anion gap [Moles/Vol] 15 mmol/L Normal 6-16 [facility] Comment on above: Performed By: #### 2 360041, 4335701, 9132993, 86706008 #### [facility] [address] [place] [address] Calcium [Mass/Vol] 9.5 mg/dL Normal 8.9-11.1 [facility] Comment on above: Performed By: #### 2 755041, 7727775, 5235609, 30237208 #### [facility] [address] [place] [address] Chloride [Moles/Vol] 102 mmol/L Normal 101-111 [facility] Comment on above: Performed By: #### 2 458801, 3578901, 4410150, 69008697 #### [facility] [address] [place] [address] CO2 [Moles/Vol] 21 mmol/L Normal 21-31 [facility] Comment on above: Performed By: #### 2 081486, 7288080, 4284336, 01757324 #### [facility] [address] [place] [address] Glucose [Mass/Vol] 88 mg/dL Normal 55-199 [facility] Comment on above: Result Comment: If t his glucose result represents a fasting glucose, interpretation should refer to the following reference range: 55-99 mg/dL Performed By: #### 2 655042, 6120392, 8067695, 93314377 #### [facility] [address] [place] [address] Potassium [Moles/Vol] 4.1 mmol/L Normal 3.5-5.3 [facility] Comment on above: Performed By: #### 2 249730, 9260408, 2470034, 80493753 #### [facility] [address] [place] [address] Sodium [Moles/Vol] 134 mmol/L Low 135-145 [facility] Comment on above: Performed By: #### 2 546729, 6044794, 3637224, 49219636 #### [facility] [address] [place] [address] CBC w/ Auto Diffon 0 Erythrocyte distribution width (RBC) [Ratio] 13.7 % Normal 10.9-14.2 [facility] Comment on above: Performed By: #### 2 548703, 0444252, 7790189, 60829064 #### [facility] [address] [place] [address] Hematocrit (Bld) [Volume fraction] 44.6 % Normal 34.0-46.0 [facility] Comment on above: Performed By: #### 2 309857, 1250815, 7435689, 16429555 #### [facility] [address] [place] [address] Hemoglobin (Bld) [Mass/Vol] 15.3 g/dL Normal 12.0-16.0 [facility] Comment on above: Performed By: #### 2 698737, 0273511, 6640072, 95086212 #### [facility] [address] [place] [address] MCH (RBC) [Entitic mass] 32.6 pg Normal 27.0-34.0 [facility] Comment on above: Performed By: #### 2 762731, 7197712, 0004490, 62995003 #### [facility] [address] [place] [address] MCHC (RBC) [Mass/Vol] 34.4 g/dL Normal 31.4-36.0 [facility] Comment on above: Performed By: #### 2 490470, 8738224, 6002207, 60526182 #### [facility] [address] [place] [address] MCV (RBC) [Entitic vol] 94.9 fL Normal 80.0-100.0 [facility] Comment on above: Performed By: #### 2 067562, 3698337, 3492593, 98405679 #### [facility] [address] [place] [address] Platelet mean volume (Bld) [Entitic vol] 7.2 fL Normal 6.4-10.8 [facility] Comment on above: Performed By: #### 2 785802, 9209949, 0136087, 69551729 #### [facility] [address] [place] [address] Platelets (Bld) [#/Vol] 361.0 E9/L Normal 150.0-500.0 [facility] Comment on above: Performed By: #### 2 358576, 7170147, 8322697, 86824636 #### [facility] [address] [place] [address] RBC (Bld) [#/Vol] 4.7 E12/L Normal 4.3-5.9 [facility] Comment on above: Performed By: #### 2 685455, 6892560, 4559002, 91467174 #### [facility] [address] [place] [address] WBC corrected for nucl RBC Auto (Bld) [#/Vol] 11.8 E9/L High 4.0-11.0 [facility] Comment on above: Performed By: #### 2 037076, 8355569, 4390484, 42731129 #### [facility] [address] [place] [address] ED Clinical Summaryon 2019 ED Clinical Summary [address] [address] ED Clinical Summary Person Information Name: MAGGIE DEL [place]ARIO [place] Age: 43 Years : 1975 Sex: Female Language: Albanian PCP: Rajesh Solo DO Marital Status: Phone: [phone] Visit Id: Visit Reason: Vomiting; Abdominal pain; [...] 10/08/2019 13:21:31 10/08/2019 13:21:31 10/08/2019 13:21:31 ADDRESS: [facility] [id number] PHYS DOC NOTES: MEDICAL INFORMATION: Prescriptions Given: [facility], [address] [facility] [place] [id number], [phone] sucralfate (Carafate 1 g/10 mL Susp-Oral) 10 Milliliter By Mouth 4 times a day for 7 Days. Refills: 0. PATIENT EDUCATION INFORMATION: Instructions: Gastritis, Adult; Abdominal Pain, Adult Follow up: With: Address: When: [facility], [address] [place] [address] Business (1) In 3 days 10/11/2019 With: Address: When: [facility] [address] [place] [address] Business (1) In 3 days 10/11/2019 DIAGNOSIS: Right upper quadrant abdominal pain Normal [facility] ED Note-Physicianon 10-08-19 ED Note-Physician Basic Information [...] ultrasound was obtained. This is discussed with medical equipment technician as negative for acute findings. Patient [...] day(s), # 280 mL, Refills(s) 0, Pharmacy: [facility], 165, cm, 10/08/19 10:25:00 EST, Height/Length [...] Information Yudelka RIOS In 3 days 10/11/2019 [facility] [address] [place] [address]- Business (1) Additional Instructions: Rajesh Solo In 3 days 10/11/2019 [facility] [address] [place] [address]- Business (1) Additional Instructions: Patient Education Gastritis, Adult Abdominal Pain, Adult Attestation Patient seen and evaluated by the physician case management assistant. Attending physician was present in the emergency department and supervised care. This report was transcribed using voice recognition software. Every effort was made to ensure accuracy, however, inadvertently computerized marketing proposal specialist mistakes may be present. Problem List/Past Medical [...] 10:41:00) Lymph Auto: 25 % (10/08/19 10:41:00) [place] Auto: 6.9 % (10/08/19 10:41:00) Eos Auto: 1 % (10/08/19 10:41:00) Basophil Auto: 0.2 % (10/08/19 10:41:00) Neutro Absolute: 7.9 E9/L High (10/08/19 10:41:00) Lymph Absolute: 2.9 E9/L (10/08/19 10:41:00) [place] Absolute: 0.8 E9/L (10/08/19 10:41:00) Eos Absolute: [...] By: Trevin Esquivel DO 10/08/2019 10:57:10 Normal [facility] Comment on above: Result Comment: Elec tronically [...] discomfort you are experiencing: ? Only take jhpd-vci-zbdqgzi or prescription medicines as directed by your [...] Document Reviewed: 04/23/2014 ExitCare? Patient Information ?2015 [employer]. This information is not intended to replace [...] (NSAIDs). HOME CARE INSTRUCTIONS ? Only take qmfr-lrt-dguqsts or prescription medicines as directed by your [...] Garlic and onions. ? Spicy foods. ? [place] fruits, such as oranges, todd, or limes. [...] Document Reviewed: 09/26/2012 ExitCare? Patient Information ?2015 [employer]. This information is not intended to replace advice given to you by your health care provider. Make sure you discuss any questions you have with your health care provider. Normal [facility] ED Patient Summaryon 020 ED Patient Summary [address] [address] Patient Discharge Instructions Person Information Name: MAGGIE DEL ROSARIO Age: 43 Years Arrival Date: 10/08/2019 10:18:57 Discharge Diagnosis: Right upper quadrant abdominal pain Primary Care Physician: Rajesh Solo DO Provider Information Primary Provider: Trevin Esquivel DO Advanced Pop Singer:Rishi Martinez PA-C The exam and treatment you received in the Emergency Department were for an urgent problem and are not intended as complete care. It is important that you follow up with a doctor, nurse practitioner, or physician?s case management assistant for ongoing care. If your symptoms become worse or you do not improve as expected and you are unable to reach your usual health care provider, you should return to the Emergency Department. We are available 24 hours a day. MAGGIE DEL ROSARIO has been given the following list of patient education materials, prescriptions and follow-up instructions: Follow-up Instructions: With: Address: When: [facility], [address] [place] [address] Business (1) In 3 days 10/11/2019 With: Address: When: Rajesh Solo [address] [place] [address] Business (1) In 3 days 10/11/2019 In the event that this physician does not participate in your insurance network, please consult with your insurance company to find a nearby participating provider. Patient Education Materials: Gastritis, Adult; Abdominal Pain, Adult A MESSAGE TO ALL PATIENTS REGARDING OPIOIDS PRESCRIPTION OPIOIDS: WHAT YOU NEED TO KNOW Prescription opioids can be used to help relieve wvfxlvrt-yz-dmvojh pain and are often prescribed following a [...] be struggling with addiction, tell your health health care technician and ask for guidance or call [facility]?S National Helpline at 8-836-837-MRLH. p Source: US Department of Health and Human Services/Center for Disease Control & Prevention [facility] Medications Given: Medication Dose Route [...] New Medications [facility], [address], [place] [id number], [phone] sucralfate (Carafate 1 g/10 mL Susp-Oral) 10 Milliliter By Mouth 4 times a day for 7 Days. Refills: 0. Comment: Pharmacy Information: Thank you for choosing [facility] Patient Education Materials: Gastritis, Adult Gastritis is [...] (NSAIDs). HOME CARE INSTRUCTIONS ? Only take ijkw-ebd-ogcaole or prescription medicines as directed by your [...] Garlic and onions. ? Spicy foods. ? [place] fruits, such as oranges, todd, or limes. [...] Document Reviewed: 09/26/2012 ExitCare? Patient Information ?2015 [employer]. This information is not intended to replace [...] discomfort you are experiencing: ? Only take izlu-xir-lgthlvq or prescription medicines as directed by your [...] Document Reviewed: 04/23/2014 ExitCare? Patient Information ?2014 [employer]. This information is not intended to replace advice given to you by your health care provider. Make sure you discuss any questions you have with your health care provider. MIGUEL ÁNGEL Aguirre LISA L , have received the following patient education materials/instructions and have verbalized understanding: Patient Education Materials: Gastritis, Adult; Abdominal Pain, Adult Follow-up Instructions: With: Address: When: [facility], [address] [facility] [place] [address] Business (1) In 3 days 10/11/2019 With: Address: When: [address] [address] Business (1) In 3 days 10/11/2019 Patient Signature Date Clinician/Nurse Signature Date 10/08/2019 13:21:33 Normal [facility] Hep Func Panelon 10-08-2019 Albumin [Mass/Vol] 4.2 g/dL Normal 3.3-5.0 [facility] Comment on above: Performed By: #### 2 982758, 1410820, 5964181, [id number] #### [facility] [address] [place] [address] Albumin [Mass/Vol] 1.2 g/dL Normal 1.1-2.2 [facility] Comment on above: Performed By: #### 2 794449, 7474137, 6690296, [id number] #### [facility] [address] [place] [address] Bilirubin [Mass/Vol] 0.4 mg/dL Normal 0.0-1.1 [facility] Comment on above: Performed By: #### 2 786996, 2887806, 9226584, [id number] #### [facility] [address] [place] [address] Bilirubin.direct [Mass/Vol] 0.3 mg/dL Normal 0.1-0.9 [facility] Comment on above: Performed By: #### 2 347664, 0962129, 1652563, 87847978 #### [facility] [address] [place] [address] Globulin (S) [Mass/Vol] 3.6 g/dL Normal 1.4-4.0 [facility] Comment on above: Performed By: #### 2 233201, 3034109, 6727207, [id number] #### [facility] [address] [place] [address] Protein [Mass/Vol] 7.8 g/dL Normal 6.0-7.8 [facility] Comment on above: Performed By: #### 2 647023, 5450037, 2399786, 60028285 #### [facility] [address] [place] [address] ALP [Catalytic activity/Vol] 77 Int._Unit/L Normal 21-98 [facility] Comment on above: Performed By: #### 2 671678, 3749738, 8658770, [id number] #### [facility] [address] [place] [address] ALT No additional P-5'-P [Catalytic activity/Vol] 64 Int._Unit/L High 6-46 [facility] Comment on above: Performed By: #### 2 258526, 1362383, 3811090, 75073632 #### [facility] [address] [place] [address] AST [Catalytic activity/Vol] 47 Int._Unit/L High 5-43 [facility] Comment on above: Performed By: #### 2 533233, 9630795, 6120179, 76030152 #### [facility] [address] [place] [address] Bilirubin.direct [Mass/Vol] 0.1 mg/dL Normal 0.1-0.4 [facility] Comment on above: Performed By: #### 2 238633, 5299564, 2096025, 64808354 #### [facility] [address] [place] [address] Lipase Levelon 10-08-2019 Lipase [Catalytic activity/Vol] 50 unit/L Normal 13-58 [facility] Comment on above: Performed By: #### 2 782168, 5639750, 5575948, 21446941 #### [facility] [address] [place] [address] Troponin 0 Hr.on 10-08-2019 Troponin I.cardiac [Mass/Vol] ng/mL Normal <=0.03 [facility] Comment on above: Result Comment: New Troponin Assay 01/09/14 [place] Cutoff value > or = 0.03 ng/mL in conjunction with clinical conditions of myocardial infarction. ([email or web address].org/guidelines) Performed By: #### 2 456476, 6481217, 4962639, [id number] #### [facility] [address] [place] [address] US Gallbladderon 10-08-2019 US Gallbladder Exam Date/Time: [...] MD Transcribed by: IMAN Technologist: HW Normal [facility] eGFRon 10-08-2019 GFR/1.73 sq M predicted among blacks MDRD (S/P/Bld) [Vol rate/Area] mL/min/{1.73_m2} Normal >=59 [facility] Comment on above: Order Comment: Order added by Discern Expert. Result Comment: eGFR is race adjusted. AA=. Performed By: #### 2 431833, 6943606, 2413840, [id number] #### [facility] [address] [place] [address] GFR/1.73 sq M predicted among non-blacks MDRD (S/P/Bld) [Vol rate/Area] mL/min/{1.73_m2} Normal >=59 [facility] Comment on above: Order Comment: Order added by Discern Expert. Result Comment: Produce Clerk bhavin kidney disease could be indicated at eGFR's of less than 60 mL/min/1.73m2. Kidney failure is indicated at less than 15 mL/min/1.73m2. Performed By: #### 2 656881, 4553873, 6256242, [id number] #### [facility] [address] [place] [address] Coding Summary.on 12-24-2018 Coding Summary. CODING DATE: 019 FINAL [facility] STATUS: Home (Routine DC) PAYOR: [...] Revised Date Saved: 12/24/2018 08:11 am Normal [facility] Auto Diffon 12-23-2018 Basophils/100 WBC (Bld) 0.7 % Normal 0.0-2.0 [facility] Comment on above: Order Comment: Order Added by Discern Expert. Performed By: #### 2 537009, 7077484, 5702149, 12546865 #### [facility] [address] [place] [address] Basophils/Leukocy cj Auto (Bld) [Pure # fraction] 0.1 E9/L Normal 0.0-0.2 [facility] Comment on above: Order Comment: Order Added by Discern Expert. Performed By: #### 2 956291, 0289549, 9788157, 09262653 #### [facility] [address] [place] [address] Eosinophils/100 WBC (Bld) 1.1 % Normal 0.0-8.0 [facility] Comment on above: Order Comment: Order Added by Discern Expert. Performed By: #### 2 596051, 3685667, 4474507, 20062352 #### [facility] [address] [place] [address] Eosinophils/Leuko cytes Auto (Bld) [Pure # fraction] 0.1 E9/L Normal 0.0-0.5 [facility] Comment on above: Order Comment: Order Added by Discern Expert. Performed By: #### 2 902645, 2632869, 4357105, 15086924 #### [facility] [address] [place] [address] Lymphocytes/100 WBC (Bld) 37.9 % Normal 14.0-50.0 [facility] Comment on above: Order Comment: Order Added by Discern Expert. Performed By: #### 2 875133, 8936447, 3941583, 34219938 #### [facility] [address] [place] [address] Lymphocytes/Leuko cytes Auto (Bld) [Pure # fraction] 4.2 E9/L High 1.0-4.0 [facility] Comment on above: Order Comment: Order Added by Discern Expert. Performed By: #### 2 509774, 2564211, 9714701, 34581676 #### [facility] [address] [place] [address] Monocytes/100 WBC (Bld) 5.3 % Normal 4.0-14.0 [facility] Comment on above: Order Comment: Order Added by Discern Expert. Performed By: #### 2 455673, 0353830, 5559838, 64755000 #### [facility] [address] [place] [address] Monocytes/Leukocy cj Auto (Bld) [Pure # fraction] 0.6 E9/L Normal 0.2-1.0 [facility] Comment on above: Order Comment: Order Added by Discern Expert. Performed By: #### 2 413762, 9094620, 6419392, 88278299 #### [facility] [address] [place] [address] Neutrophils/100 WBC (Bld) 55.0 % Normal 36.0-75.0 [facility] Comment on above: Order Comment: Order Added by Discern Expert. Performed By: #### 2 264657, 3496866, 1817988, 27759816 #### [facility] [address] [place] [address] Neutrophils/Leuko cytes Auto (Bld) [Pure # fraction] 6.1 E9/L Normal 2.0-7.5 [facility] Comment on above: Order Comment: Order Added by Discern Expert. Performed By: #### 2 136449, 7982811, 5069677, 77477183 #### [facility] [address] [place] [address] BMPon 12-23-2018 Creatinine [Mass/Vol] 0.6 mg/dL Normal 0.5-1.3 [facility] Comment on above: Performed By: #### 2 939127, 7264208, 0669139, 94427485 #### [facility] [address] [place] [address] Urea nitrogen [Mass/Vol] 10 mg/dL Normal 5-21 [facility] Comment on above: Performed By: #### 2 604650, 8036413, 5355438, 87396638 #### [facility] [address] [place] [address] Urea nitrogen/Creatini ne [Mass ratio] 17 No Units Normal 10-20 [facility] Comment on above: Performed By: #### 2 329672, 6618940, 2847417, 50316105 #### [facility] [address] [place] [address] Anion gap [Moles/Vol] 15 mmol/L Normal 6-16 [facility] Comment on above: Performed By: #### 2 639247, 8778055, 3042574, 19346418 #### [facility] [address] [place] [address] Calcium [Mass/Vol] 10.1 mg/dL Normal 8.9-11.1 [facility] Comment on above: Performed By: #### 2 930545, 3155386, 3455946, 11807950 #### [facility] [address] [place] [address] Chloride [Moles/Vol] 99 mmol/L Low 101-111 [facility] Comment on above: Performed By: #### 2 266635, 4010206, 6771218, 84684945 #### [facility] [address] [place] [address] CO2 [Moles/Vol] 22 mmol/L Normal 21-31 [facility] Comment on above: Performed By: #### 2 520965, 6828243, 8276016, 57737293 #### [facility] [address] [place] [address] Glucose [Mass/Vol] 137 mg/dL Normal 55-199 [facility] Comment on above: Result Comment: If t his glucose result represents a fasting glucose, interpretation should refer to the following reference range: 55-99 mg/dL Performed By: #### 2 926544, 2642935, 6624724, 57357489 #### [facility] [address] [place] [address] Potassium [Moles/Vol] 3.1 mmol/L Low 3.5-5.3 [facility] Comment on above: Performed By: #### 2 224576, 0820542, 1917952, 27711005 #### [facility] [address] [place] [address] Sodium [Moles/Vol] 133 mmol/L Low 135-145 [facility] Comment on above: Performed By: #### 2 021504, 4867371, 0824868, 17982014 #### [facility] [address] [place] [address] CBC w/ Auto Diffon 9 Erythrocyte distribution width (RBC) [Ratio] 13.0 % Normal 10.9-14.2 [facility] Comment on above: Performed By: #### 2 881120, 5037117, 9289966, 81368886 #### [facility] [address] [place] [address] Hematocrit (Bld) [Volume fraction] 45.9 % Normal 34.0-46.0 [facility] Comment on above: Performed By: #### 2 471629, 9289125, 0120488, 49380691 #### [facility] [address] [place] [address] Hemoglobin (Bld) [Mass/Vol] 15.7 g/dL Normal 12.0-16.0 [facility] Comment on above: Performed By: #### 2 523681, 6765635, 1130733, 61939396 #### [facility] [address] [place] [address] MCH (RBC) [Entitic mass] 32.8 pg Normal 27.0-34.0 [facility] Comment on above: Performed By: #### 2 186673, 5926863, 5065234, 76940754 #### [facility] [address] [place] [address] MCHC (RBC) [Mass/Vol] 34.2 g/dL Normal 33.3-35.7 [facility] Comment on above: Performed By: #### 2 110212, 8052612, 3946598, 67011747 #### [facility] [address] [place] [address] MCV (RBC) [Entitic vol] 95.9 fL Normal 80.0-100.0 [facility] Comment on above: Performed By: #### 2 489448, 0584581, 9021008, 01391524 #### [facility] [address] [place] [address] Platelet mean volume (Bld) [Entitic vol] 7.5 fL Normal 6.4-10.8 [facility] Comment on above: Performed By: #### 2 621220, 1915610, 1756169, 96638434 #### [facility] [address] [place] [address] Platelets (Bld) [#/Vol] 373.0 E9/L Normal 150.0-500.0 [facility] Comment on above: Performed By: #### 2 278943, 0459607, 3468897, 02057399 #### [facility] [address] [place] [address] RBC (Bld) [#/Vol] 4.8 E12/L Normal 4.3-5.9 [facility] Comment on above: Performed By: #### 2 873910, 5293089, 5574981, 64858740 #### [facility] [address] [place] [address] WBC corrected for nucl RBC Auto (Bld) [#/Vol] 11.2 E9/L High 4.0-11.0 [facility] Comment on above: Performed By: #### 2 682907, 1854014, 6811948, 51346749 #### [facility] [address] [place] [address] CT Head or Brain w/o Contras ton [...] MD Transcribed by: IMAN Technologist: HAIDER Normal [facility] CT Spine Cervical w/o Contra ston 12-23-2018 [...] MD Transcribed by: IMAN Technologist: HAIDER Mcmanus [facility] ED Clinical Summaryon 2018 ED Clinical Summary [place] [id number] ED Clinical Summary Person Information Name: MAGGIE DEL ROSARIO [facility] Age: 43 Years : 1975 12:00 AM Sex: Female Language: Albanian PCP: Rajesh Solo DO Marital Status: Single Phone: [phone] Visit Id: Visit Reason: Fall; PT FELL [...] 12/23/2018 3:33 AM 12/23/2018 3:33 AM ADDRESS: [address] [place] [id number] PHYS DOC NOTES: MEDICAL INFORMATION: Prescriptions Given: PATIENT EDUCATION INFORMATION: Instructions: Alcohol Intoxication; Concussion, Adult, Fyxs-ws-Wtzx; Open Wound, Lip, Beja-my-Ehlf; Mouth Laceration, Pprs-jc-Pvzf Follow up: With: Address: When: WHITNEY KENNEDY [address] [place] [address] [place] [address] Business (1) Within 1 to 2 days, only if needed DIAGNOSIS: 1:Acute alcohol intoxication; 2:Concussion with loss of consciousness <= 30 min; 3:Lip laceration Normal [facility] ED Note-Physicianon 12-24-19 ED Note-Physician Basic Information [...] 43-year-old female she is awake and attentive [place] Coma Scale 15. There is a superficial [...] 1 to 2 days, only if needed [address] [place] [address] [facility] (1) Additional Instructions: Patient Education Alcohol Intoxication Concussion, Adult, Bezn-tn-Idwu Open Wound, Lip, Gyuc-ct-Axkl Mouth Laceration, Lrkp-xm-Sikh Problem List/Past Medical History Ongoing No qualifying [...] Lymph Auto: 37.9 % (12/23/18 01:55:00 EDT) [place] Auto: 5.3 % (12/23/18 01:55:00 EDT) Eos Auto: 1.1 % (12/23/18 01:55:00 EDT) Basophil Auto: 0.7 % (12/23/18 01:55:00 EDT) Neutro Absolute: 6.1 E9/L (12/23/18 01:55:00 EDT) Lymph Absolute: 4.2 E9/L High (12/23/18 01:55:00 EDT) [place] Absolute: 0.6 E9/L (12/23/18 01:55:00 EDT) Eos [...] malalignment Read By: Juan Francisco Munoz MD [facility] Comment on above: Result Comment: Elec tronically Signed By: Juan Francisco Munoz MD\.br\Date and Time Signed: 12/23/18 03:15 EDT ED Patient Education Noteon 12-23-2018 ED Patient Education Note Jkpz-vd-Ypln Open Wound, Lip An open wound is [...] Document Reviewed: 11/30/2010 ExitCare? Patient Information ?2015 [employer]. This information is not intended to replace [...] Tell your teachers, school nurse, school counselor, cross country coach, applications trainer, or antisqueak worker about your concussion. Tell them about [...] Document Reviewed: 03/06/2014 ExitCare? Patient Information ?2015 [employer]. This information is not intended to replace advice given to you by your health care provider. Make sure you discuss any questions you have with your health care provider. Mouth Laceration A mouth laceration is a cut inside the mouth. HOME CARE ? Rinse your mouth with warm salt water 4 to 6 times a day. ? [place] your teeth as usual if you can. [...] Document Reviewed: 02/16/2012 ExitCare? Patient Information ?2015 [employer]. This information is not intended to replace [...] yellow. Avoid caffeine. ? ? Only take hiut-nsr-jnyujsh or prescription medicines as directed by your [...] Document Reviewed: 01/17/2014 ExitCare? Patient Information ?2015 [employer]. This information is not intended to replace advice given to you by your health care provider. Make sure you discuss any questions you have with your health care provider. Normal [facility] ED Patient Summaryon 019 ED Patient Summary [address] [address] Patient Discharge Instructions Person Information Name: MAGGIE DEL ROSARIO Age: 43 Years Arrival Date: 12/23/2018 1:53 AM Discharge Diagnosis: 1:Acute alcohol intoxication; 2:Concussion with loss of consciousness <= 30 min; 3:Lip laceration Primary Care Physician: Rajesh Solo DO Provider Information Primary Provider: Juan Francisco Munoz MD Advanced Pop Singer:None The exam and treatment you received in the Emergency Department were for an urgent problem and are not intended as complete care. It is important that you follow up with a doctor, nurse practitioner, or physician?s case management assistant for ongoing care. If your symptoms [...] instructions: Follow-up Instructions: With: Address: When: WHITNEY O[address] [address] [facility] (1) Within 1 to 2 days, only if needed In the event that this physician does not participate in your insurance network, please consult with your insurance company to find a nearby participating provider. Patient Education Materials: Alcohol Intoxication; Concussion, Adult, Jtuy-rz-Ryjd; Open Wound, Lip, Mpeg-kw-Kkdg; Mouth Laceration, Renu-it-Dwnt A MESSAGE TO ALL PATIENTS REGARDING OPIOIDS PRESCRIPTION OPIOIDS: WHAT YOU NEED TO KNOW Prescription opioids can be used to help relieve teetiowo-ta-ksenoy pain and are often prescribed following a [...] be struggling with addiction, tell your health health care technician and ask for guidance or call [facility] National Helpline at 6-506-220-HELP. v Source: US Department of Health and Human Services/Center for Disease Control & Prevention [facility] Medications Given: Medication Dose Route No medications found. Medication Information: Comment: Pharmacy Information: Thank you for choosing [facility] Patient Education Materials: Alcohol Intoxication Alcohol intoxication [...] yellow. Avoid caffeine. ? ? Only take khcz-ayf-rfeyzfq or prescription medicines as directed by your [...] Document Reviewed: 01/17/2014 ExitCare? Patient Information ?2015 [employer]. This information is not intended to replace [...] Tell your teachers, school nurse, school counselor, cross country coach, applications trainer, or antisqueak worker about your concussion. Tell them about [...] Document Reviewed: 03/06/2014 ExitCare? Patient Information ?2015 [employer]. This information is not intended to replace [...] Document Reviewed: 11/30/2010 ExitCare? Patient Information ?2015 [employer]. This information is not intended to replace advice given to you by your health care provider. Make sure you discuss any questions you have with your health care provider. Mouth Laceration A mouth laceration is a cut inside the mouth. HOME CARE ? Rinse your mouth with warm salt water 4 to 6 times a day. ? [place] your teeth as usual if you can. [...] Document Reviewed: 02/16/2012 ExitCare? Patient Information ?2015 [employer]. This information is not intended to replace advice given to you by your health care provider. Make sure you discuss any questions you have with your health care provider. MIGUEL ÁNGEL Aguirre LISA L , have received the following patient education materials/instructions and have verbalized understanding: Patient Education Materials: Alcohol Intoxication; Concussion, Adult, Xzux-pi-Fxme; Open Wound, Lip, Lvxb-fe-Ukbf; Mouth Laceration, Metl-al-Fzua Follow-up Instructions: With: Address: When: WHITNEY KENNEDY [address] [place] [address], [place] [address] Business (1) Within 1 to 2 days, only if needed Prescriptions: Patient Signature Date Clinician/Nurse Signature Date 12/23/18 03:33:31 Normal [facility] Ethanolon 12-23-2018 Ethanol [Mass/Vol] 268 mg/dL Abnormal <=7 [facility] Comment on above: Result Comment: Nano ical Result S_ETOH:268.0 Called to [facility] AT ER by LLOYD ABBOTT And Read Back For Confirmation at: 12/23/2018 02:44:14\Critical Result verified by repeat analysis Performed By: #### 2 [id number] #### [facility] [address] [place] [address] Pre-Arrival Noteon 9 Pre-Arrival Note Pre-Arrival Summary Name: , Current Date: 12/23/2018 01:56:40 EDT Gender: Female Date of : Age: 43 Pre-Arrival Type: EMS ETA: 12/23/2018 02:14:00 EDT Primary Care Physician: Presenting Problem: fall stairs 5min eta Pre-Arrival User: Harry Aragon RN Referring Source: Location: [place] Completion Date/Time: 12/23/18 01:44:00 [facility] Emergency Department Pre-Hospital Report Form Vital Signs: Pre-Hospital Report: Treatment in Route: Response to Treatment: Misc. Issues: Normal [facility] eGFRon 12-23-2018 GFR/1.73 sq M predicted among blacks MDRD (S/P/Bld) [Vol rate/Area] mL/min/{1.73_m2} Normal >=59 [facility] Comment on above: Order Comment: Order added by Discern Expert. Result Comment: eGFR is race adjusted. AA=. Performed By: #### 2 988989, 2966385, 9671788, [id number] #### [facility] [address] [place] [address] GFR/1.73 sq M predicted among non-blacks MDRD (S/P/Bld) [Vol rate/Area] mL/min/{1.73_m2} Normal >=59 [facility] Comment on above: Order Comment: Order added by Discern Expert. Result Comment: Produce Clerk bhavin kidney disease could be indicated at eGFR's of less than 60 mL/min/1.73m2. Kidney failure is indicated at less than 15 mL/min/1.73m2. Performed By: #### 2 278498, 7343007, 9561808, [id number] #### [facility] [address] [place] [address] Interval History and Physion 06-06-2017 HIM IP Note OR Sharples Machine Operator Normal [facility] OPERATIVE REPORTon 7 OPERATIVE REPORT BLANCHARD [facility] [address] [place] [address] OPERATIVE REPORTPATIENT NAME: MAGGIE YIP : 1975[facility] REC NO: [id number] ROOM:ACCOUNT NO: [id number] ADMISSION DATE:06/06/2017PROVIDER: Greg XiongTE OF PROCEDURE: 06/06/2017PREOPERATIVE [...] digits. The procedure wastolerated quite well and Dumont was prescribed for pain management withfollowup on Monday in our office.GREG CORONADOD: 06/06/2017 9:38:09 [id number]/[id number]#: [id number] Doc#: [id number] Normal [facility] Surgical Pathologyon 017 Surgical Pathology (NOTE)[id number] LABORATORIESCONSULTING PATHOLOGISTS [facility] EMERGENCY DEPARTMENTANATOMIC [id number] [place] [address]. [place], [place] [address] Fax: SURGICAL PATHOLOGY CONSULTATIONPatient Name: Carroll YIP Rec: [id number] Number: [id number]: 06/06/2017Received: 06/06/2017Reported: 06/07/2017 11:51-- Diagnosis --SOFT TISSUE, [...] and perineural fibrosis, compatible withtraumatic-type neuroma. Normal [facility] History and Physicalon 06-05 HIM IP Note OR Sharples Machine Operator Normal [facility] Basic Metabolic Profon 05-22 (cont.) Normal [facility] Comment on above: Result Comment: Aver age GFR for 40-49 years old: 99 mL/min/1.73sq mChronic Kidney Disease: <60 mL/min/1.73sq mKidney failure: <15 mL/min/1.73sq meGFR calculated using average adult body mass. Additional eGFR calculator available at:http://[email or web address]/multiple_crcl_2012.htmPerformed at [facility] [address] [place] [address] (128) Performed By: #### C CAMERON, BMP ####[facility] [place] [address](593) Anion gap 14 mmol/L Normal - [facility] Comment on above: Performed By: #### C BC, BMP ####[facility] [place] [address](615) BUN/CRE Ratio 31 High - [facility] Comment on above: Performed By: #### C BC, BMP ####[facility] [place] [address](904) Calcium 9.4 mg/dL Normal 8.6-10.4 [facility] Comment on above: Performed By: #### C BC, BMP ####[facility] [place] [address] Chloride 101 mmol/L Normal 98-107 [facility] Comment on above: Performed By: #### C BC, BMP ####[facility] [place] [address] CO2 22 mmol/L Normal 20-31 [facility] Comment on above: Performed By: #### C BC, BMP ####[facility] [place] [address] Creatinine 0.55 mg/dL Normal 0.50-0.90 [facility] Comment on above: Performed By: #### C BC, BMP ####[facility] [place] [address] eGFR (non-black) mL/min/{1.73_m2} Normal >60 [facility] Comment on above: Performed By: #### C BC, BMP ####[facility] [place] [address] Glucose mass conc 99 mg/dL Normal 70-99 [facility] Comment on above: Performed By: #### C BC, BMP ####[facility] [phone] Potassium molar conc 4.3 mmol/L Normal 3.7-5.3 [facility] Comment on above: Performed By: #### C BC, BMP ####[facility] [phone] Sodium 137 mmol/L Normal 135-144 [facility] Comment on above: Performed By: #### C BC, BMP ####[facility] [place] [address] Urea nitrogen 17 mg/dL Normal 6-20 [facility] Comment on above: Performed By: #### C BC, BMP ####[facility] [place] [address] Staging: NOT REPORTED Normal [facility] Comment on above: Performed By: #### C BC, BMP ####[facility] [place] [address] CBCon 05-22-2017 Erythrocyte distribution width Auto Ratio (RBC) 13.1 % Normal 12.1-15.2 [facility] Comment on above: Performed By: #### C BC, BMP ####[facility] [place] [address] Erythrocytes (RBC) 4.59 10*6/uL Normal 4.0-5.2 [facility] Comment on above: Performed By: #### C BC, BMP ####[facility] [phone] Hematocrit (HCT) 42.8 % Normal 36-46 [facility] Comment on above: Performed By: #### C BC, BMP ####[facility] [place] [address] Hemoglobin mass conc (Bld) 14.6 g/dL Normal 12.0-16.0 [facility] Comment on above: Performed By: #### C BC, BMP ####[facility] [place] [address] MCH 31.9 pg Normal 26-34 [facility] Comment on above: Performed By: #### C BC, BMP ####[facility] [place] [address] MCHC mass conc (RBC) 34.2 g/dL Normal 31-37 [facility] Comment on above: Performed By: #### C BC, BMP ####[facility] [place] [address] MCV 93.3 fL Normal 80-100 [facility] Comment on above: Performed By: #### C BC, BMP ####[facility] [place] [address] Platelets 366 10*3/uL Normal 140-450 [facility] Comment on above: Result Comment: Perf ormed at [facility] [address] [place] [address] Performed By: #### C BC, BMP ####[facility] [place] [address] WBC (Leukocytes) 9.3 10*3/uL Normal 3.5-11.0 [facility] Comment on above: Performed By: #### C BC, BMP ####[facility] [place] [address] Platelet mean volume (PMV) NOT REPORTED Normal 6.0-12.0 [facility] Comment on above: Performed By: #### C BC, BMP ####[facility] [place] [address] Vital Signs Date Time Vital Sign Value Performing Clinician Facility 04-28-2022 15:01-0400 Body height 167.64 cm DO Zattikka Work Phone: [facility] 04-28-2022 15:01-0400 Body temperature 97.9 [degF] DO Zattikka Work Phone: [facility] 04-28-2022 15:01-0400 Body weight 89.81 kg DO Zattikka Work Phone: [facility] 04-28-2022 15:01-0400 Diastolic blood pressure 107 mm[Hg] DO Zattikka Work Phone: [facility] 04-28-2022 15:01-0400 Heart rate 113 /min DO Zattikka Work Phone: [facility] 04-28-2022 15:01-0400 Respiratory rate 18 /min DO Rajesh Solo Work Phone: [facility] 04-28-2022 15:01-0400 SaO2% (BldA) [Mass fraction] 94 % DO Rajesh Solo Work Phone: [facility] 04-28-2022 15:01-0400 Systolic blood pressure 181 mm[Hg] DO Rajesh Solo Work Phone: [facility] 12-31-2021 10:00-0400 Body height 167.64 cm David Valle Other [employer] [facility] Other 12-31-2021 10:00-0400 Body mass index (BMI) [Ratio] 29.86 kg/m2 David Valle Other [facility] Other 12-31-2021 10:00-0400 Body weight 83.92 kg David Valle Other [employer] [facility] Other 08-04-2021 16:00-0500 Body height 167.64 cm Good Alan Other [employer] Other 08-04-2021 16:00-0500 Body mass index (BMI) [Ratio] 32.12 kg/m2 Good Alan Other [employer] [facility] Other 08-04-2021 16:00-0500 Body weight 90.27 kg Good Alan Other [employer] Other Encounters Encounter Date Encounter Type Care Provider Facility Start: 06-04-2023 End: 06-04-2023 Emergency department patient visit Rajesh Solo Facility:[facility] Start: 04-28-2022 End: 04-28-2022 Emergency department patient visit DO Rajesh Solo Work Phone: [facility] Start: 01-06-2022 End: 01-06-2022 ambulatory David Valle Other [employer] [facility] Other Start: 01-06-2022 Telephone encounter David Leblanc ck [facility] Start: 12-31-2021 End: 12-31-2021 ambulatory David Valle Other [facility] Other Start: 12-31-2021 Office outpatient visit 15 minutes David Valle [facility] Start: 09-14-2021 End: 10-22-[address] RAJESH SOLO Facility:[facility] Start: 09-01-2021 End: 09-01-2021 ambulatory Good Alan Other [facility] Other Start: 09-01-2021 Postop follow up visit related to original px Good Alan [facility] Start: 08-24-2021 End: 08-24-2021 ambulatory Good Alan Other [facility] Other Start: 08-24-2021 Telephone encounter Good VILLEGAS G [facility] Start: 08-04-2021 End: 08-04-2021 ambulatory Good Alan Other [facility] Other Start: 08-04-2021 Office outpatient visit 25 minutes Good Alan [facility] Start: 03-29-2021 End: 03-30-[address] [...] Detail Author Patient Education Crush Injury (DC) [facility] Work Phone: Patient referral [facility] Work Phone: Payers Date Payer Category Payer Medicaid [id number] 2023 Self-pay [id number] 2014 Unknown [id number] 1975 Unknown [id number] 2.16.84 [id number] 1975 Unknown [id number] 2.16.84 [id number] 1975 Unknown [id number] 2.16.84 [id number] 1959 Unknown [id number] Unknown [id number] 2.16.8 [id number] Worker's Compensation [id number] Social History Date Type Detail Facility Sex Assigned At [employer] Other Start: 04-28-2022 Tobacco smoking stat [facility] Smoker (finding) [facility] Start: 1975 Sex Assigned At Female F [facility] Evaluation note 12-31-2021 Note Date & Type Note Facility 12-31-2021 Evaluation note Encounter Date Diagnosis Assessment Notes December, Small bowel obstruction (ICD-10 - K56.609) December, Diverticulitis (ICD-10 - K57.92) START MESALAMINE 1.2 GRAM 4 PO Q AM PATIENT ENCOURAGED TO STOP SMOKING RTO 6 WEEKS [employer] Other Evaluation note 09-01-2021 Note Date & [...] for removal of sutures (ICD-10 - Z48.02) [facility] Other Evaluation note 08-04-2021 Note Date & [...] poor healing. I have advised against the nursing home use of narcotic pain medication. I have [...] as documented in the electronic medical record. [employer] Other Clinical Note 03-25-2021 Note Date & [...] by: MARGRET DOMINGO Date: 2021-03-25 07:50 [facility] Evaluation note Note Date & Type Note Facility Evaluation note No Information [employer] Other Evaluation note Note Date & Type Note Facility Evaluation note No assessment information availa ble [facility] Work Phone: History general Narrative - Reported Note Date & Type Note Facility History general Narrative - Reported Type Medical History diverticulitis Medical History irritable bowel syndrome Surgical History hysterectomy Surgical History gallbladder Surgical History neuroma removal x2 in left foot Hospitalization History PANCREATITIS 02/2020 Hospitalization History PANCREATITIS 2018 Hospitalization History ABDOMINAL PAIN Hospitalization History PANCREATITIS [employer] Other History general Narrative - Reported Note Date & Type Note Facility History general Narrative - Reported Type Medical History diverticulitis Medical History irritable bowel syndrome Surgical History hysterectomy Surgical History gallbladder Surgical History neuroma removal x2 in left foot Surgical History right knee scope med ial/lateral menisectemy Hospitalization History PANCREATITIS 02/2020 Hospitalization History PANCREATITIS 2018 Hospitalization History ABDOMINAL PAIN Hospitalization History PANCREATITIS [facility] Other Hospital Discharge instructions Note Date & [...] your hand is not improving please call [facility] to follow-up with a hand surgeon You can also follow-up with [facility] as needed for minor concerns Return to the ER for more severe pain loss of circulation in your fingers or any other concerns [facility] Work Phone: Summary Purpose Family History No [...] AUTHOR AUTHOR'S ORGANIZ ATION 10/15/2019 Armaan Diaz [facility] DATE CREATED AUTHOR AUTHOR'S ORGANIZ ATION 10/29/2021 [facility] DATE CREATED AUTHOR AUTHOR'S ORGANIZ ATION 06/15/2023 [facility] REASON FOR VISIT (unrecogniz ed section and content) INCISION BLEEDINGRight Knee PainRecheck Right KneeINPATIENT FOLLOW UP-TO BE SEEN IN [address] VALLE FOR DIVERTICULITIS/ BOWEL OBSTRUCTION, SHE FISNISHED ANTIBIOTICS INSTRUCTED SHE IS STARTING TO FEEL BETTERclinical Care Teams (unrecognized sec tion and content) Team Status: Inactive Member Role Status Dates Rajesh Solo , Primary Care Provider Active Danica Nuñez [facility] Emergency Provider Active Team Status: Active Member [...] BE BASED ON THE PRIMARY CLINICAL RECORDS. [employer] [facility]. provides no warranty or guarantee of the accuracy or completeness of information in this document.
== END 2023-10-02 11:16 | disposition home or self-care (01) ==
LOC: RAD 11:15
PROVIDERS: Visit Provider Orthopaedic Surgery
DX: S52.602A Unspecified fracture of lower end of left ulna, initial encounter for closed fracture (principal); S52.572A Other intraarticular fracture of lower end of left radius, initial encounter for closed fracture
CPT/HCPCS: 73110

== ENCOUNTER 2023-10-11 13:42 | Outpatient (RCR) | payer OTHER, SELFPAY | END 2024-05-02 07:55 | disposition home or self-care (01) | LOC: OT 13:42 | PROVIDERS: PCP Nurse Practitioner Family; Visit Provider Orthopaedic Surgery | DX: S52.602D Unspecified fracture of lower end of left ulna, subsequent encounter for closed fracture with routine healing (principal) | CPT/HCPCS: 97022; 97110; 97140; 97165; 97530 ==

== ENCOUNTER 2023-10-16 09:49 | Outpatient (OUT) | payer OTHER, SELFPAY ==
--- NOTE | 2023-10-16 | XR_ITS ---
The [address] [address] Patient Name: DAMION SARAVIA MRN: [id number] date: 1975 Sex: F Assigned Patient Location: Current Patient Location: Accession/Order Number: [id number] Exam Date: 10/16/2023 10:28 Report Date: 10/16/2023 22:58 At the request of: MARGRET PAEZ Procedure: XR wrist LT min 3V 4 views of the left wrist INDICATION: Fracture COMPARISON: 10/02/2023 XR/XR wrist LT min 3V IMPRESSION: Redemonstration of ORIF changes of the distal radius and ulna with underlying partially healed comminuted fractures of the distal radius and ulna, similar to prior. No dislocation. Visualized joints are otherwise intact. Soft tissue swelling about the wrist. Electronically authenticated by: OLGA PLUMMER Date: 10/16/2023 22:58
--- OUTSIDE RECORDS SUMMARY | 2023-10-16 09:52 | XMS_ITS | CCD ---
Author Name Unknown Address [address] [facility] [address] [place] [address] Organization [facility] Care Team Providers Care Alcoholic Counselor Name Role Phone GREG CORONADO Unavailable Unavailabl [...] Unavailable Good Alan Unavailable David Valle Unavailable [phone] DO Rajesh Solo Primary Care Provider [facility] Danica Mueller Emergency Provider Rajesh Solo Primary [...] January 13, 2022 3:10pm polyethylene glycol 3350 39902 mg powder for oral solution (2 sources) [...] 3V*on 023 XR foot LT min 3V* [facility] [place] [address] [place] [address] XRay Report Signed Patient: Maggie Yip MR#: [id number] 9 : 1975 Acct:[id number] Age/Sex: 47 / F ADM Date: 06/04/23 Loc: ER Room: Type: [facility] ER Attending Dr: Copies to: Mable [...] Jaylin Magallanes M.D.06/04/2023 12:32 PM Dictation Location: [place] [address] Transcribed By: [facility] 06/04/23 1232 Dictated By: Jaylin Magallanes MD 06/04/23 1231 Signed By: 06/04/23 [address] [facility] CYCLIC CITRULLINATED PEPTIDE AB (CCP)on 04-01-2021 CCP Antibodies IgG/IgA 5 units Normal 0-19 [facility] Comment on above: Result Comment: Nega tive <20 Weak positive 20 - 39 Moderate positive 40 - 59 Strong positive >59 Performed By: #### C CPAB #### [facility] [address] [address] Germán GARRETT by IFAon 03-25-2021 Antinuclear Antibodies, IFA Negative Normal [facility] Comment on above: Result Comment: Nega tive <1:80 Borderline 1:80 Positive >1:80 ICAP nomenclature: AC-0 For more information about Hep-2 cell patterns use ANApatterns.org, the official website for the International Consensus on Antinuclear Antibody (TAMI) Patterns (ICAP). Performed By: #### A NAIFA #### [facility] [address] [place], [place] [id number] Germán Mosqueda RHEUMATOID FACTORon 03-25-20 RA Latex Turbid. <10.0 Normal 0.0-13.9 [facility] Comment on above: Performed By: #### R F #### [facility] [address] [place], [place] [id number] Germán Jaylin CBC AUTO DIFFon 03-24-2021 BASO # 0.1 103/ul Normal 0.0-0.1 [facility] Comment on above: Performed By: #### C BC #### [facility] [address] [place] [address] Germán Mosqueda Basophils/100 WBC (Bld) 0.6 % Normal 0.2-2.0 [facility] Comment on above: Performed By: #### C BC #### [facility] [address] [place] [address] Germán Jaylin EO # 0.1 103/ul Normal 0.0-0.7 [facility] Comment on above: Performed By: #### C BC #### [facility] [address] [place], [place] [address] Germánsimone Mosqueda Eosinophils/100 WBC (Bld) 1.2 % Normal 0.9-7.0 [facility] Comment on above: Performed By: #### C BC #### [facility] [address] [place], [place] [address] Germán Jaylin Erythrocyte distribution width (RBC) [Ratio] 13.2 % Normal 11.0-15.0 [facility] Comment on above: Performed By: #### C BC #### [facility] [address] [place], [place] [address] Germán Jaylin Hematocrit (Bld) [Volume fraction] 45.3 % Normal 36.0-48.0 [facility] Comment on above: Performed By: #### C BC #### [facility] [address] [place], [place] [address] Germán Jaylin Hemoglobin (Bld) [Mass/Vol] 15.1 g/dL Normal 12.0-16.0 [facility] Comment on above: Performed By: #### C BC #### [facility] [address] [place] [address] Germán Mosqueda IG # 0.07 10e3/ul Critically high 0.00-0.03 [facility] Comment on above: Performed By: #### C BC #### [facility] [address] [address] Germán Mosqueda IG % 0.6 % Critically high 0.0-0.5 [facility] Comment on above: Performed By: #### C BC #### [facility] [address] [place] [address] Germán Mosqueda LYMPH # 3.4 103/ul Normal 1.2-3.8 [facility] Comment on above: Performed By: #### C BC #### [facility] [address] [place] [address] Germán Mosqueda Lymphocytes/100 WBC (Bld) 30.1 % Normal 20.5-60.0 [facility] Comment on above: Performed By: #### C BC #### [facility] [address] [place] [address] Germán Mosqueda MANUAL DIFF REQ NO Normal [facility] Comment on above: Performed By: #### C BC #### [facility] [address] [place] [address] Germán Mosqueda MCH (RBC) [Entitic mass] 31.3 pg Normal 26.7-34.0 [facility] Comment on above: Performed By: #### C BC #### [facility] [address] [place] [address] Germán Mosqueda MCHC (RBC) [Mass/Vol] 33.3 g/dL Normal 29.9-35.2 [facility] Comment on above: Performed By: #### C BC #### [facility] [address] [place] [address] Germán Mosqueda MCV (RBC) [Entitic vol] 94.0 fL Normal 81.0-99.0 [facility] Comment on above: Performed By: #### C BC #### [facility] [address] [place], [place] [address] Germán Guoen MONO # 0.8 103/ul Normal 0.3-0.8 [facility] Comment on above: Performed By: #### C BC #### [facility] [address] [id number] Germán Guoen Monocytes/100 WBC (Bld) 7.2 % Normal 1.7-12.0 [facility] Comment on above: Performed By: #### C BC #### [facility] [address] [id number] Germán Jaylin NEUT # 6.7 103/ul Critically high 1.4-6.5 [facility] Comment on above: Performed By: #### C BC #### [facility] [address] [id number] Germán Guoen Neutrophils/100 WBC (Bld) 60.3 % Normal 43.0-75.0 [facility] Comment on above: Performed By: #### C BC #### [facility] [address] [id number] Germán Mosqueda Platelet mean volume (Bld) [Entitic vol] 9.0 fL Critically low 9.5-13.5 [facility] Comment on above: Performed By: #### C BC #### [facility] [address] [id number] Germán Jaylin PLT 288 103/ul Normal 150-450 [facility] Comment on above: Performed By: #### C BC #### [facility] [address] [id number] Germán Jaylin RBC 4.82 106/ul Normal 4.20-5.40 [facility] Comment on above: Performed By: #### C BC #### [facility] [address] [id number] Germán Jaylin WBC 11.2 103/ul Critically high 4.0-11.0 [facility] Comment on above: Performed By: #### C BC #### [facility] [address] [place], [place] [address] Germán Jaylin PROF 14(COMP METB)on 021 Albumin [Mass/Vol] 3.8 g/dL Normal 3.5-5.0 [facility] Comment on above: Performed By: #### C MP, URIC #### [facility] [address] [place], [place] [address] Germán Jaylin Albumin/Globulin [Mass ratio] 0.9 {ratio} Normal [facility] Comment on above: Performed By: #### C MP, URIC #### [facility] [address] [place] [address] Germán Jaylin ALP [Catalytic activity/Vol] 109 U/L Normal 38-126 [facility] Comment on above: Performed By: #### C MP, URIC #### [facility] [address] [place] [address] Germán Jaylin ALT [Catalytic activity/Vol] 56 U/L Critically high 9-52 [facility] Comment on above: Performed By: #### C MP, URIC #### [facility] [address] [place] [address] Germán Jaylin Anion gap [Moles/Vol] 17.6 mmol/L Normal [facility] Comment on above: Performed By: #### C MP, URIC #### [facility] [address] [place] [address] Germán Jaylin AST [Catalytic activity/Vol] 36 U/L Normal 14-36 [facility] Comment on above: Performed By: #### C MP, URIC #### [facility] [address] [place] [address] Germán Jaylin Bilirubin [Mass/Vol] 0.3 mg/dL Normal 0.2-1.3 [facility] Comment on above: Performed By: #### C MP, URIC #### [facility] [address] [place], [place] [address] Germán Jaylin Calcium [Mass/Vol] 9.0 mg/dL Normal 8.4-10.2 [facility] Comment on above: Performed By: #### C MP, URIC #### [facility] [address] [place], [place] [address] Germán Jaylin Chloride [Moles/Vol] 104 mmol/L Normal 98-107 [facility] Comment on above: Performed By: #### C MP, URIC #### [facility] [address] [place] [address] Germán Jaylin CO2 [Moles/Vol] 23.4 mmol/L Normal 22.0-30.0 [facility] Comment on above: Performed By: #### C MP, URIC #### [facility] [address] [place], [place] [address] Germán Jaylin Creatinine [Mass/Vol] 0.61 mg/dL Normal 0.52-1.04 [facility] Comment on above: Performed By: #### C MP, URIC #### [facility] [address] [place], [place] [address] Germán Jaylin EGFR-AF MALAGASY >60 Normal >=60 [facility] Comment on above: Performed By: #### C MP, URIC #### [facility] [address] [place] [address] Germán Jaylin EGFR-NON AF MALAGASY >60 Normal >=60 [facility] Comment on above: Performed By: #### C MP, URIC #### [facility] [address] [place] [address] Germán Jaylin Globulin (S) [Mass/Vol] 4.2 g/dL Normal [facility] Comment on above: Performed By: #### C MP, URIC #### [facility] [address] [place] [address] Germán Jaylin Glucose [Mass/Vol] 90 mg/dL Normal 74-106 [facility] Comment on above: Performed By: #### C MP, URIC #### [facility] [address] [place] [address] Germán Jaylin Potassium [Moles/Vol] 4.0 mmol/L Normal 3.4-5.0 [facility] Comment on above: Performed By: #### C MP, URIC #### [facility] [address] [place] [address] Germán Jaylin Protein [Mass/Vol] 8.0 g/dL Normal 6.1-8.2 [facility] Comment on above: Performed By: #### C MP, URIC #### [facility] [address] [place], [place] [address] Germán Jaylin Sodium [Moles/Vol] 141 mmol/L Normal 137-145 [facility] Comment on above: Performed By: #### C MP, URIC #### [facility] [address] [place], [place] [address] Germán Jaylin Urea nitrogen [Mass/Vol] 11.0 mg/dL Normal 7.0-17.0 [facility] Comment on above: Performed By: #### C MP, URIC #### [facility] [address] [place], [place] [address] Germán Jaylin Urea nitrogen/Creatini ne [Mass ratio] 18.0 mg/mg Normal [facility] Comment on above: Performed By: #### C MP, URIC #### [facility] [address] [place], [place] [address] Germán Jaylin [facility] SED RATE 60 mm/hr Critically high <=20 [facility] Comment on above: Performed By: #### S EDR #### [facility] [address] [place], [place] [address] Germán Jaylin URIC ACID SERUMon 03-24-2021 Urate [Mass/Vol] 4.9 mg/dL Normal 2.5-6.2 [facility] Comment on above: Performed By: #### C MP, URIC #### [facility] [address] [place], [place] [address] Germán Jaylin Coding Summary.on 10-15-2019 Coding Summary. CODING DATE: 020 FINAL [facility] STATUS: Home (Routine DC) PAYOR: Medicaid [...] Revised Date Saved: 10/15/2019 01:45 pm Normal [facility] Auto Diffon 10-08-2019 Basophils/100 WBC (Bld) 0.2 % Normal 0.0-2.0 [facility] Comment on above: Order Comment: Order Added by Discern Expert. Performed By: #### 2 [id number], 9480253, 7632423, [id number] #### [facility] [address] [place] [address] Basophils/Leukocy cj Auto (Bld) [Pure # fraction] 0.0 E9/L Normal 0.0-0.2 [facility] Comment on above: Order Comment: Order Added by Discern Expert. Performed By: #### 2 438701, 7407541, 7648653, [id number] #### [facility] [address] [place] [address] Eosinophils/100 WBC (Bld) 1.0 % Normal 0.0-8.0 [facility] Comment on above: Order Comment: Order Added by Discern Expert. Performed By: #### 2 012829, 4363942, 4111962, [id number] #### [facility] [address] [place] [address] Eosinophils/Leuko cytes Auto (Bld) [Pure # fraction] 0.1 E9/L Normal 0.0-0.5 [facility] Comment on above: Order Comment: Order Added by Discern Expert. Performed By: #### 2 225197, 8339709, 5037112, 05855687 #### [facility] [address] [place] [address] Lymphocytes/100 WBC (Bld) 25.0 % Normal 14.0-50.0 [facility] Comment on above: Order Comment: Order Added by Discern Expert. Performed By: #### 2 850481, 3317416, 9238850, 42338239 #### [facility] [address] [place] [address] Lymphocytes/Leuko cytes Auto (Bld) [Pure # fraction] 2.9 E9/L Normal 1.0-4.0 [facility] Comment on above: Order Comment: Order Added by Discern Expert. Performed By: #### 2 954157, 7347652, 5745215, 14430406 #### [facility] [address] [place] [address] Monocytes/100 WBC (Bld) 6.9 % Normal 4.0-14.0 [facility] Comment on above: Order Comment: Order Added by Discern Expert. Performed By: #### 2 390201, 6390347, 7476699, 83848022 #### [facility] [address] [place] [address] Monocytes/Leukocy cj Auto (Bld) [Pure # fraction] 0.8 E9/L Normal 0.2-1.0 [facility] Comment on above: Order Comment: Order Added by Discern Expert. Performed By: #### 2 699921, 0352245, 7433049, 92678940 #### [facility] [address] [place] [address] Neutrophils/100 WBC (Bld) 66.9 % Normal 36.0-75.0 [facility] Comment on above: Order Comment: Order Added by Discern Expert. Performed By: #### 2 669612, 0426626, 0106780, 79756759 #### [facility] [address] [place] [address] Neutrophils/Leuko cytes Auto (Bld) [Pure # fraction] 7.9 E9/L High 2.0-7.5 [facility] Comment on above: Order Comment: Order Added by Discern Expert. Performed By: #### 2 456487, 1293786, 2286343, 62938378 #### [facility] [address] [place] [address] BMPon 10-08-2019 Creatinine [Mass/Vol] 0.6 mg/dL Normal 0.5-1.3 [facility] Comment on above: Performed By: #### 2 008316, 3449171, 4058434, 57707770 #### [facility] [address] [place] [address] Urea nitrogen [Mass/Vol] 12 mg/dL Normal 5-21 [facility] Comment on above: Performed By: #### 2 921783, 4721488, 2316999, 90457335 #### [facility] [address] [place] [address] Urea nitrogen/Creatini ne [Mass ratio] 20 No Units Normal 10-20 [facility] Comment on above: Performed By: #### 2 583621, 3234437, 9747363, 39626135 #### [facility] [address] [place] [address] Anion gap [Moles/Vol] 15 mmol/L Normal 6-16 [facility] Comment on above: Performed By: #### 2 383047, 9442835, 5040488, 42868056 #### [facility] [address] [place] [address] Calcium [Mass/Vol] 9.5 mg/dL Normal 8.9-11.1 [facility] Comment on above: Performed By: #### 2 664312, 9300218, 9994607, 32265287 #### [facility] [address] [place] [address] Chloride [Moles/Vol] 102 mmol/L Normal 101-111 [facility] Comment on above: Performed By: #### 2 087627, 2780759, 3666129, 34585226 #### [facility] [address] [place] [address] CO2 [Moles/Vol] 21 mmol/L Normal 21-31 [facility] Comment on above: Performed By: #### 2 342807, 9196662, 3954092, 56225926 #### [facility] [address] [place] [address] Glucose [Mass/Vol] 88 mg/dL Normal 55-199 [facility] Comment on above: Result Comment: If t his glucose result represents a fasting glucose, interpretation should refer to the following reference range: 55-99 mg/dL Performed By: #### 2 711968, 4632432, 1284804, 41006508 #### [facility] [address] [place] [address] Potassium [Moles/Vol] 4.1 mmol/L Normal 3.5-5.3 [facility] Comment on above: Performed By: #### 2 945693, 8878327, 7805178, 57315467 #### [facility] [address] [place] [address] Sodium [Moles/Vol] 134 mmol/L Low 135-145 [facility] Comment on above: Performed By: #### 2 381750, 2148717, 9714401, 72937787 #### [facility] [address] [place] [address] CBC w/ Auto Diffon 0 Erythrocyte distribution width (RBC) [Ratio] 13.7 % Normal 10.9-14.2 [facility] Comment on above: Performed By: #### 2 742270, 4609472, 1116867, 40114311 #### [facility] [address] [place] [address] Hematocrit (Bld) [Volume fraction] 44.6 % Normal 34.0-46.0 [facility] Comment on above: Performed By: #### 2 085786, 2252365, 9017885, 41540585 #### [facility] [address] [place] [address] Hemoglobin (Bld) [Mass/Vol] 15.3 g/dL Normal 12.0-16.0 [facility] Comment on above: Performed By: #### 2 005128, 8934204, 7992410, 46447594 #### [facility] [address] [place] [address] MCH (RBC) [Entitic mass] 32.6 pg Normal 27.0-34.0 [facility] Comment on above: Performed By: #### 2 328459, 0926187, 6033331, 52238089 #### [facility] [address] [place] [address] MCHC (RBC) [Mass/Vol] 34.4 g/dL Normal 31.4-36.0 [facility] Comment on above: Performed By: #### 2 666476, 4056156, 6639746, 35431738 #### [facility] [address] [place] [address] MCV (RBC) [Entitic vol] 94.9 fL Normal 80.0-100.0 [facility] Comment on above: Performed By: #### 2 813664, 6122526, 8826707, 17149324 #### [facility] [address] [place] [address] Platelet mean volume (Bld) [Entitic vol] 7.2 fL Normal 6.4-10.8 [facility] Comment on above: Performed By: #### 2 824226, 9354189, 2555072, 87572525 #### [facility] [address] [place] [address] Platelets (Bld) [#/Vol] 361.0 E9/L Normal 150.0-500.0 [facility] Comment on above: Performed By: #### 2 519042, 1429391, 9184848, 45424458 #### [facility] [address] [place] [address] RBC (Bld) [#/Vol] 4.7 E12/L Normal 4.3-5.9 [facility] Comment on above: Performed By: #### 2 524121, 3425910, 6023393, 34911995 #### [facility] [address] [place] [address] WBC corrected for nucl RBC Auto (Bld) [#/Vol] 11.8 E9/L High 4.0-11.0 [facility] Comment on above: Performed By: #### 2 408192, 4347254, 7720348, 17074625 #### [facility] [address] [place] [address] ED Clinical Summaryon 2019 ED Clinical Summary [address] [address] ED Clinical Summary Person Information Name: MAGGIE DEL ROSARIO [place] Age: 43 Years : 1975 Sex: Female Language: Belgian PCP: Rajesh Solo DO Marital Status: Phone: [phone] Visit Id: Visit Reason: Vomiting; Abdominal pain; [...] 10/08/2019 13:21:31 10/08/2019 13:21:31 10/08/2019 13:21:31 ADDRESS: [facility] [id number] PHYS DOC NOTES: MEDICAL INFORMATION: Prescriptions Given: [facility], [address] [facility] [place] [id number], [phone] sucralfate (Carafate 1 g/10 mL Susp-Oral) 10 Milliliter By Mouth 4 times a day for 7 Days. Refills: 0. PATIENT EDUCATION INFORMATION: Instructions: Gastritis, Adult; Abdominal Pain, Adult Follow up: With: Address: When: [facility], [address] [place] [address] Business (1) In 3 days 10/11/2019 With: Address: When: [facility] [address] [place] [address] Business (1) In 3 days 10/11/2019 DIAGNOSIS: Right upper quadrant abdominal pain Normal [facility] ED Note-Physicianon 10-08-19 ED Note-Physician Basic Information [...] ultrasound was obtained. This is discussed with durability technician as negative for acute findings. Patient [...] day(s), # 280 mL, Refills(s) 0, Pharmacy: [facility], 165, cm, 10/08/19 10:25:00 EST, Height/Length [...] Information Yudelka RIOS In 3 days 10/11/2019 [facility] [address] [place] [address]- Business (1) Additional Instructions: Rajesh Solo In 3 days 10/11/2019 [facility] [address] [place] [address]- Business (1) Additional Instructions: Patient Education Gastritis, Adult Abdominal Pain, Adult Attestation Patient seen and evaluated by the physician news production assistant. Attending physician was present in the emergency department and supervised care. This report was transcribed using voice recognition software. Every effort was made to ensure accuracy, however, inadvertently computerized morphology teacher mistakes may be present. Problem List/Past Medical [...] 10:41:00) Lymph Auto: 25 % (10/08/19 10:41:00) Edgar Auto: 6.9 % (10/08/19 10:41:00) Eos Auto: 1 % (10/08/19 10:41:00) Basophil Auto: 0.2 % (10/08/19 10:41:00) Neutro Absolute: 7.9 E9/L High (10/08/19 10:41:00) Lymph Absolute: 2.9 E9/L (10/08/19 10:41:00) Edgar Absolute: 0.8 E9/L (10/08/19 10:41:00) Eos Absolute: [...] By: Trevin Esquivel DO 10/08/2019 10:57:10 Normal [facility] Comment on above: Result Comment: Elec tronically [...] discomfort you are experiencing: ? Only take yxcg-gtj-mgjaxms or prescription medicines as directed by your [...] Document Reviewed: 04/23/2014 ExitCare? Patient Information ?2015 [employer]. This information is not intended to replace [...] (NSAIDs). HOME CARE INSTRUCTIONS ? Only take kapu-uut-mpwdgys or prescription medicines as directed by your [...] Garlic and onions. ? Spicy foods. ? [place] fruits, such as oranges, todd, or limes. [...] Document Reviewed: 09/26/2012 ExitCare? Patient Information ?2015 [employer]. This information is not intended to replace advice given to you by your health care provider. Make sure you discuss any questions you have with your health care provider. Normal [facility] ED Patient Summaryon 020 ED Patient Summary [address] [address] Patient Discharge Instructions Person Information Name: MAGGIE DEL ROSARIO Age: 43 Years Arrival Date: 10/08/2019 10:18:57 Discharge Diagnosis: Right upper quadrant abdominal pain Primary Care Physician: Rajesh Solo DO Provider Information Primary Provider: Trevin Esquivel DO [employer] Media Buyer:Rishi Martinez PA-C The exam and treatment you received in the Emergency Department were for an urgent problem and are not intended as complete care. It is important that you follow up with a doctor, nurse practitioner, or physician?s news production assistant for ongoing care. If your symptoms become worse or you do not improve as expected and you are unable to reach your usual health care provider, you should return to the Emergency Department. We are available 24 hours a day. MAGGIE DEL ROSARIO has been given the following list of patient education materials, prescriptions and follow-up instructions: Follow-up Instructions: With: Address: When: [facility], [address] [place] [address] Business (1) In 3 days 10/11/2019 With: Address: When: Rajesh Solo [address] [place] [address] Business (1) In 3 days 10/11/2019 In the event that this physician does not participate in your insurance network, please consult with your insurance company to find a nearby participating provider. Patient Education Materials: Gastritis, Adult; Abdominal Pain, Adult A MESSAGE TO ALL PATIENTS REGARDING OPIOIDS PRESCRIPTION OPIOIDS: WHAT YOU NEED TO KNOW Prescription opioids can be used to help relieve fntekopj-sq-rmfgxm pain and are often prescribed following a [...] be struggling with addiction, tell your health care analyst and ask for guidance or call [facility]?S National Helpline at 4-582-261-KUGE. y Source: US Department of Health and Human Services/Center for Disease Control & Prevention [facility] Medications Given: Medication Dose Route [...] New [facility], [address], [place] [id number], [phone] sucralfate (Carafate 1 g/10 mL Susp-Oral) 10 Milliliter By Mouth 4 times a day for 7 Days. Refills: 0. Comment: Pharmacy Information: Thank you for choosing [facility] Patient Education Materials: Gastritis, Adult Gastritis [...] (NSAIDs). HOME CARE INSTRUCTIONS ? Only take hlcx-ssm-utytgoo or prescription medicines as directed by your [...] Garlic and onions. ? Spicy foods. ? [place] fruits, such as oranges, todd, or limes. [...] Document Reviewed: 09/26/2012 ExitCare? Patient Information ?2015 [employer]. This information is not intended to replace [...] discomfort you are experiencing: ? Only take myme-yrd-kjnhdyh or prescription medicines as directed by your [...] Document Reviewed: 04/23/2014 ExitCare? Patient Information ?2014 [employer]. This information is not intended to replace advice given to you by your health care provider. Make sure you discuss any questions you have with your health care provider. MIGUEL ÁNGEL Aguirre LISA L , have received the following patient education materials/instructions and have verbalized understanding: Patient Education Materials: Gastritis, Adult; Abdominal Pain, Adult Follow-up Instructions: With: Address: When: [facility] [address] [facility] [place] [address] Business (1) In 3 days 10/11/2019 With: Address: When: [address] [address] Business (1) In 3 days 10/11/2019 Patient Signature Date Clinician/Nurse Signature Date 10/08/2019 13:21:33 Normal [facility] Hep Func Panelon 10-08-2019 Albumin [Mass/Vol] 4.2 g/dL Normal 3.3-5.0 [facility] Comment on above: Performed By: #### 2 554998, 0575778, 2451471, [id number] #### [facility] [address] [place] [address] Albumin [Mass/Vol] 1.2 g/dL Normal 1.1-2.2 [facility] Comment on above: Performed By: #### 2 735908, 3682210, 2103740, 42369610 #### [facility] [address] [place] [address] Bilirubin [Mass/Vol] 0.4 mg/dL Normal 0.0-1.1 [facility] Comment on above: Performed By: #### 2 212849, 7533266, 1930681, 93772275 #### [facility] [address] [place] [address] Bilirubin.direct [Mass/Vol] 0.3 mg/dL Normal 0.1-0.9 [facility] Comment on above: Performed By: #### 2 354781, 4297061, 3141892, 51413153 #### [facility] [address] [place] [address] Globulin (S) [Mass/Vol] 3.6 g/dL Normal 1.4-4.0 [facility] Comment on above: Performed By: #### 2 067062, 6593923, 3058793, 12428038 #### [facility] [address] [place] [address] Protein [Mass/Vol] 7.8 g/dL Normal 6.0-7.8 [facility] Comment on above: Performed By: #### 2 478864, 3886622, 1289525, 70935211 #### [facility] [address] [place] [address] ALP [Catalytic activity/Vol] 77 Int._Unit/L Normal 21-98 [facility] Comment on above: Performed By: #### 2 504372, 1443608, 6227129, 20763241 #### [facility] [address] [place] [address] ALT No additional P-5'-P [Catalytic activity/Vol] 64 Int._Unit/L High 6-46 [facility] Comment on above: Performed By: #### 2 854230, 4623045, 2801588, 68087776 #### [facility] [address] [place] [address] AST [Catalytic activity/Vol] 47 Int._Unit/L High 5-43 [facility] Comment on above: Performed By: #### 2 117812, 3658175, 5062906, 69775219 #### [facility] [address] [place] [address] Bilirubin.direct [Mass/Vol] 0.1 mg/dL Normal 0.1-0.4 [facility] Comment on above: Performed By: #### 2 651050, 4783326, 3409836, 80164814 #### [facility] [address] [place] [address] Lipase Levelon 10-08-2019 Lipase [Catalytic activity/Vol] 50 unit/L Normal 13-58 [facility] Comment on above: Performed By: #### 2 446827, 5315853, 6957312, 72729185 #### [facility] [address] [place] [address] Troponin 0 Hr.on 10-08-2019 Troponin I.cardiac [Mass/Vol] ng/mL Normal <=0.03 [facility] Comment on above: Result Comment: New Troponin Assay 01/09/14 LAN [place] Cutoff value > or = 0.03 ng/mL in conjunction with clinical conditions of myocardial infarction. ([email or web address].org/guidelines) Performed By: #### 2 364339, 3281344, 8901972, 56948460 #### [facility] [address] [place] [address] US Gallbladderon 10-08-2019 US Gallbladder Exam Date/Time: [...] MD Transcribed by: IMAN Technologist: HW Normal [facility] eGFRon 10-08-2019 GFR/1.73 sq M predicted among blacks MDRD (S/P/Bld) [Vol rate/Area] mL/min/{1.73_m2} Normal >=59 [facility] Comment on above: Order Comment: Order added by Discern Expert. Result Comment: eGFR is race adjusted. AA=. Performed By: #### 2 510684, 0612134, 2817517, 93952117 #### [facility] [address] [place] [address] GFR/1.73 sq M predicted among non-blacks MDRD (S/P/Bld) [Vol rate/Area] mL/min/{1.73_m2} Normal >=59 [facility] Comment on above: Order Comment: Order added by Discern Expert. Result Comment: Cloth Boil Off Machine Operator bhavin kidney disease could be indicated at eGFR's of less than 60 mL/min/1.73m2. Kidney failure is indicated at less than 15 mL/min/1.73m2. Performed By: #### 2 349652, 5326978, 8053484, 74456306 #### [facility] [address] [place] [address] Coding Summary.on 12-24-2018 Coding Summary. CODING DATE: 019 FINAL [facility] STATUS: Home (Routine DC) PAYOR: Self [...] Revised Date Saved: 12/24/2018 08:11 am Normal [facility] Auto Diffon 12-23-2018 Basophils/100 WBC (Bld) 0.7 % Normal 0.0-2.0 [facility] Comment on above: Order Comment: Order Added by Discern Expert. Performed By: #### 2 476052, 7896720, 5273820, 81400943 #### [facility] [address] [place] [address] Basophils/Leukocy cj Auto (Bld) [Pure # fraction] 0.1 E9/L Normal 0.0-0.2 [facility] Comment on above: Order Comment: Order Added by Discern Expert. Performed By: #### 2 515109, 8005952, 3858493, 73422953 #### [facility] [address] [place] [address] Eosinophils/100 WBC (Bld) 1.1 % Normal 0.0-8.0 [facility] Comment on above: Order Comment: Order Added by Discern Expert. Performed By: #### 2 497185, 4181626, 8480779, 50019930 #### [facility] [address] [place] [address] Eosinophils/Leuko cytes Auto (Bld) [Pure # fraction] 0.1 E9/L Normal 0.0-0.5 [facility] Comment on above: Order Comment: Order Added by Discern Expert. Performed By: #### 2 878619, 8304238, 7393316, 52703478 #### [facility] [address] [place] [address] Lymphocytes/100 WBC (Bld) 37.9 % Normal 14.0-50.0 [facility] Comment on above: Order Comment: Order Added by Discern Expert. Performed By: #### 2 895045, 3645650, 3991534, 49587362 #### [facility] [address] [place] [address] Lymphocytes/Leuko cytes Auto (Bld) [Pure # fraction] 4.2 E9/L High 1.0-4.0 [facility] Comment on above: Order Comment: Order Added by Discern Expert. Performed By: #### 2 860841, 3000968, 3878227, 22361363 #### [facility] [address] [place] [address] Monocytes/100 WBC (Bld) 5.3 % Normal 4.0-14.0 [facility] Comment on above: Order Comment: Order Added by Discern Expert. Performed By: #### 2 218511, 6239708, 5605835, 40800669 #### [facility] [address] [place] [address] Monocytes/Leukocy cj Auto (Bld) [Pure # fraction] 0.6 E9/L Normal 0.2-1.0 [facility] Comment on above: Order Comment: Order Added by Discern Expert. Performed By: #### 2 133555, 8956128, 0350771, 69122183 #### [facility] [address] [place] [address] Neutrophils/100 WBC (Bld) 55.0 % Normal 36.0-75.0 [facility] Comment on above: Order Comment: Order Added by Discern Expert. Performed By: #### 2 353828, 7401965, 9758123, 86909987 #### [facility] [address] [place] [address] Neutrophils/Leuko cytes Auto (Bld) [Pure # fraction] 6.1 E9/L Normal 2.0-7.5 [facility] Comment on above: Order Comment: Order Added by Discern Expert. Performed By: #### 2 674219, 6605680, 3580462, 35931066 #### [facility] [address] [place] [address] BMPon 12-23-2018 Creatinine [Mass/Vol] 0.6 mg/dL Normal 0.5-1.3 [facility] Comment on above: Performed By: #### 2 653538, 5093915, 4556857, 41300851 #### [facility] [address] [place] [address] Urea nitrogen [Mass/Vol] 10 mg/dL Normal 5-21 [facility] Comment on above: Performed By: #### 2 423966, 4640902, 3206345, 43194450 #### [facility] [address] [place] [address] Urea nitrogen/Creatini ne [Mass ratio] 17 No Units Normal 10-20 [facility] Comment on above: Performed By: #### 2 335859, 6270892, 9776128, 76257296 #### [facility] [address] [place] [address] Anion gap [Moles/Vol] 15 mmol/L Normal 6-16 [facility] Comment on above: Performed By: #### 2 772710, 7857552, 1504926, 93532944 #### [facility] [address] [place] [address] Calcium [Mass/Vol] 10.1 mg/dL Normal 8.9-11.1 [facility] Comment on above: Performed By: #### 2 102056, 5147636, 4888399, 31641924 #### [facility] [address] [place] [address] Chloride [Moles/Vol] 99 mmol/L Low 101-111 [facility] Comment on above: Performed By: #### 2 072017, 5078783, 7935363, 20618893 #### [facility] [address] [place] [address] CO2 [Moles/Vol] 22 mmol/L Normal 21-31 [facility] Comment on above: Performed By: #### 2 538901, 4124497, 7712917, 06194969 #### [facility] [address] [place] [address] Glucose [Mass/Vol] 137 mg/dL Normal 55-199 [facility] Comment on above: Result Comment: If t his glucose result represents a fasting glucose, interpretation should refer to the following reference range: 55-99 mg/dL Performed By: #### 2 971295, 6676937, 0388813, 39168395 #### [facility] [address] [place] [address] Potassium [Moles/Vol] 3.1 mmol/L Low 3.5-5.3 [facility] Comment on above: Performed By: #### 2 623563, 8407851, 9668278, 50925492 #### [facility] [address] [place] [address] Sodium [Moles/Vol] 133 mmol/L Low 135-145 [facility] Comment on above: Performed By: #### 2 080930, 6690693, 5602422, 10523217 #### [facility] [address] [place] [address] CBC w/ Auto Diffon 9 Erythrocyte distribution width (RBC) [Ratio] 13.0 % Normal 10.9-14.2 [facility] Comment on above: Performed By: #### 2 774244, 2631144, 3884649, 59159836 #### [facility] [address] [place] [address] Hematocrit (Bld) [Volume fraction] 45.9 % Normal 34.0-46.0 [facility] Comment on above: Performed By: #### 2 721392, 3699439, 6772328, 33433049 #### [facility] [address] [place] [address] Hemoglobin (Bld) [Mass/Vol] 15.7 g/dL Normal 12.0-16.0 [facility] Comment on above: Performed By: #### 2 113678, 5056234, 1679279, 36402065 #### [facility] [address] [place] [address] MCH (RBC) [Entitic mass] 32.8 pg Normal 27.0-34.0 [facility] Comment on above: Performed By: #### 2 217338, 3080511, 3215318, 74151456 #### [facility] [address] [place] [address] MCHC (RBC) [Mass/Vol] 34.2 g/dL Normal 33.3-35.7 [facility] Comment on above: Performed By: #### 2 468814, 4584673, 8533884, 92708989 #### [facility] [address] [place] [address] MCV (RBC) [Entitic vol] 95.9 fL Normal 80.0-100.0 [facility] Comment on above: Performed By: #### 2 582085, 3373510, 3711146, 81442246 #### [facility] [address] [place] [address] Platelet mean volume (Bld) [Entitic vol] 7.5 fL Normal 6.4-10.8 [facility] Comment on above: Performed By: #### 2 641484, 4063864, 8582757, 76238080 #### [facility] [address] [place] [address] Platelets (Bld) [#/Vol] 373.0 E9/L Normal 150.0-500.0 [facility] Comment on above: Performed By: #### 2 556889, 9824946, 2388772, 73768288 #### [facility] [address] [place] [address] RBC (Bld) [#/Vol] 4.8 E12/L Normal 4.3-5.9 [facility] Comment on above: Performed By: #### 2 783111, 3139678, 6227452, 19601087 #### [facility] [address] [place] [address] WBC corrected for nucl RBC Auto (Bld) [#/Vol] 11.2 E9/L High 4.0-11.0 [facility] Comment on above: Performed By: #### 2 235698, 7852204, 5690766, 53935037 #### [facility] [address] [place] [address] CT Head or Brain w/o Contras ton [...] MD Transcribed by: IMAN Technologist: HAIDER Normal [facility] CT Spine Cervical w/o Contra ston 12-23-2018 [...] MD Transcribed by: IMAN Technologist: HAIDER Mcmanus [facility] ED Clinical Summaryon 2018 ED Clinical Summary [place] [id number] ED Clinical Summary Person Information Name: MAGGIE DEL ROSARIO D[facility]en/[facility] Age: 43 Years : 1975 12:00 AM Sex: Female Language: Belgian PCP: Rajesh Solo DO Marital Status: Single Phone: [phone] Visit Id: Visit Reason: Fall; PT FELL [...] 12/23/2018 3:33 AM 12/23/2018 3:33 AM ADDRESS: [address] [place] [phone] PHYS DOC NOTES: MEDICAL INFORMATION: Prescriptions Given: PATIENT EDUCATION INFORMATION: Instructions: Alcohol Intoxication; Concussion, Adult, Gizu-wx-Kikf; Open Wound, Lip, Zwzq-kn-Zmyu; Mouth Laceration, Vepn-gc-Ygke Follow up: With: Address: When: WHITNEY KENNEDY [address] [place] [address] [place] [address] Business (1) Within 1 to 2 days, only if needed DIAGNOSIS: 1:Acute alcohol intoxication; 2:Concussion with loss of consciousness <= 30 min; 3:Lip laceration Normal [facility] ED Note-Physicianon 12-24-19 ED Note-Physician Basic Information [...] 43-year-old female she is awake and attentive Mario Coma Scale 15. There is a superficial [...] 1 to 2 days, only if needed [address] [place] [address] [facility] (1) Additional Instructions: Patient Education Alcohol Intoxication Concussion, Adult, Rdex-bv-Dewy Open Wound, Lip, Jkrj-qj-Jrfv Mouth Laceration, Nmwf-an-Ygvq Problem List/Past Medical History Ongoing No qualifying [...] Lymph Auto: 37.9 % (12/23/18 01:55:00 EDT) Edgar Auto: 5.3 % (12/23/18 01:55:00 EDT) Eos Auto: 1.1 % (12/23/18 01:55:00 EDT) Basophil Auto: 0.7 % (12/23/18 01:55:00 EDT) Neutro Absolute: 6.1 E9/L (12/23/18 01:55:00 EDT) Lymph Absolute: 4.2 E9/L High (12/23/18 01:55:00 EDT) Edgar Absolute: 0.6 E9/L (12/23/18 01:55:00 EDT) Eos [...] malalignment Read By: Juan Francisco Munoz MD [facility] Comment on above: Result Comment: Elec tronically Signed By: Juan Francisco Munoz MD\.br\Date and Time Signed: 12/23/18 03:15 EDT ED Patient Education Noteon 12-23-2018 ED Patient Education Note Fxji-by-Adhq Open Wound, Lip An open wound is [...] Document Reviewed: 11/30/2010 ExitCare? Patient Information ?2015 [employer]. This information is not intended to replace [...] your teachers, school nurse, school counselor, cross country/track and field coach, service dog trainer, or heating worker about your concussion. Tell them about [...] Document Reviewed: 03/06/2014 ExitCare? Patient Information ?2015 [employer]. This information is not intended to replace advice given to you by your health care provider. Make sure you discuss any questions you have with your health care provider. Mouth Laceration A mouth laceration is a cut inside the mouth. HOME CARE ? Rinse your mouth with warm salt water 4 to 6 times a day. ? Bradley your teeth as usual if you can. [...] Document Reviewed: 02/16/2012 ExitCare? Patient Information ?2015 [employer]. This information is not intended to replace [...] yellow. Avoid caffeine. ? ? Only take drwp-ewt-iasodfl or prescription medicines as directed by your [...] Document Reviewed: 01/17/2014 ExitCare? Patient Information ?2015 [employer]. This information is not intended to replace advice given to you by your health care provider. Make sure you discuss any questions you have with your health care provider. Normal [facility] ED Patient Summaryon 019 ED Patient Summary [address] [address] Patient Discharge Instructions Person Information Name: MAGGIE DEL ROSARIO Age: 43 Years Arrival Date: 12/23/2018 1:53 AM Discharge Diagnosis: 1:Acute alcohol intoxication; 2:Concussion with loss of consciousness <= 30 min; 3:Lip laceration Primary Care Physician: Rajesh Solo DO Provider Information Primary Provider: Juan Francisco Munoz MD Advanced Online Media Buyer:None The exam and treatment you received in the Emergency Department were for an urgent problem and are not intended as complete care. It is important that you follow up with a doctor, nurse practitioner, or physician?s news production assistant for ongoing care. If your symptoms [...] instructions: Follow-up Instructions: With: Address: When: [address] [address] [facility] (1) Within 1 to 2 days, only if needed In the event that this physician does not participate in your insurance network, please consult with your insurance company to find a nearby participating provider. Patient Education Materials: Alcohol Intoxication; Concussion, Adult, Bfpp-ie-Bgzg; Open Wound, Lip, Cqpy-ve-Edza; Mouth Laceration, Dsfp-pe-Amip A MESSAGE TO ALL PATIENTS REGARDING OPIOIDS PRESCRIPTION OPIOIDS: WHAT YOU NEED TO KNOW Prescription opioids can be used to help relieve vebyeibv-ko-bijnnf pain and are often prescribed following a [...] be struggling with addiction, tell your health care analyst and ask for guidance or call [facility] National Helpline at 9-025-675-HELP. v Source: US Department of Health and Human Services/Center for Disease Control & Prevention [facility] Medications Given: Medication Dose Route No medications found. Medication Information: Comment: Pharmacy Information: Thank you for choosing [facility] Patient Education Materials: Alcohol Intoxication Alcohol [...] yellow. Avoid caffeine. ? ? Only take mhle-xxg-ghzslus or prescription medicines as directed by your [...] Document Reviewed: 01/17/2014 ExitCare? Patient Information ?2015 [employer]. This information is not intended to replace [...] your teachers, school nurse, school counselor, cross country/track and field coach, service dog trainer, or heating worker about your concussion. Tell them about [...] Document Reviewed: 03/06/2014 ExitCare? Patient Information ?2015 [employer]. This information is not intended to replace [...] Document Reviewed: 11/30/2010 ExitCare? Patient Information ?2015 [employer]. This information is not intended to replace advice given to you by your health care provider. Make sure you discuss any questions you have with your health care provider. Mouth Laceration A mouth laceration is a cut inside the mouth. HOME CARE ? Rinse your mouth with warm salt water 4 to 6 times a day. ? Bradley your teeth as usual if you can. [...] Document Reviewed: 02/16/2012 ExitCare? Patient Information ?2015 [employer]. This information is not intended to replace advice given to you by your health care provider. Make sure you discuss any questions you have with your health care provider. MIGUEL ÁNGEL Aguirre LISA L , have received the following patient education materials/instructions and have verbalized understanding: Patient Education Materials: Alcohol Intoxication; Concussion, Adult, Vpbv-lg-Saga; Open Wound, Lip, Bekj-hu-Wmpm; Mouth Laceration, Pyxm-pf-Xuux Follow-up Instructions: With: Address: When: WHITNEY KENNEDY [address] [place] [address], [place] [address] Business (1) Within 1 to 2 days, only if needed Prescriptions: Patient Signature Date Clinician/Nurse Signature Date 12/23/18 03:33:31 Normal [facility] Ethanolon 12-23-2018 Ethanol [Mass/Vol] 268 mg/dL Abnormal <=7 [facility] Comment on above: Result Comment: Nano ical Result S_ETOH:268.0 Called to [facility] AT ER by LLOYD ABBOTT And Read Back For Confirmation at: 12/23/2018 02:44:14\Critical Result verified by repeat analysis Performed By: #### 2 [id number] #### [facility] [address] [place] [address] Pre-Arrival Noteon 9 Pre-Arrival Note Pre-Arrival Summary Name: , Current Date: 12/23/2018 01:56:40 EDT Gender: Female Date of : Age: 43 Pre-Arrival Type: EMS ETA: 12/23/2018 02:14:00 EDT Primary Care Physician: Presenting Problem: fall stairs 5min eta Pre-Arrival User: Harry Aragon RN Referring Source: Location: ID Completion Date/Time: 12/23/18 01:44:00 [facility] Emergency Department Pre-Hospital Report Form Vital Signs: Pre-Hospital Report: Treatment in Route: Response to Treatment: Misc. Issues: Normal [facility] eGFRon 12-23-2018 GFR/1.73 sq M predicted among blacks MDRD (S/P/Bld) [Vol rate/Area] mL/min/{1.73_m2} Normal >=59 [facility] Comment on above: Order Comment: Order added by Discern Expert. Result Comment: eGFR is race adjusted. AA=. Performed By: #### 2 495561, 0141288, 9637243, [id number] #### [facility] [address] [place] [address] GFR/1.73 sq M predicted among non-blacks MDRD (S/P/Bld) [Vol rate/Area] mL/min/{1.73_m2} Normal >=59 [facility] Comment on above: Order Comment: Order added by Discern Expert. Result Comment: Cloth Boil Off Machine Operator bhavin kidney disease could be indicated at eGFR's of less than 60 mL/min/1.73m2. Kidney failure is indicated at less than 15 mL/min/1.73m2. Performed By: #### 2 435660, 6007224, 6025994, [id number] #### [facility] [address] [place] [address] Interval History and Physion 06-06-2017 HIM IP Note OR Can Marker Normal [facility] OPERATIVE REPORTon 7 OPERATIVE REPORT [facility] [address] [place] [address] OPERATIVE REPORTPATIENT NAME: MAGGIE YIP : 1975[facility] REC NO: [id number] ROOM:ACCOUNT NO: [id number] ADMISSION DATE:06/06/2017PROVIDER: Greg XiongTE OF PROCEDURE: 06/06/2017PREOPERATIVE [...] digits. The procedure wastolerated quite well and Milton was prescribed for pain management withfollowup on Monday in our office.GREG CORONADOD: 06/06/2017 9:38:09 DEBBIE/[id number]_[id number]_IJob#: [id number] Doc#: [id number] Normal [facility] Surgical Pathologyon 017 Surgical Pathology (NOTE)[id number] LABORATORIESCONSULTING PATHOLOGISTS [facility] [id number] [place] [address]. [place], [place] [address] Fax: SURGICAL PATHOLOGY CONSULTATIONPatient Name: Carroll YIP Rec: [id number] Number: [id number]: 06/06/2017Received: 06/06/2017Reported: 06/07/2017 11:51-- Diagnosis --SOFT TISSUE, [...] and perineural fibrosis, compatible withtraumatic-type neuroma. Normal [facility] History and Physicalon 06-05 HIM IP Note OR Can Marker Normal [facility] Basic Metabolic Profon 05-22 (cont.) Normal [facility] Comment on above: Result Comment: Aver age GFR for 40-49 years old: 99 mL/min/1.73sq mChronic Kidney Disease: <60 mL/min/1.73sq mKidney failure: <15 mL/min/1.73sq meGFR calculated using average adult body mass. Additional eGFR calculator available at:[email or web address] at [facility] [address] [place] [address] (764) Performed By: #### C CAMERON, BMP ####[facility] [place] [address](314) Anion gap 14 mmol/L Normal - [facility] Comment on above: Performed By: #### C BC, BMP ####[facility] [place] [address](359) BUN/CRE Ratio 31 High - [facility] Comment on above: Performed By: #### C BC, BMP ####[facility] [place] [address](674) Calcium 9.4 mg/dL Normal 8.6-10.4 [facility] Comment on above: Performed By: #### C BC, BMP ####[facility] [place] [address] Chloride 101 mmol/L Normal 98-107 [facility] Comment on above: Performed By: #### C BC, BMP ####[facility] [place] [address] CO2 22 mmol/L Normal 20-31 [facility] Comment on above: Performed By: #### C BC, BMP ####[facility] [place] [address] Creatinine 0.55 mg/dL Normal 0.50-0.90 [facility] Comment on above: Performed By: #### C BC, BMP ####[facility] [place] [address] eGFR (non-black) mL/min/{1.73_m2} Normal >60 [facility] Comment on above: Performed By: #### C BC, BMP ####[facility] [place] [address] Glucose mass conc 99 mg/dL Normal 70-99 [facility] Comment on above: Performed By: #### C BC, BMP ####[facility] [id number] Potassium molar conc 4.3 mmol/L Normal 3.7-5.3 [facility] Comment on above: Performed By: #### C BC, BMP ####[facility] [id number] Sodium 137 mmol/L Normal 135-144 [facility] Comment on above: Performed By: #### C BC, BMP ####[facility] [place] [address] Urea nitrogen 17 mg/dL Normal 6-20 [facility] Comment on above: Performed By: #### C BC, BMP ####[facility] [place] [address] Staging: NOT REPORTED Normal [facility] Comment on above: Performed By: #### C BC, BMP ####[facility] [place] [address] CBCon 05-22-2017 Erythrocyte distribution width Auto Ratio (RBC) 13.1 % Normal 12.1-15.2 [facility] Comment on above: Performed By: #### C BC, BMP ####[facility] [place] [address] Erythrocytes (RBC) 4.59 10*6/uL Normal 4.0-5.2 [facility] Comment on above: Performed By: #### C BC, BMP ####[facility] [phone] Hematocrit (HCT) 42.8 % Normal 36-46 [facility] Comment on above: Performed By: #### C BC, BMP ####[facility] [place] [address] Hemoglobin mass conc (Bld) 14.6 g/dL Normal 12.0-16.0 [facility] Comment on above: Performed By: #### C BC, BMP ####[facility] [place] [address] MCH 31.9 pg Normal 26-34 [facility] Comment on above: Performed By: #### C BC, BMP ####[facility] [place] [address] MCHC mass conc (RBC) 34.2 g/dL Normal 31-37 [facility] Comment on above: Performed By: #### C BC, BMP ####[facility] [place] [address] MCV 93.3 fL Normal 80-100 [facility] Comment on above: Performed By: #### C BC, BMP ####[facility] [place] [address] Platelets 366 10*3/uL Normal 140-450 [facility] Comment on above: Result Comment: Perf ormed at [facility] [address] [place] [address] Performed By: #### C BC, BMP ####[facility] [place] [address] WBC (Leukocytes) 9.3 10*3/uL Normal 3.5-11.0 [facility] Comment on above: Performed By: #### C BC, BMP ####[facility] [place] [address] Platelet mean volume (PMV) NOT REPORTED Normal 6.0-12.0 [facility] Comment on above: Performed By: #### C BC, BMP ####[facility] [place] [address] Vital Signs Date Time Vital Sign Value Performing Clinician Facility 04-28-2022 15:01-0400 Body height 167.64 cm DO [facility] [facility] Work Phone: [facility] 04-28-2022 15:01-0400 Body temperature 97.9 [degF] DO [facility] [employer] Work Phone: [facility] 04-28-2022 15:01-0400 Body weight 89.81 kg DO [facility] Work Phone: [facility] 04-28-2022 15:01-0400 Diastolic blood pressure 107 mm[Hg] DO [facility] Work Phone: [facility] 04-28-2022 15:01-0400 Heart rate 113 /min DO [facility] [employer] Work Phone: [facility] 04-28-2022 15:01-0400 Respiratory rate 18 /min DO Rajesh Solo Work Phone: [facility] 04-28-2022 15:01-0400 SaO2% (BldA) [Mass fraction] 94 % DO Rajesh Solo Work Phone: [facility] 04-28-2022 15:01-0400 Systolic blood pressure 181 mm[Hg] DO Rajesh Solo Work Phone: [facility] 12-31-2021 10:00-0400 Body height 167.64 cm David Valle Other [facility] 12-31-2021 10:00-0400 Body mass index (BMI) [Ratio] 29.86 kg/m2 David Valle Other [facility] Other 12-31-2021 10:00-0400 Body weight 83.92 kg David Valle Other [facility] Other 08-04-2021 16:00-0500 Body height 167.64 cm Good Alan Other [facility] Other 08-04-2021 16:00-0500 Body mass index (BMI) [Ratio] 32.12 kg/m2 Good [facility] Other [facility] Other 08-04-2021 16:00-0500 Body weight 90.27 kg Good [facility] Other [facility] Other Encounters Encounter Date Encounter Type Care Provider Facility Start: 06-04-2023 End: 06-04-2023 Emergency department patient visit Rajesh Solo Facility:[facility] Start: 04-28-2022 End: 04-28-2022 Emergency department patient visit DO Rajesh Solo Work Phone: [facility] Start: 01-06-2022 End: 01-06-2022 ambulatory David Valle Other [facility] Other Start: 01-06-2022 Telephone encounter David Leblanc ck [facility] Start: 12-31-2021 End: 12-31-2021 ambulatory David Valle Other [facility] Other Start: 12-31-2021 Office outpatient visit 15 minutes David Valle [facility] Start: 09-14-2021 End: 10-22-[address] RAJESH SOLO Facility:[facility] Start: 09-01-2021 End: 09-01-2021 ambulatory Good Alan Other [facility] Other Start: 09-01-2021 Postop follow up visit related to original px Good Alan [facility] Start: 08-24-2021 End: 08-24-2021 ambulatory Good Alan Other [facility] Other Start: 08-24-2021 Telephone encounter Good VILLEGAS G [facility] Start: 08-04-2021 End: 08-04-2021 ambulatory Good Alan Other [facility] Other Start: 08-04-2021 Office outpatient visit 25 minutes Good Alan [facility] Start: 03-29-2021 End: 03-30-[address] [...] Detail Author Patient Education Crush Injury (DC) [facility] Work Phone: Patient referral [facility] Work Phone: Payers Date Payer Category Payer Medicaid [id number] 2023 Self-pay [id number] 2014 Unknown [id number] 1975 Unknown [id number] 2.16.84 [id number] 1975 Unknown [id number] 2.16.84 [id number] 1975 Unknown [id number] 2.16.84 [id number] 1959 Unknown [id number] Unknown [id number] 2.16.8 [id number] Worker's Compensation [id number] Social History Date Type Detail Facility Sex Assigned At [facility] Other Start: 04-28-2022 Tobacco smoking stat [facility] Smoker (finding) [facility] Start: 1975 Sex Assigned At Female F [facility] Evaluation note 12-31-2021 Note Date & Type Note Facility 12-31-2021 Evaluation note Encounter Date Diagnosis Assessment Notes December, Small bowel obstruction (ICD-10 - K56.609) December, Diverticulitis (ICD-10 - K57.92) START MESALAMINE 1.2 GRAM 4 PO Q AM PATIENT ENCOURAGED TO STOP SMOKING RTO 6 WEEKS [facility] Other Evaluation note 09-01-2021 Note Date & [...] for removal of sutures (ICD-10 - Z48.02) [facility] Other Evaluation note 08-04-2021 Note Date & [...] poor healing. I have advised against the intermediate manager use of narcotic pain medication. I have [...] as documented in the electronic medical record. [facility] Other Clinical Note 03-25-2021 Note Date & [...] by: MARGRET DOMINGO Date: 2021-03-25 07:50 [facility] Evaluation note Note Date & Type Note Facility Evaluation note No Information [facility] Other Evaluation note Note Date & Type Note Facility Evaluation note No assessment information availa ble [facility] Work Phone: History general Narrative - Reported Note Date & Type Note Facility History general Narrative - Reported Type Medical History diverticulitis Medical History irritable bowel syndrome Surgical History hysterectomy Surgical History gallbladder Surgical History neuroma removal x2 in left foot Hospitalization History PANCREATITIS 02/2020 Hospitalization History PANCREATITIS 2018 Hospitalization History ABDOMINAL PAIN Hospitalization History PANCREATITIS [facility] Other History general Narrative - Reported Note Date & Type Note Facility History general Narrative - Reported Type Medical History diverticulitis Medical History irritable bowel syndrome Surgical History hysterectomy Surgical History gallbladder Surgical History neuroma removal x2 in left foot Surgical History right knee scope med ial/lateral menisectemy Hospitalization History PANCREATITIS 02/2020 Hospitalization History PANCREATITIS 2018 Hospitalization History ABDOMINAL PAIN Hospitalization History PANCREATITIS [facility] Other Hospital Discharge instructions Note Date & [...] your hand is not improving please call [facility] to follow-up with a hand surgeon You can also follow-up with [facility] as needed for minor concerns Return to the ER for more severe pain loss of circulation in your fingers or any other concerns [facility] Work Phone: Summary Purpose Family [...] AUTHOR AUTHOR'S ORGANIZ ATION 10/15/2019 Armaan Diaz [facility] DATE CREATED AUTHOR AUTHOR'S ORGANIZ ATION 10/29/2021 [facility] DATE CREATED AUTHOR AUTHOR'S ORGANIZ ATION 06/15/2023 [facility] REASON FOR VISIT (unrecogniz ed section and content) INCISION BLEEDINGRight Knee PainRecheck Right KneeINPATIENT FOLLOW UP-TO BE SEEN IN [address] VALLE FOR DIVERTICULITIS/ BOWEL OBSTRUCTION, SHE FISNISHED ANTIBIOTICS INSTRUCTED SHE IS STARTING TO FEEL BETTERclinical Care Teams (unrecognized sec tion and content) Team Status: Inactive Member Role Status Dates Rajesh Solo , Primary Care Provider Active Danica Nuñez [facility] Emergency Provider Active Team Status: Active [...] BE BASED ON THE PRIMARY CLINICAL RECORDS. [employer] [facility]. provides no warranty or guarantee of the accuracy or completeness of information in this document.
== END 2023-10-16 09:50 | disposition home or self-care (01) ==
LOC: EC 09:50
PROVIDERS: PCP Nurse Practitioner Family; Visit Provider Orthopaedic Surgery
DX: S52.602D Unspecified fracture of lower end of left ulna, subsequent encounter for closed fracture with routine healing (principal); S52.572D Other intraarticular fracture of lower end of left radius, subsequent encounter for closed fracture with routine healing
CPT/HCPCS: 73110

== ENCOUNTER 2023-11-06 10:33 | Outpatient (OUT) | payer OTHER, SELFPAY ==
--- NOTE | 2023-11-06 | XR_ITS ---
The [address] [address] Patient Name: DAMION SARAVIA MRN: [id number] date: 1975 Sex: F Assigned Patient Location: Current Patient Location: Accession/Order Number: [id number] Exam Date: 11/06/2023 11:30 Report Date: 11/07/2023 07:16 At the request of: MARGRET PAEZ Procedure: XR wrist LT min 3V PROCEDURE: XR wrist LT min 3V COMPARISON: 10/16/2023 HISTORY: LEFT WRIST PAIN FINDINGS: BONES:Stable complex intra-articular distal radius fracture with internal fixation utilizing a plate and screws. No change in angulation or distraction. Minimal interval bone formation. Complex, fracture with internal fixation. Degenerative changes with joint space narrowing marginal osteophyte formation most significant first carpometacarpal joint SOFT TISSUES:Negative. No visible soft tissue swelling. EFFUSION:None visible. OTHER: Negative. XR/XR wrist LT min 3V IMPRESSION: Stable complex distal radius and ulna fractures with internal fixation Electronically authenticated by: IGOR LOZANO Date: 11/07/2023 07:16
--- OUTSIDE RECORDS SUMMARY | 2023-11-06 10:36 | XMS_ITS | CCD ---
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 Name Role Phone GREG CORONADO Unavailable [...] Unavailable DO Rajesh Solo Primary [facility] Danica Mueller Emergency Provider Rajesh Solo Primary [...] January 13, 2022 3:10pm polyethylene glycol [phone] mg powder for oral solution (2 sources) [...] 3V*on 023 XR foot LT min 3V* [facility] Main [place] [address] [place] [address] XRay Report Signed Patient: Maggie Yip MR#: [id number] 9 : 1975 Acct:[id number] Age/Sex: 47 / F ADM Date: 06/04/23 Loc: ER Room: Type: [facility] ER Attending Dr: Copies to: Mable [...] Jaylin Magallanes M.D.06/04/2023 12:32 PM Dictation Location: [place] [address] Transcribed By: [facility] 06/04/23 1232 Dictated By: Jaylin Magallanes MD 06/04/23 1231 Signed By: 06/04/23 1232 Normal [facility] CYCLIC CITRULLINATED PEPTIDE AB (CCP)on 04-01-2021 CCP Antibodies IgG/IgA 5 units Normal 0-19 [facility] Comment on above: Result Comment: Nega tive <20 Weak positive 20 - 39 Moderate positive 40 - 59 Strong positive >59 Performed By: #### C CPAB #### [facility] [address] [address] Germán GARRETT by IFAon 03-25-2021 Antinuclear Antibodies, IFA Negative Normal [facility] Comment on above: Result Comment: Nega tive <1:80 Borderline 1:80 Positive >1:80 ICAP nomenclature: AC-0 For more information about Hep-2 cell patterns use ANApatterns.org, the official website for the International Consensus on Antinuclear Antibody (TAMI) Patterns (ICAP). Performed By: #### A NAIFA #### [facility] [address] [place], [place] [address] Germán Mosqueda RHEUMATOID FACTORon 03-25-20 RA Latex Turbid. <10.0 Normal 0.0-13.9 [facility] Comment on above: Performed By: #### R F #### [facility] [address] [place], [place] [address] Germán Jaylin CBC AUTO DIFFon 03-24-2021 BASO # 0.1 103/ul Normal 0.0-0.1 [facility] Comment on above: Performed By: #### C BC #### [facility] [address] [place] [address] Germán Mosqueda Basophils/100 WBC (Bld) 0.6 % Normal 0.2-2.0 [facility] Comment on above: Performed By: #### C BC #### [facility] [address] [place] [address] Germán Jaylin EO # 0.1 103/ul Normal 0.0-0.7 [facility] Comment on above: Performed By: #### C BC #### [facility] [address] [place], [place] [address] Germánsimone Mosqueda Eosinophils/100 WBC (Bld) 1.2 % Normal 0.9-7.0 [facility] Comment on above: Performed By: #### C BC #### [facility] [address] [place], [place] [address] Germán Jaylin Erythrocyte distribution width (RBC) [Ratio] 13.2 % Normal 11.0-15.0 [facility] Comment on above: Performed By: #### C BC #### [facility] [address] [place], [place] [address] Germán Jaylin Hematocrit (Bld) [Volume fraction] 45.3 % Normal 36.0-48.0 [facility] Comment on above: Performed By: #### C BC #### [facility] [address] [place], [place] [address] Germán Jaylin Hemoglobin (Bld) [Mass/Vol] 15.1 g/dL Normal 12.0-16.0 [facility] Comment on above: Performed By: #### C BC #### [facility] [address] [place] [address] Germán Mosqueda IG # 0.07 10e3/ul Critically high 0.00-0.03 [facility] Comment on above: Performed By: #### C BC #### [facility] [address] [address] Germán Mosqueda IG % 0.6 % Critically high 0.0-0.5 [facility] Comment on above: Performed By: #### C BC #### [facility] [address] [place] [address] Germán Mosqueda LYMPH # 3.4 103/ul Normal 1.2-3.8 [facility] Comment on above: Performed By: #### C BC #### [facility] [address] [place] [address] Germán Mosqueda Lymphocytes/100 WBC (Bld) 30.1 % Normal 20.5-60.0 [facility] Comment on above: Performed By: #### C BC #### [facility] [address] [place] [address] Germán Mosqueda MANUAL DIFF REQ NO Normal [facility] Comment on above: Performed By: #### C BC #### [facility] [address] [place] [address] Germán Mosqueda MCH (RBC) [Entitic mass] 31.3 pg Normal 26.7-34.0 [facility] Comment on above: Performed By: #### C BC #### [facility] [address] [place] [address] Germán Mosqueda MCHC (RBC) [Mass/Vol] 33.3 g/dL Normal 29.9-35.2 [facility] Comment on above: Performed By: #### C BC #### [facility] [address] [place] [address] Germán Mosqueda MCV (RBC) [Entitic vol] 94.0 fL Normal 81.0-99.0 [facility] Comment on above: Performed By: #### C BC #### [facility] [address] [place], [place] [address] Germán Guoen MONO # 0.8 103/ul Normal 0.3-0.8 [facility] Comment on above: Performed By: #### C BC #### [facility] [address] [address] Germán Guoen Monocytes/100 WBC (Bld) 7.2 % Normal 1.7-12.0 [facility] Comment on above: Performed By: #### C BC #### [facility] [address] [address] Germán Jaylin NEUT # 6.7 103/ul Critically high 1.4-6.5 [facility] Comment on above: Performed By: #### C BC #### [facility] [address] [address] Germán Guoen Neutrophils/100 WBC (Bld) 60.3 % Normal 43.0-75.0 [facility] Comment on above: Performed By: #### C BC #### [facility] [address] [address] Germán Mosqueda Platelet mean volume (Bld) [Entitic vol] 9.0 fL Critically low 9.5-13.5 [facility] Comment on above: Performed By: #### C BC #### [facility] [address] [address] Germán Jaylin PLT 288 103/ul Normal 150-450 [facility] Comment on above: Performed By: #### C BC #### [facility] [address] [address] Germán Jaylin RBC 4.82 106/ul Normal 4.20-5.40 [facility] Comment on above: Performed By: #### C BC #### [facility] [address] [address] Germán Jaylin WBC 11.2 103/ul Critically high 4.0-11.0 [facility] Comment on above: Performed By: #### C BC #### [facility] [address] [place], [place] [address] Germán Jaylin PROF 14(COMP METB)on 021 Albumin [Mass/Vol] 3.8 g/dL Normal 3.5-5.0 [facility] Comment on above: Performed By: #### C MP, URIC #### [facility] [address] [place], [place] [address] Germán Jaylin Albumin/Globulin [Mass ratio] 0.9 {ratio} Normal [facility] Comment on above: Performed By: #### C MP, URIC #### [facility] [address] [place] [address] Germán Jaylin ALP [Catalytic activity/Vol] 109 U/L Normal 38-126 [facility] Comment on above: Performed By: #### C MP, URIC #### [facility] [address] [place] [address] Germán Jaylin ALT [Catalytic activity/Vol] 56 U/L Critically high 9-52 [facility] Comment on above: Performed By: #### C MP, URIC #### [facility] [address] [place] [address] Germán Jaylin Anion gap [Moles/Vol] 17.6 mmol/L Normal [facility] Comment on above: Performed By: #### C MP, URIC #### [facility] [address] [place] [address] Germán Jaylin AST [Catalytic activity/Vol] 36 U/L Normal 14-36 [facility] Comment on above: Performed By: #### C MP, URIC #### [facility] [address] [place] [address] Germán Jaylin Bilirubin [Mass/Vol] 0.3 mg/dL Normal 0.2-1.3 [facility] Comment on above: Performed By: #### C MP, URIC #### [facility] [address] [place], [place] [address] Germán Jaylin Calcium [Mass/Vol] 9.0 mg/dL Normal 8.4-10.2 [facility] Comment on above: Performed By: #### C MP, URIC #### [facility] [address] [place], [place] [address] Germán Jaylin Chloride [Moles/Vol] 104 mmol/L Normal 98-107 [facility] Comment on above: Performed By: #### C MP, URIC #### [facility] [address] [place] [address] Germán Jaylin CO2 [Moles/Vol] 23.4 mmol/L Normal 22.0-30.0 [facility] Comment on above: Performed By: #### C MP, URIC #### [facility] [address] [place], [place] [address] Germán Jaylin Creatinine [Mass/Vol] 0.61 mg/dL Normal 0.52-1.04 [facility] Comment on above: Performed By: #### C MP, URIC #### [facility] [address] [place], [place] [address] Germán Jaylin EGFR-AF BELARUSIAN >60 Normal >=60 [facility] Comment on above: Performed By: #### C MP, URIC #### [facility] [address] [place] [address] Germán Jaylin EGFR-NON AF BELARUSIAN >60 Normal >=60 [facility] Comment on above: Performed By: #### C MP, URIC #### [facility] [address] [place] [address] Germán Jaylin Globulin (S) [Mass/Vol] 4.2 g/dL Normal [facility] Comment on above: Performed By: #### C MP, URIC #### [facility] [address] [place] [address] Germán Jaylin Glucose [Mass/Vol] 90 mg/dL Normal 74-106 [facility] Comment on above: Performed By: #### C MP, URIC #### [facility] [address] [place] [address] Germán Jaylin Potassium [Moles/Vol] 4.0 mmol/L Normal 3.4-5.0 [facility] Comment on above: Performed By: #### C MP, URIC #### [facility] [address] [place] [address] Germán Jaylin Protein [Mass/Vol] 8.0 g/dL Normal 6.1-8.2 [facility] Comment on above: Performed By: #### C MP, URIC #### [facility] [address], [place] [address] Germán Jaylin Sodium [Moles/Vol] 141 mmol/L Normal 137-145 [facility] Comment on above: Performed By: #### C MP, URIC #### [facility] [address], [place] [address] Germán Jaylin Urea nitrogen [Mass/Vol] 11.0 mg/dL Normal 7.0-17.0 [facility] Comment on above: Performed By: #### C MP, URIC #### [facility] [address] [place], [place] [address] Germán Jaylin Urea nitrogen/Creatini ne [Mass ratio] 18.0 mg/mg Normal [facility] Comment on above: Performed By: #### C MP, URIC #### [facility] [address] [place], [place] [address] Germán Jaylin [facility] SED RATE 60 mm/hr Critically high <=20 [facility] Comment on above: Performed By: #### S EDR #### [facility] [address] [place], [place] [address] Germán Jaylin URIC ACID SERUMon 03-24-2021 Urate [Mass/Vol] 4.9 mg/dL Normal 2.5-6.2 [facility] Comment on above: Performed By: #### C MP, URIC #### [facility] [address] [place], [place] [address] Germán Jaylin Coding Summary.on 10-15-2019 Coding Summary. CODING DATE: 020 FINAL [facility] STATUS: Home (Routine DC) PAYOR: [...] Date Saved: 10/15/2019 01:45 pm Normal [facility] Auto Diffon 10-08-2019 Basophils/100 WBC (Bld) 0.2 % Normal 0.0-2.0 [facility] Comment on above: Order Comment: Order Added by Discern Expert. Performed By: #### 2 055868, 6576217, 9894124, [id number] #### [facility] [address] [place] [address] Basophils/Leukocy cj Auto (Bld) [Pure # fraction] 0.0 E9/L Normal 0.0-0.2 [facility] Comment on above: Order Comment: Order Added by Discern Expert. Performed By: #### 2 295610, 9145945, 6723570, [id number] #### [facility] [address] [place] [address] Eosinophils/100 WBC (Bld) 1.0 % Normal 0.0-8.0 [facility] Comment on above: Order Comment: Order Added by Discern Expert. Performed By: #### 2 316196, 2636656, 2345980, [id number] #### [facility] [address] [place] [address] Eosinophils/Leuko cytes Auto (Bld) [Pure # fraction] 0.1 E9/L Normal 0.0-0.5 [facility] Comment on above: Order Comment: Order Added by Discern Expert. Performed By: #### 2 280224, 2700625, 5065459, [id number] #### [facility] [address] [place] [address] Lymphocytes/100 WBC (Bld) 25.0 % Normal 14.0-50.0 [facility] Comment on above: Order Comment: Order Added by Discern Expert. Performed By: #### 2 101664, 7487953, 8116283, [id number] #### [facility] [address] [place] [address] Lymphocytes/Leuko cytes Auto (Bld) [Pure # fraction] 2.9 E9/L Normal 1.0-4.0 [facility] Comment on above: Order Comment: Order Added by Discern Expert. Performed By: #### 2 558094, 9394673, 1757526, [id number] #### [facility] [address] [place] [address] Monocytes/100 WBC (Bld) 6.9 % Normal 4.0-14.0 [facility] Comment on above: Order Comment: Order Added by Discern Expert. Performed By: #### 2 529985, 6482236, 3274795, 86311872 #### [facility] [address] [place] [address] Monocytes/Leukocy cj Auto (Bld) [Pure # fraction] 0.8 E9/L Normal 0.2-1.0 [facility] Comment on above: Order Comment: Order Added by Discern Expert. Performed By: #### 2 140098, 6995187, 1816852, [id number] #### [facility] [address] [place] [address] Neutrophils/100 WBC (Bld) 66.9 % Normal 36.0-75.0 [facility] Comment on above: Order Comment: Order Added by Discern Expert. Performed By: #### 2 302608, 9584809, 5763436, 83323243 #### [facility] [address] [place] [address] Neutrophils/Leuko cytes Auto (Bld) [Pure # fraction] 7.9 E9/L High 2.0-7.5 [facility] Comment on above: Order Comment: Order Added by Discern Expert. Performed By: #### 2 779935, 1321932, 5738802, 96080245 #### [facility] [address] [place] [address] BMPon 10-08-2019 Creatinine [Mass/Vol] 0.6 mg/dL Normal 0.5-1.3 [facility] Comment on above: Performed By: #### 2 179297, 3246448, 3673712, [id number] #### [facility] [address] [place] [address] Urea nitrogen [Mass/Vol] 12 mg/dL Normal 5-21 [facility] Comment on above: Performed By: #### 2 633836, 6167787, 7134242, 26124522 #### [facility] [address] [place] [address] Urea nitrogen/Creatini ne [Mass ratio] 20 No Units Normal 10-20 [facility] Comment on above: Performed By: #### 2 327889, 4103937, 5784220, 62121423 #### [facility] [address] [place] [address] Anion gap [Moles/Vol] 15 mmol/L Normal 6-16 [facility] Comment on above: Performed By: #### 2 656320, 5938418, 8169023, 21529678 #### [facility] [address] [place] [address] Calcium [Mass/Vol] 9.5 mg/dL Normal 8.9-11.1 [facility] Comment on above: Performed By: #### 2 048298, 1662969, 9093352, 96440481 #### [facility] [address] [place] [address] Chloride [Moles/Vol] 102 mmol/L Normal 101-111 [facility] Comment on above: Performed By: #### 2 107746, 4479407, 5935102, 65283774 #### [facility] [address] [place] [address] CO2 [Moles/Vol] 21 mmol/L Normal 21-31 [facility] Comment on above: Performed By: #### 2 472048, 9825256, 5858990, 25266157 #### [facility] [address] [place] [address] Glucose [Mass/Vol] 88 mg/dL Normal 55-199 [facility] Comment on above: Result Comment: If t his glucose result represents a fasting glucose, interpretation should refer to the following reference range: 55-99 mg/dL Performed By: #### 2 778389, 3367387, 1032899, 25477969 #### [facility] [address] [place] [address] Potassium [Moles/Vol] 4.1 mmol/L Normal 3.5-5.3 [facility] Comment on above: Performed By: #### 2 342833, 4750042, 6700688, 91668419 #### [facility] [address] [place] [address] Sodium [Moles/Vol] 134 mmol/L Low 135-145 [facility] Comment on above: Performed By: #### 2 324615, 7028012, 1975985, 33624486 #### [facility] [address] [place] [address] CBC w/ Auto Diffon 0 Erythrocyte distribution width (RBC) [Ratio] 13.7 % Normal 10.9-14.2 [facility] Comment on above: Performed By: #### 2 373212, 5698986, 3130801, 93275143 #### [facility] [address] [place] [address] Hematocrit (Bld) [Volume fraction] 44.6 % Normal 34.0-46.0 [facility] Comment on above: Performed By: #### 2 723118, 2718612, 4701873, 22524533 #### [facility] [address] [place] [address] Hemoglobin (Bld) [Mass/Vol] 15.3 g/dL Normal 12.0-16.0 [facility] Comment on above: Performed By: #### 2 682209, 0254302, 8287354, 98638499 #### [facility] [address] [place] [address] MCH (RBC) [Entitic mass] 32.6 pg Normal 27.0-34.0 [facility] Comment on above: Performed By: #### 2 613279, 4638354, 2735286, 58664370 #### [facility] [address] [place] [address] MCHC (RBC) [Mass/Vol] 34.4 g/dL Normal 31.4-36.0 [facility] Comment on above: Performed By: #### 2 812983, 8379142, 1124270, 85193850 #### [facility] [address] [place] [address] MCV (RBC) [Entitic vol] 94.9 fL Normal 80.0-100.0 [facility] Comment on above: Performed By: #### 2 865554, 5831975, 2685750, 52490636 #### [facility] [address] [place] [address] Platelet mean volume (Bld) [Entitic vol] 7.2 fL Normal 6.4-10.8 [facility] Comment on above: Performed By: #### 2 336578, 5335542, 1159894, 42849935 #### [facility] [address] [place] [address] Platelets (Bld) [#/Vol] 361.0 E9/L Normal 150.0-500.0 [facility] Comment on above: Performed By: #### 2 287603, 0051082, 0963307, 27779606 #### [facility] [address] [place] [address] RBC (Bld) [#/Vol] 4.7 E12/L Normal 4.3-5.9 [facility] Comment on above: Performed By: #### 2 748103, 3538326, 7835649, 63974637 #### [facility] [address] [place] [address] WBC corrected for nucl RBC Auto (Bld) [#/Vol] 11.8 E9/L High 4.0-11.0 [facility] Comment on above: Performed By: #### 2 515843, 7504105, 0788361, 08131605 #### [facility] [address] [place] [address] ED Clinical Summaryon 2019 ED Clinical Summary [address] [address] ED Clinical Summary Person Information Name: MAGGIE DEL ROSARIO [place] Age: 43 Years : 1975 Sex: Female Language: Andorran PCP: Rajesh Solo DO Marital Status: Phone: [phone] Visit Id: Visit Reason: Vomiting; Abdominal pain; [...] 10/08/2019 13:21:31 10/08/2019 13:21:31 10/08/2019 13:21:31 ADDRESS: [facility] [id number] PHYS DOC NOTES: MEDICAL INFORMATION: Prescriptions Given: [facility], [address] [facility] [place] [id number], [phone] sucralfate (Carafate 1 g/10 mL Susp-Oral) 10 Milliliter By Mouth 4 times a day for 7 Days. Refills: 0. PATIENT EDUCATION INFORMATION: Instructions: Gastritis, Adult; Abdominal Pain, Adult Follow up: With: Address: When: [facility], [address] [place] [address] Business (1) In 3 days 10/11/2019 With: Address: When: [facility] [address] [place] [address] Business (1) In 3 days 10/11/2019 DIAGNOSIS: Right upper quadrant abdominal pain Normal [facility] ED Note-Physicianon 10-08-19 ED Note-Physician Basic [...] ultrasound was obtained. This is discussed with civilian technician as negative for acute findings. Patient [...] day(s), # 280 mL, Refills(s) 0, Pharmacy: [facility], 165, cm, 10/08/19 10:25:00 EST, Height/Length [...] Information Yudelka RIOS In 3 days 10/11/2019 [facility] [address] [place] [address]- Business (1) Additional Instructions: Rajesh Solo In 3 days 10/11/2019 [facility] [place] [address] [place] [address]- Business (1) Additional Instructions: Patient Education Gastritis, Adult Abdominal Pain, Adult Attestation Patient seen and evaluated by the physician respiratory therapist assistant. Attending physician was present in the emergency department and supervised care. This report was transcribed using voice recognition software. Every effort was made to ensure accuracy, however, inadvertently computerized material cutter mistakes may be present. Problem List/Past [...] 10:41:00) Lymph Auto: 25 % (10/08/19 10:41:00) Ciales Auto: 6.9 % (10/08/19 10:41:00) Eos Auto: 1 % (10/08/19 10:41:00) Basophil Auto: 0.2 % (10/08/19 10:41:00) Neutro Absolute: 7.9 E9/L High (10/08/19 10:41:00) Lymph Absolute: 2.9 E9/L (10/08/19 10:41:00) Ciales Absolute: 0.8 E9/L (10/08/19 10:41:00) Eos Absolute: [...] Trevin Esquivel DO 10/08/2019 10:57:10 Normal [facility] Comment on above: Result Comment: Elec [...] discomfort you are experiencing: ? Only take cdvf-ytk-tpgmnvn or prescription medicines as directed by your [...] Document Reviewed: 04/23/2014 ExitCare? Patient Information ?2015 Easy Met[employer]. This information is not intended to replace [...] (NSAIDs). HOME CARE INSTRUCTIONS ? Only take jfsl-ltm-ocqdvxl or prescription medicines as directed by your [...] Garlic and onions. ? Spicy foods. ? [place] fruits, such as oranges, todd, or limes. [...] Document Reviewed: 09/26/2012 ExitCare? Patient Information ?2015 Easy Met[employer]. This information is not intended to replace advice given to you by your health care provider. Make sure you discuss any questions you have with your health care provider. Normal [facility] ED Patient Summaryon 020 ED Patient Summary [address] [address] Patient Discharge Instructions Person Information Name: MAGGIE DEL ROSARIO Age: 43 Years Arrival Date: 10/08/2019 10:18:57 Discharge Diagnosis: Right upper quadrant abdominal pain Primary Care Physician: Rajesh Solo DO Provider Information Primary Provider: Trevin Esquivel DO Advanced Finger Lift Operator:Rishi Martinez PA-C The exam and treatment you received in the Emergency Department were for an urgent problem and are not intended as complete care. It is important that you follow up with a doctor, nurse practitioner, or physician?s respiratory therapist assistant for ongoing care. If your symptoms become worse or you do not improve as expected and you are unable to reach your usual health care provider, you should return to the Emergency Department. We are available 24 hours a day. MAGGIE DEL ROSARIO has been given the following list of patient education materials, prescriptions and follow-up instructions: Follow-up Instructions: With: Address: When: [facility], [address] [place] [address] Business (1) In 3 days 10/11/2019 With: Address: When: Rajesh Solo [address] [place] [address] Business (1) In 3 days 10/11/2019 In the event that this physician does not participate in your insurance network, please consult with your insurance company to find a nearby participating provider. Patient Education Materials: Gastritis, Adult; Abdominal Pain, Adult A MESSAGE TO ALL PATIENTS REGARDING OPIOIDS PRESCRIPTION OPIOIDS: WHAT YOU NEED TO KNOW Prescription opioids can be used to help relieve ugyuwwgt-yt-erwubu pain and are often prescribed following a [...] be struggling with addiction, tell your health geriatric care manager and ask for guidance or call [facility]?S National Helpline at 1-002-083-PXDR. u Source: US Department of Health and Human Services/Center for Disease Control & Prevention [facility] Medications Given: Medication Dose Route [...] New Medications [facility], [address], [place] [id number], [phone] sucralfate (Carafate 1 g/10 mL Susp-Oral) 10 Milliliter By Mouth 4 times a day for 7 Days. Refills: 0. Comment: Pharmacy Information: Thank you for choosing [facility] Patient Education Materials: Gastritis, Adult Gastritis [...] (NSAIDs). HOME CARE INSTRUCTIONS ? Only take mjmr-vzt-kmnagth or prescription medicines as directed by your [...] Garlic and onions. ? Spicy foods. ? [place] fruits, such as oranges, todd, or limes. [...] Document Reviewed: 09/26/2012 ExitCare? Patient Information ?2015 Easy Metrics. This information is not intended to replace [...] discomfort you are experiencing: ? Only take fnrl-kde-surzezz or prescription medicines as directed by your [...] Document Reviewed: 04/23/2014 ExitCare? Patient Information ?2014 Easy Metrics. This information is not intended to replace advice given to you by your health care provider. Make sure you discuss any questions you have with your health care provider. MIGUEL ÁNGEL Aguirre LISA L , have received the following patient education materials/instructions and have verbalized understanding: Patient Education Materials: Gastritis, Adult; Abdominal Pain, Adult Follow-up Instructions: With: Address: When: [facility], [address] [facility] [place] [address] Business (1) In 3 days 10/11/2019 With: Address: When: [address] [address] Business (1) In 3 days 10/11/2019 Patient Signature Date Clinician/Nurse Signature Date 10/08/2019 13:21:33 Normal [facility] Hep Func Panelon 10-08-2019 Albumin [Mass/Vol] 4.2 g/dL Normal 3.3-5.0 [facility] Comment on above: Performed By: #### 2 787685, 2863334, 1600085, [id number] #### [facility] [address] [place] [address] Albumin [Mass/Vol] 1.2 g/dL Normal 1.1-2.2 [facility] Comment on above: Performed By: #### 2 438676, 7161789, 7725802, [id number] #### [facility] [address] [place] [address] Bilirubin [Mass/Vol] 0.4 mg/dL Normal 0.0-1.1 [facility] Comment on above: Performed By: #### 2 300040, 4314534, 6607719, 41922822 #### [facility] [address] [place] [address] Bilirubin.direct [Mass/Vol] 0.3 mg/dL Normal 0.1-0.9 [facility] Comment on above: Performed By: #### 2 412490, 9121145, 3654135, 75172981 #### [facility] [address] [place] [address] Globulin (S) [Mass/Vol] 3.6 g/dL Normal 1.4-4.0 [facility] Comment on above: Performed By: #### 2 337849, 8259936, 2076791, 22894425 #### [facility] [address] [place] [address] Protein [Mass/Vol] 7.8 g/dL Normal 6.0-7.8 [facility] Comment on above: Performed By: #### 2 994507, 6856350, 0223331, 05434283 #### [facility] [address] [place] [address] ALP [Catalytic activity/Vol] 77 Int._Unit/L Normal 21-98 [facility] Comment on above: Performed By: #### 2 838028, 1491029, 2530729, 51276074 #### [facility] [address] [place] [address] ALT No additional P-5'-P [Catalytic activity/Vol] 64 Int._Unit/L High 6-46 [facility] Comment on above: Performed By: #### 2 728946, 5968366, 9390498, 84610722 #### [facility] [address] [place] [address] AST [Catalytic activity/Vol] 47 Int._Unit/L High 5-43 [facility] Comment on above: Performed By: #### 2 566056, 3209918, 0845869, 10696796 #### [facility] [address] [place] [address] Bilirubin.direct [Mass/Vol] 0.1 mg/dL Normal 0.1-0.4 [facility] Comment on above: Performed By: #### 2 969720, 3713031, 5328642, 76371171 #### [facility] [address] [place] [address] Lipase Levelon 10-08-2019 Lipase [Catalytic activity/Vol] 50 unit/L Normal 13-58 [facility] Comment on above: Performed By: #### 2 445792, 8006949, 1722647, 39898751 #### [facility] [address] [place] [address] Troponin 0 Hr.on 10-08-2019 Troponin I.cardiac [Mass/Vol] ng/mL Normal <=0.03 [facility] Comment on above: Result Comment: New Troponin Assay 01/09/14 LAN ME Cutoff value > or = 0.03 ng/mL in conjunction with clinical conditions of myocardial infarction. ([email or web address].org/guidelines) Performed By: #### 2 700274, 5945080, 2195162, 94638180 #### [facility] [address] [place] [address] US Gallbladderon 10-08-2019 US Gallbladder Exam Date/Time: [...] Transcribed by: IMAN Technologist: HW Normal [facility] eGFRon 10-08-2019 GFR/1.73 sq M predicted among blacks MDRD (S/P/Bld) [Vol rate/Area] mL/min/{1.73_m2} Normal >=59 [facility] Comment on above: Order Comment: Order added by Discern Expert. Result Comment: eGFR is race adjusted. AA=. Performed By: #### 2 142986, 3826233, 7946709, 71266405 #### [facility] [address] [place] [address] GFR/1.73 sq M predicted among non-blacks MDRD (S/P/Bld) [Vol rate/Area] mL/min/{1.73_m2} Normal >=59 [facility] Comment on above: Order Comment: Order added by Discern Expert. Result Comment: Histology Tech bhavin kidney disease could be indicated at eGFR's of less than 60 mL/min/1.73m2. Kidney failure is indicated at less than 15 mL/min/1.73m2. Performed By: #### 2 564055, 0735520, 0689942, 16454659 #### [facility] [address] [place] [address] Coding Summary.on 12-24-2018 Coding Summary. CODING DATE: 019 FINAL [facility] STATUS: Home (Routine DC) PAYOR: [...] Date Saved: 12/24/2018 08:11 am Normal [facility] Auto Diffon 12-23-2018 Basophils/100 WBC (Bld) 0.7 % Normal 0.0-2.0 [facility] Comment on above: Order Comment: Order Added by Discern Expert. Performed By: #### 2 527734, 6983349, 3288854, 52350458 #### [facility] [address] [place] [address] Basophils/Leukocy cj Auto (Bld) [Pure # fraction] 0.1 E9/L Normal 0.0-0.2 [facility] Comment on above: Order Comment: Order Added by Discern Expert. Performed By: #### 2 856369, 8899309, 4875414, 68848166 #### [facility] [address] [place] [address] Eosinophils/100 WBC (Bld) 1.1 % Normal 0.0-8.0 [facility] Comment on above: Order Comment: Order Added by Discern Expert. Performed By: #### 2 747356, 1060039, 0118349, 34663545 #### [facility] [address] [place] [address] Eosinophils/Leuko cytes Auto (Bld) [Pure # fraction] 0.1 E9/L Normal 0.0-0.5 [facility] Comment on above: Order Comment: Order Added by Discern Expert. Performed By: #### 2 097764, 7063921, 3102096, 92666395 #### [facility] [address] [place] [address] Lymphocytes/100 WBC (Bld) 37.9 % Normal 14.0-50.0 [facility] Comment on above: Order Comment: Order Added by Discern Expert. Performed By: #### 2 759053, 9763204, 1356635, 09446429 #### [facility] [address] [place] [address] Lymphocytes/Leuko cytes Auto (Bld) [Pure # fraction] 4.2 E9/L High 1.0-4.0 [facility] Comment on above: Order Comment: Order Added by Discern Expert. Performed By: #### 2 712141, 3008665, 5137469, 49240559 #### [facility] [address] [place] [address] Monocytes/100 WBC (Bld) 5.3 % Normal 4.0-14.0 [facility] Comment on above: Order Comment: Order Added by Discern Expert. Performed By: #### 2 764588, 1228221, 5176388, 86958466 #### [facility] [address] [place] [address] Monocytes/Leukocy cj Auto (Bld) [Pure # fraction] 0.6 E9/L Normal 0.2-1.0 [facility] Comment on above: Order Comment: Order Added by Discern Expert. Performed By: #### 2 759593, 8833349, 2009231, 81431588 #### [facility] [address] [place] [address] Neutrophils/100 WBC (Bld) 55.0 % Normal 36.0-75.0 [facility] Comment on above: Order Comment: Order Added by Discern Expert. Performed By: #### 2 911421, 5782179, 1456911, 82792844 #### [facility] [address] [place] [address] Neutrophils/Leuko cytes Auto (Bld) [Pure # fraction] 6.1 E9/L Normal 2.0-7.5 [facility] Comment on above: Order Comment: Order Added by Discern Expert. Performed By: #### 2 476183, 2608151, 5756534, 48074926 #### [facility] [address] [place] [address] BMPon 12-23-2018 Creatinine [Mass/Vol] 0.6 mg/dL Normal 0.5-1.3 [facility] Comment on above: Performed By: #### 2 219083, 8025162, 1883982, 48789739 #### [facility] [address] [place] [address] Urea nitrogen [Mass/Vol] 10 mg/dL Normal 5-21 [facility] Comment on above: Performed By: #### 2 746716, 6471048, 2956332, 12378562 #### [facility] [address] [place] [address] Urea nitrogen/Creatini ne [Mass ratio] 17 No Units Normal 10-20 [facility] Comment on above: Performed By: #### 2 101540, 7998353, 5258780, 34273097 #### [facility] [address] [place] [address] Anion gap [Moles/Vol] 15 mmol/L Normal 6-16 [facility] Comment on above: Performed By: #### 2 987456, 3618130, 0456869, 56101317 #### [facility] [address] [place] [address] Calcium [Mass/Vol] 10.1 mg/dL Normal 8.9-11.1 [facility] Comment on above: Performed By: #### 2 076003, 8899877, 5125998, 14684224 #### [facility] [address] [place] [address] Chloride [Moles/Vol] 99 mmol/L Low 101-111 [facility] Comment on above: Performed By: #### 2 421342, 6793704, 8767494, 00617630 #### [facility] [address] [place] [address] CO2 [Moles/Vol] 22 mmol/L Normal 21-31 [facility] Comment on above: Performed By: #### 2 828325, 0552072, 9886294, 86585412 #### [facility] [address] [place] [address] Glucose [Mass/Vol] 137 mg/dL Normal 55-199 [facility] Comment on above: Result Comment: If t his glucose result represents a fasting glucose, interpretation should refer to the following reference range: 55-99 mg/dL Performed By: #### 2 749792, 6930012, 3089197, 75659898 #### [facility] [address] [place] [address] Potassium [Moles/Vol] 3.1 mmol/L Low 3.5-5.3 [facility] Comment on above: Performed By: #### 2 261618, 4563897, 2371297, 23904922 #### [facility] [address] [place] [address] Sodium [Moles/Vol] 133 mmol/L Low 135-145 [facility] Comment on above: Performed By: #### 2 599784, 0038781, 7894807, 80350014 #### [facility] [address] [place] [address] CBC w/ Auto Diffon 9 Erythrocyte distribution width (RBC) [Ratio] 13.0 % Normal 10.9-14.2 [facility] Comment on above: Performed By: #### 2 034103, 6268632, 9461471, 13232661 #### [facility] [address] [place] [address] Hematocrit (Bld) [Volume fraction] 45.9 % Normal 34.0-46.0 [facility] Comment on above: Performed By: #### 2 000557, 8370948, 2287174, 13203150 #### [facility] [address] [place] [address] Hemoglobin (Bld) [Mass/Vol] 15.7 g/dL Normal 12.0-16.0 [facility] Comment on above: Performed By: #### 2 671273, 3655398, 2874042, 45534712 #### [facility] [address] [place] [address] MCH (RBC) [Entitic mass] 32.8 pg Normal 27.0-34.0 [facility] Comment on above: Performed By: #### 2 971897, 7646302, 0030808, 83202019 #### [facility] [address] [place] [address] MCHC (RBC) [Mass/Vol] 34.2 g/dL Normal 33.3-35.7 [facility] Comment on above: Performed By: #### 2 784243, 8404044, 2497820, 37849342 #### [facility] [address] [place] [address] MCV (RBC) [Entitic vol] 95.9 fL Normal 80.0-100.0 [facility] Comment on above: Performed By: #### 2 002025, 8515191, 3556405, 06744146 #### [facility] [address] [place] [address] Platelet mean volume (Bld) [Entitic vol] 7.5 fL Normal 6.4-10.8 [facility] Comment on above: Performed By: #### 2 318988, 4020586, 6142210, 65636357 #### [facility] [address] [place] [address] Platelets (Bld) [#/Vol] 373.0 E9/L Normal 150.0-500.0 [facility] Comment on above: Performed By: #### 2 866634, 3778915, 4454479, 41249978 #### [facility] [address] [place] [address] RBC (Bld) [#/Vol] 4.8 E12/L Normal 4.3-5.9 [facility] Comment on above: Performed By: #### 2 917602, 4293191, 8472838, 68925694 #### [facility] [address] [place] [address] WBC corrected for nucl RBC Auto (Bld) [#/Vol] 11.2 E9/L High 4.0-11.0 [facility] Comment on above: Performed By: #### 2 941191, 3435109, 7532239, 67629971 #### [facility] [address] [place] [address] CT Head or Brain w/o Contras ton [...] Transcribed by: IMAN Technologist: HAIDER Normal [facility] CT Spine Cervical w/o Contra ston [...] Transcribed by: IMAN Technologist: HAIDER Mcmanus [facility] ED Clinical Summaryon 2018 ED Clinical Summary [place] [id number] ED Clinical Summary Person Information Name: MAGGIE DEL ROSARIO [facility] Age: 43 Years : 1975 12:00 AM Sex: Female Language: Andorran PCP: Rajesh Solo DO Marital Status: Single Phone: [phone] Visit Id: Visit Reason: Fall; PT FELL [...] 12/23/2018 3:33 AM 12/23/2018 3:33 AM ADDRESS: [address] [place] [id number] PHYS DOC NOTES: MEDICAL INFORMATION: Prescriptions Given: PATIENT EDUCATION INFORMATION: Instructions: Alcohol Intoxication; Concussion, Adult, Klna-hv-Ufzb; Open Wound, Lip, Pemc-jo-Kfgu; Mouth Laceration, Uqod-pf-Apjv Follow up: With: Address: When: WHITNEY KENNEDY [address] [place] [address] [place] [address] Business (1) Within 1 to 2 days, only if needed DIAGNOSIS: 1:Acute alcohol intoxication; 2:Concussion with loss of consciousness <= 30 min; 3:Lip laceration Normal [facility] ED Note-Physicianon 12-24-19 ED Note-Physician Basic [...] 1 to 2 days, only if needed [address] [place] [address] [facility] (1) Additional Instructions: Patient Education Alcohol Intoxication Concussion, Adult, Vdry-su-Crer Open Wound, Lip, Wbor-em-Eile Mouth Laceration, Hmic-uo-Ntuo Problem List/Past Medical History Ongoing No qualifying [...] Lymph Auto: 37.9 % (12/23/18 01:55:00 EDT) Ciales Auto: 5.3 % (12/23/18 01:55:00 EDT) Eos Auto: 1.1 % (12/23/18 01:55:00 EDT) Basophil Auto: 0.7 % (12/23/18 01:55:00 EDT) Neutro Absolute: 6.1 E9/L (12/23/18 01:55:00 EDT) Lymph Absolute: 4.2 E9/L High (12/23/18 01:55:00 EDT) Ciales Absolute: 0.6 E9/L (12/23/18 01:55:00 EDT) Eos [...] malalignment Read By: Juan Francisco Munoz MD [facility] Comment on above: Result Comment: Elec tronically Signed By: Juan Francisco Munoz MD\.br\Date and Time Signed: 12/23/18 03:15 EDT ED Patient Education Noteon 12-23-2018 ED Patient Education Note Vixa-kh-Vmwb Open Wound, Lip An open wound is [...] Document Reviewed: 11/30/2010 ExitCare? Patient Information ?2015 Easy [employer]. This information is not intended to replace [...] Tell your teachers, school nurse, school counselor, varsity baseball coach, head athletic trainer/strength coach, or tool salvage worker about your concussion. Tell them about [...] Document Reviewed: 03/06/2014 ExitCare? Patient Information ?2015 [employer]. This information is not intended to replace advice given to you by your health care provider. Make sure you discuss any questions you have with your health care provider. Mouth Laceration A mouth laceration is a cut inside the mouth. HOME CARE ? Rinse your mouth with warm salt water 4 to 6 times a day. ? Crane your teeth as usual if you can. [...] Document Reviewed: 02/16/2012 ExitCare? Patient Information ?2015 Easy [employer]. This information is not intended to replace [...] yellow. Avoid caffeine. ? ? Only take xjfn-afn-bhurgtb or prescription medicines as directed by your [...] Document Reviewed: 01/17/2014 ExitCare? Patient Information ?2015 [employer]. This information is not intended to replace advice given to you by your health care provider. Make sure you discuss any questions you have with your health care provider. Normal [facility] ED Patient Summaryon 019 ED Patient Summary [address] [address] Patient Discharge Instructions Person Information Name: MAGGIE DEL ROSARIO Age: 43 Years Arrival Date: 12/23/2018 1:53 AM Discharge Diagnosis: 1:Acute alcohol intoxication; 2:Concussion with loss of consciousness <= 30 min; 3:Lip laceration Primary Care Physician: Rajesh Solo DO Provider Information Primary Provider: Juan Francisco Munoz MD Advanced Finger Lift Operator:None The exam and treatment you received in the Emergency Department were for an urgent problem and are not intended as complete care. It is important that you follow up with a doctor, nurse practitioner, or physician?s respiratory therapist assistant for ongoing care. If your symptoms [...] instructions: Follow-up Instructions: With: Address: When: [address] [address] [facility] (1) Within 1 to 2 days, only if needed In the event that this physician does not participate in your insurance network, please consult with your insurance company to find a nearby participating provider. Patient Education Materials: Alcohol Intoxication; Concussion, Adult, Vrvm-ee-Bkok; Open Wound, Lip, Ckpa-wj-Jnmq; Mouth Laceration, Srho-zr-Swlf A MESSAGE TO ALL PATIENTS REGARDING OPIOIDS PRESCRIPTION OPIOIDS: WHAT YOU NEED TO KNOW Prescription opioids can be used to help relieve pltgumxe-bh-xrjxmp pain and are often prescribed following a [...] be struggling with addiction, tell your health geriatric care manager and ask for guidance or call [facility] National Helpline at 3-870-326-HELP. v Source: US Department of Health and Human Services/Center for Disease Control & Prevention [facility] Medications Given: Medication Dose Route No medications found. Medication Information: Comment: Pharmacy Information: Thank you for choosing [facility] Patient Education Materials: Alcohol Intoxication Alcohol [...] yellow. Avoid caffeine. ? ? Only take mxfv-hlq-ymgufwn or prescription medicines as directed by your [...] Document Reviewed: 01/17/2014 ExitCare? Patient Information ?2015 Easy [employer]. This information is not intended to replace [...] Tell your teachers, school nurse, school counselor, varsity baseball coach, head athletic trainer/strength coach, or tool salvage worker about your concussion. Tell them about [...] Document Reviewed: 03/06/2014 ExitCare? Patient Information ?2015 [employer]. This information is not intended to replace [...] Document Reviewed: 11/30/2010 ExitCare? Patient Information ?2015 [employer]. This information is not intended to replace advice given to you by your health care provider. Make sure you discuss any questions you have with your health care provider. Mouth Laceration A mouth laceration is a cut inside the mouth. HOME CARE ? Rinse your mouth with warm salt water 4 to 6 times a day. ? Crane your teeth as usual if you can. [...] Document Reviewed: 02/16/2012 ExitCare? Patient Information ?2015 Easy [employer]. This information is not intended to replace advice given to you by your health care provider. Make sure you discuss any questions you have with your health care provider. MIGUEL ÁNGEL Aguirre LISA L , have received the following patient education materials/instructions and have verbalized understanding: Patient Education Materials: Alcohol Intoxication; Concussion, Adult, Nboa-ja-Bzdr; Open Wound, Lip, Xplc-dk-Wavj; Mouth Laceration, Lblb-zr-Tskn Follow-up Instructions: With: Address: When: WHITNEY KENNEDY [address] [place] [address], [place] [address] Business (1) Within 1 to 2 days, only if needed Prescriptions: Patient Signature Date Clinician/Nurse Signature Date 12/23/18 03:33:31 Normal [facility] Ethanolon 12-23-2018 Ethanol [Mass/Vol] 268 mg/dL Abnormal <=7 [facility] Comment on above: Result Comment: Nano ical Result S_ETOH:268.0 Called to [facility] ER by LLOYD ABBOTT And Read Back For Confirmation at: 12/23/2018 02:44:14\Critical Result verified by repeat analysis Performed By: #### 2 [id number] #### [facility] [address] [place] [address] Pre-Arrival Noteon 9 Pre-Arrival Note Pre-Arrival Summary Name: , Current Date: 12/23/2018 01:56:40 EDT Gender: Female Date of : Age: 43 Pre-Arrival Type: EMS ETA: 12/23/2018 02:14:00 EDT Primary Care Physician: Presenting Problem: fall stairs 5min eta Pre-Arrival User: Harry Aragon RN Referring Source: Location: [place] Completion Date/Time: 12/23/18 01:44:00 [facility] Emergency Department Pre-Hospital Report Form Vital Signs: Pre-Hospital Report: Treatment in Route: Response to Treatment: Misc. Issues: Normal [facility] eGFRon 12-23-2018 GFR/1.73 sq M predicted among blacks MDRD (S/P/Bld) [Vol rate/Area] mL/min/{1.73_m2} Normal >=59 [facility] Comment on above: Order Comment: Order added by Discern Expert. Result Comment: eGFR is race adjusted. AA=. Performed By: #### 2 [id number], [id number], [id number], [id number] #### [facility] [address] [place] [address] GFR/1.73 sq M predicted among non-blacks MDRD (S/P/Bld) [Vol rate/Area] mL/min/{1.73_m2} Normal >=59 [facility] Comment on above: Order Comment: Order added by Discern Expert. Result Comment: Histology Tech bhavin kidney disease could be indicated at eGFR's of less than 60 mL/min/1.73m2. Kidney failure is indicated at less than 15 mL/min/1.73m2. Performed By: #### 2 [id number], [id number], [id number], [id number] #### [facility] [address] [place] [address] Interval History and Physion 06-06-2017 HIM IP Note OR Mileage Clerk Normal [facility] OPERATIVE REPORTon 7 OPERATIVE REPORT [facility] [address] [place] [address] OPERATIVE REPORTPATIENT NAME: MAGGIE YIP : 1975[facility] REC NO: [id number] ROOM:ACCOUNT NO: [id number] ADMISSION DATE:06/06/2017PROVIDER: Greg XiongTE OF PROCEDURE: 06/06/2017PREOPERATIVE [...] digits. The procedure wastolerated quite well and [place] was prescribed for pain management withfollowup on Monday in our office.GREG CORONADOD: 06/06/2017 9:38:09 [id number]/[id number]#: [id number] Doc#: [id number] Normal [facility] Surgical Pathologyon 017 Surgical Pathology (NOTE)[id number] LABORATORIESCONSULTING PATHOLOGISTS [facility] [id number] [place] [address]. [place], [place] [address] Fax: SURGICAL PATHOLOGY CONSULTATIONPatient Name: Carroll YIP Rec: [id number] Number: [id number]: 06/06/2017Received: 06/06/2017Reported: 06/07/2017 11:51-- Diagnosis --SOFT TISSUE, [...] and perineural fibrosis, compatible withtraumatic-type neuroma. Normal [facility] History and Physicalon 06-05 HIM IP Note OR Mileage Clerk Normal [facility] Basic Metabolic Profon 05-22 (cont.) Normal [facility] Comment on above: Result Comment: Aver age GFR for 40-49 years old: 99 mL/min/1.73sq mChronic Kidney Disease: <60 mL/min/1.73sq mKidney failure: <15 mL/min/1.73sq meGFR calculated using average adult body mass. Additional eGFR calculator available at:http://www.CanWeNetwork/multiple_crcl_2012.htmPerformed at [facility] [address] [place] [address] (422) Performed By: #### C CAMERON, BMP ####[facility] [place] [address](159) Anion gap 14 mmol/L Normal - [facility] Comment on above: Performed By: #### C BC, BMP ####[facility] [place] [address](220) BUN/CRE Ratio 31 High - [facility] Comment on above: Performed By: #### C BC, BMP ####[facility] [place] [address](752) Calcium 9.4 mg/dL Normal 8.6-10.4 [facility] Comment on above: Performed By: #### C BC, BMP ####[facility] [place] [address] Chloride 101 mmol/L Normal 98-107 [facility] Comment on above: Performed By: #### C BC, BMP ####[facility] [place] [address] CO2 22 mmol/L Normal 20-31 [facility] Comment on above: Performed By: #### C BC, BMP ####[facility] [place] [address] Creatinine 0.55 mg/dL Normal 0.50-0.90 [facility] Comment on above: Performed By: #### C BC, BMP ####[facility] [place] [address] eGFR (non-black) mL/min/{1.73_m2} Normal >60 [facility] Comment on above: Performed By: #### C BC, BMP ####[facility] [place] [address] Glucose mass conc 99 mg/dL Normal 70-99 [facility] Comment on above: Performed By: #### C BC, BMP ####[facility] [id number] Potassium molar conc 4.3 mmol/L Normal 3.7-5.3 [facility] Comment on above: Performed By: #### C BC, BMP ####[facility] [phone] Sodium 137 mmol/L Normal 135-144 [facility] Comment on above: Performed By: #### C BC, BMP ####[facility] [place] [address] Urea nitrogen 17 mg/dL Normal 6-20 [facility] Comment on above: Performed By: #### C BC, BMP ####[facility] [place] [address] Staging: NOT REPORTED Normal [facility] Comment on above: Performed By: #### C BC, BMP ####[facility] [place] [address] CBCon 05-22-2017 Erythrocyte distribution width Auto Ratio (RBC) 13.1 % Normal 12.1-15.2 [facility] Comment on above: Performed By: #### C BC, BMP ####[facility] [place] [address] Erythrocytes (RBC) 4.59 10*6/uL Normal 4.0-5.2 [facility] Comment on above: Performed By: #### C BC, BMP ####[facility] [phone] Hematocrit (HCT) 42.8 % Normal 36-46 [facility] Comment on above: Performed By: #### C BC, BMP ####[facility] [place] [address] Hemoglobin mass conc (Bld) 14.6 g/dL Normal 12.0-16.0 [facility] Comment on above: Performed By: #### C BC, BMP ####[facility] [place] [address] MCH 31.9 pg Normal 26-34 [facility] Comment on above: Performed By: #### C BC, BMP ####[facility] [place] [address] MCHC mass conc (RBC) 34.2 g/dL Normal 31-37 [facility] Comment on above: Performed By: #### C BC, BMP ####[facility] [place] [address] MCV 93.3 fL Normal 80-100 [facility] Comment on above: Performed By: #### C BC, BMP ####[facility] [place] [address] Platelets 366 10*3/uL Normal 140-450 [facility] Comment on above: Result Comment: Perf ormed at [facility] [address] [place] [address] Performed By: #### C BC, BMP ####[facility] [place] [address] WBC (Leukocytes) 9.3 10*3/uL Normal 3.5-11.0 [facility] Comment on above: Performed By: #### C BC, BMP ####[facility] [place] [address] Platelet mean volume (PMV) NOT REPORTED Normal 6.0-12.0 [facility] Comment on above: Performed By: #### C BC, BMP ####[facility] [place] [address] Vital Signs Date Time Vital Sign Value Performing Clinician Facility 04-28-2022 15:01-0400 Body height 167.64 cm DO [employer] Work Phone: [facility] 04-28-2022 15:01-0400 Body temperature 97.9 [degF] DO [employer] Work Phone: [facility] 04-28-2022 15:01-0400 Body weight 89.81 kg DO [employer] Work Phone: [facility] 04-28-2022 15:01-0400 Diastolic blood pressure 107 mm[Hg] DO [employer] Work Phone: [facility] 04-28-2022 15:01-0400 Heart rate 113 /min DO [employer] Work Phone: [facility] 04-28-2022 15:01-0400 Respiratory rate 18 /min DO Rajesh Solo Work Phone: [facility] 04-28-2022 15:01-0400 SaO2% (BldA) [Mass fraction] 94 % DO Rajesh Solo Work Phone: [facility] 04-28-2022 15:01-0400 Systolic blood pressure 181 mm[Hg] DO Rajesh Solo Work Phone: [facility] 12-31-2021 10:00-0400 Body height 167.64 cm David Valle Other [facility] Other 12-31-2021 10:00-0400 Body mass index (BMI) [Ratio] 29.86 kg/m2 David Valle Other [facility] Other 12-31-2021 10:00-0400 Body weight 83.92 kg David Valle Other [facility] Other 08-04-2021 16:00-0500 Body height 167.64 cm Good Alan Other [facility] Other 08-04-2021 16:00-0500 Body mass index (BMI) [Ratio] 32.12 kg/m2 Good Alan Other [facility] Other 08-04-2021 16:00-0500 Body weight 90.27 kg Good Alan Other [facility] Other Encounters Encounter Date Encounter Type Care Provider Facility Start: 06-04-2023 End: 06-04-2023 Emergency department patient visit Rajesh Solo Facility:[facility] Start: 04-28-2022 End: 04-28-2022 Emergency department patient visit DO Rajesh Solo Work Phone: [facility] Start: 01-06-2022 End: 01-06-2022 ambulatory David Valle Other [facility] Other Start: 01-06-2022 Telephone encounter David Leblanc ck [facility] Start: 12-31-2021 End: 12-31-2021 ambulatory David Valle Other [facility] Other Start: 12-31-2021 Office outpatient visit 15 minutes David Valle [facility] Start: 09-14-2021 End: 10-22-[address] RAJESH SOLO Facility:[facility] Start: 09-01-2021 End: 09-01-2021 ambulatory Good Alan Other [facility] Other Start: 09-01-2021 Postop follow up visit related to original px Good Alan [facility] Start: 08-24-2021 End: 08-24-2021 ambulatory Good Alan Other [facility] Other Start: 08-24-2021 Telephone encounter Good VILLEGAS G [facility] Start: 08-04-2021 End: 08-04-2021 ambulatory Good Alan Other [facility] Other Start: 08-04-2021 Office outpatient visit 25 minutes Good Alan [facility] Start: 03-29-2021 End: 03-30-[address] [...] Detail Author Patient Education Crush Injury (DC) [facility] Work Phone: Patient referral [facility] Work Phone: Payers Date Payer Category Payer Medicaid [id number] 2023 Self-pay [id number] 2014 Unknown [id number] 1975 Unknown [id number] 2.16.84 [id number] 1975 Unknown [id number] 2.16.84 [id number] 1975 Unknown [id number] 2.16.84 [id number] 1958 Unknown [id number] Unknown [id number] 2.16.8 [id number] Worker's Compensation [id number] Social History Date Type Detail Facility Sex Assigned At [facility] Other Start: 04-28-2022 Tobacco smoking stat [facility] Smoker (finding) [facility] Start: 1975 Sex Assigned At Female F [facility] Evaluation note 12-31-2021 Note Date & Type Note Facility 12-31-2021 Evaluation note Encounter Date Diagnosis Assessment Notes December, Small bowel obstruction (ICD-10 - K56.609) December, Diverticulitis (ICD-10 - K57.92) START MESALAMINE 1.2 GRAM 4 PO Q AM PATIENT ENCOURAGED TO STOP SMOKING RTO 6 WEEKS [facility] Other Evaluation note 09-01-2021 Note Date & [...] for removal of sutures (ICD-10 - Z48.02) [facility] Other Evaluation note 08-04-2021 Note Date & [...] poor healing. I have advised against the custodial use of narcotic pain medication. I have [...] as documented in the electronic medical record. [facility] Other Clinical Note 03-25-2021 Note Date & [...] by: MARGRET DOMINGO Date: 2021-03-25 07:50 [facility] Evaluation note Note Date & Type Note Facility Evaluation note No Information Just Above Cost Other Evaluation note Note Date & Type Note Facility Evaluation note No assessment information availa ble [facility] Work Phone: History general Narrative - Reported Note Date & Type Note Facility History general Narrative - Reported Type Medical History diverticulitis Medical History irritable bowel syndrome Surgical History hysterectomy Surgical History gallbladder Surgical History neuroma removal x2 in left foot Hospitalization History PANCREATITIS 02/2020 Hospitalization History PANCREATITIS 2018 Hospitalization History ABDOMINAL PAIN Hospitalization History PANCREATITIS [facility] Other History general Narrative - Reported Note Date & Type Note Facility History general Narrative - Reported Type Medical History diverticulitis Medical History irritable bowel syndrome Surgical History hysterectomy Surgical History gallbladder Surgical History neuroma removal x2 in left foot Surgical History right knee scope med ial/lateral menisectemy Hospitalization History PANCREATITIS 02/2020 Hospitalization History PANCREATITIS 2018 Hospitalization History ABDOMINAL PAIN Hospitalization History PANCREATITIS [facility] Other Hospital Discharge instructions Note Date & [...] your hand is not improving please call [facility] to follow-up with a hand surgeon You can also follow-up with [email or web address] as needed for minor concerns Return to the ER for more severe pain loss of circulation in your fingers or any other concerns [facility] Work Phone: Summary Purpose Family [...] AUTHOR AUTHOR'S ORGANIZ ATION 10/15/2019 Armaan Diaz [facility] DATE CREATED AUTHOR AUTHOR'S ORGANIZ ATION 10/29/2021 [facility] DATE CREATED AUTHOR AUTHOR'S ORGANIZ ATION 06/15/2023 [facility] REASON FOR VISIT (unrecogniz ed section and content) INCISION BLEEDINGRight Knee PainRecheck Right KneeINPATIENT FOLLOW UP-TO BE SEEN IN [address] VALLE FOR DIVERTICULITIS/ BOWEL OBSTRUCTION, SHE FISNISHED ANTIBIOTICS INSTRUCTED SHE IS STARTING TO FEEL BETTERclinical Care Teams (unrecognized sec tion and content) Team Status: Inactive Member Role Status Dates Rajesh Solo , Primary Care Provider Active Danica Nuñez [facility] Emergency Provider Active Team Status: Active Member [...] BE BASED ON THE PRIMARY CLINICAL RECORDS. [employer] [facility]. provides no warranty or guarantee of the accuracy or completeness of information in this document.
== END 2023-11-06 10:34 | disposition home or self-care (01) ==
LOC: EC 10:33
PROVIDERS: PCP Nurse Practitioner Family; Visit Provider Orthopaedic Surgery
DX: S52.602D Unspecified fracture of lower end of left ulna, subsequent encounter for closed fracture with routine healing (principal); S52.572D Other intraarticular fracture of lower end of left radius, subsequent encounter for closed fracture with routine healing
CPT/HCPCS: 73110

== ENCOUNTER 2023-12-11 09:30 | Outpatient (OUT) | payer OTHER, SELFPAY ==
--- NOTE | 2023-12-11 | XR_ITS ---
The [address] [address] Patient Name: DAMION SARAVIA MRN: [id number] date: 1975 Sex: F Assigned Patient Location: Current Patient Location: Accession/Order Number: [id number] Exam Date: 12/11/2023 09:31 Report Date: 12/11/2023 10:17 At the request of: MARGRET PAEZ Procedure: XR wrist LT min 3V PROCEDURE: XR wrist LT min 3V COMPARISON: 11/06/2023, 10/16/2023 HISTORY: LEFT WRIST PAIN FINDINGS: BONES:Complex intra-articular fracture of the distal radius with internal fixation utilizing a plate and multiple screws. Complex ulnar fracture fixed with plate and screws. Minimal interval bone formation. No obstructive process fracture. Mild permeative pattern of the carpal bones suggests development of osteopenia. No new fracture or dislocation SOFT TISSUES:Negative. No visible soft tissue swelling. EFFUSION:None visible. OTHER: Negative. XR/XR wrist LT min 3V IMPRESSION: Stable distal radius and ulna fractures with internal fixation Electronically authenticated by: IGOR LOZANO Date: 12/11/2023 10:17
--- OUTSIDE RECORDS SUMMARY | 2023-12-11 09:34 | XMS_ITS | CCD ---
Author Organization [facility] Care Team Providers Care Director Of Consumer Affairs Name Role Phone GREG CORONADO Unavailable Unavailabl e BOHTRU, GREG Kelly Unavailable Unavailabl e BOHTRU, GREG Kelly Unavailable Unavailabl e BOHTRU, GREG Kelly Unavailable Unavailabl e BOHTRU, GREG Kelly Unavailable Unavailabl e IVONNE, GREG Kelly Unavailable Unavailabl e IVONNE, GREG Kelly Unavailable Unavailabl e GERMANIA, DR HACKETT Primary Care Unavailable KENISHA ALAN Admitting Unavailable KENISHA ALAN Attending Unavailable GERMANIA, DR HACKETT Admitting Unavailable GERMANIA, DR HACKETT Attending Unavailable GERMANIA, DR HACKETT Consulting Unavailable BLAIR, DR HACKETT Primary Care Unavailable JOSE L, DR MARGRET Torres Consulting Unavailable BLAIR, DR HACKETT Primary Care Unavailable BLAIR, DR HACKETT Admitting Unavailable BLAIR, DR HACKETT Attending Unavailable BLAIR, DR HACKETT Consulting Unavailable Kenisha Alan Unavailable David Valle Unavailable [phone] DO Rajesh Solo Primary Care Provider [phone] Joaquin [facility] Danica Mueller Emergency Provider Rajesh Solo Primary Care Unavailable Mable Curtis Attending Unavailable Mable Curtis Admitting Unavailable Medications Current Medications Medication Drug Class(es) Dates Sig (Normalized) Sig (Original) acetaminophen 325 mg / oxyCODONE hydrochloride 5 mg oral tablet (2 sources) Opioid Agonist Start: 04-28-2022 take 1 tablet by mouth every six hours Oxycodone-Acetami nophen Active 1 TAB PO Q6H 10 April 28, 2022 Start: 08-24-2021 End: 12-19-2021 take 1 tablet by mouth every four hours Oxycodone-Acetaminophen (Percocet) 5-325 mg tablet Discontinued 1 TAB PO Q4H 30 August 24, 2021 December 19, 2021 11:36am atenolol [...] Active 50 MG PO EVERY 4-6 HOURS 24 January 24, 2022 12:00am Completed/Discontinued Medications Medication Drug Class(es) Dates Sig (Normalized) Sig (Original) Acetaminophen (5 sources) Tylenol Not-Taki ng Tylenol Active acetaminophen 325 mg / HYDROcodone bitartrate 5 mg oral tablet (4 sources) Opioid Agonist Start: 01-10-2022 End: 01-24-2022 take 1 tablet by mouth every four to six hours Hydrocodone-Acetaminophen Discontinued 1 - 2 TAB PO EVERY 4-6 HOURS 14 January 10, 2022 January 24, 2022 11:09am take [...] MG PO Every morning January 13, 2022 12:00am January 24, 2022 11:09am metroNIDAZOLE 500 mg oral [...] January 13, 2022 3:10pm polyethylene glycol 3350 50575 mg powder for oral solution (2 sources) [...] 3V*on 023 XR foot LT min 3V* [facility] Main [address] [address] XRay Report Signed Patient: Maggie Yip MR#: [id number] 9 : 1975 Acct:[id number] Age/Sex: 47 / F ADM Date: 06/04/23 Loc: ER Room: Type: [facility] ER Attending Dr: Copies to: Mable [...] Jaylin Magallanes M.D.06/04/2023 12:32 PM Dictation Location: [place] [address] Transcribed By: [facility] 06/04/23 1232 Dictated By: Jaylin Magallanes MD 06/04/23 1231 Signed By: 06/04/23 1232 [facility] CYCLIC CITRULLINATED PEPTIDE AB (CCP)on 04-01-2021 CCP Antibodies IgG/IgA 5 units Normal 0-19 [facility] Comment on above: Result Comment: Nega tive <20 Weak positive 20 - 39 Moderate positive 40 - 59 Strong positive >59 Performed By: #### C CPAB #### [facility] [address] [address] Germán Mosqueda TAMI by IFAon 03-25-2021 Antinuclear Antibodies, IFA Negative Normal [facility] Comment on above: Result Comment: Nega tive <1:80 Borderline 1:80 Positive >1:80 ICAP nomenclature: AC-0 For more information about Hep-2 cell patterns use ANApatterns.org, the official website for the International Consensus on Antinuclear Antibody (TAMI) Patterns (ICAP). Performed By: #### A NAIFA #### [facility] [address] [place], [place] [address] Germán Jaylin RHEUMATOID FACTORon 03-25-20 RA Latex Turbid. <10.0 Normal 0.0-13.9 [facility] Comment on above: Performed By: #### R F #### [facility] [address] [place], [place] [address] Germán Jaylin CBC AUTO DIFFon 03-24-2021 BASO # 0.1 103/ul Normal 0.0-0.1 [facility] Comment on above: Performed By: #### C BC #### [facility] [address] [place], [place] [address] Germán Jaylin Basophils/100 WBC (Bld) 0.6 % Normal 0.2-2.0 [facility] Comment on above: Performed By: #### C BC #### [facility] [address] [place] [address] Germán Jaylin EO # 0.1 103/ul Normal 0.0-0.7 [facility] Comment on above: Performed By: #### C BC #### [facility] [address] [place], [place] [address] Germán Jaylin Eosinophils/100 WBC (Bld) 1.2 % Normal 0.9-7.0 [facility] Comment on above: Performed By: #### C BC #### [facility] [address] [place], [place] [address] Germán Jaylin Erythrocyte distribution width (RBC) [Ratio] 13.2 % Normal 11.0-15.0 [facility] Comment on above: Performed By: #### C BC #### [facility] [address] [place], [place] [address] Germán Jaylin Hematocrit (Bld) [Volume fraction] 45.3 % Normal 36.0-48.0 [facility] Comment on above: Performed By: #### C BC #### [facility] [address] [place], [place] [address] Germán Jaylin Hemoglobin (Bld) [Mass/Vol] 15.1 g/dL Normal 12.0-16.0 [facility] Comment on above: Performed By: #### C BC #### [facility] [address] [id number] Germán Jaylin IG # 0.07 10e3/ul Critically high 0.00-0.03 [facility] Comment on above: Performed By: #### C BC #### [facility] [address] [id number] Germán Jaylin IG % 0.6 % Critically high 0.0-0.5 [facility] Comment on above: Performed By: #### C BC #### [facility] [address] [place] [address] Germán Jaylin LYMPH # 3.4 103/ul Normal 1.2-3.8 [facility] Comment on above: Performed By: #### C BC #### [facility] [address] [place] [address] Germán Jaylin Lymphocytes/100 WBC (Bld) 30.1 % Normal 20.5-60.0 [facility] Comment on above: Performed By: #### C BC #### [facility] [address] [place], [place] [address] Germánsimone Mosqueda MANUAL DIFF REQ NO Normal [facility] Comment on above: Performed By: #### C BC #### [facility] [address] [place], [place] [address] Germán Jaylin MCH (RBC) [Entitic mass] 31.3 pg Normal 26.7-34.0 [facility] Comment on above: Performed By: #### C BC #### [facility] [address] [place] [address] Germán Jaylin MCHC (RBC) [Mass/Vol] 33.3 g/dL Normal 29.9-35.2 [facility] Comment on above: Performed By: #### C BC #### [facility] [address] [place], [place] [address] Germán Jaylin MCV (RBC) [Entitic vol] 94.0 fL Normal 81.0-99.0 [facility] Comment on above: Performed By: #### C BC #### [facility] [address] [place], [place] [address] Germánsimone Guoen MONO # 0.8 103/ul Normal 0.3-0.8 [facility] Comment on above: Performed By: #### C BC #### [facility] [address] [place], [place] [address] Germán Mosqueda Monocytes/100 WBC (Bld) 7.2 % Normal 1.7-12.0 [facility] Comment on above: Performed By: #### C BC #### [facility] [address] [place], [place] [address] Germán Jaylin NEUT # 6.7 103/ul Critically high 1.4-6.5 [facility] Comment on above: Performed By: #### C BC #### [facility] [address] [place], [place] [address] Germán Mosqueda Neutrophils/100 WBC (Bld) 60.3 % Normal 43.0-75.0 [facility] Comment on above: Performed By: #### C BC #### [facility] [address] [place], [place] [address] Germánsimone Mosqueda Platelet mean volume (Bld) [Entitic vol] 9.0 fL Critically low 9.5-13.5 [facility] Comment on above: Performed By: #### C BC #### [facility] [address] [place], [place] [address] Germánsimone Guoen PLT 288 103/ul Normal 150-450 [facility] Comment on above: Performed By: #### C BC #### [facility] [address] [place], [place] [address] Germán Jaylin RBC 4.82 106/ul Normal 4.20-5.40 [facility] Comment on above: Performed By: #### C BC #### [facility] [address] [place], [place] [address] Germán Jaylin WBC 11.2 103/ul Critically high 4.0-11.0 [facility] Comment on above: Performed By: #### C BC #### [facility] [address] [place], [place] [address] Germán Mosqueda PROF 14(COMP METB)on 021 Albumin [Mass/Vol] 3.8 g/dL Normal 3.5-5.0 [facility] Comment on above: Performed By: #### C MP, URIC #### [facility] [address] [place], [place] [address] Germán Jaylin Albumin/Globulin [Mass ratio] 0.9 {ratio} Normal [facility] Comment on above: Performed By: #### C MP, URIC #### [facility] [address] [place] [address] Germán Jaylin ALP [Catalytic activity/Vol] 109 U/L Normal 38-126 [facility] Comment on above: Performed By: #### C MP, URIC #### [facility] [address] [place] [address] Germán Jaylin ALT [Catalytic activity/Vol] 56 U/L Critically high 9-52 [facility] Comment on above: Performed By: #### C MP, URIC #### [facility] [address] [place] [address] Germán Jaylin Anion gap [Moles/Vol] 17.6 mmol/L Normal [facility] Comment on above: Performed By: #### C MP, URIC #### [facility] [address] [place] [address] Germán Jaylin AST [Catalytic activity/Vol] 36 U/L Normal 14-36 [facility] Comment on above: Performed By: #### C MP, URIC #### [facility] [address] [place] [address] Germán Jaylin Bilirubin [Mass/Vol] 0.3 mg/dL Normal 0.2-1.3 [facility] Comment on above: Performed By: #### C MP, URIC #### [facility] [address] [place], [place] [address] Germán Jaylin Calcium [Mass/Vol] 9.0 mg/dL Normal 8.4-10.2 [facility] Comment on above: Performed By: #### C MP, URIC #### [facility] [address] [place] [address] Germán Jaylin Chloride [Moles/Vol] 104 mmol/L Normal 98-107 [facility] Comment on above: Performed By: #### C MP, URIC #### [facility] [address] [place], [place] [address] Germán Jaylin CO2 [Moles/Vol] 23.4 mmol/L Normal 22.0-30.0 [facility] Comment on above: Performed By: #### C MP, URIC #### [facility] [address] [place] [address] Germán Jaylin Creatinine [Mass/Vol] 0.61 mg/dL Normal 0.52-1.04 [facility] Comment on above: Performed By: #### C MP, URIC #### [facility] [address] [place] [address] Germán Jaylin EGFR-AF RWANDAN >60 Normal >=60 [facility] Comment on above: Performed By: #### C MP, URIC #### [facility] [address] [place] [address] Germán Jaylin EGFR-NON AF RWANDAN >60 Normal >=60 [facility] Comment on above: Performed By: #### C MP, URIC #### [facility] [address] [place] [address] Germán Jaylin Globulin (S) [Mass/Vol] 4.2 g/dL Normal [facility] Comment on above: Performed By: #### C MP, URIC #### [facility] [address] [place] [address] Germán Jaylin Glucose [Mass/Vol] 90 mg/dL Normal 74-106 [facility] Comment on above: Performed By: #### C MP, URIC #### [facility] [address] [place] [address] Germán Jaylin Potassium [Moles/Vol] 4.0 mmol/L Normal 3.4-5.0 [facility] Comment on above: Performed By: #### C MP, URIC #### [facility] [address] [place] [address] Germán Jaylin Protein [Mass/Vol] 8.0 g/dL Normal 6.1-8.2 [facility] Comment on above: Performed By: #### C MP, URIC #### [facility] [address] [place], [place] [address] Germán Jaylin Sodium [Moles/Vol] 141 mmol/L Normal 137-145 [facility] Comment on above: Performed By: #### C MP, URIC #### [facility] [address] [place], [place] [address] Germán Jaylin Urea nitrogen [Mass/Vol] 11.0 mg/dL Normal 7.0-17.0 [facility] Comment on above: Performed By: #### C MP, URIC #### [facility] [address] [place], [place] [address] Germán Jaylin Urea nitrogen/Creatini ne [Mass ratio] 18.0 mg/mg Normal [facility] Comment on above: Performed By: #### C MP, URIC #### [facility] [address] [place], [place] [address] Germán Jaylin SED RATE WESTERGRENon 2020 SED RATE 60 mm/hr Critically high <=20 [facility] Comment on above: Performed By: #### S EDR #### [facility] [address] [place], [place] [address] Germán Jaylin URIC ACID SERUMon 03-24-2021 Urate [Mass/Vol] 4.9 mg/dL Normal 2.5-6.2 [facility] Comment on above: Performed By: #### C MP, URIC #### [facility] [address] [place], [place] [address] Germán Jaylin Coding Summary.on 10-15-2019 Coding Summary. CODING DATE: 020 FINAL [facility] STATUS: Home (Routine DC) PAYOR: Medicaid [...] Date Saved: 10/15/2019 01:45 pm Normal [facility] Auto Diffon 10-08-2019 Basophils/100 WBC (Bld) 0.2 % Normal 0.0-2.0 [facility] Comment on above: Order Comment: Order Added by Discern Expert. Performed By: #### 2 280328, 0512969, [id number], [id number] #### [facility] [address] [place] [address] Basophils/Leukocy cj Auto (Bld) [Pure # fraction] 0.0 E9/L Normal 0.0-0.2 [facility] Comment on above: Order Comment: Order Added by Discern Expert. Performed By: #### 2 704448, 4734218, 0889934, [id number] #### [facility] [address] [place] [address] Eosinophils/100 WBC (Bld) 1.0 % Normal 0.0-8.0 [facility] Comment on above: Order Comment: Order Added by Discern Expert. Performed By: #### 2 604714, 4260762, 7922317, [id number] #### [facility] [address] [place] [address] Eosinophils/Leuko cytes Auto (Bld) [Pure # fraction] 0.1 E9/L Normal 0.0-0.5 [facility] Comment on above: Order Comment: Order Added by Discern Expert. Performed By: #### 2 733442, 9695384, 4953337, [id number] #### [facility] [address] [place] [address] Lymphocytes/100 WBC (Bld) 25.0 % Normal 14.0-50.0 [facility] Comment on above: Order Comment: Order Added by Discern Expert. Performed By: #### 2 965500, 2364065, 8922744, 96835173 #### [facility] [address] [place] [address] Lymphocytes/Leuko cytes Auto (Bld) [Pure # fraction] 2.9 E9/L Normal 1.0-4.0 [facility] Comment on above: Order Comment: Order Added by Discern Expert. Performed By: #### 2 519146, 2731367, 8882037, 52505808 #### [facility] [address] [place] [address] Monocytes/100 WBC (Bld) 6.9 % Normal 4.0-14.0 [facility] Comment on above: Order Comment: Order Added by Discern Expert. Performed By: #### 2 236681, 8943898, 0248008, 10246496 #### [facility] [address] [place] [address] Monocytes/Leukocy cj Auto (Bld) [Pure # fraction] 0.8 E9/L Normal 0.2-1.0 [facility] Comment on above: Order Comment: Order Added by Discern Expert. Performed By: #### 2 425560, 9352880, 0055227, 38223270 #### [facility] [address] [place] [address] Neutrophils/100 WBC (Bld) 66.9 % Normal 36.0-75.0 [facility] Comment on above: Order Comment: Order Added by Discern Expert. Performed By: #### 2 983696, 1282032, 1652173, [id number] #### [facility] [address] [place] [address] Neutrophils/Leuko cytes Auto (Bld) [Pure # fraction] 7.9 E9/L High 2.0-7.5 [facility] Comment on above: Order Comment: Order Added by Discern Expert. Performed By: #### 2 941944, 5818616, 4211527, 29513976 #### [facility] [address] [place] [address] BMPon 10-08-2019 Creatinine [Mass/Vol] 0.6 mg/dL Normal 0.5-1.3 [facility] Comment on above: Performed By: #### 2 759828, 7805354, 6333428, 96310689 #### [facility] [address] [place] [address] Urea nitrogen [Mass/Vol] 12 mg/dL Normal 5-21 [facility] Comment on above: Performed By: #### 2 106425, 3348549, 2289126, 83627882 #### [facility] [address] [place] [address] Urea nitrogen/Creatini ne [Mass ratio] 20 No Units Normal 10-20 [facility] Comment on above: Performed By: #### 2 649973, 2496283, 9118221, 37878013 #### [facility] [address] [place] [address] Anion gap [Moles/Vol] 15 mmol/L Normal 6-16 [facility] Comment on above: Performed By: #### 2 065424, 5594082, 0676312, 65570426 #### [facility] [address] [place] [address] Calcium [Mass/Vol] 9.5 mg/dL Normal 8.9-11.1 [facility] Comment on above: Performed By: #### 2 062290, 2160334, 7622007, 12358144 #### [facility] [address] [place] [address] Chloride [Moles/Vol] 102 mmol/L Normal 101-111 [facility] Comment on above: Performed By: #### 2 115347, 1347589, 1841059, 62888395 #### [facility] [address] [place] [address] CO2 [Moles/Vol] 21 mmol/L Normal 21-31 [facility] Comment on above: Performed By: #### 2 703539, 1680709, 0595572, 18018886 #### [facility] [address] [place] [address] Glucose [Mass/Vol] 88 mg/dL Normal 55-199 [facility] Comment on above: Result Comment: If t his glucose result represents a fasting glucose, interpretation should refer to the following reference range: 55-99 mg/dL Performed By: #### 2 978635, 6217775, 2426216, 46335372 #### [facility] [address] [place] [address] Potassium [Moles/Vol] 4.1 mmol/L Normal 3.5-5.3 [facility] Comment on above: Performed By: #### 2 434683, 0181324, 8818398, 17285202 #### [facility] [address] [place] [address] Sodium [Moles/Vol] 134 mmol/L Low 135-145 [facility] Comment on above: Performed By: #### 2 702103, 4288301, 1730234, 17120255 #### [facility] [address] [place] [address] CBC w/ Auto Diffon 0 Erythrocyte distribution width (RBC) [Ratio] 13.7 % Normal 10.9-14.2 [facility] Comment on above: Performed By: #### 2 697982, 6532683, 5648678, 97423609 #### [facility] [address] [place] [address] Hematocrit (Bld) [Volume fraction] 44.6 % Normal 34.0-46.0 [facility] Comment on above: Performed By: #### 2 014198, 3152315, 2145817, 92262298 #### [facility] [address] [place] [address] Hemoglobin (Bld) [Mass/Vol] 15.3 g/dL Normal 12.0-16.0 [facility] Comment on above: Performed By: #### 2 507794, 0648002, 8448625, 85126428 #### [facility] [address] [place] [address] MCH (RBC) [Entitic mass] 32.6 pg Normal 27.0-34.0 [facility] Comment on above: Performed By: #### 2 839109, 5006582, 4895226, 50599912 #### [facility] [address] [place] [address] MCHC (RBC) [Mass/Vol] 34.4 g/dL Normal 31.4-36.0 [facility] Comment on above: Performed By: #### 2 795263, 6524143, 8012515, 20461045 #### [facility] [address] [place] [address] MCV (RBC) [Entitic vol] 94.9 fL Normal 80.0-100.0 [facility] Comment on above: Performed By: #### 2 501741, 6169056, 1251589, 24642055 #### [facility] [address] [place] [address] Platelet mean volume (Bld) [Entitic vol] 7.2 fL Normal 6.4-10.8 [facility] Comment on above: Performed By: #### 2 268127, 8187501, 1733857, 32256641 #### [facility] [address] [place] [address] Platelets (Bld) [#/Vol] 361.0 E9/L Normal 150.0-500.0 [facility] Comment on above: Performed By: #### 2 923128, 6543664, 7910212, 39675955 #### [facility] [address] [place] [address] RBC (Bld) [#/Vol] 4.7 E12/L Normal 4.3-5.9 [facility] Comment on above: Performed By: #### 2 638227, 1528717, 8107311, 96142294 #### [facility] [address] [place] [address] WBC corrected for nucl RBC Auto (Bld) [#/Vol] 11.8 E9/L High 4.0-11.0 [facility] Comment on above: Performed By: #### 2 219730, 0575005, 6391673, 75928712 #### [facility] [address] [place] [address] ED Clinical Summaryon 2019 ED Clinical Summary [address] [address] ED Clinical Summary Person Information Name: MAGGIE DEL ROSARIO [place] Age: 43 Years : 1975 Sex: Female Language: Welsh PCP: Rajesh Solo DO Marital Status: Phone: [phone] Visit Id: Visit Reason: Vomiting; Abdominal pain; [...] 10/08/2019 13:21:31 10/08/2019 13:21:31 10/08/2019 13:21:31 ADDRESS: [address] [place] [id number] PHYS DOC NOTES: MEDICAL INFORMATION: Prescriptions Given: [facility], [address] [place], [place] [id number], [phone] sucralfate (Carafate 1 g/10 mL Susp-Oral) 10 Milliliter By Mouth 4 times a day for 7 Days. Refills: 0. PATIENT EDUCATION INFORMATION: Instructions: Gastritis, Adult; Abdominal Pain, Adult Follow up: With: Address: When: [facility], [address] [place] [address] Business (1) In 3 days 10/11/2019 With: Address: When: [facility] [address] [place], [place] [id number] Business (1) In 3 days 10/11/2019 DIAGNOSIS: Right upper quadrant abdominal pain Normal [facility] ED Note-Physicianon 10-08-19 ED Note-Physician Basic [...] ultrasound was obtained. This is discussed with painting technician as negative for acute findings. Patient [...] day(s), # 280 mL, Refills(s) 0, Pharmacy: [facility], 165, cm, 10/08/19 10:25:00 EST, Height/Length [...] Information Yudelka RIOS In 3 days 10/11/2019 [facility] [address] [place] [address]- Business (1) Additional Instructions: Rajesh Solo In 3 days 10/11/[address] [facility] [address] [place] [address]- Business (1) Additional Instructions: Patient Education Gastritis, Adult Abdominal Pain, Adult Attestation Patient seen and evaluated by the physician assistant dean. Attending physician was present in the emergency department and supervised care. This report was transcribed using voice recognition software. Every effort was made to ensure accuracy, however, inadvertently computerized heading machine operator mistakes may be present. Problem List/Past Medical [...] 10:41:00) Lymph Auto: 25 % (10/08/19 10:41:00) [place] Auto: 6.9 % (10/08/19 10:41:00) Eos Auto: 1 % (10/08/19 10:41:00) Basophil Auto: 0.2 % (10/08/19 10:41:00) Neutro Absolute: 7.9 E9/L High (10/08/19 10:41:00) Lymph Absolute: 2.9 E9/L (10/08/19 10:41:00) [place] Absolute: 0.8 E9/L (10/08/19 10:41:00) Eos Absolute: [...] Trevin Esquivel DO 10/08/2019 10:57:10 Normal [facility] Comment on above: Result Comment: Elec [...] discomfort you are experiencing: ? Only take pqsc-uvt-owgpcxd or prescription medicines as directed by your [...] Document Reviewed: 04/23/2014 ExitCare? Patient Information ?2015 [employer]. This information is not intended to replace [...] (NSAIDs). HOME CARE INSTRUCTIONS ? Only take tmoh-ktv-nkxsmru or prescription medicines as directed by your [...] Garlic and onions. ? Spicy foods. ? Velarde fruits, such as oranges, todd, or limes. [...] 02/12/2013 Document Reviewed: 09/26/2012 ExitCare? Patient Information ?2014 OBMedical. This information is not intended to replace advice given to you by your health care provider. Make sure you discuss any questions you have with your health care provider. Normal [facility] ED Patient Summaryon 020 ED Patient Summary [address] [address] Patient Discharge Instructions Person Information Name: MAGGIE DEL ROSARIO Age: 43 Years Arrival Date: 10/08/2019 10:18:57 Discharge Diagnosis: Right upper quadrant abdominal pain Primary Care Physician: Rajesh Solo DO Provider Information Primary Provider: Trevin Esquivel DO Advanced Manager [employer] Sales:Rishi Martinez PA-C The exam and treatment you received in the Emergency Department were for an urgent problem and are not intended as complete care. It is important that you follow up with a doctor, nurse practitioner, or physician?s assistant dean for ongoing care. If your symptoms become worse or you do not improve as expected and you are unable to reach your usual health care provider, you should return to the Emergency Department. We are available 24 hours a day. MAGGIE DEL ROSARIO has been given the following list of patient education materials, prescriptions and follow-up instructions: Follow-up Instructions: With: Address: When: [facility], [address] [place] [address] Business (1) In 3 days 10/11/2019 With: Address: When: Rajesh Solo [address] [place] [address] Business (1) In 3 days 10/11/2019 In the event that this physician does not participate in your insurance network, please consult with your insurance company to find a nearby participating provider. Patient Education Materials: Gastritis, Adult; Abdominal Pain, Adult A MESSAGE TO ALL PATIENTS REGARDING OPIOIDS PRESCRIPTION OPIOIDS: WHAT YOU NEED TO KNOW Prescription opioids can be used to help relieve iystiktt-fv-mvrooo pain and are often prescribed following a [...] be struggling with addiction, tell your health child day care teacher and ask for guidance or call [facility]?S National Helpline at 4-350-339-HELP. v Source: US Department of Health and Human Services/Center for Disease Control & Prevention [facility] Medications Given: Medication Dose Route [...] New Medications [facility], [address], [place] [id number], [phone] sucralfate (Carafate 1 g/10 mL Susp-Oral) 10 Milliliter By Mouth 4 times a day for 7 Days. Refills: 0. Comment: Pharmacy Information: Thank you for choosing [facility] Patient Education Materials: Gastritis, Adult Gastritis [...] (NSAIDs). HOME CARE INSTRUCTIONS ? Only take rhzu-jlw-dzbqzod or prescription medicines as directed by your [...] Garlic and onions. ? Spicy foods. ? [place] fruits, such as oranges, todd, or limes. [...] Document Reviewed: 09/26/2012 ExitCare? Patient Information ?2015 OBMedical. This information is not intended to replace [...] discomfort you are experiencing: ? Only take ogof-fmq-fvrpoaw or prescription medicines as directed by your [...] Document Reviewed: 04/23/2014 ExitCare? Patient Information ?2014 OBMedical. This information is not intended to replace advice given to you by your health care provider. Make sure you discuss any questions you have with your health care provider. MIGUEL ÁNGEL Aguirre LISA L , have received the following patient education materials/instructions and have verbalized understanding: Patient Education Materials: Gastritis, Adult; Abdominal Pain, Adult Follow-up Instructions: With: Address: When: [facility], [address] [address] Business (1) In 3 days 10/11/2019 With: Address: When: [address] [address] Business (1) In 3 days 10/11/2019 Patient Signature Date Clinician/Nurse Signature Date 10/08/2019 13:21:33 Normal [facility] Hep Func Panelon 10-08-2019 Albumin [Mass/Vol] 4.2 g/dL Normal 3.3-5.0 [facility] Comment on above: Performed By: #### 2 355126, 0543708, 9861783, [id number] #### [facility] [address] [place] [address] Albumin [Mass/Vol] 1.2 g/dL Normal 1.1-2.2 [facility] Comment on above: Performed By: #### 2 695384, 6762035, 4014008, 07820579 #### [facility] [address] [place] [address] Bilirubin [Mass/Vol] 0.4 mg/dL Normal 0.0-1.1 [facility] Comment on above: Performed By: #### 2 830992, 6503897, 7299273, 88543887 #### [facility] [address] [place] [address] Bilirubin.direct [Mass/Vol] 0.3 mg/dL Normal 0.1-0.9 [facility] Comment on above: Performed By: #### 2 333386, 3908618, 7334497, 72115205 #### [facility] [address] [place] [address] Globulin (S) [Mass/Vol] 3.6 g/dL Normal 1.4-4.0 [facility] Comment on above: Performed By: #### 2 186180, 9513304, 3266764, 92952821 #### [facility] [address] [place] [address] Protein [Mass/Vol] 7.8 g/dL Normal 6.0-7.8 [facility] Comment on above: Performed By: #### 2 068288, 5182473, 7107642, 85654728 #### [facility] [address] [place] [address] ALP [Catalytic activity/Vol] 77 Int._Unit/L Normal 21-98 [facility] Comment on above: Performed By: #### 2 474235, 1152248, 4850700, 89023672 #### [facility] [address] [place] [address] ALT No additional P-5'-P [Catalytic activity/Vol] 64 Int._Unit/L High 6-46 [facility] Comment on above: Performed By: #### 2 316990, 9058150, 4800526, 16239460 #### [facility] [address] [place] [address] AST [Catalytic activity/Vol] 47 Int._Unit/L High 5-43 [facility] Comment on above: Performed By: #### 2 632065, 6604292, 6048401, 32308184 #### [facility] [address] [place] [address] Bilirubin.direct [Mass/Vol] 0.1 mg/dL Normal 0.1-0.4 [facility] Comment on above: Performed By: #### 2 444342, 1162632, 7590505, 99541415 #### [facility] [address] [place] [address] Lipase Levelon 10-08-2019 Lipase [Catalytic activity/Vol] 50 unit/L Normal 13-58 [facility] Comment on above: Performed By: #### 2 813129, 6312585, 6790443, 04337880 #### [facility] [address] [place] [address] Troponin 0 Hr.on 10-08-2019 Troponin I.cardiac [Mass/Vol] ng/mL Normal <=0.03 [facility] Comment on above: Result Comment: New Troponin Assay 01/09/14 [place] Cutoff value > or = 0.03 ng/mL in conjunction with clinical conditions of myocardial infarction. (www.escardio.org/guidelines) Performed By: #### 2 388800, 2258638, 0042162, 04732012 #### [facility] [address] [place] [address] US Gallbladderon 10-08-2019 US Gallbladder Exam Date/Time: [...] Transcribed by: IMAN Technologist: HW Normal [facility] eGFRon 10-08-2019 GFR/1.73 sq M predicted among blacks MDRD (S/P/Bld) [Vol rate/Area] mL/min/{1.73_m2} Normal >=59 [facility] Comment on above: Order Comment: Order added by Discern Expert. Result Comment: eGFR is race adjusted. AA=. Performed By: #### 2 560120, 3649335, 2622867, 86338078 #### [facility] [address] [place] [address] GFR/1.73 sq M predicted among non-blacks MDRD (S/P/Bld) [Vol rate/Area] mL/min/{1.73_m2} Normal >=59 [facility] Comment on above: Order Comment: Order added by Discern Expert. Result Comment: Radio Sales Account Executive bhavin kidney disease could be indicated at eGFR's of less than 60 mL/min/1.73m2. Kidney failure is indicated at less than 15 mL/min/1.73m2. Performed By: #### 2 237045, 5464376, 4458832, 44492342 #### [facility] [address] [place] [address] Coding Summary.on 12-24-2018 Coding Summary. CODING DATE: 019 FINAL [facility] STATUS: Home (Routine DC) PAYOR: Self Pay APC DESCRIPTION 8002 CT and CTA without Contrast Composite 5022 Level 4 Type A ED Visits ADMIT [...] Date Saved: 12/24/2018 08:11 am Normal [facility] Auto Diffon 12-23-2018 Basophils/100 WBC (Bld) 0.7 % Normal 0.0-2.0 [facility] Comment on above: Order Comment: Order Added by Discern Expert. Performed By: #### 2 420000, 6523738, 1982394, 50938197 #### [facility] [address] [place] [address] Basophils/Leukocy cj Auto (Bld) [Pure # fraction] 0.1 E9/L Normal 0.0-0.2 [facility] Comment on above: Order Comment: Order Added by Discern Expert. Performed By: #### 2 103267, 8037211, 1674238, 15132499 #### [facility] [address] [place] [address] Eosinophils/100 WBC (Bld) 1.1 % Normal 0.0-8.0 [facility] Comment on above: Order Comment: Order Added by Discern Expert. Performed By: #### 2 682951, 1796667, 5611340, 80587358 #### [facility] [address] [place] [address] Eosinophils/Leuko cytes Auto (Bld) [Pure # fraction] 0.1 E9/L Normal 0.0-0.5 [facility] Comment on above: Order Comment: Order Added by Discern Expert. Performed By: #### 2 189537, 9376399, 1528141, 07495637 #### [facility] [address] [place] [address] Lymphocytes/100 WBC (Bld) 37.9 % Normal 14.0-50.0 [facility] Comment on above: Order Comment: Order Added by Discern Expert. Performed By: #### 2 922297, 4876025, 9686807, 78832634 #### [facility] [address] [place] [address] Lymphocytes/Leuko cytes Auto (Bld) [Pure # fraction] 4.2 E9/L High 1.0-4.0 [facility] Comment on above: Order Comment: Order Added by Discern Expert. Performed By: #### 2 589089, 4048183, 0012657, 30767348 #### [facility] [address] [place] [address] Monocytes/100 WBC (Bld) 5.3 % Normal 4.0-14.0 [facility] Comment on above: Order Comment: Order Added by Discern Expert. Performed By: #### 2 378417, 6010356, 9026346, 80204749 #### [facility] [address] [place] [address] Monocytes/Leukocy cj Auto (Bld) [Pure # fraction] 0.6 E9/L Normal 0.2-1.0 [facility] Comment on above: Order Comment: Order Added by Discern Expert. Performed By: #### 2 129416, 7468340, 6448523, 53574294 #### [facility] [address] [place] [address] Neutrophils/100 WBC (Bld) 55.0 % Normal 36.0-75.0 [facility] Comment on above: Order Comment: Order Added by Discern Expert. Performed By: #### 2 051735, 7245912, 9399644, 08527635 #### [facility] [address] [place] [address] Neutrophils/Leuko cytes Auto (Bld) [Pure # fraction] 6.1 E9/L Normal 2.0-7.5 [facility] Comment on above: Order Comment: Order Added by Discern Expert. Performed By: #### 2 899827, 2510767, 5422499, 44718353 #### [facility] [address] [place] [address] BMPon 12-23-2018 Creatinine [Mass/Vol] 0.6 mg/dL Normal 0.5-1.3 [facility] Comment on above: Performed By: #### 2 612807, 7696203, 6948385, 57830000 #### [facility] [address] [place] [address] Urea nitrogen [Mass/Vol] 10 mg/dL Normal 5-21 [facility] Comment on above: Performed By: #### 2 427648, 1517918, 5649750, 88497319 #### [facility] [address] [place] [address] Urea nitrogen/Creatini ne [Mass ratio] 17 No Units Normal 10-20 [facility] Comment on above: Performed By: #### 2 489289, 6005292, 5979945, 06242313 #### [facility] [address] [place] [address] Anion gap [Moles/Vol] 15 mmol/L Normal 6-16 [facility] Comment on above: Performed By: #### 2 206493, 4064523, 2695760, 71206302 #### [facility] [address] [place] [address] Calcium [Mass/Vol] 10.1 mg/dL Normal 8.9-11.1 [facility] Comment on above: Performed By: #### 2 732410, 2178030, 8438433, 69606850 #### [facility] [address] [place] [address] Chloride [Moles/Vol] 99 mmol/L Low 101-111 [facility] Comment on above: Performed By: #### 2 633411, 1962077, 7370663, 82607287 #### [facility] [address] [place] [address] CO2 [Moles/Vol] 22 mmol/L Normal 21-31 [facility] Comment on above: Performed By: #### 2 767049, 2506093, 5329083, 28212314 #### [facility] [address] [place] [address] Glucose [Mass/Vol] 137 mg/dL Normal 55-199 [facility] Comment on above: Result Comment: If t his glucose result represents a fasting glucose, interpretation should refer to the following reference range: 55-99 mg/dL Performed By: #### 2 519996, 7597255, 3975302, 42368989 #### [facility] [address] [place] [address] Potassium [Moles/Vol] 3.1 mmol/L Low 3.5-5.3 [facility] Comment on above: Performed By: #### 2 128007, 4434744, 4414483, 79875050 #### [facility] [address] [place] [address] Sodium [Moles/Vol] 133 mmol/L Low 135-145 [facility] Comment on above: Performed By: #### 2 515815, 7926749, 2686035, 21205455 #### [facility] [address] [place] [address] CBC w/ Auto Diffon 9 Erythrocyte distribution width (RBC) [Ratio] 13.0 % Normal 10.9-14.2 [facility] Comment on above: Performed By: #### 2 288230, 1526556, 4486677, 49670477 #### [facility] [address] [place] [address] Hematocrit (Bld) [Volume fraction] 45.9 % Normal 34.0-46.0 [facility] Comment on above: Performed By: #### 2 004531, 3063588, 0750264, 21290433 #### [facility] [address] [place] [address] Hemoglobin (Bld) [Mass/Vol] 15.7 g/dL Normal 12.0-16.0 [facility] Comment on above: Performed By: #### 2 508160, 5627625, 7818060, 49686424 #### [facility] [address] [place] [address] MCH (RBC) [Entitic mass] 32.8 pg Normal 27.0-34.0 [facility] Comment on above: Performed By: #### 2 926856, 6500490, 2440733, 12690323 #### [facility] [address] [place] [address] MCHC (RBC) [Mass/Vol] 34.2 g/dL Normal 33.3-35.7 [facility] Comment on above: Performed By: #### 2 269209, 5632985, 7219350, 35270245 #### [facility] [address] [place] [address] MCV (RBC) [Entitic vol] 95.9 fL Normal 80.0-100.0 [facility] Comment on above: Performed By: #### 2 481013, 1120851, 9845765, 67495658 #### [facility] [address] [place] [address] Platelet mean volume (Bld) [Entitic vol] 7.5 fL Normal 6.4-10.8 [facility] Comment on above: Performed By: #### 2 166453, 5089877, 1369423, 92786597 #### [facility] [address] [place] [address] Platelets (Bld) [#/Vol] 373.0 E9/L Normal 150.0-500.0 [facility] Comment on above: Performed By: #### 2 201014, 3170811, 1798406, 80973369 #### [facility] [address] [place] [address] RBC (Bld) [#/Vol] 4.8 E12/L Normal 4.3-5.9 [facility] Comment on above: Performed By: #### 2 169591, 9811606, 6134594, 30754128 #### [facility] [address] [place] [address] WBC corrected for nucl RBC Auto (Bld) [#/Vol] 11.2 E9/L High 4.0-11.0 [facility] Comment on above: Performed By: #### 2 264725, 1267528, 8435052, 92731359 #### [facility] [address] [place] [address] CT Head or Brain w/o Contras ton [...] Transcribed by: IMAN Technologist: HAIDER Normal [facility] CT Spine Cervical w/o Contra ston [...] Transcribed by: IMAN Technologist: HAIDER Mcmanus [facility] ED Clinical Summaryon 2018 ED Clinical Summary [place] [id number] ED Clinical Summary Person Information Name: MAGGIE DEL ROSARIO Duyen/[facility] Age: 43 Years : 1975 12:00 AM Sex: Female Language: Welsh PCP: Rajesh Solo DO Marital Status: Single Phone: [phone] Visit Id: Visit Reason: Fall; PT FELL [...] 12/23/2018 3:33 AM 12/23/2018 3:33 AM ADDRESS: [address] [place] [id number] PHYS DOC NOTES: MEDICAL INFORMATION: Prescriptions Given: PATIENT EDUCATION INFORMATION: Instructions: Alcohol Intoxication; Concussion, Adult, Okhv-cr-Rvid; Open Wound, Lip, Vnbh-oq-Euqt; Mouth Laceration, Jvnn-mq-Pcru Follow up: With: Address: When: WHITNEY KENNEDY [address] [place], [place] [id number] Business (1) Within 1 to 2 days, only if needed DIAGNOSIS: 1:Acute alcohol intoxication; 2:Concussion with loss of consciousness <= 30 min; 3:Lip laceration Normal [facility] ED Note-Physicianon 12-24-19 19 ED Note-Physician Basic Information Time Seen: Juan [...] 43-year-old female she is awake and attentive [place] Coma Scale 15. There is a superficial [...] 1 to 2 days, only if needed [address] [place] [address] [facility] (1) Additional Instructions: Patient Education Alcohol Intoxication Concussion, Adult, Uasv-pv-Ojun Open Wound, Lip, Cpwp-bj-Ozoc Mouth Laceration, Hcfo-oj-Zphb Problem List/Past Medical History Ongoing No qualifying [...] Lymph Auto: 37.9 % (12/23/18 01:55:00 EDT) [place] Auto: 5.3 % (12/23/18 01:55:00 EDT) Eos Auto: 1.1 % (12/23/18 01:55:00 EDT) Basophil Auto: 0.7 % (12/23/18 01:55:00 EDT) Neutro Absolute: 6.1 E9/L (12/23/18 01:55:00 EDT) Lymph Absolute: 4.2 E9/L High (12/23/18 01:55:00 EDT) [place] Absolute: 0.6 E9/L (12/23/18 01:55:00 EDT) Eos [...] malalignment Read By: Juan Francisco Munoz MD [facility] Comment on above: Result Comment: Elec tronically Signed By: Juan Francisco Munoz MD\.br\Date and Time Signed: 12/23/18 03:15 EDT ED Patient Education Noteon 12-23-2018 ED Patient Education Note Bizq-fy-Thlz Open Wound, Lip An open wound is [...] Document Reviewed: 11/30/2010 ExitCare? Patient Information ?2015 OBMedical. This information is not intended to replace [...] Tell your teachers, school nurse, school counselor, project coach, head athletic trainer, or farmworker brooder farm about your concussion. Tell them about what [...] Document Reviewed: 03/06/2014 ExitCare? Patient Information ?2015 OBMedical. This information is not intended to replace advice given to you by your health care provider. Make sure you discuss any questions you have with your health care provider. Mouth Laceration A mouth laceration is a cut inside the mouth. HOME CARE ? Rinse your mouth with warm salt water 4 to 6 times a day. ? [place] your teeth as usual if you can. [...] Document Reviewed: 02/16/2012 ExitCare? Patient Information ?2015 OBMedical. This information is not intended to replace [...] yellow. Avoid caffeine. ? ? Only take krqg-eaw-wkrnlfj or prescription medicines as directed by your [...] Document Reviewed: 01/17/2014 ExitCare? Patient Information ?2015 [employer], [employer]. This information is not intended to replace advice given to you by your health care provider. Make sure you discuss any questions you have with your health care provider. Normal [facility] ED Patient Summaryon 019 ED Patient Summary [address] [address] Patient Discharge Instructions Person Information Name: MAGGIE DEL ROSARIO Age: 43 Years Arrival Date: 12/23/2018 1:53 AM Discharge Diagnosis: 1:Acute alcohol intoxication; 2:Concussion with loss of consciousness <= 30 min; 3:Lip laceration Primary Care Physician: Rajesh Solo DO Provider Information Primary Provider: Juan Francisco Munoz MD Advanced Manager [employer] Sales:None The exam and treatment you received in the Emergency Department were for an urgent problem and are not intended as complete care. It is important that you follow up with a doctor, nurse practitioner, or physician?s assistant dean for ongoing care. If your symptoms become [...] Follow-up Instructions: With: Address: When: WHITNEY KENNEDY [address] [place], [place] [phone] [facility] () Within 1 to 2 days, only if needed In the event that this physician does not participate in your insurance network, please consult with your insurance company to find a nearby participating provider. Patient Education Materials: Alcohol Intoxication; Concussion, Adult, Orjj-gx-Eclt; Open Wound, Lip, Kpfv-qt-Yrja; Mouth Laceration, Eqob-ej-Lycv A MESSAGE TO ALL PATIENTS REGARDING OPIOIDS PRESCRIPTION OPIOIDS: WHAT YOU NEED TO KNOW Prescription opioids can be used to help relieve ajmuxflx-us-uooswj pain and are often prescribed following a [...] be struggling with addiction, tell your health child day care teacher and ask for guidance or call [facility] National Helpline at 3-287-668-FCQM. u Source: US Department of Health and Human Services/Center for Disease Control & Prevention [facility] Medications Given: Medication Dose Route No medications found. Medication Information: Comment: Pharmacy Information: Thank you for choosing [facility] Patient Education Materials: Alcohol Intoxication Alcohol [...] yellow. Avoid caffeine. ? ? Only take sowj-zgi-vzccjaz or prescription medicines as directed by your [...] Document Reviewed: 01/17/2014 ExitCare? Patient Information ?2015 O[employer]edical. This information is not intended to replace [...] Tell your teachers, school nurse, school counselor, project coach, head athletic trainer, or farmworker brooder farm about your concussion. Tell them about what [...] Document Reviewed: 03/06/2014 ExitCare? Patient Information ?2015 O[employer]edical. This information is not intended to replace [...] Document Reviewed: 11/30/2010 ExitCare? Patient Information ?2015 O[employer]edical. This information is not intended to replace advice given to you by your health care provider. Make sure you discuss any questions you have with your health care provider. Mouth Laceration A mouth laceration is a cut inside the mouth. HOME CARE ? Rinse your mouth with warm salt water 4 to 6 times a day. ? [place] your teeth as usual if you can. [...] Document Reviewed: 02/16/2012 ExitCare? Patient Information ?2015 OBMedical. This information is not intended to replace advice given to you by your health care provider. Make sure you discuss any questions you have with your health care provider. MIGUEL ÁNGEL Aguirre LISA L , have received the following patient education materials/instructions and have verbalized understanding: Patient Education Materials: Alcohol Intoxication; Concussion, Adult, Pboz-zb-Waza; Open Wound, Lip, Lwdf-ms-Tnfb; Mouth Laceration, Nxta-cl-Jsbt Follow-up Instructions: With: Address: When: WHITNEY KENNEDY [address] [place] [id number] Business (1) Within 1 to 2 days, only if needed Prescriptions: Patient Signature Date Clinician/Nurse Signature Date 12/23/18 03:33:31 Normal [facility] Ethanolon 12-23-2018 Ethanol [Mass/Vol] 268 mg/dL Abnormal <=7 [facility] [facility] Comment on above: Result Comment: Crit ical Result S_ETOH:268.0 Called to [facility] ER by LLOYD ABBOTT And Read Back For Confirmation at: 12/23/2018 02:44:14\Critical Result verified by repeat analysis Performed By: #### 2 [id number] #### [facility] [address] [place] [address] Pre-Arrival Noteon 9 Pre-Arrival Note Pre-Arrival Summary Name: , Current Date: 12/23/2018 01:56:40 EDT Gender: Female Date of : Age: 43 Pre-Arrival Type: EMS ETA: 12/23/2018 02:14:00 EDT Primary Care Physician: Presenting Problem: fall stairs 5min eta Pre-Arrival User: Harry Aragon RN Referring Source: Location: [place] Completion Date/Time: 12/23/18 01:44:[address] [facility] Emergency Department Pre-Hospital Report Form Vital Signs: Pre-Hospital Report: Treatment in Route: Response to Treatment: Misc. Issues: Normal [facility] eGFRon 12-23-2018 GFR/1.73 sq M predicted among blacks MDRD (S/P/Bld) [Vol rate/Area] mL/min/{1.73_m2} Normal >=59 [facility] Comment on above: Order Comment: Order added by Discern Expert. Result Comment: eGFR is race adjusted. AA=. Performed By: #### 2 [id number], [id number], [id number] #### [facility] [address] [place] [address] GFR/1.73 sq M predicted among non-blacks MDRD (S/P/Bld) [Vol rate/Area] mL/min/{1.73_m2} Normal >=59 [facility] Comment on above: Order Comment: Order added by Discern Expert. Result Comment: Radio Sales Account Executive bhavin kidney disease could be indicated at eGFR's of less than 60 mL/min/1.73m2. Kidney failure is indicated at less than 15 mL/min/1.73m2. Performed By: #### 2 [id number] #### [facility] [address] [place] [address] Interval History and Physion 06-06-2017 HIM IP Note OR Administrative Assistant Normal [facility] OPERATIVE REPORTon 7 OPERATIVE REPORT [facility] [address] [place] [address] OPERATIVE REPORTPATIENT NAME: MAGGIE YIP : 1975MED REC NO: [id number] ROOM:ACCOUNT NO: [id number] ADMISSION DATE:06/06/2017PROVIDER: Greg Beltre OF PROCEDURE: 06/06/2017PREOPERATIVE DIAGNOSIS: Painful neuroma, left [...] digits. The procedure wastolerated quite well and [place] was prescribed for pain management withfollowup on Monday in our office.GREG CORONADOD: 06/06/2017 9:38:09 [id number]#: [id number] Doc#: [id number] Normal [facility] Surgical Pathologyon 017 Surgical Pathology (NOTE)[id number] LABORATORIESCONSULTING PATHOLOGISTS CORPORATIONANATOMIC [id number] [place] [address]. [place], [place] [address] Fax: SURGICAL PATHOLOGY CONSULTATIONPatient Name: Carroll YIP Rec: [id number] Number: [id number]: 06/06/2017Received: 06/06/2017Reported: 06/07/2017 11:51-- Diagnosis --SOFT TISSUE, LEFT FOOT: NEUROMA.Mikhail J. Maldonado, MElectronically Signed Out ajb06/07/2017Clinical InformationPre-op Diagnosis: LEFT FOOT NEUROMA Operative Findings: NEUROMA LEFT FOOTOperation Performed: LEFT 3RD SPACE NEUROMA EXCISIONSource of Specimen1: NEUROMA -LEFT FOOT (A)Gross Description MAGGIE YIP, NEUROMA LEFT FOOT 1.5 x 0.8 x 0.6 cm portion offibrofatty tissue. Bisected 1cs. tmMicroscopic DescriptionFibroadipose tissue with entangled appearing nerve tissue showingmyxoid degeneration and perineural fibrosis, compatible withtraumatic-type neuroma. Normal [facility] History and Physicalon 06-05 HIM IP Note OR Administrative Assistant Normal [facility] Basic Metabolic Profon 05-22 (cont.) Normal [facility] Comment on above: Result Comment: Aver age GFR for 40-49 years old: 99 mL/min/1.73sq mChronic Kidney Disease: <60 mL/min/1.73sq mKidney failure: <15 mL/min/1.73sq meGFR calculated using average adult body mass. Additional eGFR calculator available at:http://www.Waveseer.Heartbeat/multiple_crcl_2012.htmPerformed at [facility] [address] [facility] [place] [address] Performed By: #### C BC, BMP ####[facility] [place] [address] Anion gap 14 mmol/L Normal - [facility] Comment on above: Performed By: #### C BC, BMP ####[facility] [place] [address] BUN/CRE Ratio 31 High 9- [facility] Comment on above: Performed By: #### C BC, BMP ####[place] [address] [place] [address] Calcium 9.4 mg/dL Normal 8.6-10.4 [facility] Comment on above: Performed By: #### C BC, BMP ####[facility] [place] [address] Chloride 101 mmol/L Normal 98-107 [facility] Comment on above: Performed By: #### C BC, BMP ####[facility] [place] [address] CO2 22 mmol/L Normal 20-31 [facility] Comment on above: Performed By: #### C BC, BMP ####[facility] [place] [address] Creatinine 0.55 mg/dL Normal 0.50-0.90 [facility] Comment on above: Performed By: #### C BC, BMP ####[facility] [place] [address] eGFR (non-black) mL/min/{1.73_m2} Normal >60 [facility] Comment on above: Performed By: #### C BC, BMP ####[facility] [place] [address] Glucose mass conc 99 mg/dL Normal 70-99 [facility] Comment on above: Performed By: #### C BC, BMP ####[facility] [place] [address] Potassium molar conc 4.3 mmol/L Normal 3.7-5.3 [facility] Comment on above: Performed By: #### C BC, BMP ####[facility] [place] [address] Sodium 137 mmol/L Normal 135-144 [facility] Comment on above: Performed By: #### C BC, BMP ####[facility] [place] [address] Urea nitrogen 17 mg/dL Normal 6-20 [facility] Comment on above: Performed By: #### C BC, BMP ####[facility] [place] [address] Staging: NOT REPORTED Normal [facility] Comment on above: Performed By: #### C BC, BMP ####[facility] [place] [address] CBCon 05-22-2017 Erythrocyte distribution width Auto Ratio (RBC) 13.1 % Normal 12.1-15.2 [facility] Comment on above: Performed By: #### C BC, BMP ####[facility] [place] [address] Erythrocytes (RBC) 4.59 10*6/uL Normal 4.0-5.2 [facility] Comment on above: Performed By: #### C BC, BMP ####[facility] [place] [address] Hematocrit (HCT) 42.8 % Normal 36-46 [facility] Comment on above: Performed By: #### C BC, BMP ####[facility] [place] [address] Hemoglobin mass conc (Bld) 14.6 g/dL Normal 12.0-16.0 [facility] Comment on above: Performed By: #### C BC, BMP ####[facility] [place] [address] MCH 31.9 pg Normal 26-34 [facility] Comment on above: Performed By: #### C BC, BMP ####[facility] [place] [address] MCHC mass conc (RBC) 34.2 g/dL Normal 31-37 [facility] Comment on above: Performed By: #### C BC, BMP ####[facility] [place] [address] MCV 93.3 fL Normal 80-100 [facility] Comment on above: Performed By: #### C BC, BMP ####[facility] [address] Platelets 366 10*3/uL Normal 140-450 [facility] Comment on above: Result Comment: Perf ormed at [facility] [address] [place] [address] Performed By: #### C BC, BMP ####[facility] [address] WBC (Leukocytes) 9.3 10*3/uL Normal 3.5-11.0 [facility] Comment on above: Performed By: #### C BC, BMP ####[facility] [place] [address] Platelet mean volume (PMV) NOT REPORTED Normal 6.0-12.0 [facility] Comment on above: Performed By: #### C BC, BMP ####[facility] [place] [address] Vital Signs Date Time Vital Sign Value Performing Clinician Facility 04-28-2022 15:01-0400 Body height 167.64 cm DO Atooma Work Phone: [facility] 04-28-2022 15:01-0400 Body temperature 97.9 [degF] DO Atooma Work Phone: [facility] 04-28-2022 15:01-0400 Body weight 89.81 kg DO Atooma Work Phone: [facility] 04-28-2022 15:01-0400 Diastolic blood pressure 107 mm[Hg] DO Atooma Work Phone: [facility] 04-28-2022 15:01-0400 Heart rate 113 /min DO Atooma Work Phone: [facility] 04-28-2022 15:01-0400 Respiratory rate 18 /min DO Atooma Work Phone: [facility] 04-28-2022 15:01-0400 SaO2% (BldA) [Mass fraction] 94 % DO Rajesh Solo Work Phone: [facility] 04-28-2022 15:01-0400 Systolic blood pressure 181 mm[Hg] DO Rajesh Solo Work Phone: [facility] 12-31-2021 10:00-0400 Body height 167.64 cm David Valle Other [facility] 12-31-2021 10:00-0400 Body mass index (BMI) [Ratio] 29.86 kg/m2 David Valle Other [facility] 12-31-2021 10:00-0400 Body weight 83.92 kg David Valle Other [facility] 08-04-2021 16:00-0500 Body height 167.64 cm Kenisha Alan Other [facility] Other 08-04-2021 16:00-0500 Body mass index (BMI) [Ratio] 32.12 kg/m2 Kenisha Alan Other [facility] Other 08-04-2021 16:00-0500 Body weight 90.27 kg Kenisha Alan Other [facility] Other Encounters Encounter Date Encounter Type Care Provider Facility Start: 06-04-2023 End: 06-04-2023 Emergency department patient visit Rajesh [place] Facility:[facility] Start: 04-28-2022 End: 04-28-2022 Emergency department patient visit DO Rajesh Solo Work Phone: [facility] Start: 01-06-2022 End: 01-06-2022 ambulatory David Valle Other [facility] Start: 01-06-2022 Telephone encounter David Leblanc [facility] Start: 12-31-2021 End: 12-31-2021 ambulatory David Valle Other [facility] Other Start: 12-31-2021 Office outpatient visit 15 minutes David Valle [facility] Start: 09-14-2021 End: 10-22-[address] RAJESH SOLO Facility:[facility] Start: 09-01-2021 End: 09-01-2021 ambulatory Kenisha Alan Other [facility] Other Start: 09-01-2021 Postop follow up visit related to original px Kenisha Alan [facility] Start: 08-24-2021 End: 08-24-2021 ambulatory Kenisha Alan Other [facility] Other Start: 08-24-2021 Telephone encounter Kenisha VILLEGAS [facility] Start: 08-04-2021 End: 08-04-2021 ambulatory Kenisha Alan Other [facility] Other Start: 08-04-2021 Office outpatient visit 25 minutes Kenisha Alan [facility] Start: 03-29-2021 End: [...] CORONADO Start: 06-06-2017 POST OP SHOE BERNARDINO R IVONNE Start: 06-06-2017 DISCHARGE PATIENT WILBER CORONADO Start: 06-06-2017 SURGICAL PATHOLOGY SELENE CORONADO Start: 05-22-2017 BASIC METABOLIC PANEL C LUCY CORONADO Start: 05-22-2017 CBC BERNARDINO CORONADO Plan of Treatment Date Care Activity Detail Author Patient Education Crush Injury (DC) [facility] Work Phone: Patient referral [facility] Work Phone: Payers Date Payer Category Payer Medicaid [id number] 2023 Self-pay [id number] 2014 Unknown [id number] 1975 Unknown [id number] 2.16.84 [id number] 1975 Unknown [id number] 2.16.84 [id number] 1975 Unknown [id number] 2.16.84 [id number] 1959 Unknown [id number] Unknown [id number] 2.16.8 [id number] Worker's Compensation [id number] Social History Date Type Detail Facility Sex Assigned At [facility] Other Start: 04-28-2022 Tobacco smoking stat [facility] Smoker (finding) [facility] Start: 1975 Sex Assigned At Female F [facility] Evaluation note 12-31-2021 Note Date & Type Note Facility 12-31-2021 Evaluation note Encounter Date Diagnosis Assessment Notes December, Small bowel obstruction (ICD-10 - K56.609) December, Diverticulitis (ICD-10 - K57.92) START MESALAMINE 1.2 GRAM 4 PO Q AM PATIENT ENCOURAGED TO STOP SMOKING RTO 6 WEEKS [facility] Other Evaluation note 09-01-2021 Note Date & [...] for removal of sutures (ICD-10 - Z48.02) [facility] Other Evaluation note 08-04-2021 Note Date & [...] done prior to surgical procedure to limit ken-operative risks. I have discussed the planned procedure, how and who performs the procedure, and the personnel involved. Cardiovascular, pulmonary, and other life threatening episodes can occur during surgery although there is a low risk of these happening. Surgical risks including bleeding, neurovascular injury, wound closure problems and infection were discussed. Ken-operative risks including infection, bleeding, wound healing problems, [...] poor healing. I have advised against the supervisor intermediates use of narcotic pain medication. I have [...] as documented in the electronic medical record. [facility] Other Clinical Note 03-25-2021 Note Date & [...] by: MARGRET DOMINGO Date: 2021-03-25 07:50 [facility] Evaluation note Note Date & Type Note Facility Evaluation note No Information [facility] Other Evaluation note Note Date & Type Note Facility Evaluation note No assessment information availa ble [facility] Work Phone: History general Narrative - Reported Note Date & Type Note Facility History general Narrative - Reported Type Medical History diverticulitis Medical History irritable bowel syndrome Surgical History hysterectomy Surgical History gallbladder Surgical History neuroma removal x2 in left foot Hospitalization History PANCREATITIS 02/2020 Hospitalization History PANCREATITIS 2018 Hospitalization History ABDOMINAL PAIN Hospitalization History PANCREATITIS [facility] Other History general Narrative - Reported Note Date & Type Note Facility History general Narrative - Reported Type Medical History diverticulitis Medical History irritable bowel syndrome Surgical History hysterectomy Surgical History gallbladder Surgical History neuroma removal x2 in left foot Surgical History right knee scope med ial/lateral menisectemy Hospitalization History PANCREATITIS 02/2020 Hospitalization History PANCREATITIS 2018 Hospitalization History ABDOMINAL PAIN Hospitalization History PANCREATITIS [facility] Other Hospital Discharge instructions Note Date & [...] your hand is not improving please call [facility] to follow-up with a hand surgeon You can also follow-up with [facility] as needed for minor concerns Return to the ER for more severe pain loss of circulation in your fingers or any other concerns [facility] Work Phone: Summary Purpose Family [...] Chief Complaint rt hand caught in pi ar[place] bar i01 Additional Source Comments INFORMATION SOURCE (unrecogn ized section and content) DATE CREATED AUTHOR 02/23/2018 Sindy mckenna DATE CREATED AUTHOR AUTHOR'S ORGANIZ ATION 10/15/2019 [facility] DATE CREATED AUTHOR AUTHOR'S ORGANIZ ATION 10/29/2021 [facility] DATE CREATED AUTHOR AUTHOR'S ORGANIZ ATION 06/15/2023 [facility] REASON FOR VISIT (unrecogniz ed section and content) INCISION BLEEDINGRight Knee PainRecheck Right KneeINPATIENT FOLLOW UP-TO BE SEEN IN [address] VALLE FOR DIVERTICULITIS/ BOWEL OBSTRUCTION, SHE FISNISHED ANTIBIOTICS INSTRUCTED SHE IS STARTING TO FEEL BETTERclinical Care Teams (unrecognized sec tion and content) Team Status: Inactive Member Role Status Dates Rajesh Solo , Primary Care Provider Active Danica Nuñez [facility] Emergency Provider Active Team Status: Active Member Role Status Dates Rajesh Solo , DO Primary Care Provider Active Goals (unrecognized section [...] BE BASED ON THE PRIMARY CLINICAL RECORDS. [employer] provides no warranty or guarantee of the accuracy or completeness of information in this document.
== END 2023-12-11 09:31 | disposition home or self-care (01) ==
LOC: EC 09:30
PROVIDERS: PCP Nurse Practitioner Family; Visit Provider Orthopaedic Surgery
DX: S52.572D Other intraarticular fracture of lower end of left radius, subsequent encounter for closed fracture with routine healing (principal); S52.602D Unspecified fracture of lower end of left ulna, subsequent encounter for closed fracture with routine healing
CPT/HCPCS: 73110

== ENCOUNTER 2024-01-29 08:55 | Outpatient (OUT) | payer OTHER, SELFPAY ==
--- NOTE | 2024-01-29 | XR_ITS ---
The [address] [address] Patient Name: DAMION SARAVIA MRN: [id number] date: 1975 Sex: F Assigned Patient Location: Current Patient Location: Accession/Order Number: [id number] Exam Date: 01/29/2024 08:58 Report Date: 01/29/2024 13:35 At the request of: MARGRET PAEZ Procedure: XR wrist LT min 3V PROCEDURE: XR wrist LT min 3V HISTORY: LEFT WRIST PAIN COMPARISON: XR wrist left 12/11/2023 FINDINGS: BONES:Prior mechanical fusion of distal radius and ulna with incomplete osseous fusion at the fracture lines. No significant callus formation. SOFT TISSUES:No visible soft tissue swelling. EFFUSION:None visible. OTHER: Negative. XR/XR wrist LT min 3V IMPRESSION: 1. Stable postoperative repair of distal radius and ulna without appreciable change or evidence of early osseous healing. Electronically authenticated by: MARGRET DOMINGO Date: 01/29/2024 13:35
--- OUTSIDE RECORDS SUMMARY | 2024-01-29 09:22 | XMS_ITS | CCD ---
Author Organization [facility] Care Team Providers Care Steeplechase Jockey Name Role Phone GREG CORONADO Unavailable Unavailabl [...] Admitting Unavailable GERMANIA, DR HACKETT Attending Unavailable BRANDEIS, DR HACKETT Consulting Unavailable GERMANIA, DR HACKETT Primary Care Unavailable JOSE L, DR MARGRET Torres Consulting Unavailable BRANDEIS, DR HACKETT Primary Care Unavailable BRANDEIS, DR HACKETT Admitting Unavailable BRANDEIS, DR HACKETT Attending Unavailable BRANDEIS, DR HACKETT Consulting Unavailable Kenisha Alan Unavailable David Valle Unavailable DO Rajesh Solo Primary Care Provider Joaquin [facility] Danica Mueller Emergency Provider 1( [phone] Rajesh Solo Primary Care Unavailable Mable Curtis [...] January 13, 2022 3:10pm polyethylene glycol 3350 21029 mg powder for oral solution (2 sources) [...] 3V*on 023 XR foot LT min 3V* [facility] [place] [address] XRay Report Signed Patient: Maggie Yip MR#: [id number] 9 : 1975 Acct:[id number] Age/Sex: 47 / F ADM Date: 06/04/23 Loc: ER Room: Type: [facility] ER Attending Dr: Copies to: Mable Curtis [...] M.D.06/04/2023 12:32 PM Dictation Location: [place] [address] Transcribed By: [facility] 06/04/23 1232 Dictated By: Jaylin Magallanes MD 06/04/23 1231 Signed By: 06/04/23 1232 [facility] CYCLIC CITRULLINATED PEPTIDE AB (CCP)on 04-01-2021 CCP Antibodies IgG/IgA 5 units Normal 0-19 [facility] Comment on above: Result Comment: Nega tive <20 Weak positive 20 - 39 Moderate positive 40 - 59 Strong positive >59 Performed By: #### C CPAB #### [facility] [address] [address] Germán Mosqueda TAMI by IFAon 03-25-2021 Antinuclear Antibodies, IFA Negative Normal [facility] Comment on above: Result Comment: Nega tive <1:80 Borderline 1:80 Positive >1:80 ICAP nomenclature: AC-0 For more information about Hep-2 cell patterns use ANApatterns.org, the official website for the International Consensus on Antinuclear Antibody (TAMI) Patterns (ICAP). Performed By: #### A NAMARYA #### [facility] [address] [place], [place] [address] Germán Jaylin RHEUMATOID FACTORon 03-25-20 RA Latex Turbid. <10.0 Normal 0.0-13.9 [facility] Comment on above: Performed By: #### R F #### [facility] [address] [place], [place] [address] Germán Jaylin CBC AUTO DIFFon 03-24-2021 BASO # 0.1 103/ul Normal 0.0-0.1 [facility] Comment on above: Performed By: #### C BC #### [facility] [address] [place], [place] [address] Germán Mosqueda Basophils/100 WBC (Bld) 0.6 % Normal 0.2-2.0 [facility] Comment on above: Performed By: #### C BC #### [facility] [address] [place] [address] Germán Jaylin EO # 0.1 103/ul Normal 0.0-0.7 [facility] Comment on above: Performed By: #### C BC #### [facility] [address] [place], [place] [address] Germán Mosqueda Eosinophils/100 WBC (Bld) 1.2 % Normal 0.9-7.0 [facility] Comment on above: Performed By: #### C BC #### [facility] [address] [place], [place] [address] Germán Mosqueda Erythrocyte distribution width (RBC) [Ratio] 13.2 % Normal 11.0-15.0 [facility] Comment on above: Performed By: #### C BC #### [facility] [address] [place], [place] [address] Germán Jaylin Hematocrit (Bld) [Volume fraction] 45.3 % Normal 36.0-48.0 [facility] Comment on above: Performed By: #### C BC #### [facility] [address] [place], [place] [address] Germán Jaylin Hemoglobin (Bld) [Mass/Vol] 15.1 g/dL Normal 12.0-16.0 [facility] Comment on above: Performed By: #### C BC #### [facility] [address] [id number] Germánsimone Mosqueda IG # 0.07 10e3/ul Critically high 0.00-0.03 [facility] Comment on above: Performed By: #### C BC #### [facility] [address] [id number] Germán Jaylin IG % 0.6 % Critically high 0.0-0.5 [facility] Comment on above: Performed By: #### C BC #### [facility] [address] [id number] Germán Jaylin LYMPH # 3.4 103/ul Normal 1.2-3.8 [facility] Comment on above: Performed By: #### C BC #### [facility] [address] [place] [address] Germán Mosqueda Lymphocytes/100 WBC (Bld) 30.1 % Normal 20.5-60.0 [facility] Comment on above: Performed By: #### C BC #### [facility] [address] [place], [place] [address] Germánsimone Mosqueda MANUAL DIFF REQ NO Normal [facility] Comment on above: Performed By: #### C BC #### [facility] [address] [place], [place] [address] Germán Jaylin MCH (RBC) [Entitic mass] 31.3 pg Normal 26.7-34.0 [facility] Comment on above: Performed By: #### C BC #### [facility] [address] [place], [place] [address] Germánsimone Mosqueda MCHC (RBC) [Mass/Vol] 33.3 g/dL Normal 29.9-35.2 [facility] Comment on above: Performed By: #### C BC #### [facility] [address] [place], [place] [address] Germán Jaylin MCV (RBC) [Entitic vol] 94.0 fL Normal 81.0-99.0 [facility] Comment on above: Performed By: #### C BC #### [facility] [address] [place], [place] [address] Germán Jaylin MONO # 0.8 103/ul Normal 0.3-0.8 [facility] Comment on above: Performed By: #### C BC #### [facility] [address] [id number] Germán Jaylin Monocytes/100 WBC (Bld) 7.2 % Normal 1.7-12.0 [facility] Comment on above: Performed By: #### C BC #### [facility] [address] [place], [place] [address] Germán Jaylin NEUT # 6.7 103/ul Critically high 1.4-6.5 [facility] Comment on above: Performed By: #### C BC #### [facility] [address] [place], [place] [address] Germánsimone Mosqueda Neutrophils/100 WBC (Bld) 60.3 % Normal 43.0-75.0 [facility] Comment on above: Performed By: #### C BC #### [facility] [address] [place], [place] [address] Germánsimone Guoen Platelet mean volume (Bld) [Entitic vol] 9.0 fL Critically low 9.5-13.5 [facility] Comment on above: Performed By: #### C BC #### [facility] [address] [place], [place] [address] Germán Jaylin PLT 288 103/ul Normal 150-450 [facility] Comment on above: Performed By: #### C BC #### [facility] [address] [place], [place] [address] Germán Jaylin RBC 4.82 106/ul Normal 4.20-5.40 [facility] Comment on above: Performed By: #### C BC #### [facility] [address] [place], [place] [address] Germán Jaylin WBC 11.2 103/ul Critically high 4.0-11.0 [facility] Comment on above: Performed By: #### C BC #### [facility] [address] [place], [place] [address] Germán Jaylin PROF 14(COMP METB)on 021 Albumin [Mass/Vol] 3.8 g/dL Normal 3.5-5.0 [facility] Comment on above: Performed By: #### C MP, URIC #### [facility] [address] [place] [address] Germán Jaylin Albumin/Globulin [Mass ratio] 0.9 {ratio} Normal [facility] Comment on above: Performed By: #### C MP, URIC #### [facility] [address] [place] [address] Germán Jaylin ALP [Catalytic activity/Vol] 109 U/L Normal 38-126 [facility] Comment on above: Performed By: #### C MP, URIC #### [facility] [address] [place] [address] Germán Jaylin ALT [Catalytic activity/Vol] 56 U/L Critically high 9-52 [facility] Comment on above: Performed By: #### C MP, URIC #### [facility] [address] [place] [address] Germán Jaylin Anion gap [Moles/Vol] 17.6 mmol/L Normal [facility] Comment on above: Performed By: #### C MP, URIC #### [facility] [address] [place] [address] Germán Jaylin AST [Catalytic activity/Vol] 36 U/L Normal 14-36 [facility] Comment on above: Performed By: #### C MP, URIC #### [facility] [address] [place] [address] Germán Jaylin Bilirubin [Mass/Vol] 0.3 mg/dL Normal 0.2-1.3 [facility] Comment on above: Performed By: #### C MP, URIC #### [facility] [address] [place], [place] [address] Germán Jaylin Calcium [Mass/Vol] 9.0 mg/dL Normal 8.4-10.2 [facility] Comment on above: Performed By: #### C MP, URIC #### [facility] [address] [place], [place] [address] Germán Jaylin Chloride [Moles/Vol] 104 mmol/L Normal 98-107 [facility] Comment on above: Performed By: #### C MP, URIC #### [facility] [address] [place], [place] [address] Germán Jaylin CO2 [Moles/Vol] 23.4 mmol/L Normal 22.0-30.0 [facility] Comment on above: Performed By: #### C MP, URIC #### [facility] [address] [place], [place] [address] Germán Jaylin Creatinine [Mass/Vol] 0.61 mg/dL Normal 0.52-1.04 [facility] Comment on above: Performed By: #### C MP, URIC #### [facility] [address] [place], [place] [address] Germán Jaylin EGFR-AF DUTCH >60 Normal >=60 [facility] Comment on above: Performed By: #### C MP, URIC #### [facility] [address] [place], [place] [address] Germán Jaylin EGFR-NON AF DUTCH >60 Normal >=60 [facility] Comment on above: Performed By: #### C MP, URIC #### [facility] [address] [place], [place] [address] Germán Jaylin Globulin (S) [Mass/Vol] 4.2 g/dL Normal [facility] Comment on above: Performed By: #### C MP, URIC #### [facility] [address] [place], [place] [address] Germán Jaylin Glucose [Mass/Vol] 90 mg/dL Normal 74-106 [facility] Comment on above: Performed By: #### C MP, URIC #### [facility] [address] [place], [place] [address] Germán Jaylin Potassium [Moles/Vol] 4.0 mmol/L Normal 3.4-5.0 [facility] Comment on above: Performed By: #### C MP, URIC #### [facility] [address] [place], [place] [address] Germán Jaylin Protein [Mass/Vol] 8.0 g/dL Normal 6.1-8.2 [facility] Comment on above: Performed By: #### C MP, URIC #### [facility] [address] [id number] Germán Jaylin Sodium [Moles/Vol] 141 mmol/L Normal 137-145 [facility] Comment on above: Performed By: #### C MP, URIC #### [facility] [address] [place], [place] [address] Germán Jaylin Urea nitrogen [Mass/Vol] 11.0 mg/dL Normal 7.0-17.0 [facility] Comment on above: Performed By: #### C MP, URIC #### [facility] [address] [place], [place] [address] Germán Jaylin Urea nitrogen/Creatini ne [Mass ratio] 18.0 mg/mg Normal [facility] Comment on above: Performed By: #### C MP, URIC #### [facility] [address] [place], [place] [address] Germán Jaylin SED RATE WESTERGRENon 2020 SED RATE 60 mm/hr Critically high <=20 [facility] Comment on above: Performed By: #### S EDR #### [facility] [address] [place], [place] [address] Germán Jaylin URIC ACID SERUMon 03-24-2021 Urate [Mass/Vol] 4.9 mg/dL Normal 2.5-6.2 [facility] Comment on above: Performed By: #### C MP, URIC #### [facility] [address] [place] [address] Germán Mosqueda Coding Summary.on 10-15-2019 Coding Summary. CODING DATE: 020 FINAL [facility] STATUS: Home (Routine DC) PAYOR: Medicaid ADMIT [...] Revised Date Saved: 10/15/2019 01:45 pm Normal [facility] Auto Diffon 10-08-2019 Basophils/100 WBC (Bld) 0.2 % Normal 0.0-2.0 [facility] Comment on above: Order Comment: Order Added by Discern Expert. Performed By: #### 2 152426, 0258704, 0985718, [id number] #### [facility] [address] [place] [address] Basophils/Leukocy cj Auto (Bld) [Pure # fraction] 0.0 E9/L Normal 0.0-0.2 [facility] Comment on above: Order Comment: Order Added by Discern Expert. Performed By: #### 2 771304, 0532377, 1529219, [id number] #### [facility] [address] [place] [address] Eosinophils/100 WBC (Bld) 1.0 % Normal 0.0-8.0 [facility] Comment on above: Order Comment: Order Added by Discern Expert. Performed By: #### 2 793424, 0127825, 9167776, [id number] #### [facility] [address] [place] [address] Eosinophils/Leuko cytes Auto (Bld) [Pure # fraction] 0.1 E9/L Normal 0.0-0.5 [facility] Comment on above: Order Comment: Order Added by Discern Expert. Performed By: #### 2 184153, 4018555, 8258568, [id number] #### [facility] [address] [place] [address] Lymphocytes/100 WBC (Bld) 25.0 % Normal 14.0-50.0 [facility] Comment on above: Order Comment: Order Added by Discern Expert. Performed By: #### 2 891414, 6266300, 0007666, 68680737 #### [facility] [address] [place] [address] Lymphocytes/Leuko cytes Auto (Bld) [Pure # fraction] 2.9 E9/L Normal 1.0-4.0 [facility] Comment on above: Order Comment: Order Added by Discern Expert. Performed By: #### 2 169960, 4657354, 0959596, 38661306 #### [facility] [address] [place] [address] Monocytes/100 WBC (Bld) 6.9 % Normal 4.0-14.0 [facility] Comment on above: Order Comment: Order Added by Discern Expert. Performed By: #### 2 722175, 3308985, 4933037, 56672290 #### [facility] [address] [place] [address] Monocytes/Leukocy cj Auto (Bld) [Pure # fraction] 0.8 E9/L Normal 0.2-1.0 [facility] Comment on above: Order Comment: Order Added by Discern Expert. Performed By: #### 2 576891, 9672356, 4728137, 08658778 #### [facility] [address] [place] [address] Neutrophils/100 WBC (Bld) 66.9 % Normal 36.0-75.0 [facility] Comment on above: Order Comment: Order Added by Discern Expert. Performed By: #### 2 264813, 8538491, 9180804, 39776692 #### [facility] [address] [place] [address] Neutrophils/Leuko cytes Auto (Bld) [Pure # fraction] 7.9 E9/L High 2.0-7.5 [facility] Comment on above: Order Comment: Order Added by Discern Expert. Performed By: #### 2 366105, 3389328, 9362105, 69963539 #### [facility] [address] [place] [address] BMPon 10-08-2019 Creatinine [Mass/Vol] 0.6 mg/dL Normal 0.5-1.3 [facility] Comment on above: Performed By: #### 2 088945, 0840498, 4532953, 03518692 #### [facility] [address] [place] [address] Urea nitrogen [Mass/Vol] 12 mg/dL Normal 5-21 [facility] Comment on above: Performed By: #### 2 861152, 3807506, 2960029, 42629599 #### [facility] [address] [place] [address] Urea nitrogen/Creatini ne [Mass ratio] 20 No Units Normal 10-20 [facility] Comment on above: Performed By: #### 2 966497, 3775766, 6782620, 46628870 #### [facility] [address] [place] [address] Anion gap [Moles/Vol] 15 mmol/L Normal 6-16 [facility] Comment on above: Performed By: #### 2 164938, 3808205, 7262197, 09621121 #### [facility] [address] [place] [address] Calcium [Mass/Vol] 9.5 mg/dL Normal 8.9-11.1 [facility] Comment on above: Performed By: #### 2 735194, 6359170, 0960840, 51500106 #### [facility] [address] [place] [address] Chloride [Moles/Vol] 102 mmol/L Normal 101-111 [facility] Comment on above: Performed By: #### 2 186369, 6333017, 4688539, 01855378 #### [facility] [address] [place] [address] CO2 [Moles/Vol] 21 mmol/L Normal 21-[address] [facility] Comment on above: Performed By: #### 2 736070, 0122136, 2582788, 26566486 #### [facility] [address] [place] [address] Glucose [Mass/Vol] 88 mg/dL Normal 55-199 [facility] Comment on above: Result Comment: If t his glucose result represents a fasting glucose, interpretation should refer to the following reference range: 55-99 mg/dL Performed By: #### 2 794553, 2580035, 6337291, 26381511 #### [facility] [address] [place] [address] Potassium [Moles/Vol] 4.1 mmol/L Normal 3.5-5.3 [facility] Comment on above: Performed By: #### 2 243837, 4307597, 6078220, 01274431 #### [facility] [address] [place] [address] Sodium [Moles/Vol] 134 mmol/L Low 135-145 [facility] Comment on above: Performed By: #### 2 319762, 1289294, 2106761, 35729722 #### [facility] [address] [place] [address] CBC w/ Auto Diffon 0 Erythrocyte distribution width (RBC) [Ratio] 13.7 % Normal 10.9-14.2 [facility] Comment on above: Performed By: #### 2 098394, 2160680, 1815806, 10994840 #### [facility] [address] [place] [address] Hematocrit (Bld) [Volume fraction] 44.6 % Normal 34.0-46.0 [facility] Comment on above: Performed By: #### 2 368596, 5628906, 3621984, 56210022 #### [facility] [address] [place] [address] Hemoglobin (Bld) [Mass/Vol] 15.3 g/dL Normal 12.0-16.0 [facility] Comment on above: Performed By: #### 2 516411, 8715224, 3855999, 49538608 #### [facility] [address] [place] [address] MCH (RBC) [Entitic mass] 32.6 pg Normal 27.0-34.0 [facility] Comment on above: Performed By: #### 2 924878, 0253319, 8804898, 22565735 #### [facility] [address] [place] [address] MCHC (RBC) [Mass/Vol] 34.4 g/dL Normal 31.4-36.0 [facility] Comment on above: Performed By: #### 2 116955, 1935740, 4305203, 46268837 #### [facility] [address] [place] [address] MCV (RBC) [Entitic vol] 94.9 fL Normal 80.0-100.0 [facility] Comment on above: Performed By: #### 2 048268, 6666045, 2304519, 19566274 #### [facility] [address] [place] [address] Platelet mean volume (Bld) [Entitic vol] 7.2 fL Normal 6.4-10.8 [facility] Comment on above: Performed By: #### 2 512350, 5355566, 4709825, 58638055 #### [facility] [address] [place] [address] Platelets (Bld) [#/Vol] 361.0 E9/L Normal 150.0-500.0 [facility] Comment on above: Performed By: #### 2 298745, 8669320, 7681587, 03676927 #### [facility] [address] [place] [address] RBC (Bld) [#/Vol] 4.7 E12/L Normal 4.3-5.9 [facility] Comment on above: Performed By: #### 2 862945, 6403649, 9892392, 22745924 #### [facility] [address] [place] [address] WBC corrected for nucl RBC Auto (Bld) [#/Vol] 11.8 E9/L High 4.0-11.0 [facility] Comment on above: Performed By: #### 2 280640, 9180626, 6428449, 31282347 #### [facility] [address] [place] [address] ED Clinical Summaryon 2019 ED Clinical Summary [address] [address] ED Clinical Summary Person Information Name: MGAGIE DEL ROSARIO [place] Age: 43 Years : 1975 Sex: Female Language: Burundian PCP: Rajesh Solo DO Marital Status: Phone: [phone] Visit Id: Visit Reason: Vomiting; Abdominal pain; [...] 10/08/2019 13:21:31 10/08/2019 13:21:31 10/08/2019 13:21:31 ADDRESS: [address] [place] [id number] PHYS DOC NOTES: MEDICAL INFORMATION: Prescriptions Given: [facility], [address] [place], [place] [id number], [phone] sucralfate (Carafate 1 g/10 mL Susp-Oral) 10 Milliliter By Mouth 4 times a day for 7 Days. Refills: 0. PATIENT EDUCATION INFORMATION: Instructions: Gastritis, Adult; Abdominal Pain, Adult Follow up: With: Address: When: [facility], [address] [place] [address] Business (1) In 3 days 10/11/2019 With: Address: When: [facility] [address] [place] [address] Business (1) In 3 days 10/11/2019 DIAGNOSIS: Right upper quadrant abdominal pain Normal [facility] ED Note-Physicianon 10-08-19 ED Note-Physician Basic [...] ultrasound was obtained. This is discussed with cath laboratory technician as negative for acute findings. [...] day(s), # 280 mL, Refills(s) 0, Pharmacy: [facility], 165, cm, 10/08/19 10:25:00 EST, Height/Length [...] Information Yudelka RIOS In 3 days 10/11/2019 [facility] [address] [place] [address]- Business (1) Additional Instructions: Rajesh Solo In 3 days 10/11/2019 [facility] [address] [place] [address]- Business (1) Additional Instructions: Patient Education Gastritis, Adult Abdominal Pain, Adult Attestation Patient seen and evaluated by the physician surgical assistant certified. Attending physician was present in the emergency department and supervised care. This report was transcribed using voice recognition software. Every effort was made to ensure accuracy, however, inadvertently computerized road design engineer mistakes may be present. Problem List/Past Medical [...] 10:41:00) Lymph Auto: 25 % (10/08/19 10:41:00) [place] Auto: 6.9 % (10/08/19 10:41:00) Eos Auto: 1 % (10/08/19 10:41:00) Basophil Auto: 0.2 % (10/08/19 10:41:00) Neutro Absolute: 7.9 E9/L High (10/08/19 10:41:00) Lymph Absolute: 2.9 E9/L (10/08/19 10:41:00) [place] Absolute: 0.8 E9/L (10/08/19 10:41:00) Eos Absolute: [...] By: Trevin Esquivel DO 10/08/2019 10:57:10 Normal [facility] Comment on above: Result Comment: Elec [...] discomfort you are experiencing: ? Only take mcww-wng-apnojyf or prescription medicines as directed by your [...] Document Reviewed: 04/23/2014 ExitCare? Patient Information ?2015 [employer]. This information is not intended to replace [...] (NSAIDs). HOME CARE INSTRUCTIONS ? Only take fayy-alp-cfzttdh or prescription medicines as directed by your [...] Garlic and onions. ? Spicy foods. ? [place] fruits, such as oranges, todd, or limes. [...] Document Reviewed: 09/26/2012 ExitCare? Patient Information ?2014 [employer]. This information is not intended to replace advice given to you by your health care provider. Make sure you discuss any questions you have with your health care provider. Normal [facility] ED Patient Summaryon 020 ED Patient Summary [address] [address] Patient Discharge Instructions Person Information Name: MAGGIE DEL ROSARIO Age: 43 Years Arrival Date: 10/08/2019 10:18:57 Discharge Diagnosis: Right upper quadrant abdominal pain Primary Care Physician: Rajesh Solo DO Provider Information Primary Provider: Trevin Esquivel DO Advanced Global Account Manager:Rishi Martinez PA-C The exam and treatment you received in the Emergency Department were for an urgent problem and are not intended as complete care. It is important that you follow up with a doctor, nurse practitioner, or physician?s surgical assistant certified for ongoing care. If your symptoms become worse or you do not improve as expected and you are unable to reach your usual health care provider, you should return to the Emergency Department. We are available 24 hours a day. MAGGIE DEL ROSARIO has been given the following list of patient education materials, prescriptions and follow-up instructions: Follow-up Instructions: With: Address: When: [facility] [facility], [address] [place] [address] Business (1) In 3 days 10/11/2019 With: Address: When: Rajesh Solo [address] [place] [address] Business (1) In 3 days 10/11/2019 In the event that this physician does not participate in your insurance network, please consult with your insurance company to find a nearby participating provider. Patient Education Materials: Gastritis, Adult; Abdominal Pain, Adult A MESSAGE TO ALL PATIENTS REGARDING OPIOIDS PRESCRIPTION OPIOIDS: WHAT YOU NEED TO KNOW Prescription opioids can be used to help relieve rlvnzasa-xq-hltnme pain and are often prescribed following a [...] be struggling with addiction, tell your health intensive care specialist and ask for guidance or call [facility]?S National Helpline at 2-665-677-FHCG. v Source: US Department of Health and Human Services/Center for Disease Control & Prevention [facility] Medications Given: Medication Dose Route [...] [facility], [address], [place] [id number], [phone] sucralfate (Carafate 1 g/10 mL Susp-Oral) 10 Milliliter By Mouth 4 times a day for 7 Days. Refills: 0. Comment: Pharmacy Information: Thank you for choosing [facility] Patient Education Materials: Gastritis, Adult Gastritis is [...] (NSAIDs). HOME CARE INSTRUCTIONS ? Only take wbbb-mof-mrtaslu or prescription medicines as directed by your [...] Garlic and onions. ? Spicy foods. ? [place] fruits, such as oranges, todd, or limes. [...] Document Reviewed: 09/26/2012 ExitCare? Patient Information ?2015 Notch. This information is not intended to replace [...] discomfort you are experiencing: ? Only take svwi-azg-fyefmpn or prescription medicines as directed by your [...] Document Reviewed: 04/23/2014 ExitCare? Patient Information ?2014 Notch. This information is not intended to replace advice given to you by your health care provider. Make sure you discuss any questions you have with your health care provider. MIGUEL ÁNGEL Aguirre LISA L , have received the following patient education materials/instructions and have verbalized understanding: Patient Education Materials: Gastritis, Adult; Abdominal Pain, Adult Follow-up Instructions: With: Address: When: [facility], [address] [place] [address] Business (1) In 3 days 10/11/2019 With: Address: When: [address] [address] Business (1) In 3 days 10/11/2019 Patient Signature Date Clinician/Nurse Signature Date 10/08/2019 13:21:33 Normal [facility] Hep Func Panelon 10-08-2019 Albumin [Mass/Vol] 4.2 g/dL Normal 3.3-5.0 [facility] Comment on above: Performed By: #### 2 883661, 5187211, 0404696, [id number] #### [facility] [address] [place] [address] Albumin [Mass/Vol] 1.2 g/dL Normal 1.1-2.2 [facility] Comment on above: Performed By: #### 2 124939, 4986844, 0912040, [id number] #### [facility] [address] [place] [address] Bilirubin [Mass/Vol] 0.4 mg/dL Normal 0.0-1.1 [facility] Comment on above: Performed By: #### 2 960289, 2302803, 7351141, 63777144 #### [facility] [address] [place] [address] Bilirubin.direct [Mass/Vol] 0.3 mg/dL Normal 0.1-0.9 [facility] Comment on above: Performed By: #### 2 523861, 6673113, 4290941, [id number] #### [facility] [address] [place] [address] Globulin (S) [Mass/Vol] 3.6 g/dL Normal 1.4-4.0 [facility] Comment on above: Performed By: #### 2 402700, 0852236, 0487515, 28946667 #### [facility] [address] [place] [address] Protein [Mass/Vol] 7.8 g/dL Normal 6.0-7.8 [facility] Comment on above: Performed By: #### 2 885132, 2237964, 5259525, 75453022 #### [facility] [address] [place], [place] [id number] ALP [Catalytic activity/Vol] 77 Int._Unit/L Normal 21-98 [facility] Comment on above: Performed By: #### 2 026223, 0151916, 4745280, 48418919 #### [facility] [address] [place] [address] ALT No additional P-5'-P [Catalytic activity/Vol] 64 Int._Unit/L High 6-46 [facility] Comment on above: Performed By: #### 2 614929, 7171836, 7420459, 65555214 #### [facility] [address] [place] [address] AST [Catalytic activity/Vol] 47 Int._Unit/L High 5-43 [facility] Comment on above: Performed By: #### 2 896472, 1610860, 2056863, 08062072 #### [facility] [address] [place] [address] Bilirubin.direct [Mass/Vol] 0.1 mg/dL Normal 0.1-0.4 [facility] Comment on above: Performed By: #### 2 303307, 1675389, 6277994, 41304272 #### [facility] [address] [place] [address] Lipase Levelon 10-08-2019 Lipase [Catalytic activity/Vol] 50 unit/L Normal 13-58 [facility] Comment on above: Performed By: #### 2 620952, 1666435, 5753223, 03764520 #### [facility] [address] [place] [address] Troponin 0 Hr.on 10-08-2019 Troponin I.cardiac [Mass/Vol] ng/mL Normal <=0.03 [facility] Comment on above: Result Comment: New Troponin Assay 01/09/14 LAN AL Cutoff value > or = 0.03 ng/mL in conjunction with clinical conditions of myocardial infarction. ([email or web address]/guidelines) Performed By: #### 2 320180, 0933080, 9075224, 89745219 #### [facility] [address] [place] [address] US Gallbladderon 10-08-2019 US Gallbladder Exam Date/Time: [...] MD Transcribed by: IMAN Technologist: HW Normal [facility] eGFRon 10-08-2019 GFR/1.73 sq M predicted among blacks MDRD (S/P/Bld) [Vol rate/Area] mL/min/{1.73_m2} Normal >=59 [facility] Comment on above: Order Comment: Order added by Discern Expert. Result Comment: eGFR is race adjusted. AA=. Performed By: #### 2 595036, 9531014, 6937656, 08082419 #### [facility] [address] [place] [address] GFR/1.73 sq M predicted among non-blacks MDRD (S/P/Bld) [Vol rate/Area] mL/min/{1.73_m2} Normal >=59 [facility] Comment on above: Order Comment: Order added by Discern Expert. Result Comment: Educational Program Assistant bhavin kidney disease could be indicated at eGFR's of less than 60 mL/min/1.73m2. Kidney failure is indicated at less than 15 mL/min/1.73m2. Performed By: #### 2 565327, 8648524, 2868013, 17626785 #### [facility] [address] [place] [address] Coding Summary.on 12-24-2018 Coding Summary. CODING DATE: 019 FINAL [facility] STATUS: Home (Routine DC) PAYOR: Self Pay APC DESCRIPTION 8005 CT and CTA without Contrast Composite 5029 Level 4 Type A ED Visits ADMIT [...] Revised Date Saved: 12/24/2018 08:11 am Normal [facility] Auto Diffon 12-23-2018 Basophils/100 WBC (Bld) 0.7 % Normal 0.0-2.0 [facility] Comment on above: Order Comment: Order Added by Discern Expert. Performed By: #### 2 933778, 5549617, 3933193, 67776163 #### [facility] [address] [place] [address] Basophils/Leukocy cj Auto (Bld) [Pure # fraction] 0.1 E9/L Normal 0.0-0.2 [facility] Comment on above: Order Comment: Order Added by Discern Expert. Performed By: #### 2 225067, 0344072, 6790850, 55265601 #### [facility] [address] [place] [address] Eosinophils/100 WBC (Bld) 1.1 % Normal 0.0-8.0 [facility] Comment on above: Order Comment: Order Added by Discern Expert. Performed By: #### 2 402279, 6541791, 3484631, 90935518 #### [facility] [address] [place] [address] Eosinophils/Leuko cytes Auto (Bld) [Pure # fraction] 0.1 E9/L Normal 0.0-0.5 [facility] Comment on above: Order Comment: Order Added by Discern Expert. Performed By: #### 2 176825, 8859963, 9662589, 27269420 #### [facility] [address] [place] [address] Lymphocytes/100 WBC (Bld) 37.9 % Normal 14.0-50.0 [facility] Comment on above: Order Comment: Order Added by Discern Expert. Performed By: #### 2 906844, 2165573, 0611841, 58019714 #### [facility] [address] [place] [address] Lymphocytes/Leuko cytes Auto (Bld) [Pure # fraction] 4.2 E9/L High 1.0-4.0 [facility] Comment on above: Order Comment: Order Added by Discern Expert. Performed By: #### 2 468488, 4018981, 5945020, 98059563 #### [facility] [address] [place] [address] Monocytes/100 WBC (Bld) 5.3 % Normal 4.0-14.0 [facility] Comment on above: Order Comment: Order Added by Discern Expert. Performed By: #### 2 067806, 9862953, 5021205, 88765256 #### [facility] [address] [place] [address] Monocytes/Leukocy cj Auto (Bld) [Pure # fraction] 0.6 E9/L Normal 0.2-1.0 [facility] Comment on above: Order Comment: Order Added by Discern Expert. Performed By: #### 2 104975, 0329302, 8716220, 97641229 #### [facility] [address] [place] [address] Neutrophils/100 WBC (Bld) 55.0 % Normal 36.0-75.0 [facility] Comment on above: Order Comment: Order Added by Discern Expert. Performed By: #### 2 259263, 8494689, 9445559, 50521002 #### [facility] [address] [place] [address] Neutrophils/Leuko cytes Auto (Bld) [Pure # fraction] 6.1 E9/L Normal 2.0-7.5 [facility] Comment on above: Order Comment: Order Added by Discern Expert. Performed By: #### 2 157148, 5609541, 1703300, 54062937 #### [facility] [address] [place] [address] BMPon 12-23-2018 Creatinine [Mass/Vol] 0.6 mg/dL Normal 0.5-1.3 [facility] Comment on above: Performed By: #### 2 323020, 4159971, 2062105, 86513763 #### [facility] [address] [place] [address] Urea nitrogen [Mass/Vol] 10 mg/dL Normal 5-21 [facility] Comment on above: Performed By: #### 2 418241, 2159956, 2682391, 95495742 #### [facility] [address] [place] [address] Urea nitrogen/Creatini ne [Mass ratio] 17 No Units Normal 10-20 [facility] Comment on above: Performed By: #### 2 338198, 9372186, 1498047, 32115878 #### [facility] [address] [place] [address] Anion gap [Moles/Vol] 15 mmol/L Normal 6-16 [facility] Comment on above: Performed By: #### 2 949479, 9571326, 9623452, 67718033 #### [facility] [address] [place] [address] Calcium [Mass/Vol] 10.1 mg/dL Normal 8.9-11.1 [facility] Comment on above: Performed By: #### 2 329247, 4824691, 5269886, 99284824 #### [facility] [address] [place] [address] Chloride [Moles/Vol] 99 mmol/L Low 101-111 [facility] Comment on above: Performed By: #### 2 968563, 5469566, 0848260, 66952877 #### [facility] [address] [place] [address] CO2 [Moles/Vol] 22 mmol/L Normal 21-[address] [facility] Comment on above: Performed By: #### 2 547587, 6306433, 0889966, 05326570 #### [facility] [address] [place] [address] Glucose [Mass/Vol] 137 mg/dL Normal 55-199 [facility] Comment on above: Result Comment: If t his glucose result represents a fasting glucose, interpretation should refer to the following reference range: 55-99 mg/dL Performed By: #### 2 497931, 2666475, 0359700, 63159710 #### [facility] [address] [place] [address] Potassium [Moles/Vol] 3.1 mmol/L Low 3.5-5.3 [facility] Comment on above: Performed By: #### 2 725955, 5329485, 1741446, 78752258 #### [facility] [address] [place] [address] Sodium [Moles/Vol] 133 mmol/L Low 135-145 [facility] Comment on above: Performed By: #### 2 049923, 7213872, 4954944, 29974237 #### [facility] [address] [place] [address] CBC w/ Auto Diffon 9 Erythrocyte distribution width (RBC) [Ratio] 13.0 % Normal 10.9-14.2 [facility] Comment on above: Performed By: #### 2 103600, 5543058, 5414600, 00987887 #### [facility] [address] [place] [address] Hematocrit (Bld) [Volume fraction] 45.9 % Normal 34.0-46.0 [facility] Comment on above: Performed By: #### 2 012711, 4937192, 3534084, 61413668 #### [facility] [address] [place] [address] Hemoglobin (Bld) [Mass/Vol] 15.7 g/dL Normal 12.0-16.0 [facility] Comment on above: Performed By: #### 2 919146, 0833230, 9042837, 48787836 #### [facility] [address] [place] [address] MCH (RBC) [Entitic mass] 32.8 pg Normal 27.0-34.0 [facility] Comment on above: Performed By: #### 2 991857, 8462803, 4219123, 63327293 #### [facility] [address] [place] [address] MCHC (RBC) [Mass/Vol] 34.2 g/dL Normal 33.3-35.7 [facility] Comment on above: Performed By: #### 2 440268, 0555193, 3039665, 42652315 #### [facility] [address] [place] [address] MCV (RBC) [Entitic vol] 95.9 fL Normal 80.0-100.0 [facility] Comment on above: Performed By: #### 2 784934, 2399013, 2516489, 87191782 #### [facility] [address] [place] [address] Platelet mean volume (Bld) [Entitic vol] 7.5 fL Normal 6.4-10.8 [facility] Comment on above: Performed By: #### 2 841002, 9188683, 1879096, 96247310 #### [facility] [address] [place] [address] Platelets (Bld) [#/Vol] 373.0 E9/L Normal 150.0-500.0 [facility] Comment on above: Performed By: #### 2 046970, 2233090, 2544713, 88469798 #### [facility] [address] [place] [address] RBC (Bld) [#/Vol] 4.8 E12/L Normal 4.3-5.9 [facility] Comment on above: Performed By: #### 2 160180, 5453316, 5810917, 97343132 #### [facility] [address] [place] [address] WBC corrected for nucl RBC Auto (Bld) [#/Vol] 11.2 E9/L High 4.0-11.0 [facility] Comment on above: Performed By: #### 2 985154, 6591435, 5629317, 45638975 #### [facility] [address] [place] [address] CT Head or Brain w/o Contras ton [...] MD Transcribed by: IMAN Technologist: HAIDER Normal [facility] CT Spine Cervical w/o Contra ston [...] MD Transcribed by: IMAN Technologist: HAIDER Mcmanus [facility] ED Clinical Summaryon 2018 ED Clinical Summary [place] [id number] ED Clinical Summary Person Information Name: MAGGIE DEL ROSARIO Duyen/[facility] Age: 43 Years : 1975 12:00 AM Sex: Female Language: Burundian PCP: Rajesh Solo DO Marital Status: Single Phone: [phone] Visit Id: Visit Reason: Fall; PT FELL [...] 12/23/2018 3:33 AM 12/23/2018 3:33 AM ADDRESS: [address] [place] [id number] PHYS DOC NOTES: MEDICAL INFORMATION: Prescriptions Given: PATIENT EDUCATION INFORMATION: Instructions: Alcohol Intoxication; Concussion, Adult, Tvwl-dh-Jiwd; Open Wound, Lip, Xait-ak-Lfhx; Mouth Laceration, Lnvg-vz-Wuqe Follow up: With: Address: When: WHITNEY KENNEDY [address] [place], [place] [address] [id number] Business (1) Within 1 to 2 days, only if needed DIAGNOSIS: 1:Acute alcohol intoxication; 2:Concussion with loss of consciousness <= 30 min; 3:Lip laceration Normal [facility] ED Note-Physicianon 12-24-19 ED Note-Physician Basic [...] 1 to 2 days, only if needed [address] [place], [place] [address]- [facility] (1) Additional Instructions: Patient Education Alcohol Intoxication Concussion, Adult, Cafb-fy-Axza Open Wound, Lip, Rudc-gn-Fibm Mouth Laceration, Hiyd-qh-Rtnz Problem List/Past Medical History Ongoing No qualifying [...] Lymph Auto: 37.9 % (12/23/18 01:55:00 EDT) [place] Auto: 5.3 % (12/23/18 01:55:00 EDT) Eos Auto: 1.1 % (12/23/18 01:55:00 EDT) Basophil Auto: 0.7 % (12/23/18 01:55:00 EDT) Neutro Absolute: 6.1 E9/L (12/23/18 01:55:00 EDT) Lymph Absolute: 4.2 E9/L High (12/23/18 01:55:00 EDT) [place] Absolute: 0.6 E9/L (12/23/18 01:55:00 EDT) Eos [...] malalignment Read By: Juan Francisco Munoz MD [facility] Comment on above: Result Comment: Elec tronically Signed By: Juan Francisco Munoz MD\.br\Date and Time Signed: 12/23/18 03:15 EDT ED Patient Education Noteon 12-23-2018 ED Patient Education Note Nbyb-nx-Eoxn Open Wound, Lip An open wound is [...] Document Reviewed: 11/30/2010 ExitCare? Patient Information ?2015 Notch. This information is not intended to replace [...] Tell your teachers, school nurse, school counselor, ice skating coach, service trainer, or show worker about your concussion. Tell them about [...] Document Reviewed: 03/06/2014 ExitCare? Patient Information ?2015 Notch. This information is not intended to replace advice given to you by your health care provider. Make sure you discuss any questions you have with your health care provider. Mouth Laceration A mouth laceration is a cut inside the mouth. HOME CARE ? Rinse your mouth with warm salt water 4 to 6 times a day. ? [place] your teeth as usual if you can. [...] Document Reviewed: 02/16/2012 ExitCare? Patient Information ?2015 Notch. This information is not intended to replace [...] yellow. Avoid caffeine. ? ? Only take yiqu-asr-vsnhicd or prescription medicines as directed by your [...] Document Reviewed: 01/17/2014 ExitCare? Patient Information ?2015 Notch. This information is not intended to replace advice given to you by your health care provider. Make sure you discuss any questions you have with your health care provider. Normal [facility] ED Patient Summaryon 04-28-2 019 ED Patient Summary [address] [address] Patient Discharge Instructions Person Information Name: MAGGIE DEL ROSARIO Age: 43 Years Arrival Date: 12/23/2018 1:53 AM Discharge Diagnosis: 1:Acute alcohol intoxication; 2:Concussion with loss of consciousness <= 30 min; 3:Lip laceration Primary Care Physician: Rajesh Solo DO Provider Information Primary Provider: Juan Francisco Munoz MD Advanced Global Account Manager:None The exam and treatment you received in the Emergency Department were for an urgent problem and are not intended as complete care. It is important that you follow up with a doctor, nurse practitioner, or physician?s surgical assistant certified for ongoing care. If your symptoms become [...] Follow-up Instructions: With: Address: When: WHITNEY KENNEDY [address] [place], [place] [phone] Business (1) Within 1 to 2 days, only if needed In the event that this physician does not participate in your insurance network, please consult with your insurance company to find a nearby participating provider. Patient Education Materials: Alcohol Intoxication; Concussion, Adult, Iewg-uh-Bkwz; Open Wound, Lip, Exgy-st-Iddm; Mouth Laceration, Mary-st-Pnto A MESSAGE TO ALL PATIENTS REGARDING OPIOIDS PRESCRIPTION OPIOIDS: WHAT YOU NEED TO KNOW Prescription opioids can be used to help relieve cjifgwcx-mm-pkeyzm pain and are often prescribed following a [...] be struggling with addiction, tell your health intensive care specialist and ask for guidance or call [facility] National Helpline at 1-919-543-MVKK. c Source: US Department of Health and Human Services/Center for Disease Control & Prevention [facility] Medications Given: Medication Dose Route No medications found. Medication Information: Comment: Pharmacy Information: Thank you for choosing [facility] Patient Education Materials: Alcohol Intoxication Alcohol intoxication [...] yellow. Avoid caffeine. ? ? Only take eoha-qer-oemmyba or prescription medicines as directed by your [...] Document Reviewed: 01/17/2014 ExitCare? Patient Information ?2015 Notch. This information is not intended to replace [...] Tell your teachers, school nurse, school counselor, ice skating coach, service trainer, or show worker about your concussion. Tell them about [...] Document Reviewed: 03/06/2014 ExitCare? Patient Information ?2015 Notch. This information is not intended to replace [...] Document Reviewed: 11/30/2010 ExitCare? Patient Information ?2015 Notch. This information is not intended to replace advice given to you by your health care provider. Make sure you discuss any questions you have with your health care provider. Mouth Laceration A mouth laceration is a cut inside the mouth. HOME CARE ? Rinse your mouth with warm salt water 4 to 6 times a day. ? [place] your teeth as usual if you can. [...] Document Reviewed: 02/16/2012 ExitCare? Patient Information ?2015 Notch. This information is not intended to replace advice given to you by your health care provider. Make sure you discuss any questions you have with your health care provider. MIGUEL ÁNGEL Aguirre LISA L , have received the following patient education materials/instructions and have verbalized understanding: Patient Education Materials: Alcohol Intoxication; Concussion, Adult, Qskd-nf-Aglw; Open Wound, Lip, Alja-oq-Ghrb; Mouth Laceration, Hous-ox-Fyou Follow-up Instructions: With: Address: When: WHITNEY KENNEDY [address] [facility] [place], [place] [phone] Business (1) Within 1 to 2 days, only if needed Prescriptions: Patient Signature Date Clinician/Nurse Signature Date 12/23/18 03:33:31 Normal [facility] Ethanolon 12-23-2018 Ethanol [Mass/Vol] 268 mg/dL Abnormal <=7 [facility] Comment on above: Result Comment: Nano ical Result S_ETOH:268.0 Called to [facility] AT ER by LLOYD ABBOTT And Read Back For Confirmation at: 12/23/2018 02:44:14\Critical Result verified by repeat analysis Performed By: #### 2 [id number] #### [facility] [address] [place] [address] Pre-Arrival Noteon 9 Pre-Arrival Note Pre-Arrival Summary Name: , Current Date: 12/23/2018 01:56:40 EDT Gender: Female Date of : Age: 43 Pre-Arrival Type: EMS ETA: 12/23/2018 02:14:00 EDT Primary Care Physician: Presenting Problem: fall stairs 5min eta Pre-Arrival User: Harry Aragon RN Referring Source: Location: [place] Completion Date/Time: 12/23/18 01:44:00 [facility] Emergency Department Pre-Hospital Report Form Vital Signs: Pre-Hospital Report: Treatment in Route: Response to Treatment: Misc. Issues: Normal [facility] eGFRon 12-23-2018 GFR/1.73 sq M predicted among blacks MDRD (S/P/Bld) [Vol rate/Area] mL/min/{1.73_m2} Normal >=59 [facility] Comment on above: Order Comment: Order added by Discern Expert. Result Comment: eGFR is race adjusted. AA=. Performed By: #### 2 605362, 0543358, 2905266, [id number] #### [facility] [address] [place] [address] GFR/1.73 sq M predicted among non-blacks MDRD (S/P/Bld) [Vol rate/Area] mL/min/{1.73_m2} Normal >=59 [facility] Comment on above: Order Comment: Order added by Discern Expert. Result Comment: Educational Program Assistant bhavin kidney disease could be indicated at eGFR's of less than 60 mL/min/1.73m2. Kidney failure is indicated at less than 15 mL/min/1.73m2. 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 The procedure wastolerated quite well and [place] was prescribed for pain management withfollowup on Monday in our office.GREG CORONADOD: 06/06/2017 9:38:09 [id number]#: [id number] Doc#: [id number] Normal [facility] Surgical Pathologyon 017 Surgical Pathology (NOTE)[id number] LABORATORIESCONSULTING PATHOLOGISTS [facility] [id number] [place] [address]. [place], [place] [address] Fax: SURGICAL PATHOLOGY CONSULTATIONPatient Name: Carroll YIP Rec: [id number] Number: [id number]: 06/06/2017Received: 06/06/2017Reported: 06/07/2017 11:51-- Diagnosis --SOFT TISSUE, LEFT FOOT: NEUROMA.Maxi VillarrealElectronically Signed Out ajb06/07/2017Clinical InformationPre-op Diagnosis: LEFT FOOT NEUROMA Operative Findings: NEUROMA LEFT FOOTOperation Performed: LEFT 3RD SPACE NEUROMA EXCISIONSource of Specimen1: NEUROMA -LEFT FOOT (A)Gross Description MAGGIE YIP, NEUROMA LEFT FOOT 1.5 x 0.8 x 0.6 cm portion offibrofatty tissue. Bisected 1cs. tmMicroscopic DescriptionFibroadipose tissue with entangled appearing nerve tissue showingmyxoid degeneration and perineural fibrosis, compatible withtraumatic-type neuroma. Normal [facility] History and Physicalon 06-05 HIM IP Note OR [employer] Normal [facility] Basic Metabolic Profon 05-22 (cont.) Normal [facility] Comment on above: Result Comment: Aver age GFR for 40-49 years old: 99 mL/min/1.73sq mChronic Kidney Disease: <60 mL/min/1.73sq mKidney failure: <15 mL/min/1.73sq meGFR calculated using average adult body mass. Additional eGFR calculator available at:http://www.[employer]/multiple_crcl_2012.htmPerformed at [facility] [address] [place] [address] Performed By: #### C BC, BMP ####[facility] [address] Anion gap 14 mmol/L Normal - [facility] Comment on above: Performed By: #### C BC, BMP ####[facility] [place] [address] BUN/CRE Ratio 31 High - [facility] Comment on above: Performed By: #### C BC, BMP ####[facility] [place] [address] Calcium 9.4 mg/dL Normal 8.6-10.4 [facility] Comment on above: Performed By: #### C BC, BMP ####[facility] [place] [address] Chloride 101 mmol/L Normal 98-107 [facility] Comment on above: Performed By: #### C BC, BMP ####[facility] [place] [address] CO2 22 mmol/L Normal 20-31 [facility] Comment on above: Performed By: #### C BC, BMP ####[facility] [place] [address] Creatinine 0.55 mg/dL Normal 0.50-0.90 [facility] Comment on above: Performed By: #### C BC, BMP ####[facility] [place] [address] eGFR (non-black) mL/min/{1.73_m2} Normal >60 [facility] Comment on above: Performed By: #### C BC, BMP ####[facility] [place] [address] Glucose mass conc 99 mg/dL Normal 70-99 [facility] Comment on above: Performed By: #### C BC, BMP ####[facility] [place] [address] Potassium molar conc 4.3 mmol/L Normal 3.7-5.3 [facility] Comment on above: Performed By: #### C BC, BMP ####[facility] [place] [address] Sodium 137 mmol/L Normal 135-144 [facility] Comment on above: Performed By: #### C BC, BMP ####[facility] [place] [address] Urea nitrogen 17 mg/dL Normal 6-20 [facility] Comment on above: Performed By: #### C BC, BMP ####[facility] [place] [address] Staging: NOT REPORTED Normal [facility] Comment on above: Performed By: #### C BC, BMP ####[facility] [place] [address] CBCon 05-22-2017 Erythrocyte distribution width Auto Ratio (RBC) 13.1 % Normal 12.1-15.2 [facility] Comment on above: Performed By: #### C BC, BMP ####[facility] [place] [address] Erythrocytes (RBC) 4.59 10*6/uL Normal 4.0-5.2 [facility] Comment on above: Performed By: #### C BC, BMP ####[facility] [place] [address] Hematocrit (HCT) 42.8 % Normal 36-46 [facility] Comment on above: Performed By: #### C BC, BMP ####[facility] [place] [address] Hemoglobin mass conc (Bld) 14.6 g/dL Normal 12.0-16.0 [facility] Comment on above: Performed By: #### C BC, BMP ####[facility] [place] [address] MCH 31.9 pg Normal 26-34 [facility] Comment on above: Performed By: #### C BC, BMP ####[facility] [place] [address] MCHC mass conc (RBC) 34.2 g/dL Normal 31-37 [facility] Comment on above: Performed By: #### C BC, BMP ####[facility] [place] [address] MCV 93.3 fL Normal 80-100 [facility] Comment on above: Performed By: #### C BC, BMP ####[facility] [place] [address] Platelets 366 10*3/uL Normal 140-450 [facility] Comment on above: Result Comment: Perf ormed at [facility] [address] [place], [place] [id number] [phone] Performed By: #### C BC, BMP ####[facility] [place] [address] WBC (Leukocytes) 9.3 10*3/uL Normal 3.5-11.0 [facility] Comment on above: Performed By: #### C BC, BMP ####[facility] [address] Platelet mean volume (PMV) NOT REPORTED Normal 6.0-12.0 [facility] Comment on above: Performed By: #### C BC, BMP ####[facility], [place] [phone]) Vital Signs Date Time Vital Sign Value Performing Clinician Facility 04-28-2022 15:01-0400 Body height 167.64 cm DO Evalve Work Phone: [facility] 04-28-2022 15:01-0400 Body temperature 97.9 [degF] DO [facility] Work Phone: [facility] 04-28-2022 15:01-0400 Body weight 89.81 kg DO Eval[facility] Work Phone: [facility] 04-28-2022 15:01-0400 Diastolic blood pressure 107 mm[Hg] DO [facility] Work Phone: [facility] 04-28-2022 15:01-0400 Heart rate 113 /min DO Evalve Work Phone: [facility] 04-28-2022 15:01-0400 Respiratory rate 18 /min DO Rajesh Solo Work Phone: [facility] 04-28-2022 15:01-0400 SaO2% (BldA) [Mass fraction] 94 % DO Rajesh Solo Work Phone: [facility] 04-28-2022 15:01-0400 Systolic blood pressure 181 mm[Hg] DO Rajesh Solo Work Phone: [facility] 12-31-2021 10:00-0400 Body height 167.64 cm David Valle Other [facility] Other 12-31-2021 10:00-0400 Body mass index (BMI) [Ratio] 29.86 kg/m2 David Valle Other [facility] Other 12-31-2021 10:00-0400 Body weight 83.92 kg David Valle Other [facility] Other 08-04-2021 16:00-0500 Body height 167.64 cm Kenisha Alan Other [facility] Other 08-04-2021 16:00-0500 Body mass index (BMI) [Ratio] 32.12 kg/m2 Kenisha Alan Other [facility] Other 08-04-2021 16:00-0500 Body weight 90.27 kg Kenisha Alan Other [facility] Other Encounters Encounter Date Encounter Type Care Provider Facility Start: 06-04-2023 End: 06-04-2023 Emergency department patient visit Rajesh Solo Facility:[facility] Start: 04-28-2022 End: 04-28-2022 Emergency department patient visit DO Rajesh Solo Work Phone: [facility] Start: 01-06-2022 End: 01-06-2022 ambulatory David Leonard Other [facility] Other Start: 01-06-2022 Telephone encounter David Leblanc monica [facility] Gastro[facility] Start: 12-31-2021 End: 12-31-2021 ambulatory David Valle Other [facility] Other Start: 12-31-2021 Office outpatient visit 15 minutes David Valle [facility] Gastroenterology Start: 09-14-2021 End: 10-22-[address] ARJESH SOLO Facility:[facility] Start: 09-01-2021 End: 09-01-2021 ambulatory Kenisha Alan Other [facility] Other Start: 09-01-2021 Postop follow up visit related to original px Kenisha Alan [facility] Start: 08-24-2021 End: 08-24-2021 ambulatory Kenisha Alan Other [facility] Other Start: 08-24-2021 Telephone encounter Kenisha VILLEGAS [facility] Start: 08-04-2021 End: 08-04-2021 ambulatory Kenisha Alan Other [facility] Other Start: 08-04-2021 Office outpatient visit 25 minutes Kenisha Alan [facility] Start: 03-29-2021 End: 03-30-2021 ambulatory [...] Detail Author Patient Education Crush Injury (DC) [facility] Work Phone: Patient referral [facility] Work Phone: Payers Date Payer Category Payer Medicaid [id number] 2023 Self-pay [id number] 2014 Unknown [id number] 1975 Unknown [id number] [id number] [id number] 1975 Unknown [id number] 2.16.84 [id number] 1975 Unknown [id number] 2.16.84 [id number] 1959 Unknown [id number] Unknown [id number] Worker's Compensation [id number] Social History Date Type Detail Facility Sex Assigned At [facility] Other Start: 04-28-2022 Tobacco smoking stat [facility] Smoker (finding) [facility] Start: 1975 Sex Assigned At Female F [facility] Evaluation note 12-31-2021 Note Date & Type Note Facility 12-31-2021 Evaluation note Encounter Date Diagnosis Assessment Notes December, Small bowel obstruction (ICD-10 - K56.609) December, Diverticulitis (ICD-10 - K57.92) START MESALAMINE 1.2 GRAM 4 PO Q AM PATIENT ENCOURAGED TO STOP SMOKING RTO 6 WEEKS [facility] Other Evaluation note 09-01-2021 Note Date & [...] for removal of sutures (ICD-10 - Z48.02) [facility] Other Evaluation note 08-04-2021 Note Date & [...] poor healing. 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 I have [...] as documented in the electronic medical record. [facility] Other Clinical Note 03-25-2021 Note Date & [...] authenticated by: MARGRET DOMINGO Date: 2021-03-25 07:50 [facility] Evaluation note Note Date & Type Note Facility Evaluation note No Information [facility] Other Evaluation note Note Date & Type Note Facility Evaluation note No assessment information availa ble [facility] Work Phone: History general Narrative - Reported Note Date & Type Note Facility History general Narrative - Reported Type Medical History diverticulitis Medical History irritable bowel syndrome Surgical History hysterectomy Surgical History gallbladder Surgical History neuroma removal x2 in left foot Hospitalization History PANCREATITIS 02/2020 Hospitalization History PANCREATITIS 2018 Hospitalization History ABDOMINAL PAIN Hospitalization History PANCREATITIS [facility] Other History general Narrative - Reported Note Date & Type Note Facility History general Narrative - Reported Type Medical History diverticulitis Medical History irritable bowel syndrome Surgical History hysterectomy Surgical History gallbladder Surgical History neuroma removal x2 in left foot Surgical History right knee scope med ial/lateral menisectemy Hospitalization History PANCREATITIS 02/2020 Hospitalization History PANCREATITIS 2018 Hospitalization History ABDOMINAL PAIN Hospitalization History PANCREATITIS [facility] Discharge instructions Note Date & [...] your hand is not improving please call [facility] to follow-up with a hand surgeon You can also follow-up with [employer] as needed for minor concerns Return to the ER for more severe pain loss of circulation in your fingers or any other concerns [facility] Work Phone: Summary Purpose Family History [...] Visit Chief Complaint rt hand caught in [place]il[place] [employer] [employer] i01 Additional Source Comments INFORMATION SOURCE (unrecogn ized section and content) DATE CREATED AUTHOR 02/23/2018 Sindy mckenna DATE CREATED AUTHOR AUTHOR'S ORGANIZ ATION [facility] DATE CREATED AUTHOR AUTHOR'S ORGANIZ ATION 10/29/2021 [facility] DATE CREATED AUTHOR AUTHOR'S ORGANIZ ATION 06/15/2023 [facility] REASON FOR VISIT (unrecogniz ed section and content) INCISION BLEEDINGRight Knee PainRecheck Right KneeINPATIENT FOLLOW UP-TO BE SEEN IN [address] VALLE FOR DIVERTICULITIS/ BOWEL OBSTRUCTION, SHE FISNISHED ANTIBIOTICS INSTRUCTED SHE IS STARTING TO FEEL BETTERclinical Care Teams (unrecognized sec tion and content) Team Status: Inactive Member Role Status Dates Rajesh Solo , Primary Care Provider Active Danica Nuñez [facility] Emergency Provider Active Team Status: Active [...] BE BASED ON THE PRIMARY CLINICAL RECORDS. [employer] [facility]. provides no warranty or guarantee of the accuracy or completeness of information in this document.
== END 2024-01-29 08:56 | disposition home or self-care (01) ==
LOC: EC 08:55
PROVIDERS: PCP Nurse Practitioner Family; Visit Provider Orthopaedic Surgery
DX: S52.572G Other intraarticular fracture of lower end of left radius, subsequent encounter for closed fracture with delayed healing (principal); Z98.890 Other specified postprocedural states
CPT/HCPCS: 73110

== ENCOUNTER 2024-04-01 08:48 | Outpatient (OUT) | payer OTHER, SELFPAY ==
--- NOTE | 2024-04-01 | XR_ITS ---
The [address] [address] Patient Name: DAMION SARAVIA MRN: [id number] date: 1975 Sex: F Assigned Patient Location: Current Patient Location: Accession/Order Number: [id number] Exam Date: 04/01/2024 08:50 Report Date: 04/03/2024 04:40 At the request of: MARGRET PAEZ Procedure: XR wrist LT min 3V PROCEDURE: XR wrist LT min 3V HISTORY: LEFT WRIST PAIN COMPARISON: XR wrist left 01/29/2024 FINDINGS: BONES:Prior surgical repair of distal radius and ulna comminuted fractures via anterior plate and screws; no appreciable hardware fracture or loosening. No change in alignment. Callus formation along some of the margins and areas of increasing density of the fracture lines. Intact carpal bones. SOFT TISSUES:No visible soft tissue swelling. EFFUSION:None visible. OTHER: Negative. XR/XR wrist LT min 3V IMPRESSION: 1. Stable surgical changes of left wrist with ongoing bone healing. Electronically authenticated by: MARGRET DOMINGO Date: 04/03/2024 04:40
--- OUTSIDE RECORDS SUMMARY | 2024-04-01 09:05 | XMS_ITS | CCD ---
Author Organization [facility] Care Team Providers Care Meter Tester Polyphase Name Role Phone GREG CORONADO Unavailable Unavailabl e IVONNE, GREG Kelly Unavailable [...] Care Unavailable GERMANIA, DR HACKETT Admitting Unavailable LONGBRANCH, DR HACKETT Attending Unavailable LONGBRANCH, DR HACKETT Consulting Unavailable Kenisha Alan Unavailable David Valle Unavailable DO Rajesh Solo Primary Care Provider [phone] Joaquin [facility] Danica Mueller Emergency Provider Rajesh Solo [...] January 13, 2022 3:10pm polyethylene glycol 3350 83635 mg powder for oral solution (2 sources) [...] 3V*on 023 XR foot LT min 3V* [facility] [place] [address] XRay Report Signed Patient: Maggie Yip MR#: [id number] 9 : 1975 Acct:[id number] Age/Sex: 47 / F ADM Date: 06/04/23 Loc: ER Room: Type: [facility] ER Attending Dr: Copies to: Mable Curtis [...] Jaylin Magallanes M.D.06/04/2023 12:32 PM Dictation Location: [place] [address] Transcribed By: [facility] 06/04/23 1232 Dictated By: Jaylin Magallanes MD 06/04/23 1231 Signed By: 06/04/23 1232 [facility] CYCLIC CITRULLINATED PEPTIDE AB (CCP)on 04-01-2021 CCP Antibodies IgG/IgA 5 units Normal 0-19 [facility] Comment on above: Result Comment: Nega tive <20 Weak positive 20 - 39 Moderate positive 40 - 59 Strong positive >59 Performed By: #### C CPAB #### [facility] [address] [address] Germán Mosqueda TAMI by IFAon 03-25-2021 Antinuclear Antibodies, IFA Negative Normal [facility] Comment on above: Result Comment: Nega tive <1:80 Borderline 1:80 Positive >1:80 ICAP nomenclature: AC-0 For more information about Hep-2 cell patterns use ANApatterns.org, the official website for the International Consensus on Antinuclear Antibody (TAMI) Patterns (ICAP). Performed By: #### A NAIFA #### [facility] [address] [place], [place] [address] Germánsimone Mosqueda RHEUMATOID FACTORon 03-25-20 RA Latex Turbid. <10.0 Normal 0.0-13.9 [facility] Comment on above: Performed By: #### R F #### [facility] [address] [place], [place] [address] Germánsimone Mosqueda CBC AUTO DIFFon 03-24-2021 BASO # 0.1 103/ul Normal 0.0-0.1 [facility] Comment on above: Performed By: #### C BC #### [facility] [address] [place], [place] [address] Germán Mosqueda Basophils/100 WBC (Bld) 0.6 % Normal 0.2-2.0 [facility] Comment on above: Performed By: #### C BC #### [facility] [address] [place] [address] Germán Mosqueda EO # 0.1 103/ul Normal 0.0-0.7 [facility] Comment on above: Performed By: #### C BC #### [facility] [address] [place], [place] [address] Germán Mosqueda Eosinophils/100 WBC (Bld) 1.2 % Normal 0.9-7.0 [facility] Comment on above: Performed By: #### C BC #### [facility] [address] [place], [place] [address] Germán Mosqueda Erythrocyte distribution width (RBC) [Ratio] 13.2 % Normal 11.0-15.0 [facility] Comment on above: Performed By: #### C BC #### [facility] [address] [place], [place] [address] Germánsimone Mosqueda Hematocrit (Bld) [Volume fraction] 45.3 % Normal 36.0-48.0 [facility] Comment on above: Performed By: #### C BC #### [facility] [address] [place], [place] [address] Germán Jaylin Hemoglobin (Bld) [Mass/Vol] 15.1 g/dL Normal 12.0-16.0 [facility] Comment on above: Performed By: #### C BC #### [facility] [address] [address] Germán Jaylin IG # 0.07 10e3/ul Critically high 0.00-0.03 [facility] Comment on above: Performed By: #### C BC #### [facility] [address] [address] Germán Jaylin IG % 0.6 % Critically high 0.0-0.5 [facility] Comment on above: Performed By: #### C BC #### [facility] [address] [address] Germán Jaylin LYMPH # 3.4 103/ul Normal 1.2-3.8 [facility] Comment on above: Performed By: #### C BC #### [facility] [address] [place], [place] [address] Germán Mosqueda Lymphocytes/100 WBC (Bld) 30.1 % Normal 20.5-60.0 [facility] Comment on above: Performed By: #### C BC #### [facility] [address] [place], [place] [address] Germánsimone Mosqueda MANUAL DIFF REQ NO Normal [facility] Comment on above: Performed By: #### C BC #### [facility] [address] [place], [place] [address] Germán Jaylin MCH (RBC) [Entitic mass] 31.3 pg Normal 26.7-34.0 [facility] Comment on above: Performed By: #### C BC #### [facility] [address] [place], [place] [address] Germánsimone Mosqueda MCHC (RBC) [Mass/Vol] 33.3 g/dL Normal 29.9-35.2 [facility] Comment on above: Performed By: #### C BC #### [facility] [address] [address] Germán Jaylin MCV (RBC) [Entitic vol] 94.0 fL Normal 81.0-99.0 [facility] Comment on above: Performed By: #### C BC #### [facility] [address] [place], [place] [address] Germán Jaylin MONO # 0.8 103/ul Normal 0.3-0.8 [facility] Comment on above: Performed By: #### C BC #### [facility] [address] [place], [place] [address] Germán Jaylin Monocytes/100 WBC (Bld) 7.2 % Normal 1.7-12.0 [facility] Comment on above: Performed By: #### C BC #### [facility] [address] [address] Germán Jaylin NEUT # 6.7 103/ul Critically high 1.4-6.5 [facility] Comment on above: Performed By: #### C BC #### [facility] [address] [place], [place] [address] Germán Jaylin Neutrophils/100 WBC (Bld) 60.3 % Normal 43.0-75.0 [facility] Comment on above: Performed By: #### C BC #### [facility] [address] [place], [place] [address] Germán Jaylin Platelet mean volume (Bld) [Entitic vol] 9.0 fL Critically low 9.5-13.5 [facility] Comment on above: Performed By: #### C BC #### [facility] [address] [place], [place] [address] Germán Jaylin PLT 288 103/ul Normal 150-450 [facility] Comment on above: Performed By: #### C BC #### [facility] [address] [place], [place] [address] Germán Jaylin RBC 4.82 106/ul Normal 4.20-5.40 [facility] Comment on above: Performed By: #### C BC #### [facility] [address] [place], [place] [address] Germán Jaylin WBC 11.2 103/ul Critically high 4.0-11.0 [facility] Comment on above: Performed By: #### C BC #### [facility] [address] [place], [place] [address] Germán Jaylin PROF 14(COMP METB)on 021 Albumin [Mass/Vol] 3.8 g/dL Normal 3.5-5.0 [facility] Comment on above: Performed By: #### C MP, URIC #### [facility] [address] [place], [place] [address] Germán Jaylin Albumin/Globulin [Mass ratio] 0.9 {ratio} Normal [facility] Comment on above: Performed By: #### C MP, URIC #### [facility] [address] [place], [place] [address] Germán Jaylin ALP [Catalytic activity/Vol] 109 U/L Normal 38-126 [facility] Comment on above: Performed By: #### C MP, URIC #### [facility] [address] [place] [address] Germán Jaylin ALT [Catalytic activity/Vol] 56 U/L Critically high 9-52 [facility] Comment on above: Performed By: #### C MP, URIC #### [facility] [address] [place] [address] Germán Jaylin Anion gap [Moles/Vol] 17.6 mmol/L Normal [facility] Comment on above: Performed By: #### C MP, URIC #### [facility] [address] [place] [address] Germán Jaylin AST [Catalytic activity/Vol] 36 U/L Normal 14-36 [facility] Comment on above: Performed By: #### C MP, URIC #### [facility] [address] [place], [place] [address] Germán Jaylin Bilirubin [Mass/Vol] 0.3 mg/dL Normal 0.2-1.3 [facility] Comment on above: Performed By: #### C MP, URIC #### [facility] [address] [place], [place] [address] Germán Jaylin Calcium [Mass/Vol] 9.0 mg/dL Normal 8.4-10.2 [facility] Comment on above: Performed By: #### C MP, URIC #### [facility] [address] [place], [place] [address] Germán Jaylin Chloride [Moles/Vol] 104 mmol/L Normal 98-107 [facility] Comment on above: Performed By: #### C MP, URIC #### [facility] [address] [place], [place] [address] Germán Jaylin CO2 [Moles/Vol] 23.4 mmol/L Normal 22.0-30.0 [facility] Comment on above: Performed By: #### C MP, URIC #### [facility] [address] [place] [address] Germán Jaylin Creatinine [Mass/Vol] 0.61 mg/dL Normal 0.52-1.04 [facility] Comment on above: Performed By: #### C MP, URIC #### [facility] [address] [place] [address] Germán Jaylin EGFR-AF KOSOVAN >60 Normal >=60 [facility] Comment on above: Performed By: #### C MP, URIC #### [facility] [address] [place] [address] Germán Jaylin EGFR-NON AF KOSOVAN >60 Normal >=60 [facility] Comment on above: Performed By: #### C MP, URIC #### [facility] [address] [place], [place] [address] Germán Jaylin Globulin (S) [Mass/Vol] 4.2 g/dL Normal [facility] Comment on above: Performed By: #### C MP, URIC #### [facility] [address] [place] [address] Germán Jaylin Glucose [Mass/Vol] 90 mg/dL Normal 74-106 [facility] Comment on above: Performed By: #### C MP, URIC #### [facility] [address] [place] [address] Germán Jaylin Potassium [Moles/Vol] 4.0 mmol/L Normal 3.4-5.0 [facility] Comment on above: Performed By: #### C MP, URIC #### [facility] [address] [place] [address] Germán Jaylin Protein [Mass/Vol] 8.0 g/dL Normal 6.1-8.2 [facility] Comment on above: Performed By: #### C MP, URIC #### [facility] [address] [address] Germán Jaylin Sodium [Moles/Vol] 141 mmol/L Normal 137-145 [facility] Comment on above: Performed By: #### C MP, URIC #### [facility] [address] [place], [place] [address] Germán Jaylin Urea nitrogen [Mass/Vol] 11.0 mg/dL Normal 7.0-17.0 [facility] Comment on above: Performed By: #### C MP, URIC #### [facility] [address] [place], [place] [address] Germán Jaylin Urea nitrogen/Creatini ne [Mass ratio] 18.0 mg/mg Normal [facility] Comment on above: Performed By: #### C MP, URIC #### [facility] [address] [place], [place] [address] Germán Jaylin SED RATE WESTERGRENon 2020 SED RATE 60 mm/hr Critically high <=20 [facility] Comment on above: Performed By: #### S EDR #### [facility] [address] [place], [place] [address] Germán Jaylin URIC ACID SERUMon 03-24-2021 Urate [Mass/Vol] 4.9 mg/dL Normal 2.5-6.2 [facility] Comment on above: Performed By: #### C MP, URIC #### [facility] [address] [place] [address] Germán Jaylin Coding Summary.on 10-15-2019 Coding Summary. CODING DATE: 020 FINAL [facility] STATUS: Home (Routine DC) PAYOR: Medicaid ADMIT [...] Revised Date Saved: 10/15/2019 01:45 pm Normal [facility] Auto Diffon 10-08-2019 Basophils/100 WBC (Bld) 0.2 % Normal 0.0-2.0 [facility] Comment on above: Order Comment: Order Added by Discern Expert. Performed By: #### 2 230272, 8816925, 9904248, [id number] #### [facility] [address] [place] [address] Basophils/Leukocy cj Auto (Bld) [Pure # fraction] 0.0 E9/L Normal 0.0-0.2 [facility] Comment on above: Order Comment: Order Added by Discern Expert. Performed By: #### 2 234869, 4581991, 1086225, [id number] #### [facility] [address] [place] [address] Eosinophils/100 WBC (Bld) 1.0 % Normal 0.0-8.0 [facility] Comment on above: Order Comment: Order Added by Discern Expert. Performed By: #### 2 280019, 2027022, 5105918, 08825773 #### [facility] [address] [place] [address] Eosinophils/Leuko cytes Auto (Bld) [Pure # fraction] 0.1 E9/L Normal 0.0-0.5 [facility] Comment on above: Order Comment: Order Added by Discern Expert. Performed By: #### 2 523937, 0273017, 7408348, [id number] #### [facility] [address] [place] [address] Lymphocytes/100 WBC (Bld) 25.0 % Normal 14.0-50.0 [facility] Comment on above: Order Comment: Order Added by Discern Expert. Performed By: #### 2 930366, 5070954, 1435157, 49250921 #### [facility] [address] [place] [address] Lymphocytes/Leuko cytes Auto (Bld) [Pure # fraction] 2.9 E9/L Normal 1.0-4.0 [facility] Comment on above: Order Comment: Order Added by Discern Expert. Performed By: #### 2 239938, 6723425, 0457588, 45740935 #### [facility] [address] [place] [address] Monocytes/100 WBC (Bld) 6.9 % Normal 4.0-14.0 [facility] Comment on above: Order Comment: Order Added by Discern Expert. Performed By: #### 2 505170, 8392363, 3556603, 95432838 #### [facility] [address] [place] [address] Monocytes/Leukocy cj Auto (Bld) [Pure # fraction] 0.8 E9/L Normal 0.2-1.0 [facility] Comment on above: Order Comment: Order Added by Discern Expert. Performed By: #### 2 977868, 9744171, 7855281, 39121585 #### [facility] [address] [place] [address] Neutrophils/100 WBC (Bld) 66.9 % Normal 36.0-75.0 [facility] Comment on above: Order Comment: Order Added by Discern Expert. Performed By: #### 2 380600, 5507801, 4084717, 57871043 #### [facility] [address] [place] [address] Neutrophils/Leuko cytes Auto (Bld) [Pure # fraction] 7.9 E9/L High 2.0-7.5 [facility] Comment on above: Order Comment: Order Added by Discern Expert. Performed By: #### 2 564731, 9835636, 2209409, 16316042 #### [facility] [address] [place] [address] BMPon 10-08-2019 Creatinine [Mass/Vol] 0.6 mg/dL Normal 0.5-1.3 [facility] Comment on above: Performed By: #### 2 066003, 8417961, 4310882, 87774694 #### [facility] [address] [place] [address] Urea nitrogen [Mass/Vol] 12 mg/dL Normal 5-21 [facility] Comment on above: Performed By: #### 2 076368, 4468555, 2028190, 44781409 #### [facility] [address] [place] [address] Urea nitrogen/Creatini ne [Mass ratio] 20 No Units Normal 10-20 [facility] Comment on above: Performed By: #### 2 548408, 4095274, 8905299, 78976015 #### [facility] [address] [place] [address] Anion gap [Moles/Vol] 15 mmol/L Normal 6-16 [facility] Comment on above: Performed By: #### 2 325265, 4363799, 9379808, 28622863 #### [facility] [address] [place] [address] Calcium [Mass/Vol] 9.5 mg/dL Normal 8.9-11.1 [facility] Comment on above: Performed By: #### 2 640137, 8581091, 0717509, 71133809 #### [facility] [address] [place] [address] Chloride [Moles/Vol] 102 mmol/L Normal 101-111 [facility] Comment on above: Performed By: #### 2 835925, 9909199, 6392326, 98401398 #### [facility] [address] [place] [address] CO2 [Moles/Vol] 21 mmol/L Normal 21-31 [facility] Comment on above: Performed By: #### 2 221263, 1974348, 8279106, 71541049 #### [facility] [address] [place] [address] Glucose [Mass/Vol] 88 mg/dL Normal 55-199 [facility] Comment on above: Result Comment: If t his glucose result represents a fasting glucose, interpretation should refer to the following reference range: 55-99 mg/dL Performed By: #### 2 012209, 7593691, 5180803, 23255539 #### [facility] [address] [place] [address] Potassium [Moles/Vol] 4.1 mmol/L Normal 3.5-5.3 [facility] Comment on above: Performed By: #### 2 845749, 5288539, 7321757, 63551575 #### [facility] [address] [place] [address] Sodium [Moles/Vol] 134 mmol/L Low 135-145 [facility] Comment on above: Performed By: #### 2 391600, 6307351, 5969322, 39562705 #### [facility] [address] [place] [address] CBC w/ Auto Diffon 0 Erythrocyte distribution width (RBC) [Ratio] 13.7 % Normal 10.9-14.2 [facility] Comment on above: Performed By: #### 2 797685, 4579952, 7915511, 86519367 #### [facility] [address] [place] [address] Hematocrit (Bld) [Volume fraction] 44.6 % Normal 34.0-46.0 [facility] Comment on above: Performed By: #### 2 326047, 6789878, 1884522, 42399707 #### [facility] [address] [place] [address] Hemoglobin (Bld) [Mass/Vol] 15.3 g/dL Normal 12.0-16.0 [facility] Comment on above: Performed By: #### 2 600718, 7936989, 2354736, 15446925 #### [facility] [address] [place] [address] MCH (RBC) [Entitic mass] 32.6 pg Normal 27.0-34.0 [facility] Comment on above: Performed By: #### 2 933446, 4871062, 0072576, 92470502 #### [facility] [address] [place] [address] MCHC (RBC) [Mass/Vol] 34.4 g/dL Normal 31.4-36.0 [facility] Comment on above: Performed By: #### 2 181025, 5757826, 3608627, 75696361 #### [facility] [address] [place] [address] MCV (RBC) [Entitic vol] 94.9 fL Normal 80.0-100.0 [facility] Comment on above: Performed By: #### 2 482310, 4921341, 6111082, 03898301 #### [facility] [address] [place] [address] Platelet mean volume (Bld) [Entitic vol] 7.2 fL Normal 6.4-10.8 [facility] Comment on above: Performed By: #### 2 301592, 0228589, 2103059, 35490490 #### [facility] [address] [place] [address] Platelets (Bld) [#/Vol] 361.0 E9/L Normal 150.0-500.0 [facility] Comment on above: Performed By: #### 2 873379, 8326135, 2833776, 08924058 #### [facility] [address] [place] [address] RBC (Bld) [#/Vol] 4.7 E12/L Normal 4.3-5.9 [facility] Comment on above: Performed By: #### 2 071087, 4612882, 5130727, 77143483 #### [facility] [address] [place] [address] WBC corrected for nucl RBC Auto (Bld) [#/Vol] 11.8 E9/L High 4.0-11.0 [facility] Comment on above: Performed By: #### 2 729773, 9940871, 1750527, 19795628 #### [facility] [address] [place] [address] ED Clinical Summaryon 2019 ED Clinical Summary [address] [address] ED Clinical Summary Person Information Name: MAGGIE DEL ROSARIO [place] Age: 43 Years : 1975 Sex: Female Language: Honduran PCP: Rajesh Solo DO Marital Status: Phone: [phone] Visit Id: Visit Reason: Vomiting; Abdominal pain; [...] 10/08/2019 13:21:31 10/08/2019 13:21:31 10/08/2019 13:21:31 ADDRESS: [address] [place] [id number] PHYS DOC NOTES: MEDICAL INFORMATION: Prescriptions Given: [facility], [address] [place] [id number], [phone] sucralfate (Carafate 1 g/10 mL Susp-Oral) 10 Milliliter By Mouth 4 times a day for 7 Days. Refills: 0. PATIENT EDUCATION INFORMATION: Instructions: Gastritis, Adult; Abdominal Pain, Adult Follow up: With: Address: When: [facility], [address] [place] [address] Business (1) In 3 days 10/11/2019 With: Address: When: [facility] [address] [place] [address] Business (1) In 3 days 10/11/2019 DIAGNOSIS: Right upper quadrant abdominal pain Normal [facility] ED Note-Physicianon 10-08-19 ED Note-Physician [...] ultrasound was obtained. This is discussed with building energy retrofit technician as negative for acute findings. Patient [...] day(s), # 280 mL, Refills(s) 0, Pharmacy: [facility], 165, cm, 10/08/19 10:25:00 EST, Height/Length [...] Yudelka RIOS In 3 days 10/11/2019 [facility] [address] [place] [address]- Business (1) Additional Instructions: Rajesh Solo In 3 days 10/11/2019 [facility] [address] [place] [address]- Business (1) Additional Instructions: Patient Education Gastritis, Adult Abdominal Pain, Adult Attestation Patient seen and evaluated by the physician undertaker assistant. Attending physician was present in the emergency department and supervised care. This report was transcribed using voice recognition software. Every effort was made to ensure accuracy, however, inadvertently computerized conventional mortgage underwriter mistakes may be present. Problem List/Past Medical [...] 10:41:00) Lymph Auto: 25 % (10/08/19 10:41:00) [place] Auto: 6.9 % (10/08/19 10:41:00) Eos Auto: 1 % (10/08/19 10:41:00) Basophil Auto: 0.2 % (10/08/19 10:41:00) Neutro Absolute: 7.9 E9/L High (10/08/19 10:41:00) Lymph Absolute: 2.9 E9/L (10/08/19 10:41:00) [place] Absolute: 0.8 E9/L (10/08/19 10:41:00) Eos Absolute: [...] mm at the abbie hepatis. Signed By: aJvon SMITH, Pillo Kelly EKG Results EC10/08/19: SINUS RHYTHM EKG: Normal sinus rhythm rate is normocardic, the axis is normal there is no ectopy there are no acute ST changes. EKG interpretation by Dr. Esquivel. NORMAL ECG Signed By: Trevin Esquivel DO 10/08/2019 10:57:10 Normal [facility] Comment on above: Result Comment: [...] discomfort you are experiencing: ? Only take jgvs-tvj-krfnqva or prescription medicines as directed by your [...] Document Reviewed: 04/23/2014 ExitCare? Patient Information ?2015 [employer]. This information is not intended to replace [...] (NSAIDs). HOME CARE INSTRUCTIONS ? Only take omdu-amj-msjindz or prescription medicines as directed by your [...] Garlic and onions. ? Spicy foods. ? [place] fruits, such as oranges, todd, or limes. [...] Document Reviewed: 09/26/2012 ExitCare? Patient Information ?2014 [employer]. This information is not intended to replace advice given to you by your health care provider. Make sure you discuss any questions you have with your health care provider. Normal [facility] ED Patient Summaryon 020 ED Patient Summary [address] [address] Patient Discharge Instructions Person Information Name: MAGGIE DEL ROSARIO Age: 43 Years Arrival Date: 10/08/2019 10:18:57 Discharge Diagnosis: Right upper quadrant abdominal pain Primary Care Physician: Rajesh Solo DO Provider Information Primary Provider: Trevin Esquivel DO Advanced Rn Postpartum:Rishi Martinez PA-C The exam and treatment you received in the Emergency Department were for an urgent problem and are not intended as complete care. It is important that you follow up with a doctor, nurse practitioner, or physician?s undertaker assistant for ongoing care. If your symptoms become worse or you do not improve as expected and you are unable to reach your usual health care provider, you should return to the Emergency Department. We are available 24 hours a day. MAGGIE DEL ROSARIO has been given the following list of patient education materials, prescriptions and follow-up instructions: Follow-up Instructions: With: Address: When: [facility], [address] [place] [address] Business (1) In 3 days 10/11/2019 With: Address: When: Rajesh Solo [address] [place] [address] Business (1) In 3 days 10/11/2019 In the event that this physician does not participate in your insurance network, please consult with your insurance company to find a nearby participating provider. Patient Education Materials: Gastritis, Adult; Abdominal Pain, Adult A MESSAGE TO ALL PATIENTS REGARDING OPIOIDS PRESCRIPTION OPIOIDS: WHAT YOU NEED TO KNOW Prescription opioids can be used to help relieve ulmisput-qo-wnnexq pain and are often prescribed following a [...] be struggling with addiction, tell your health resident care provider and ask for guidance or call [facility]?S National Helpline at 8-811-136-CKLI. v Source: US Department of Health and Human Services/Center for Disease Control & Prevention [facility] Medications Given: Medication Dose Route [...] New Medications [facility], [address], [place] [id number], [phone] sucralfate (Carafate 1 g/10 mL Susp-Oral) 10 Milliliter By Mouth 4 times a day for 7 Days. Refills: 0. Comment: Pharmacy Information: Thank you for choosing [facility] Patient Education Materials: Gastritis, Adult Gastritis [...] (NSAIDs). HOME CARE INSTRUCTIONS ? Only take paav-txc-gmluusd or prescription medicines as directed by your [...] Garlic and onions. ? Spicy foods. ? [place] fruits, such as oranges, todd, or limes. [...] Document Reviewed: 09/26/2012 ExitCare? Patient Information ?2015 [employer]. This information is not intended to replace [...] discomfort you are experiencing: ? Only take btet-iji-dpyobfm or prescription medicines as directed by your [...] Document Reviewed: 04/23/2014 ExitCare? Patient Information ?2014 [employer]. This information is not intended to replace advice given to you by your health care provider. Make sure you discuss any questions you have with your health care provider. MIGUEL ÁNGEL Aguirre LISA L , have received the following patient education materials/instructions and have verbalized understanding: Patient Education Materials: Gastritis, Adult; Abdominal Pain, Adult Follow-up Instructions: With: Address: When: [facility], [address] [place] [address] Business (1) In 3 days 10/11/2019 With: Address: When: [address] [address] Business (1) In 3 days 10/11/2019 Patient Signature Date Clinician/Nurse Signature Date 10/08/2019 13:21:33 Normal [facility] Hep Func Panelon 10-08-2019 Albumin [Mass/Vol] 4.2 g/dL Normal 3.3-5.0 [facility] Comment on above: Performed By: #### 2 580885, 5469813, 9731187, [id number] #### [facility] [address] [place] [address] Albumin [Mass/Vol] 1.2 g/dL Normal 1.1-2.2 [facility] Comment on above: Performed By: #### 2 352750, 9428288, 6308985, [id number] #### [facility] [address] [place] [address] Bilirubin [Mass/Vol] 0.4 mg/dL Normal 0.0-1.1 [facility] Comment on above: Performed By: #### 2 156492, 0629263, 3408016, 31243588 #### [facility] [address] [place] [address] Bilirubin.direct [Mass/Vol] 0.3 mg/dL Normal 0.1-0.9 [facility] Comment on above: Performed By: #### 2 221106, 5791135, 5693059, 25628242 #### [facility] [address] [place] [address] Globulin (S) [Mass/Vol] 3.6 g/dL Normal 1.4-4.0 [facility] Comment on above: Performed By: #### 2 342479, 0504747, 5922232, 54809116 #### [facility] [address] [place] [address] Protein [Mass/Vol] 7.8 g/dL Normal 6.0-7.8 [facility] Comment on above: Performed By: #### 2 106107, 9343805, 8404176, 98155565 #### [facility] [address] [place] [address] ALP [Catalytic activity/Vol] 77 Int._Unit/L Normal 21-98 [facility] Comment on above: Performed By: #### 2 906259, 4136319, 2398189, 40375850 #### [facility] [address] [place] [address] ALT No additional P-5'-P [Catalytic activity/Vol] 64 Int._Unit/L High 6-46 [facility] Comment on above: Performed By: #### 2 392267, 1808253, 7601022, 87292684 #### [facility] [address] [place] [address] AST [Catalytic activity/Vol] 47 Int._Unit/L High 5-43 [facility] Comment on above: Performed By: #### 2 235042, 4981891, 8983564, 25606670 #### [facility] [address] [place] [address] Bilirubin.direct [Mass/Vol] 0.1 mg/dL Normal 0.1-0.4 [facility] Comment on above: Performed By: #### 2 380428, 3727257, 8325543, 43262743 #### [facility] [address] [place] [address] Lipase Levelon 10-08-2019 Lipase [Catalytic activity/Vol] 50 unit/L Normal 13-58 [facility] Comment on above: Performed By: #### 2 117110, 3719959, 3397473, 86893585 #### [facility] [address] [place] [address] Troponin 0 Hr.on 10-08-2019 Troponin I.cardiac [Mass/Vol] ng/mL Normal <=0.03 [facility] Comment on above: Result Comment: New Troponin Assay 01/09/14 LAN NC Cutoff value > or = 0.03 ng/mL in conjunction with clinical conditions of myocardial infarction. ([email or web address]/guidelines) Performed By: #### 2 816204, 4655496, 6332535, 73977621 #### [facility] [address] [place] [address] US Gallbladderon 10-08-2019 US Gallbladder Exam Date/Time: [...] MD Transcribed by: IMAN Technologist: HW Normal [facility] eGFRon 10-08-2019 GFR/1.73 sq M predicted among blacks MDRD (S/P/Bld) [Vol rate/Area] mL/min/{1.73_m2} Normal >=59 [facility] Comment on above: Order Comment: Order added by Discern Expert. Result Comment: eGFR is race adjusted. AA=. Performed By: #### 2 779771, 8579185, 2081405, 77002951 #### [facility] [address] [place] [address] GFR/1.73 sq M predicted among non-blacks MDRD (S/P/Bld) [Vol rate/Area] mL/min/{1.73_m2} Normal >=59 [facility] Comment on above: Order Comment: Order added by Discern Expert. Result Comment: Apron Worker bhavin kidney disease could be indicated at eGFR's of less than 60 mL/min/1.73m2. Kidney failure is indicated at less than 15 mL/min/1.73m2. Performed By: #### 2 256642, 8368069, 5179406, 96697232 #### [facility] [address] [place] [address] Coding Summary.on 12-24-2018 Coding Summary. CODING DATE: 019 FINAL [facility] STATUS: Home (Routine DC) PAYOR: Self Pay APC DESCRIPTION 8005 CT and CTA without Contrast Composite [id number] [...] Revised Date Saved: 12/24/2018 08:11 am Normal [facility] Auto Diffon 12-23-2018 Basophils/100 WBC (Bld) 0.7 % Normal 0.0-2.0 [facility] Comment on above: Order Comment: Order Added by Discern Expert. Performed By: #### 2 561390, 0704515, 4286826, 43323108 #### [facility] [address] [place] [address] Basophils/Leukocy cj Auto (Bld) [Pure # fraction] 0.1 E9/L Normal 0.0-0.2 [facility] Comment on above: Order Comment: Order Added by Discern Expert. Performed By: #### 2 527855, 9779658, 8694640, 97771567 #### [facility] [address] [place] [address] Eosinophils/100 WBC (Bld) 1.1 % Normal 0.0-8.0 [facility] Comment on above: Order Comment: Order Added by Discern Expert. Performed By: #### 2 416777, 1371504, 3680422, 50979625 #### [facility] [address] [place] [address] Eosinophils/Leuko cytes Auto (Bld) [Pure # fraction] 0.1 E9/L Normal 0.0-0.5 [facility] Comment on above: Order Comment: Order Added by Discern Expert. Performed By: #### 2 623094, 1938674, 7601517, 56773694 #### [facility] [address] [place] [address] Lymphocytes/100 WBC (Bld) 37.9 % Normal 14.0-50.0 [facility] Comment on above: Order Comment: Order Added by Discern Expert. Performed By: #### 2 630524, 5095411, 8088169, 01286019 #### [facility] [address] [place] [address] Lymphocytes/Leuko cytes Auto (Bld) [Pure # fraction] 4.2 E9/L High 1.0-4.0 [facility] Comment on above: Order Comment: Order Added by Discern Expert. Performed By: #### 2 122137, 5867586, 9540605, 91295667 #### [facility] [address] [place] [address] Monocytes/100 WBC (Bld) 5.3 % Normal 4.0-14.0 [facility] Comment on above: Order Comment: Order Added by Discern Expert. Performed By: #### 2 925487, 8994828, 4245813, 74266196 #### [facility] [address] [place] [address] Monocytes/Leukocy cj Auto (Bld) [Pure # fraction] 0.6 E9/L Normal 0.2-1.0 [facility] Comment on above: Order Comment: Order Added by Discern Expert. Performed By: #### 2 780711, 2797166, 6431245, 27569394 #### [facility] [address] [place] [address] Neutrophils/100 WBC (Bld) 55.0 % Normal 36.0-75.0 [facility] Comment on above: Order Comment: Order Added by Discern Expert. Performed By: #### 2 389422, 6639484, 0231456, 19157657 #### [facility] [address] [place] [address] Neutrophils/Leuko cytes Auto (Bld) [Pure # fraction] 6.1 E9/L Normal 2.0-7.5 [facility] Comment on above: Order Comment: Order Added by Discern Expert. Performed By: #### 2 062471, 9137210, 9070978, 05133349 #### [facility] [address] [place] [address] BMPon 12-23-2018 Creatinine [Mass/Vol] 0.6 mg/dL Normal 0.5-1.3 [facility] Comment on above: Performed By: #### 2 737008, 0663735, 2788369, 51839693 #### [facility] [address] [place] [address] Urea nitrogen [Mass/Vol] 10 mg/dL Normal 5-21 [facility] Comment on above: Performed By: #### 2 962345, 1101420, 9526096, 52123215 #### [facility] [address] [place] [address] Urea nitrogen/Creatini ne [Mass ratio] 17 No Units Normal 10-20 [facility] Comment on above: Performed By: #### 2 897518, 5058064, 3523069, 70762275 #### [facility] [address] [place] [address] Anion gap [Moles/Vol] 15 mmol/L Normal 6-16 [facility] Comment on above: Performed By: #### 2 925477, 9761307, 5945716, 68390719 #### [facility] [address] [place] [address] Calcium [Mass/Vol] 10.1 mg/dL Normal 8.9-11.1 [facility] Comment on above: Performed By: #### 2 139780, 3306623, 8898563, 80010534 #### [facility] [address] [place] [address] Chloride [Moles/Vol] 99 mmol/L Low 101-111 [facility] Comment on above: Performed By: #### 2 123228, 5659780, 8568156, 58091383 #### [facility] [address] [place] [address] CO2 [Moles/Vol] 22 mmol/L Normal 21-31 [facility] Comment on above: Performed By: #### 2 473200, 9128873, 2607114, 50141247 #### [facility] [address] [place] [address] Glucose [Mass/Vol] 137 mg/dL Normal 55-199 [facility] Comment on above: Result Comment: If t his glucose result represents a fasting glucose, interpretation should refer to the following reference range: 55-99 mg/dL Performed By: #### 2 200576, 6058993, 7534025, 84156784 #### [facility] [address] [place] [address] Potassium [Moles/Vol] 3.1 mmol/L Low 3.5-5.3 [facility] Comment on above: Performed By: #### 2 201799, 6230013, 1583385, 32922592 #### [facility] [address] [place] [address] Sodium [Moles/Vol] 133 mmol/L Low 135-145 [facility] Comment on above: Performed By: #### 2 569886, 0316814, 4899686, 61230649 #### [facility] [address] [place] [address] CBC w/ Auto Diffon 9 Erythrocyte distribution width (RBC) [Ratio] 13.0 % Normal 10.9-14.2 [facility] Comment on above: Performed By: #### 2 077295, 1692229, 7263096, 42060261 #### [facility] [address] [place] [address] Hematocrit (Bld) [Volume fraction] 45.9 % Normal 34.0-46.0 [facility] Comment on above: Performed By: #### 2 378752, 5521408, 1813925, 84755519 #### [facility] [address] [place] [address] Hemoglobin (Bld) [Mass/Vol] 15.7 g/dL Normal 12.0-16.0 [facility] Comment on above: Performed By: #### 2 543720, 2325738, 1482397, 80893359 #### [facility] [address] [place] [address] MCH (RBC) [Entitic mass] 32.8 pg Normal 27.0-34.0 [facility] Comment on above: Performed By: #### 2 010159, 2818886, 8258807, 11833864 #### [facility] [address] [place] [address] MCHC (RBC) [Mass/Vol] 34.2 g/dL Normal 33.3-35.7 [facility] Comment on above: Performed By: #### 2 890917, 8577764, 6399904, 63948813 #### [facility] [address] [place] [address] MCV (RBC) [Entitic vol] 95.9 fL Normal 80.0-100.0 [facility] Comment on above: Performed By: #### 2 323095, 7038171, 7052524, 76778048 #### [facility] [address] [place] [address] Platelet mean volume (Bld) [Entitic vol] 7.5 fL Normal 6.4-10.8 [facility] Comment on above: Performed By: #### 2 643221, 8825266, 7248016, 24418402 #### [facility] [address] [place] [address] Platelets (Bld) [#/Vol] 373.0 E9/L Normal 150.0-500.0 [facility] Comment on above: Performed By: #### 2 887025, 6879958, 4466741, 25956689 #### [facility] [address] [place] [address] RBC (Bld) [#/Vol] 4.8 E12/L Normal 4.3-5.9 [facility] Comment on above: Performed By: #### 2 084657, 7790101, 4333345, 74932787 #### [facility] [address] [place] [address] WBC corrected for nucl RBC Auto (Bld) [#/Vol] 11.2 E9/L High 4.0-11.0 [facility] Comment on above: Performed By: #### 2 624769, 4754198, 4257942, 66580304 #### [facility] [address] [place] [address] CT Head or Brain w/o Contras ton [...] MD Transcribed by: IMAN Technologist: HAIDER Normal [facility] CT Spine Cervical w/o Contra [...] MD Transcribed by: IMAN Technologist: HAIDER Mcmanus [facility] ED Clinical Summaryon 2018 ED Clinical Summary [place] [id number] ED Clinical Summary Person Information Name: MAGGIE DEL ROSARIO [facility] Age: 43 Years : 1975 12:00 AM Sex: Female Language: Honduran PCP: Rajesh Solo DO Marital Status: Single Phone: [phone] Visit Id: Visit Reason: Fall; PT FELL [...] 12/23/2018 3:33 AM 12/23/2018 3:33 AM ADDRESS: [address] [facility] [id number] PHYS DOC NOTES: MEDICAL INFORMATION: Prescriptions Given: PATIENT EDUCATION INFORMATION: Instructions: Alcohol Intoxication; Concussion, Adult, Izun-ap-Aonr; Open Wound, Lip, Cugv-ya-Vlka; Mouth Laceration, Yhen-av-Btqu Follow up: With: Address: When: WHITNEY KENNEDY [address] [place], [place] [address] [id number] Business (1) Within 1 to 2 days, only if needed DIAGNOSIS: 1:Acute alcohol intoxication; 2:Concussion with loss of consciousness <= 30 min; 3:Lip laceration Normal [facility] ED Note-Physicianon 12-24-19 ED Note-Physician [...] 43-year-old female she is awake and attentive [place] Coma Scale 15. There is a superficial [...] to 2 days, only if needed [address] [place] [address]- [facility] (1) Additional Instructions: Patient Education Alcohol Intoxication Concussion, Adult, Duax-ly-Omaf Open Wound, Lip, Mmbx-wh-Igys Mouth Laceration, Orfc-ja-Pkuz Problem List/Past Medical History Ongoing No qualifying [...] Lymph Auto: 37.9 % (12/23/18 01:55:00 EDT) [place] Auto: 5.3 % (12/23/18 01:55:00 EDT) Eos Auto: 1.1 % (12/23/18 01:55:00 EDT) Basophil Auto: 0.7 % (12/23/18 01:55:00 EDT) Neutro Absolute: 6.1 E9/L (12/23/18 01:55:00 EDT) Lymph Absolute: 4.2 E9/L High (12/23/18 01:55:00 EDT) [place] Absolute: 0.6 E9/L (12/23/18 01:55:00 EDT) Eos [...] malalignment Read By: Juan Francisco Munoz MD [facility] Comment on above: Result Comment: Elec tronically Signed By: Juan Francisco Munoz MD\.br\Date and Time Signed: 12/23/18 03:15 EDT ED Patient Education Noteon 12-23-2018 ED Patient Education Note Tgda-gu-Fbzz Open Wound, Lip An open wound is [...] Document Reviewed: 11/30/2010 ExitCare? Patient Information ?2015 [employer]. This information is not intended to replace [...] Tell your teachers, school nurse, school counselor, rhythmic gymnastics coach, ict trainer, or electronic instrument trades worker about your concussion. Tell them about [...] Document Reviewed: 03/06/2014 ExitCare? Patient Information ?2015 [employer]. This information is not intended to replace advice given to you by your health care provider. Make sure you discuss any questions you have with your health care provider. Mouth Laceration A mouth laceration is a cut inside the mouth. HOME CARE ? Rinse your mouth with warm salt water 4 to 6 times a day. ? Hotchkiss your teeth as usual if you can. [...] Document Reviewed: 02/16/2012 ExitCare? Patient Information ?2015 [employer]. This information is not intended to replace [...] yellow. Avoid caffeine. ? ? Only take fnbx-cuz-gmjxzob or prescription medicines as directed by your [...] Document Reviewed: 01/17/2014 ExitCare? Patient Information ?2015 [email or web address], [employer]. This information is not intended to replace advice given to you by your health care provider. Make sure you discuss any questions you have with your health care provider. Normal [facility] ED Patient Summaryon 019 ED Patient Summary [address] [address] Patient Discharge Instructions Person Information Name: MAGGIE DEL ROSARIO Age: 43 Years Arrival Date: 12/23/2018 1:53 AM Discharge Diagnosis: 1:Acute alcohol intoxication; 2:Concussion with loss of consciousness <= 30 min; 3:Lip laceration Primary Care Physician: Rajesh oSlo DO Provider Information Primary Provider: Juan Francisco Munoz MD Advanced Rn Postpartum:None The exam and treatment you received in the Emergency Department were for an urgent problem and are not intended as complete care. It is important that you follow up with a doctor, nurse practitioner, or physician?s undertaker assistant for ongoing care. If your symptoms [...] Follow-up Instructions: With: Address: When: WHITNEY KENNEDY [address] [place], [place] [id number] Business (1) Within 1 to 2 days, only if needed In the event that this physician does not participate in your insurance network, please consult with your insurance company to find a nearby participating provider. Patient Education Materials: Alcohol Intoxication; Concussion, Adult, Njrm-ph-Iqoj; Open Wound, Lip, Yjzi-mi-Bekm; Mouth Laceration, Tekv-vk-Qfek A MESSAGE TO ALL PATIENTS REGARDING OPIOIDS PRESCRIPTION OPIOIDS: WHAT YOU NEED TO KNOW Prescription opioids can be used to help relieve puazqqqt-dz-pppain pain and are often prescribed following a [...] be struggling with addiction, tell your health resident care provider and ask for guidance or call [facility] National Helpline at 1-476-218-YDAT. r Source: US Department of Health and Human Services/Center for Disease Control & Prevention [facility] Medications Given: Medication Dose Route No medications found. Medication Information: Comment: Pharmacy Information: Thank you for choosing [facility] Patient Education Materials: Alcohol Intoxication Alcohol [...] yellow. Avoid caffeine. ? ? Only take vljy-nge-vtvecmo or prescription medicines as directed by your [...] Document Reviewed: 01/17/2014 ExitCare? Patient Information ?2015 [employer]. This information is not intended to replace [...] Tell your teachers, school nurse, school counselor, rhythmic gymnastics coach, ict trainer, or electronic instrument trades worker about your concussion. Tell them about [...] Document Reviewed: 03/06/2014 ExitCare? Patient Information ?2015 [employer]. This information is not intended to replace [...] Document Reviewed: 11/30/2010 ExitCare? Patient Information ?2015 [employer]. This information is not intended to replace advice given to you by your health care provider. Make sure you discuss any questions you have with your health care provider. Mouth Laceration A mouth laceration is a cut inside the mouth. HOME CARE ? Rinse your mouth with warm salt water 4 to 6 times a day. ? Hotchkiss your teeth as usual if you can. [...] Document Reviewed: 02/16/2012 ExitCare? Patient Information ?2015 [employer]. This information is not intended to replace advice given to you by your health care provider. Make sure you discuss any questions you have with your health care provider. MIGUEL ÁNGEL Aguirre LISA L , have received the following patient education materials/instructions and have verbalized understanding: Patient Education Materials: Alcohol Intoxication; Concussion, Adult, Yzve-re-Drbs; Open Wound, Lip, Lhei-bl-Stpb; Mouth Laceration, Mrkh-qi-Oclk Follow-up Instructions: With: Address: When: WHITNEY KENNEDY [address] [place] [address], [place] [address] [facility] (1) Within 1 to 2 days, only if needed Prescriptions: Patient Signature Date Clinician/Nurse Signature Date 12/23/18 03:33:31 Normal [facility] Ethanolon 12-23-2018 Ethanol [Mass/Vol] 268 mg/dL Abnormal <=7 [facility] Comment on above: Result Comment: Nano ical Result S_ETOH:268.0 Called to [facility] ER by LLOYD ABBOTT And Read Back For Confirmation at: 12/23/2018 02:44:14\Critical Result verified by repeat analysis Performed By: #### 2 [id number] #### [facility] [address] [place] [address] Pre-Arrival Noteon 9 Pre-Arrival Note Pre-Arrival Summary Name: , Current Date: 12/23/2018 01:56:40 EDT Gender: Female Date of : Age: 43 Pre-Arrival Type: EMS ETA: 12/23/2018 02:14:00 EDT Primary Care Physician: Presenting Problem: fall stairs 5min eta Pre-Arrival User: Harry Aragon RN Referring Source: Location: [place] Completion Date/Time: 12/23/18 01:44:00 [facility] Emergency Department Pre-Hospital Report Form Vital Signs: Pre-Hospital Report: Treatment in Route: Response to Treatment: Misc. Issues: Normal [facility] eGFRon 12-23-2018 GFR/1.73 sq M predicted among blacks MDRD (S/P/Bld) [Vol rate/Area] mL/min/{1.73_m2} Normal >=59 [facility] Comment on above: Order Comment: Order added by Discern Expert. Result Comment: eGFR is race adjusted. AA=. Performed By: #### 2 [id number], [id number], [id number], [id number] #### [facility] [address] [place] [address] GFR/1.73 sq M predicted among non-blacks MDRD (S/P/Bld) [Vol rate/Area] mL/min/{1.73_m2} Normal >=59 [facility] Comment on above: Order Comment: Order added by Discern Expert. Result Comment: Apron Worker bhavin kidney disease could be indicated at eGFR's of less than 60 mL/min/1.73m2. Kidney failure is indicated at less than 15 mL/min/1.73m2. Performed By: #### 2 [id number], [id number], [id number], [id number] #### [facility] [address] [place] [address] Interval History and Physion 06-06-2017 HIM IP Note OR Accounting Consultant Normal [facility] OPERATIVE REPORTon 7 OPERATIVE REPORT [facility] [address] [place] [address] OPERATIVE REPORTPATIENT NAME: MAGGIE YIP : 1975MED REC NO: [id number] ROOM:ACCOUNT NO: [id number] ADMISSION DATE:06/06/2017PROVIDER: Greg Beltre OF PROCEDURE: 06/06/2017PREOPERATIVE [...] digits. The procedure wastolerated quite well and [place] was prescribed for pain management withfollowup on Monday in our office.GREG CORONADOD: 06/06/2017 9:38:09 [id number]#: [id number] Doc#: [id number] Normal [facility] Surgical Pathologyon 017 Surgical Pathology (NOTE)[id number] LABORATORIESCONSULTING PATHOLOGISTS CORPORATIONANATOMIC [id number] [place] [address]. [place], [place] [address] Fax: SURGICAL PATHOLOGY CONSULTATIONPatient Name: Carroll YIP Rec: [id number] Number: [id number]: 06/06/2017Received: 06/06/2017Reported: 06/07/2017 11:51-- Diagnosis --SOFT TISSUE, [...] and perineural fibrosis, compatible withtraumatic-type neuroma. Normal [facility] History and Physicalon 06-05 HIM IP Note OR Accounting Consultant Normal [facility] Basic Metabolic Profon 05-22 (cont.) Normal [facility] Comment on above: Result Comment: Aver age GFR for 40-49 years old: 99 mL/min/1.73sq mChronic Kidney Disease: <60 mL/min/1.73sq mKidney failure: <15 mL/min/1.73sq meGFR calculated using average adult body mass. Additional eGFR calculator available at:http://[email or web address] Up/multiple_crcl_2012.htmPerformed at [facility] [address] [place] [address] Performed By: #### C BC, BMP ####[facility] [facility] [place] [address] Anion gap 14 mmol/L Normal - [facility] Comment on above: Performed By: #### C BC, BMP ####[facility] [facility] [place] [address] BUN/CRE Ratio 31 High - [facility] Comment on above: Performed By: #### C BC, BMP ####[facility] [place] [address] Calcium 9.4 mg/dL Normal 8.6-10.4 [facility] Comment on above: Performed By: #### C BC, BMP ####[facility] [place] [address] Chloride 101 mmol/L Normal 98-107 [facility] Comment on above: Performed By: #### C BC, BMP ####[facility] [place] [address] CO2 22 mmol/L Normal 20-31 [facility] Comment on above: Performed By: #### C BC, BMP ####[facility] [place] [address] Creatinine 0.55 mg/dL Normal 0.50-0.90 [facility] Comment on above: Performed By: #### C BC, BMP ####[facility] [place] [address] eGFR (non-black) mL/min/{1.73_m2} Normal >60 [facility] Comment on above: Performed By: #### C BC, BMP ####[facility] [place] [address] Glucose mass conc 99 mg/dL Normal 70-99 [facility] Comment on above: Performed By: #### C BC, BMP ####[facility] [place] [address] Potassium molar conc 4.3 mmol/L Normal 3.7-5.3 [facility] Comment on above: Performed By: #### C BC, BMP ####[facility] [place] [address] Sodium 137 mmol/L Normal 135-144 [facility] Comment on above: Performed By: #### C BC, BMP ####[facility] [place] [address] Urea nitrogen 17 mg/dL Normal 6-20 [facility] Comment on above: Performed By: #### C BC, BMP ####[facility] [place] [address] Staging: NOT REPORTED Normal [facility] Comment on above: Performed By: #### C BC, BMP ####[facility] [place] [address] CBCon 05-22-2017 Erythrocyte distribution width Auto Ratio (RBC) 13.1 % Normal 12.1-15.2 [facility] Comment on above: Performed By: #### C BC, BMP ####[facility] [place] [address] Erythrocytes (RBC) 4.59 10*6/uL Normal 4.0-5.2 [facility] Comment on above: Performed By: #### C BC, BMP ####[facility] [place] [address] Hematocrit (HCT) 42.8 % Normal 36-46 [facility] Comment on above: Performed By: #### C BC, BMP ####[facility] [place] [address] Hemoglobin mass conc (Bld) 14.6 g/dL Normal 12.0-16.0 [facility] Comment on above: Performed By: #### C BC, BMP ####[facility] [place] [address] MCH 31.9 pg Normal 26-34 [facility] Comment on above: Performed By: #### C BC, BMP ####[facility] [place] [address] MCHC mass conc (RBC) 34.2 g/dL Normal 31-37 [facility] Comment on above: Performed By: #### C BC, BMP ####[facility] [place] [address] MCV 93.3 fL Normal 80-100 [facility] Comment on above: Performed By: #### C BC, BMP ####[facility] [address] Platelets 366 10*3/uL Normal 140-450 [facility] Comment on above: Result Comment: Perf ormed at [facility] [address] [place], [place] [id number] ([address] Performed By: #### C BC, BMP ####[facility] [place] [address] WBC (Leukocytes) 9.3 10*3/uL Normal 3.5-11.0 [facility] Comment on above: Performed By: #### C BC, BMP ####[facility] [address] Platelet mean volume (PMV) NOT REPORTED Normal 6.0-12.0 [facility] Comment on above: Performed By: #### C BC, BMP ####[facility], [place] [address](721) Vital Signs Date Time Vital Sign Value Performing Clinician Facility 04-28-2022 15:01-0400 Body height 167.64 cm DO Xooker Work Phone: [facility] 04-28-2022 15:01-0400 Body temperature 97.9 [degF] DO Xooker Work Phone: [facility] 04-28-2022 15:01-0400 Body weight 89.81 kg DO Xooker Work Phone: [facility] 04-28-2022 15:01-0400 Diastolic blood pressure 107 mm[Hg] DO Xooker Work Phone: [facility] 04-28-2022 15:01-0400 Heart rate 113 /min DO Xooker Work Phone: [facility] 04-28-2022 15:01-0400 Respiratory rate 18 /min DO Rajesh Solo Work Phone: [facility] 04-28-2022 15:01-0400 SaO2% (BldA) [Mass fraction] 94 % DO Rajesh Solo Work Phone: [facility] 04-28-2022 15:01-0400 Systolic blood pressure 181 mm[Hg] DO Rajesh Solo Work Phone: [facility] 12-31-2021 10:00-0400 Body height 167.64 cm David Valle Other [facility] Other 12-31-2021 10:00-0400 Body mass index (BMI) [Ratio] 29.86 kg/m2 David Valle Other [facility] Other 12-31-2021 10:00-0400 Body weight 83.92 kg David Valle Other [facility] Other 08-04-2021 16:00-0500 Body height 167.64 cm Kenisha Alan Other [facility] Other 08-04-2021 16:00-0500 Body mass index (BMI) [Ratio] 32.12 kg/m2 Kenisha Alan Other [facility] Other 08-04-2021 16:00-0500 Body weight 90.27 kg Kenisha Alan Other [facility] Other Encounters Encounter Date Encounter Type Care Provider Facility Start: 06-04-2023 End: 06-04-2023 Emergency department patient visit Rajesh Solo Facility:[facility] Start: 04-28-2022 End: 04-28-2022 Emergency department patient visit DO Rajesh Solo Work Phone: [facility] Start: 01-06-2022 End: 01-06-2022 ambulatory David Valle Other [facility] Other Start: 01-06-2022 Telephone encounter David De Leonemelia anderson [facility] Start: 12-31-2021 End: 12-31-2021 ambulatory David Valle Other [facility] Other Start: 12-31-2021 Office outpatient visit 15 minutes David Valle [facility] Start: 09-14-2021 End: 10-22-[address] RAJESH SOLO Facility:[facility] Start: 09-01-2021 End: 09-01-2021 ambulatory Kenisha Alan Other [facility] Other Start: 09-01-2021 Postop follow up visit related to original px Kenisha Alan [facility] Start: 08-24-2021 End: 08-24-2021 ambulatory Kenisha Alan Other [facility] Other Start: 08-24-2021 Telephone encounter Kenisha VILLEGAS [facility] Start: 08-04-2021 End: 08-04-2021 ambulatory Kenisha Alan Other [facility] Other Start: 08-04-2021 Office outpatient visit 25 minutes Kenisha Alan [facility] Start: 03-29-2021 End: 03-30-[address] RAJESH SOLO Facility:[facility] Start: 03-24-2021 End: 03-25-[address] RAJESH SOLO Facility:[facility] Start: 06-06-2017 End: 06-06-2017 [facility] Start: 05-22-2017 End: 05-23-2017 Ambulatory [facility] Procedures Date Procedure Procedure Detail Performing Clinician Start: 04-28-2022 Plain X-ray of right hand DO Rajesh Solo Work Phone: Start: 06-06-2017 ELEVATE EXTREMITY WILBER LUDA BOHACH Start: 06-06-2017 NON WEIGHT BEARING SELENE CORONADO Start: 06-06-2017 POST OP SHOE BERNARDINO CORONADO Start: 06-06-2017 DISCHARGE PATIENT WILBER CORONADO Start: 06-06-2017 SURGICAL PATHOLOGY SELENE CORONADO Start: 05-22-2017 BASIC METABOLIC PANEL C LUCY CORONADO Start: 05-22-2017 CBC BERNARDINO CORONADO Plan of Treatment Date Care Activity Detail Author Patient Education Crush Injury (DC) [facility] Work Phone: Patient referral [facility] Work Phone: Payers Date Payer Category Payer Medicaid [id number] 2023 Self-pay [id number] 2014 Unknown [id number] 1975 Unknown [id number] 2.16.84 [id number] 1975 Unknown [id number] 2.16.84 [id number] 1975 Unknown [id number] 2.16.84 [id number] 1959 Unknown [id number] Unknown [id number] Worker's Compensation [id number] Social History Date Type Detail Facility Sex Assigned At [facility] Other Start: 04-28-2022 Tobacco smoking stat [facility] Smoker (finding) [facility] Start: 1975 Sex Assigned At Female F [facility] Evaluation note 12-31-2021 Note Date & Type Note Facility 12-31-2021 Evaluation note Encounter Date Diagnosis Assessment Notes December, Small bowel obstruction (ICD-10 - K56.609) December, Diverticulitis (ICD-10 - K57.92) START MESALAMINE 1.2 GRAM 4 PO Q AM PATIENT ENCOURAGED TO STOP SMOKING RTO 6 WEEKS [facility] Other Evaluation note 09-01-2021 Note Date & [...] for removal of sutures (ICD-10 - Z48.02) [facility] Other Evaluation note 08-04-2021 Note Date & [...] poor healing. I have advised against the terminal clerk use of narcotic pain medication. I have [...] as documented in the electronic medical record. [facility] Other Clinical Note 03-25-2021 Note Date & [...] DOMINGO Date: 2021-03-25 07:50 [facility] Evaluation note Note Date & Type Note Facility Evaluation note No Information [facility] [employer] Other Evaluation note Note Date & Type Note Facility Evaluation note No assessment information availa ble [facility] Work Phone: History general Narrative - Reported Note Date & Type Note Facility History general Narrative - Reported Type Medical History diverticulitis Medical History irritable bowel syndrome Surgical History hysterectomy Surgical History gallbladder Surgical History neuroma removal x2 in left foot Hospitalization History PANCREATITIS 02/2020 Hospitalization History PANCREATITIS 2018 Hospitalization History ABDOMINAL PAIN Hospitalization History PANCREATITIS [facility] Other History general Narrative - Reported Note Date & Type Note Facility History general Narrative - Reported Type Medical History diverticulitis Medical History irritable bowel syndrome Surgical History hysterectomy Surgical History gallbladder Surgical History neuroma removal x2 in left foot Surgical History right knee scope med ial/lateral menisectemy Hospitalization History PANCREATITIS 02/2020 Hospitalization History PANCREATITIS 2018 Hospitalization History ABDOMINAL PAIN Hospitalization History PANCREATITIS [facility] Other Hospital Discharge instructions Note Date & [...] your hand is not improving please call [facility] to follow-up with a hand surgeon You can also follow-up with [employer] as needed for minor concerns Return to the ER for more severe pain loss of circulation in your fingers or any other concerns [facility] Work Phone: Summary Purpose Family History No [...] DATE CREATED AUTHOR AUTHOR'S ORGANIZ ATION 10/15/2019 [employer] [facility] DATE CREATED AUTHOR AUTHOR'S ORGANIZ ATION 10/29/2021 [facility] DATE CREATED AUTHOR AUTHOR'S ORGANIZ ATION 06/15/2023 [facility] REASON FOR VISIT (unrecogniz ed section and content) INCISION BLEEDINGRight Knee PainRecheck Right KneeINPATIENT FOLLOW UP-TO BE SEEN IN [address] VALLE FOR DIVERTICULITIS/ BOWEL OBSTRUCTION, SHE FISNISHED ANTIBIOTICS INSTRUCTED SHE IS STARTING TO FEEL BETTERclinical Care Teams (unrecognized sec tion and content) Team Status: Inactive Member Role Status Dates Rajesh Solo , Primary Care Provider Active Danica Nuñez [facility] Emergency Provider Active Team Status: Active [...] BE BASED ON THE PRIMARY CLINICAL RECORDS. [facility]. provides no warranty or guarantee of the accuracy or completeness of information in this document.
== END 2024-04-01 08:49 | disposition home or self-care (01) ==
LOC: EC 08:48
PROVIDERS: PCP Nurse Practitioner Family; Visit Provider Orthopaedic Surgery
DX: S52.572D Other intraarticular fracture of lower end of left radius, subsequent encounter for closed fracture with routine healing (principal); S52.602D Unspecified fracture of lower end of left ulna, subsequent encounter for closed fracture with routine healing
CPT/HCPCS: 73110

== ENCOUNTER 2024-07-29 08:23 | Outpatient (OUT) | payer OTHER, SELFPAY ==
--- NOTE | 2024-07-29 | XR_ITS ---
The [address] [address] Patient Name: DAMION SARAVIA MRN: [id number] date: 1975 Sex: F Assigned Patient Location: Current Patient Location: Accession/Order Number: [id number] Exam Date: 07/29/2024 08:29 Report Date: 07/30/2024 06:28 At the request of: MARGRET PAEZ Procedure: XR wrist LT min 3V PROCEDURE: XR wrist LT min 3V HISTORY: LEFT WRIST PAIN COMPARISON: XR wrist left 04/01/2024 FINDINGS: BONES:Prior mechanical repair of comminuted distal radius and ulnar fractures via plate and screws; no appreciable hardware fracture loosening. Exuberant callus formation along the margins and partial osseous healing of the fracture lines. SOFT TISSUES:Soft tissue swelling surrounding the wrist. EFFUSION:None visible. OTHER: Negative. XR/XR wrist LT min 3V IMPRESSION: 1. Stable surgical changes without evidence of hardware failure or change in alignment. 2. Partial osseous healing. No appreciable change. Electronically authenticated by: MARGRET DOMINGO Date: 07/30/2024 06:28
--- OUTSIDE RECORDS SUMMARY | 2024-07-29 08:44 | XMS_ITS | CCD ---
Author Organization [facility] Care Team Providers Care Rn Ortho Name Role Phone GREG CORONADO Unavailable Unavailabl [...] Care Unavailable GERMANIA, DR HACKETT Admitting Unavailable MCMINNVILLE, DR HACKETT Attending Unavailable MCMINNVILLE, DR HACKETT Consulting Unavailable Kenisha Alan Unavailable David Valle Unavailable DO Rajesh Solo Primary Care Provider Joaquin [facility] Danica Mueller Emergency Provider [phone]( [phone] Rajesh Solo Primary Care Unavailable Mable Curtis [...] January 13, 2022 3:10pm polyethylene glycol 3350 79432 mg powder for oral solution (2 sources) [...] 023 XR foot LT min 3V* [facility] [place] [address] XRay Report Signed Patient: Maggie Yip MR#: [id number] 9 : 1975 Acct:[id number] Age/Sex: 47 / F ADM Date: 06/04/23 Loc: ER Room: Type: [facility] ER Attending Dr: Copies to: Mable [...] Jaylin Magallanes M.D.06/04/2023 12:32 PM Dictation Location: [place] [address] Transcribed By: [facility] 06/04/23 1232 Dictated By: Jaylin Magallanes MD 06/04/23 1231 Signed By: 06/04/23 1232 [facility] CYCLIC CITRULLINATED PEPTIDE AB (CCP)on 04-01-2021 CCP Antibodies IgG/IgA 5 units Normal 0-19 [facility] Comment on above: Result Comment: Nega tive <20 Weak positive 20 - 39 Moderate positive 40 - 59 Strong positive >59 Performed By: #### C CPAB #### [facility] [address] [address] Germán Mosqueda TAMI by IFAon 03-25-2021 Antinuclear Antibodies, IFA Negative Normal [facility] Comment on above: Result Comment: Nega tive <1:80 Borderline 1:80 Positive >1:80 ICAP nomenclature: AC-0 For more information about Hep-2 cell patterns use ANApatterns.org, the official website for the International Consensus on Antinuclear Antibody (TAMI) Patterns (ICAP). Performed By: #### A NAIFA #### [facility] [address] [place], [place] [address] Germánsimone Mosqueda RHEUMATOID FACTORon 03-25-20 RA Latex Turbid. <10.0 Normal 0.0-13.9 [facility] Comment on above: Performed By: #### R F #### [facility] [address] [place], [place] [address] Germánsimone Mosqueda CBC AUTO DIFFon 03-24-2021 BASO # 0.1 103/ul Normal 0.0-0.1 [facility] Comment on above: Performed By: #### C BC #### [facility] [address] [place], [place] [address] Germán Mosqueda Basophils/100 WBC (Bld) 0.6 % Normal 0.2-2.0 [facility] Comment on above: Performed By: #### C BC #### [facility] [address] [place] [address] Germán Mosqueda EO # 0.1 103/ul Normal 0.0-0.7 [facility] Comment on above: Performed By: #### C BC #### [facility] [address] [place], [place] [address] Germán Mosqueda Eosinophils/100 WBC (Bld) 1.2 % Normal 0.9-7.0 [facility] Comment on above: Performed By: #### C BC #### [facility] [address] [place], [place] [address] Germán Mosqueda Erythrocyte distribution width (RBC) [Ratio] 13.2 % Normal 11.0-15.0 [facility] Comment on above: Performed By: #### C BC #### [facility] [address] [place], [place] [address] Germánsimone Mosqueda Hematocrit (Bld) [Volume fraction] 45.3 % Normal 36.0-48.0 [facility] Comment on above: Performed By: #### C BC #### [facility] [address] [place], [place] [address] Germán Jaylin Hemoglobin (Bld) [Mass/Vol] 15.1 g/dL Normal 12.0-16.0 [facility] Comment on above: Performed By: #### C BC #### [facility] [address] [id number] Germán Jaylin IG # 0.07 10e3/ul Critically high 0.00-0.03 [facility] Comment on above: Performed By: #### C BC #### [facility] [address] [id number] Germán Jaylin IG % 0.6 % Critically high 0.0-0.5 [facility] Comment on above: Performed By: #### C BC #### [facility] [address] [id number] Germán Jaylin LYMPH # 3.4 103/ul Normal 1.2-3.8 [facility] Comment on above: Performed By: #### C BC #### [facility] [address] [place], [place] [address] Germán Mosqueda Lymphocytes/100 WBC (Bld) 30.1 % Normal 20.5-60.0 [facility] Comment on above: Performed By: #### C BC #### [facility] [address] [place], [place] [address] Germánsimone Mosqueda MANUAL DIFF REQ NO Normal [facility] Comment on above: Performed By: #### C BC #### [facility] [address] [place], [place] [address] Germán Jaylin MCH (RBC) [Entitic mass] 31.3 pg Normal 26.7-34.0 [facility] Comment on above: Performed By: #### C BC #### [facility] [address] [place], [place] [address] Germánsimone Mosqueda MCHC (RBC) [Mass/Vol] 33.3 g/dL Normal 29.9-35.2 [facility] Comment on above: Performed By: #### C BC #### [facility] [address] [id number] Germán Jaylin MCV (RBC) [Entitic vol] 94.0 fL Normal 81.0-99.0 [facility] Comment on above: Performed By: #### C BC #### [facility] [address] [place], [place] [address] Germán Jaylin MONO # 0.8 103/ul Normal 0.3-0.8 [facility] Comment on above: Performed By: #### C BC #### [facility] [address] [place], [place] [address] Germán Jaylin Monocytes/100 WBC (Bld) 7.2 % Normal 1.7-12.0 [facility] Comment on above: Performed By: #### C BC #### [facility] [address] [id number] Germán Jaylin NEUT # 6.7 103/ul Critically high 1.4-6.5 [facility] Comment on above: Performed By: #### C BC #### [facility] [address] [place], [place] [address] Germán Jaylin Neutrophils/100 WBC (Bld) 60.3 % Normal 43.0-75.0 [facility] Comment on above: Performed By: #### C BC #### [facility] [address] [place], [place] [address] Germán Jaylin Platelet mean volume (Bld) [Entitic vol] 9.0 fL Critically low 9.5-13.5 [facility] Comment on above: Performed By: #### C BC #### [facility] [address] [place], [place] [address] Germán Jaylin PLT 288 103/ul Normal 150-450 [facility] Comment on above: Performed By: #### C BC #### [facility] [address] [place], [place] [address] Germán Jaylin RBC 4.82 106/ul Normal 4.20-5.40 [facility] Comment on above: Performed By: #### C BC #### [facility] [address] [place], [place] [address] Germán Jaylin WBC 11.2 103/ul Critically high 4.0-11.0 [facility] Comment on above: Performed By: #### C BC #### [facility] [address] [place], [place] [address] Germán Jaylin PROF 14(COMP METB)on 021 Albumin [Mass/Vol] 3.8 g/dL Normal 3.5-5.0 [facility] Comment on above: Performed By: #### C MP, URIC #### [facility] [address] [place], [place] [address] Germán Jaylin Albumin/Globulin [Mass ratio] 0.9 {ratio} Normal [facility] Comment on above: Performed By: #### C MP, URIC #### [facility] [address] [place], [place] [address] Germán Jaylin ALP [Catalytic activity/Vol] 109 U/L Normal 38-126 [facility] Comment on above: Performed By: #### C MP, URIC #### [facility] [address] [place] [address] Germán Jaylin ALT [Catalytic activity/Vol] 56 U/L Critically high 9-52 [facility] Comment on above: Performed By: #### C MP, URIC #### [facility] [address] [place] [address] Germán Jaylin Anion gap [Moles/Vol] 17.6 mmol/L Normal [facility] Comment on above: Performed By: #### C MP, URIC #### [facility] [address] [place] [address] Germán Jaylin AST [Catalytic activity/Vol] 36 U/L Normal 14-36 [facility] Comment on above: Performed By: #### C MP, URIC #### [facility] [address] [place], [place] [address] Germán Jaylin Bilirubin [Mass/Vol] 0.3 mg/dL Normal 0.2-1.3 [facility] Comment on above: Performed By: #### C MP, URIC #### [facility] [address] [place], [place] [address] Germán Jaylin Calcium [Mass/Vol] 9.0 mg/dL Normal 8.4-10.2 [facility] Comment on above: Performed By: #### C MP, URIC #### [facility] [address] [place], [place] [address] Germán Jaylin Chloride [Moles/Vol] 104 mmol/L Normal 98-107 [facility] Comment on above: Performed By: #### C MP, URIC #### [facility] [address] [place], [place] [address] Germán Jaylin CO2 [Moles/Vol] 23.4 mmol/L Normal 22.0-30.0 [facility] Comment on above: Performed By: #### C MP, URIC #### [facility] [address] [place] [address] Germán Jaylin Creatinine [Mass/Vol] 0.61 mg/dL Normal 0.52-1.04 [facility] Comment on above: Performed By: #### C MP, URIC #### [facility] [address] [place] [address] Germán Jalyin EGFR-AF HAITIAN >60 Normal >=60 [facility] Comment on above: Performed By: #### C MP, URIC #### [facility] [address] [place] [address] Germán Jaylin EGFR-NON AF HAITIAN >60 Normal >=60 [facility] Comment on above: Performed By: #### C MP, URIC #### [facility] [address] [place], [place] [address] Germán Jaylin Globulin (S) [Mass/Vol] 4.2 g/dL Normal [facility] Comment on above: Performed By: #### C MP, URIC #### [facility] [address] [place] [address] Germán Jaylin Glucose [Mass/Vol] 90 mg/dL Normal 74-106 [facility] Comment on above: Performed By: #### C MP, URIC #### [facility] [address] [place] [address] Germán Jaylin Potassium [Moles/Vol] 4.0 mmol/L Normal 3.4-5.0 [facility] Comment on above: Performed By: #### C MP, URIC #### [facility] [address] [place] [address] Germán Jaylin Protein [Mass/Vol] 8.0 g/dL Normal 6.1-8.2 [facility] Comment on above: Performed By: #### C MP, URIC #### [facility] [address] [id number] Germán Jaylin Sodium [Moles/Vol] 141 mmol/L Normal 137-145 [facility] Comment on above: Performed By: #### C MP, URIC #### [facility] [address] [place], [place] [address] Germán Jaylin Urea nitrogen [Mass/Vol] 11.0 mg/dL Normal 7.0-17.0 [facility] Comment on above: Performed By: #### C MP, URIC #### [facility] [address] [place], [place] [address] Germán Jaylin Urea nitrogen/Creatini ne [Mass ratio] 18.0 mg/mg Normal [facility] Comment on above: Performed By: #### C MP, URIC #### [facility] [address] [place], [place] [address] Germán Jaylin SED RATE WESTERGRENon 2020 SED RATE 60 mm/hr Critically high <=20 [facility] Comment on above: Performed By: #### S EDR #### [facility] [address] [place], [place] [address] Germán Jaylin URIC ACID SERUMon 03-24-2021 Urate [Mass/Vol] 4.9 mg/dL Normal 2.5-6.2 [facility] Comment on above: Performed By: #### C MP, URIC #### [facility] [address] [place] [address] Germán Jaylin Coding Summary.on 10-15-2019 Coding Summary. CODING DATE: 020 FINAL [facility] STATUS: Home (Routine DC) PAYOR: Medicaid [...] Revised Date Saved: 10/15/2019 01:45 pm Normal [facility] Auto Diffon 10-08-2019 Basophils/100 WBC (Bld) 0.2 % Normal 0.0-2.0 [facility] Comment on above: Order Comment: Order Added by Discern Expert. Performed By: #### 2 459306, 8740920, 7852311, [id number] #### [facility] [address] [place] [address] Basophils/Leukocy cj Auto (Bld) [Pure # fraction] 0.0 E9/L Normal 0.0-0.2 [facility] Comment on above: Order Comment: Order Added by Discern Expert. Performed By: #### 2 283553, 5635517, 2747099, [id number] #### [facility] [address] [place] [address] Eosinophils/100 WBC (Bld) 1.0 % Normal 0.0-8.0 [facility] Comment on above: Order Comment: Order Added by Discern Expert. Performed By: #### 2 838669, 4210883, 3891619, [id number] #### [facility] [address] [place] [address] Eosinophils/Leuko cytes Auto (Bld) [Pure # fraction] 0.1 E9/L Normal 0.0-0.5 [facility] Comment on above: Order Comment: Order Added by Discern Expert. Performed By: #### 2 638443, 1055895, 5383384, [id number] #### [facility] [address] [place] [address] Lymphocytes/100 WBC (Bld) 25.0 % Normal 14.0-50.0 [facility] Comment on above: Order Comment: Order Added by Discern Expert. Performed By: #### 2 476596, 3234866, 9739299, [id number] #### [facility] [address] [place] [address] Lymphocytes/Leuko cytes Auto (Bld) [Pure # fraction] 2.9 E9/L Normal 1.0-4.0 [facility] Comment on above: Order Comment: Order Added by Discern Expert. Performed By: #### 2 056535, 5775600, 4635701, 88469873 #### [facility] [address] [place] [address] Monocytes/100 WBC (Bld) 6.9 % Normal 4.0-14.0 [facility] Comment on above: Order Comment: Order Added by Discern Expert. Performed By: #### 2 663572, 7353677, 1301952, [id number] #### [facility] [address] [place] [address] Monocytes/Leukocy cj Auto (Bld) [Pure # fraction] 0.8 E9/L Normal 0.2-1.0 [facility] Comment on above: Order Comment: Order Added by Discern Expert. Performed By: #### 2 911884, 5860381, 0834873, 89704647 #### [facility] [address] [place] [address] Neutrophils/100 WBC (Bld) 66.9 % Normal 36.0-75.0 [facility] Comment on above: Order Comment: Order Added by Discern Expert. Performed By: #### 2 268204, 0966396, 8374377, 06746324 #### [facility] [address] [place] [address] Neutrophils/Leuko cytes Auto (Bld) [Pure # fraction] 7.9 E9/L High 2.0-7.5 [facility] Comment on above: Order Comment: Order Added by Discern Expert. Performed By: #### 2 126600, 8403560, 5909986, 01056452 #### [facility] [address] [place] [address] BMPon 10-08-2019 Creatinine [Mass/Vol] 0.6 mg/dL Normal 0.5-1.3 [facility] Comment on above: Performed By: #### 2 088060, 4624232, 3936650, [id number] #### [facility] [address] [place] [address] Urea nitrogen [Mass/Vol] 12 mg/dL Normal 5-21 [facility] Comment on above: Performed By: #### 2 829753, 0668325, 1250765, 07240031 #### [facility] [address] [place] [address] Urea nitrogen/Creatini ne [Mass ratio] 20 No Units Normal 10-20 [facility] Comment on above: Performed By: #### 2 814681, 9487570, 1220703, 30925800 #### [facility] [address] [place] [address] Anion gap [Moles/Vol] 15 mmol/L Normal 6-16 [facility] Comment on above: Performed By: #### 2 676678, 9960092, 6084009, 43739053 #### [facility] [address] [place] [address] Calcium [Mass/Vol] 9.5 mg/dL Normal 8.9-11.1 [facility] Comment on above: Performed By: #### 2 873562, 0547913, 2859101, 66781720 #### [facility] [address] [place] [address] Chloride [Moles/Vol] 102 mmol/L Normal 101-111 [facility] Comment on above: Performed By: #### 2 123155, 0089957, 7183123, 40894756 #### [facility] [address] [place] [address] CO2 [Moles/Vol] 21 mmol/L Normal 21-31 [facility] Comment on above: Performed By: #### 2 449539, 6507540, 7099548, 13876529 #### [facility] [address] [place] [address] Glucose [Mass/Vol] 88 mg/dL Normal 55-199 [facility] Comment on above: Result Comment: If t his glucose result represents a fasting glucose, interpretation should refer to the following reference range: 55-99 mg/dL Performed By: #### 2 219728, 4812032, 5414270, 99761445 #### [facility] [address] [place] [address] Potassium [Moles/Vol] 4.1 mmol/L Normal 3.5-5.3 [facility] Comment on above: Performed By: #### 2 229287, 4004952, 5477083, 94230977 #### [facility] [address] [place] [address] Sodium [Moles/Vol] 134 mmol/L Low 135-145 [facility] Comment on above: Performed By: #### 2 223650, 8518949, 0254725, 27400027 #### [facility] [address] [place] [address] CBC w/ Auto Diffon 0 Erythrocyte distribution width (RBC) [Ratio] 13.7 % Normal 10.9-14.2 [facility] Comment on above: Performed By: #### 2 763556, 0310802, 9137472, 93722629 #### [facility] [address] [place] [address] Hematocrit (Bld) [Volume fraction] 44.6 % Normal 34.0-46.0 [facility] Comment on above: Performed By: #### 2 704123, 6494757, 7442479, 34160697 #### [facility] [address] [place] [address] Hemoglobin (Bld) [Mass/Vol] 15.3 g/dL Normal 12.0-16.0 [facility] Comment on above: Performed By: #### 2 154783, 3293519, 3393989, 53376019 #### [facility] [address] [place] [address] MCH (RBC) [Entitic mass] 32.6 pg Normal 27.0-34.0 [facility] Comment on above: Performed By: #### 2 464880, 4998195, 1798440, 54377847 #### [facility] [address] [place] [address] MCHC (RBC) [Mass/Vol] 34.4 g/dL Normal 31.4-36.0 [facility] Comment on above: Performed By: #### 2 315659, 0922373, 8300212, 60116301 #### [facility] [address] [place] [address] MCV (RBC) [Entitic vol] 94.9 fL Normal 80.0-100.0 [facility] Comment on above: Performed By: #### 2 827240, 0022482, 2048839, 37526017 #### [facility] [address] [place] [address] Platelet mean volume (Bld) [Entitic vol] 7.2 fL Normal 6.4-10.8 [facility] Comment on above: Performed By: #### 2 536154, 1121981, 2838106, 18058189 #### [facility] [address] [place] [address] Platelets (Bld) [#/Vol] 361.0 E9/L Normal 150.0-500.0 [facility] Comment on above: Performed By: #### 2 688399, 2832394, 6471050, 11997983 #### [facility] [address] [place] [address] RBC (Bld) [#/Vol] 4.7 E12/L Normal 4.3-5.9 [facility] Comment on above: Performed By: #### 2 284466, 0621503, 2986371, 07934963 #### [facility] [address] [place] [address] WBC corrected for nucl RBC Auto (Bld) [#/Vol] 11.8 E9/L High 4.0-11.0 [facility] Comment on above: Performed By: #### 2 627215, 5631359, 6712186, 34459072 #### [facility] [address] [place] [address] ED Clinical Summaryon 2019 ED Clinical Summary [address] [address] ED Clinical Summary Person Information Name: MAGGIE DEL ROSARIO [place] Age: 43 Years : 1975 Sex: Female Language: Kinyarwanda PCP: Rajesh Solo DO Marital Status: Phone: [phone] Visit Id: Visit Reason: Vomiting; Abdominal pain; [...] 10/08/2019 13:21:31 10/08/2019 13:21:31 10/08/2019 13:21:31 ADDRESS: [address] [place] [id number] PHYS DOC NOTES: MEDICAL INFORMATION: Prescriptions Given: [facility], [address] [facility] [place] [id number], [phone] sucralfate (Carafate 1 g/10 mL Susp-Oral) 10 Milliliter By Mouth 4 times a day for 7 Days. Refills: 0. PATIENT EDUCATION INFORMATION: Instructions: Gastritis, Adult; Abdominal Pain, Adult Follow up: With: Address: When: [facility], [address] [place] [address] Business (1) In 3 days 10/11/2019 With: Address: When: [facility] [address] [place] [address] Business (1) In 3 days 10/11/2019 DIAGNOSIS: Right upper quadrant abdominal pain Normal [facility] ED Note-Physicianon 10-08-19 ED Note-Physician Basic [...] ultrasound was obtained. This is discussed with bicycle service technician as negative for acute findings. Patient [...] day(s), # 280 mL, Refills(s) 0, Pharmacy: [facility], 165, cm, 10/08/19 10:25:00 EST, Height/Length [...] Information Yudelka RIOS In 3 days 10/11/2019 [facility] [address] [place] [address]- Business (1) Additional Instructions: Rajesh Solo In 3 days 10/11/2019 [facility] [address] [place] [address]- Business (1) Additional Instructions: Patient Education Gastritis, Adult Abdominal Pain, Adult Attestation Patient seen and evaluated by the physician salon assistant. Attending physician was present in the emergency department and supervised care. This report was transcribed using voice recognition software. Every effort was made to ensure accuracy, however, inadvertently computerized farm equipment mechanic apprentice mistakes may be present. Problem List/Past Medical [...] 10:41:00) Lymph Auto: 25 % (10/08/19 10:41:00) [place] Auto: 6.9 % (10/08/19 10:41:00) Eos Auto: 1 % (10/08/19 10:41:00) Basophil Auto: 0.2 % (10/08/19 10:41:00) Neutro Absolute: 7.9 E9/L High (10/08/19 10:41:00) Lymph Absolute: 2.9 E9/L (10/08/19 10:41:00) [place] Absolute: 0.8 E9/L (10/08/19 10:41:00) Eos Absolute: [...] By: Trevin Esquivel DO 10/08/2019 10:57:10 Normal [facility] Comment on above: Result Comment: Elec tronically Signed By: Rishi Martinze PA-C\.br\Date and Time Signed: 10/08/19 13:09 EST\.br\Electronically [...] discomfort you are experiencing: ? Only take ynwl-psc-wslaypc or prescription medicines as directed by your [...] Document Reviewed: 04/23/2014 ExitCare? Patient Information ?2015 Vitals ([email or web address]). This information is not intended to replace [...] (NSAIDs). HOME CARE INSTRUCTIONS ? Only take mban-gcm-wsyfoqz or prescription medicines as directed by your [...] Garlic and onions. ? Spicy foods. ? [place] fruits, such as oranges, todd, or limes. [...] Document Reviewed: 09/26/2012 ExitCare? Patient Information ?2014 Vitals ([email or web address]). This information is not intended to replace advice given to you by your health care provider. Make sure you discuss any questions you have with your health care provider. Normal [facility] ED Patient Summaryon 020 ED Patient Summary [address] [address] Patient Discharge Instructions Person Information Name: MAGGIE DEL ROSARIO Age: 43 Years Arrival Date: 10/08/2019 10:18:57 Discharge Diagnosis: Right upper quadrant abdominal pain Primary Care Physician: Rajesh Solo DO Provider Information Primary Provider: Trevin Esquivel DO Advanced Patient Resource Coordinator:Rishi Martinez PA-C The exam and treatment you received in the Emergency Department were for an urgent problem and are not intended as complete care. It is important that you follow up with a doctor, nurse practitioner, or physician?s salon assistant for ongoing care. If your symptoms become worse or you do not improve as expected and you are unable to reach your usual health care provider, you should return to the Emergency Department. We are available 24 hours a day. MAGGIE DEL ROSARIO has been given the following list of patient education materials, prescriptions and follow-up instructions: Follow-up Instructions: With: Address: When: [facility], [address] [place] [address] Business (1) In 3 days 10/11/2019 With: Address: When: Rajesh Solo [address] [place] [address] Business (1) In 3 days 10/11/2019 In the event that this physician does not participate in your insurance network, please consult with your insurance company to find a nearby participating provider. Patient Education Materials: Gastritis, Adult; Abdominal Pain, Adult A MESSAGE TO ALL PATIENTS REGARDING OPIOIDS PRESCRIPTION OPIOIDS: WHAT YOU NEED TO KNOW Prescription opioids can be used to help relieve ybdmeegp-sj-rpufgd pain and are often prescribed following a [...] struggling with addiction, tell your health care technician and ask for guidance or call [facility]?S National Helpline at 2-105-413-SDCH. v Source: US Department of Health and Human Services/Center for Disease Control & Prevention [facility] Medications Given: Medication Dose Route [...] New Medications [facility], [address] [place], [place] [id number], [phone] sucralfate (Carafate 1 g/10 mL Susp-Oral) 10 Milliliter By Mouth 4 times a day for 7 Days. Refills: 0. Comment: Pharmacy Information: Thank you for choosing [facility] Patient Education Materials: Gastritis, Adult Gastritis is [...] (NSAIDs). HOME CARE INSTRUCTIONS ? Only take rcmv-euu-egvfyhs or prescription medicines as directed by your [...] Garlic and onions. ? Spicy foods. ? [place] fruits, such as oranges, todd, or limes. [...] Document Reviewed: 09/26/2012 ExitCare? Patient Information ?2015 Vitals ([email or web address]). This information is not intended to replace [...] discomfort you are experiencing: ? Only take pvvb-kus-scohape or prescription medicines as directed by your [...] Document Reviewed: 04/23/2014 ExitCare? Patient Information ?2014 Vitals ([email or web address]). This information is not intended to replace advice given to you by your health care provider. Make sure you discuss any questions you have with your health care provider. MIGUEL ÁNGEL Aguirre LISA L , have received the following patient education materials/instructions and have verbalized understanding: Patient Education Materials: Gastritis, Adult; Abdominal Pain, Adult Follow-up Instructions: With: Address: When: [facility], [address] [place] [address] Business (1) In 3 days 10/11/2019 With: Address: When: [address] [address] Business (1) In 3 days 10/11/2019 Patient Signature Date Clinician/Nurse Signature Date 10/08/2019 13:21:33 Normal [facility] Hep Func Panelon 10-08-2019 Albumin [Mass/Vol] 4.2 g/dL Normal 3.3-5.0 [facility] Comment on above: Performed By: #### 2 064661, 0875543, 0901834, [id number] #### [facility] Laboratory [address] [place] [address] Albumin [Mass/Vol] 1.2 g/dL Normal 1.1-2.2 [facility] Comment on above: Performed By: #### 2 650097, 0368757, 0526095, [id number] #### [facility] [address] [place] [address] Bilirubin [Mass/Vol] 0.4 mg/dL Normal 0.0-1.1 [facility] Comment on above: Performed By: #### 2 368335, 4287601, 5832901, 62855910 #### [facility] [address] [place] [address] Bilirubin.direct [Mass/Vol] 0.3 mg/dL Normal 0.1-0.9 [facility] Comment on above: Performed By: #### 2 512190, 8515256, 0349806, 84121562 #### [facility] [address] [place] [address] Globulin (S) [Mass/Vol] 3.6 g/dL Normal 1.4-4.0 [facility] Comment on above: Performed By: #### 2 452577, 8928609, 9666238, 83447576 #### [facility] [address] [place] [address] Protein [Mass/Vol] 7.8 g/dL Normal 6.0-7.8 [facility] Comment on above: Performed By: #### 2 836329, 5461835, 2266438, 20707560 #### [facility] [address] [place] [address] ALP [Catalytic activity/Vol] 77 Int._Unit/L Normal 21-98 [facility] Comment on above: Performed By: #### 2 675844, 9982248, 7745075, 10617079 #### [facility] [address] [place] [address] ALT No additional P-5'-P [Catalytic activity/Vol] 64 Int._Unit/L High 6-46 [facility] Comment on above: Performed By: #### 2 492534, 6676227, 6504616, 98651857 #### [facility] [address] [place] [address] AST [Catalytic activity/Vol] 47 Int._Unit/L High 5-43 [facility] Comment on above: Performed By: #### 2 108358, 1004705, 9910458, 71874981 #### [facility] [address] [place] [address] Bilirubin.direct [Mass/Vol] 0.1 mg/dL Normal 0.1-0.4 [facility] Comment on above: Performed By: #### 2 173599, 0916592, 1536246, 62867687 #### [facility] [address] [place] [address] Lipase Levelon 10-08-2019 Lipase [Catalytic activity/Vol] 50 unit/L Normal 13-58 [facility] Comment on above: Performed By: #### 2 496017, 7750410, 3070963, 82076690 #### [facility] [address] [place] [address] Troponin 0 Hr.on 10-08-2019 Troponin I.cardiac [Mass/Vol] ng/mL Normal <=0.03 [facility] Comment on above: Result Comment: New Troponin Assay 01/09/14 LAN [place] Cutoff value > or = 0.03 ng/mL in conjunction with clinical conditions of myocardial infarction. ([email or web address]) Performed By: #### 2 878760, 5485059, 3760010, 53373314 #### [facility] [address] [place] [address] US Gallbladderon 10-08-2019 US Gallbladder Exam Date/Time: [...] MD Transcribed by: IMAN Technologist: HW Normal [facility] eGFRon 10-08-2019 GFR/1.73 sq M predicted among blacks MDRD (S/P/Bld) [Vol rate/Area] mL/min/{1.73_m2} Normal >=59 [facility] Comment on above: Order Comment: Order added by Discern Expert. Result Comment: eGFR is race adjusted. AA=. Performed By: #### 2 534674, 6208537, 0967987, 39327610 #### [facility] [address] [place] [address] GFR/1.73 sq M predicted among non-blacks MDRD (S/P/Bld) [Vol rate/Area] mL/min/{1.73_m2} Normal >=59 [facility] Comment on above: Order Comment: Order added by Discern Expert. Result Comment: [employer] Operator bhavin kidney disease could be indicated at eGFR's of less than 60 mL/min/1.73m2. Kidney failure is indicated at less than 15 mL/min/1.73m2. Performed By: #### 2 449106, 5306753, 2401763, 88014814 #### [facility] [address] [place] [address] Coding Summary.on 12-24-2018 Coding Summary. CODING DATE: 019 FINAL [facility] STATUS: Home (Routine DC) PAYOR: Self Pay APC DESCRIPTION 8005 CT and CTA without Contrast Composite 5026 Level 4 Type A ED Visits ADMIT [...] Revised Date Saved: 12/24/2018 08:11 am Normal [facility] Auto Diffon 12-23-2018 Basophils/100 WBC (Bld) 0.7 % Normal 0.0-2.0 [facility] Comment on above: Order Comment: Order Added by Discern Expert. Performed By: #### 2 927905, 7702487, 0504929, 33666744 #### [facility] [address] [place] [address] Basophils/Leukocy cj Auto (Bld) [Pure # fraction] 0.1 E9/L Normal 0.0-0.2 [facility] Comment on above: Order Comment: Order Added by Discern Expert. Performed By: #### 2 347260, 1721313, 0601535, 88485748 #### [facility] [address] [place] [address] Eosinophils/100 WBC (Bld) 1.1 % Normal 0.0-8.0 [facility] Comment on above: Order Comment: Order Added by Discern Expert. Performed By: #### 2 874490, 6288202, 0719565, 87686527 #### [facility] [address] [place] [address] Eosinophils/Leuko cytes Auto (Bld) [Pure # fraction] 0.1 E9/L Normal 0.0-0.5 [facility] Comment on above: Order Comment: Order Added by Discern Expert. Performed By: #### 2 083519, 4933480, 2928875, 89362711 #### [facility] [address] [place] [address] Lymphocytes/100 WBC (Bld) 37.9 % Normal 14.0-50.0 [facility] Comment on above: Order Comment: Order Added by Discern Expert. Performed By: #### 2 814418, 4259367, 5790833, 67393163 #### [facility] [address] [place] [address] Lymphocytes/Leuko cytes Auto (Bld) [Pure # fraction] 4.2 E9/L High 1.0-4.0 [facility] Comment on above: Order Comment: Order Added by Discern Expert. Performed By: #### 2 948970, 8990574, 8403804, 86737181 #### [facility] [address] [place] [address] Monocytes/100 WBC (Bld) 5.3 % Normal 4.0-14.0 [facility] Comment on above: Order Comment: Order Added by Discern Expert. Performed By: #### 2 522372, 7851777, 2319542, 25245671 #### [facility] [address] [place] [address] Monocytes/Leukocy cj Auto (Bld) [Pure # fraction] 0.6 E9/L Normal 0.2-1.0 [facility] Comment on above: Order Comment: Order Added by Discern Expert. Performed By: #### 2 389912, 3573545, 2999808, 69413601 #### [facility] [address] [place] [address] Neutrophils/100 WBC (Bld) 55.0 % Normal 36.0-75.0 [facility] Comment on above: Order Comment: Order Added by Discern Expert. Performed By: #### 2 363858, 9976942, 7087058, 96553825 #### [facility] [address] [place] [address] Neutrophils/Leuko cytes Auto (Bld) [Pure # fraction] 6.1 E9/L Normal 2.0-7.5 [facility] Comment on above: Order Comment: Order Added by Discern Expert. Performed By: #### 2 985760, 2954799, 1654894, 28118298 #### [facility] [address] [place] [address] BMPon 12-23-2018 Creatinine [Mass/Vol] 0.6 mg/dL Normal 0.5-1.3 [facility] Comment on above: Performed By: #### 2 653387, 5759031, 9942351, 56218040 #### [facility] [address] [place] [address] Urea nitrogen [Mass/Vol] 10 mg/dL Normal 5-21 [facility] Comment on above: Performed By: #### 2 070566, 1775085, 6106504, 05232310 #### [facility] [address] [place] [address] Urea nitrogen/Creatini ne [Mass ratio] 17 No Units Normal 10-20 [facility] Comment on above: Performed By: #### 2 560844, 0689325, 4487326, 01126928 #### [facility] [address] [place] [address] Anion gap [Moles/Vol] 15 mmol/L Normal 6-16 [facility] Comment on above: Performed By: #### 2 488150, 2348347, 7780786, 88213596 #### [facility] [address] [place] [address] Calcium [Mass/Vol] 10.1 mg/dL Normal 8.9-11.1 [facility] Comment on above: Performed By: #### 2 098064, 7373796, 4991280, 42140874 #### [facility] [address] [place] [address] Chloride [Moles/Vol] 99 mmol/L Low 101-111 [facility] Comment on above: Performed By: #### 2 440287, 3865140, 0917231, 81112347 #### [facility] [address] [place] [address] CO2 [Moles/Vol] 22 mmol/L Normal 21-31 [facility] Comment on above: Performed By: #### 2 647777, 0033943, 6146146, 82695981 #### [facility] [address] [place] [address] Glucose [Mass/Vol] 137 mg/dL Normal 55-199 [facility] Comment on above: Result Comment: If t his glucose result represents a fasting glucose, interpretation should refer to the following reference range: 55-99 mg/dL Performed By: #### 2 086590, 0515932, 2406925, 40175195 #### [facility] [address] [place] [address] Potassium [Moles/Vol] 3.1 mmol/L Low 3.5-5.3 [facility] Comment on above: Performed By: #### 2 686648, 1408634, 6926208, 87714099 #### [facility] [address] [place] [address] Sodium [Moles/Vol] 133 mmol/L Low 135-145 [facility] Comment on above: Performed By: #### 2 277267, 8253798, 2706251, 84856172 #### [facility] [address] [place] [address] CBC w/ Auto Diffon 9 Erythrocyte distribution width (RBC) [Ratio] 13.0 % Normal 10.9-14.2 [facility] Comment on above: Performed By: #### 2 534893, 7776184, 4689268, 10132130 #### [facility] [address] [place] [address] Hematocrit (Bld) [Volume fraction] 45.9 % Normal 34.0-46.0 [facility] Comment on above: Performed By: #### 2 118210, 9221531, 4009395, 05761455 #### [facility] [address] [place] [address] Hemoglobin (Bld) [Mass/Vol] 15.7 g/dL Normal 12.0-16.0 [facility] Comment on above: Performed By: #### 2 902364, 4845826, 9011860, 09621489 #### [facility] [address] [place] [address] MCH (RBC) [Entitic mass] 32.8 pg Normal 27.0-34.0 [facility] Comment on above: Performed By: #### 2 571931, 9927593, 1181985, 50831262 #### [facility] [address] [place] [address] MCHC (RBC) [Mass/Vol] 34.2 g/dL Normal 33.3-35.7 [facility] Comment on above: Performed By: #### 2 274861, 6286922, 4587509, 53255030 #### [facility] [address] [place] [address] MCV (RBC) [Entitic vol] 95.9 fL Normal 80.0-100.0 [facility] Comment on above: Performed By: #### 2 680059, 9956017, 9480391, 01835389 #### [facility] [address] [place] [address] Platelet mean volume (Bld) [Entitic vol] 7.5 fL Normal 6.4-10.8 [facility] Comment on above: Performed By: #### 2 753354, 8526806, 2746017, 14436506 #### [facility] [address] [place] [address] Platelets (Bld) [#/Vol] 373.0 E9/L Normal 150.0-500.0 [facility] Comment on above: Performed By: #### 2 297609, 5696454, 5651031, 95661726 #### [facility] [address] [place] [address] RBC (Bld) [#/Vol] 4.8 E12/L Normal 4.3-5.9 [facility] Comment on above: Performed By: #### 2 776905, 9596196, 0737080, 88853452 #### [facility] [address] [place] [address] WBC corrected for nucl RBC Auto (Bld) [#/Vol] 11.2 E9/L High 4.0-11.0 [facility] Comment on above: Performed By: #### 2 677675, 8997715, 7650407, 89305968 #### [facility] [address] [place] [address] CT Head or Brain w/o Contras ton [...] MD Transcribed by: IMAN Technologist: HAIDER Normal [facility] CT Spine Cervical w/o Contra ston [...] MD Transcribed by: IMAN Technologist: HAIDER Mcmanus [facility] ED Clinical Summaryon 2018 ED Clinical Summary [place] [id number] ED Clinical Summary Person Information Name: MAGGIE DEL ROSARIO D[facility] Age: 43 Years : 1975 12:00 AM Sex: Female Language: Kinyarwanda PCP: Rajesh Solo DO Marital Status: Single Phone: [phone] Visit Id: Visit Reason: Fall; PT FELL [...] 3:33 AM 12/23/2018 3:33 AM ADDRESS: [address] [facility] [id number] PHYS DOC NOTES: MEDICAL INFORMATION: Prescriptions Given: PATIENT EDUCATION INFORMATION: Instructions: Alcohol Intoxication; Concussion, Adult, Ytfq-th-Pfdr; Open Wound, Lip, Bvzf-cf-Tcnj; Mouth Laceration, Blpv-vk-Hcjn Follow up: With: Address: When: WHITNEY KENNEDY [address] [place], [place] [address] [phone] Business (1) Within 1 to 2 days, only if needed DIAGNOSIS: 1:Acute alcohol intoxication; 2:Concussion with loss of consciousness <= 30 min; 3:Lip laceration Normal [facility] ED Note-Physicianon 12-24-19 ED Note-Physician Basic [...] 43-year-old female she is awake and attentive [place]ie Coma Scale 15. There is a superficial [...] 1 to 2 days, only if needed [address] [place] [address]- [facility] (1) Additional Instructions: Patient Education Alcohol Intoxication Concussion, Adult, Lpms-qg-Iijz Open Wound, Lip, Yqup-zh-Votc Mouth Laceration, Ycpj-lz-Znrc Problem List/Past Medical History Ongoing No qualifying [...] Lymph Auto: 37.9 % (12/23/18 01:55:00 EDT) [place] Auto: 5.3 % (12/23/18 01:55:00 EDT) Eos Auto: 1.1 % (12/23/18 01:55:00 EDT) Basophil Auto: 0.7 % (12/23/18 01:55:00 EDT) Neutro Absolute: 6.1 E9/L (12/23/18 01:55:00 EDT) Lymph Absolute: 4.2 E9/L High (12/23/18 01:55:00 EDT) [place] Absolute: 0.6 E9/L (12/23/18 01:55:00 EDT) Eos [...] By: Juan Francisco Munoz MD [facility] Comment on above: Result Comment: Elec tronically Signed By: Juan Francisco Munoz MD\.br\Date and Time Signed: 12/23/18 03:15 EDT ED Patient Education Noteon 12-23-2018 ED Patient Education Note Gyqu-nt-Zipf Open Wound, Lip An open wound is [...] Document Reviewed: 11/30/2010 ExitCare? Patient Information ?2015 Vitals ([email or web address]). This information is not intended to replace [...] Tell your teachers, school nurse, school counselor, middle school baseball coach, link trainer mechanic, or network control operators supervisor about your concussion. Tell them about what [...] Document Reviewed: 03/06/2014 ExitCare? Patient Information ?2015 Vitals ([email or web address]). This information is not intended to replace advice given to you by your health care provider. Make sure you discuss any questions you have with your health care provider. Mouth Laceration A mouth laceration is a cut inside the mouth. HOME CARE ? Rinse your mouth with warm salt water 4 to 6 times a day. ? [place] your teeth as usual if you can. [...] Document Reviewed: 02/16/2012 ExitCare? Patient Information ?2015 Vitals ([email or web address]). This information is not intended to replace [...] yellow. Avoid caffeine. ? ? Only take jfwc-pds-wmpsocv or prescription medicines as directed by your [...] Document Reviewed: 01/17/2014 ExitCare? Patient Information ?2015 [employer]. This information is not intended to replace advice given to you by your health care provider. Make sure you discuss any questions you have with your health care provider. Normal [facility] ED Patient Summaryon 019 ED Patient Summary [address] [address] Patient Discharge Instructions Person Information Name: MAGGIE DEL ROSARIO Age: 43 Years Arrival Date: 12/23/2018 1:53 AM Discharge Diagnosis: 1:Acute alcohol intoxication; 2:Concussion with loss of consciousness <= 30 min; 3:Lip laceration Primary Care Physician: Rajesh Solo DO Provider Information Primary Provider: Juan Francisco Munoz MD Advanced Patient Resource Coordinator:None The exam and treatment you received in the Emergency Department were for an urgent problem and are not intended as complete care. It is important that you follow up with a doctor, nurse practitioner, or physician?s salon assistant for ongoing care. If your symptoms [...] Follow-up Instructions: With: Address: When: WHITNEY KENNEDY [address] [place], [place] [id number] Business (1) Within 1 to 2 days, only if needed In the event that this physician does not participate in your insurance network, please consult with your insurance company to find a nearby participating provider. Patient Education Materials: Alcohol Intoxication; Concussion, Adult, Ckeu-we-Qmpe; Open Wound, Lip, Dzmo-xn-Hygc; Mouth Laceration, Goer-iy-Asxn A MESSAGE TO ALL PATIENTS REGARDING OPIOIDS PRESCRIPTION OPIOIDS: WHAT YOU NEED TO KNOW Prescription opioids can be used to help relieve ijcuwdch-gm-iwcphw pain and are often prescribed following a [...] struggling with addiction, tell your health care technician and ask for guidance or call [facility] National Helpline at 6-975-766-LKWP. Source: US Department of Health and Human Services/Center for Disease Control & Prevention [facility] Medications Given: Medication Dose Route No medications found. Medication Information: Comment: Pharmacy Information: Thank you for choosing [facility] Patient Education Materials: Alcohol Intoxication Alcohol intoxication [...] yellow. Avoid caffeine. ? ? Only take xmca-iya-ogfbtrk or prescription medicines as directed by your [...] Document Reviewed: 01/17/2014 ExitCare? Patient Information ?2015 Vitals ([email or web address]). This information is not intended to replace [...] Tell your teachers, school nurse, school counselor, middle school baseball coach, link trainer mechanic, or network control operators supervisor about your concussion. Tell them about what [...] Document Reviewed: 03/06/2014 ExitCare? Patient Information ?2015 Vitals ([email or web address].com). This information is not intended to replace [...] Document Reviewed: 11/30/2010 ExitCare? Patient Information ?2015 Vitals ([email or web address].com). This information is not intended to replace advice given to you by your health care provider. Make sure you discuss any questions you have with your health care provider. Mouth Laceration A mouth laceration is a cut inside the mouth. HOME CARE ? Rinse your mouth with warm salt water 4 to 6 times a day. ? [place] your teeth as usual if you can. [...] Document Reviewed: 02/16/2012 ExitCare? Patient Information ?2015 Vitals ([email or web address].com). This information is not intended to replace advice given to you by your health care provider. Make sure you discuss any questions you have with your health care provider. MIGUEL ÁNGEL Aguirre LISA L , have received the following patient education materials/instructions and have verbalized understanding: Patient Education Materials: Alcohol Intoxication; Concussion, Adult, Hwez-bj-Okku; Open Wound, Lip, Iqew-ns-Bcfx; Mouth Laceration, Odbo-sv-Plxo Follow-up Instructions: With: Address: When: WHITNEY KENNEDY [address] [place] [address], [place] [address] [facility] (1) Within 1 to 2 days, only if needed Prescriptions: Patient Signature Date Clinician/Nurse Signature Date 12/23/18 03:33:31 Normal [facility] Ethanolon 12-23-2018 Ethanol [Mass/Vol] 268 mg/dL Abnormal <=7 [facility] Comment on above: Result Comment: Nano ical Result S_ETOH:268.0 Called to [facility] AT ER by LLOYD ABBOTT And Read Back For Confirmation at: 12/23/2018 02:44:14\Critical Result verified by repeat analysis Performed By: #### 2 [id number] #### [facility] Laboratory [address] [place] [address] Pre-Arrival Noteon 9 Pre-Arrival Note Pre-Arrival Summary Name: , Current Date: 12/23/2018 01:56:40 EDT Gender: Female Date of : Age: 43 Pre-Arrival Type: EMS ETA: 12/23/2018 02:14:00 EDT Primary Care Physician: Presenting Problem: fall stairs 5min eta Pre-Arrival User: Harry Aragon RN Referring Source: Location: [place] Completion Date/Time: 12/23/18 01:44:00 [facility] Department Pre-Hospital Report Form Vital Signs: Pre-Hospital Report: Treatment in Route: Response to Treatment: Misc. Issues: Normal [facility] eGFRon 12-23-2018 GFR/1.73 sq M predicted among blacks MDRD (S/P/Bld) [Vol rate/Area] mL/min/{1.73_m2} Normal >=59 [facility] Comment on above: Order Comment: Order added by Discern Expert. Result Comment: eGFR is race adjusted. AA=. Performed By: #### 2 [id number] #### [facility] [address] [place] [address] GFR/1.73 sq M predicted among non-blacks MDRD (S/P/Bld) [Vol rate/Area] mL/min/{1.73_m2} Normal >=59 [facility] Comment on above: Order Comment: Order added by Discern Expert. Result Comment: [employer] Operator bhavin kidney disease could be indicated at eGFR's of less than 60 mL/min/1.73m2. Kidney failure is indicated at less than 15 mL/min/1.73m2. Performed By: #### 2 [id number], [id number] #### [facility] [address] [place] [address] Interval History and Physion 06-06-2017 HIM IP Note OR Special Service Officer Normal [facility] OPERATIVE REPORTon 7 OPERATIVE REPORT [facility] [address] [place] [address] OPERATIVE REPORTPATIENT NAME: MAGGIE YIP : 1975MED REC NO: [id number] ROOM:ACCOUNT NO: [id number] ADMISSION DATE:06/06/2017PROVIDER: Greg Beltre OF PROCEDURE: 06/06/2017PREOPERATIVE [...] digits. The procedure wastolerated quite well and [place] was prescribed for pain management withfollowup on Monday in our office.GREG CORONADOD: 06/06/2017 9:38:09 [id number]#: [id number] Doc#: [id number] Normal [facility] Surgical Pathologyon 017 Surgical Pathology (NOTE)[id number] LABORATORIESCONSULTING PATHOLOGISTS CORPORATIONANATOMIC RLGMURSHL[address] [place] [address]. [place], [place] [address] Fax: SURGICAL PATHOLOGY CONSULTATIONPatient Name: Carroll YIP Rec: [id number] Number: [id number]: 06/06/2017Received: 06/06/2017Reported: 06/07/2017 11:51-- Diagnosis --SOFT TISSUE, [...] and perineural fibrosis, compatible withtraumatic-type neuroma. Normal [facility] History and Physicalon 06-05 HIM IP Note OR Special Service Officer Normal [facility] Basic Metabolic Profon 05-22 (cont.) Normal [facility] Comment on above: Result Comment: Aver age GFR for 40-49 years old: 99 mL/min/1.73sq mChronic Kidney Disease: <60 mL/min/1.73sq mKidney failure: <15 mL/min/1.73sq meGFR calculated using average adult body mass. Additional eGFR calculator available at:[email or web address] at [facility] [address] [place] [address] Performed By: #### C BC, BMP ####[facility] [facility] [place] [address] Anion gap 14 mmol/L Normal - [facility] Comment on above: Performed By: #### C BC, BMP ####[facility] [facility] [place] [address] BUN/CRE Ratio 31 High - [facility] Comment on above: Performed By: #### C BC, BMP ####[facility] [place] [address] Calcium 9.4 mg/dL Normal 8.6-10.4 [facility] Comment on above: Performed By: #### C BC, BMP ####[facility] [place] [address] Chloride 101 mmol/L Normal 98-107 [facility] Comment on above: Performed By: #### C BC, BMP ####[facility] [place] [address] CO2 22 mmol/L Normal 20-31 [facility] Comment on above: Performed By: #### C BC, BMP ####[facility] [place] [address] Creatinine 0.55 mg/dL Normal 0.50-0.90 [facility] Comment on above: Performed By: #### C BC, BMP ####[facility] [place] [address] eGFR (non-black) mL/min/{1.73_m2} Normal >60 [facility] Comment on above: Performed By: #### C BC, BMP ####[facility] [place] [address] Glucose mass conc 99 mg/dL Normal 70-99 [facility] Comment on above: Performed By: #### C BC, BMP ####[facility] [place] [address] Potassium molar conc 4.3 mmol/L Normal 3.7-5.3 [facility] Comment on above: Performed By: #### C BC, BMP ####[facility] [place] [address] Sodium 137 mmol/L Normal 135-144 [facility] Comment on above: Performed By: #### C BC, BMP ####[facility] [place] [address] Urea nitrogen 17 mg/dL Normal 6-20 [facility] Comment on above: Performed By: #### C BC, BMP ####[facility] [place] [address] Staging: NOT REPORTED Normal [facility] Comment on above: Performed By: #### C BC, BMP ####[facility] [place] [address] CBCon 05-22-2017 Erythrocyte distribution width Auto Ratio (RBC) 13.1 % Normal 12.1-15.2 [facility] Comment on above: Performed By: #### C BC, BMP ####[facility] [place] [address] Erythrocytes (RBC) 4.59 10*6/uL Normal 4.0-5.2 [facility] Comment on above: Performed By: #### C BC, BMP ####[facility] [place] [address] Hematocrit (HCT) 42.8 % Normal 36-46 [facility] Comment on above: Performed By: #### C BC, BMP ####[facility] [place] [address] Hemoglobin mass conc (Bld) 14.6 g/dL Normal 12.0-16.0 [facility] Comment on above: Performed By: #### C BC, BMP ####[facility] [place] [address] MCH 31.9 pg Normal 26-34 [facility] Comment on above: Performed By: #### C BC, BMP ####[facility] [place] [address] MCHC mass conc (RBC) 34.2 g/dL Normal 31-37 [facility] Comment on above: Performed By: #### C BC, BMP ####[facility] [place] [address] MCV 93.3 fL Normal 80-100 [facility] Comment on above: Performed By: #### C BC, BMP ####[facility] [place] [address] Platelets 366 10*3/uL Normal 140-450 [facility] Comment on above: Result Comment: Perf ormed at [facility] [address] [place], [place] [id number] (532 Performed By: #### C BC, BMP ####[facility] [place] [address] WBC (Leukocytes) 9.3 10*3/uL Normal 3.5-11.0 [facility] Comment on above: Performed By: #### C BC, BMP ####[facility] [address] Platelet mean volume (PMV) NOT REPORTED Normal 6.0-12.0 [facility] Comment on above: Performed By: #### C BC, BMP ####[facility], [place] [id number](348) Vital Signs Date Time Vital Sign Value Performing Clinician Facility 04-28-2022 15:01-0400 Body height 167.64 cm DO [employer] Work Phone: [facility] 04-28-2022 15:01-0400 Body temperature 97.9 [degF] DO [employer] Work Phone: [facility] 04-28-2022 15:01-0400 Body weight 89.81 kg DO [employer] Work Phone: [facility] 04-28-2022 15:01-0400 Diastolic blood pressure 107 mm[Hg] DO [employer] Work Phone: [facility] 04-28-2022 15:01-0400 Heart rate 113 /min DO [employer] Work Phone: [facility] 04-28-2022 15:01-0400 Respiratory rate 18 /min DO Rajesh Solo Work Phone: [facility] 04-28-2022 15:01-0400 SaO2% (BldA) [Mass fraction] 94 % DO Rajesh Solo Work Phone: [facility] 04-28-2022 15:01-0400 Systolic blood pressure 181 mm[Hg] DO Rajesh Solo Work Phone: [facility] 12-31-2021 10:00-0400 Body height 167.64 cm David Valle Other [facility] Other 12-31-2021 10:00-0400 Body mass index (BMI) [Ratio] 29.86 kg/m2 David Valle Other [facility] Other 12-31-2021 10:00-0400 Body weight 83.92 kg David Valle Other [facility] Other 08-04-2021 16:00-0500 Body height 167.64 cm Kenisha Alan Other [facility] Other 08-04-2021 16:00-0500 Body mass index (BMI) [Ratio] 32.12 kg/m2 Kenisha Alan Other [facility] Other 08-04-2021 16:00-0500 Body weight 90.27 kg Kenisha Alan Other [facility] Other Encounters Encounter Date Encounter Type Care Provider Facility Start: 06-04-2023 End: 06-04-2023 Emergency department patient visit Rajesh Solo Facility:[facility] Start: 04-28-2022 End: 04-28-2022 Emergency department patient visit DO Rajesh Solo Work Phone: [facility] Start: 01-06-2022 End: 01-06-2022 ambulatory David Valle Other [facility] Other Start: 01-06-2022 Telephone encounter David De Leonemelia anderson [facility] Start: 12-31-2021 End: 12-31-2021 ambulatory David Valle Other [facility] Other Start: 12-31-2021 Office outpatient visit 15 minutes David Valle [facility] Start: 09-14-2021 End: 10-22-[address] RAJESH SOLO Facility:[facility] Start: 09-01-2021 End: 09-01-2021 ambulatory Kenisha Alan Other [facility] Other Start: 09-01-2021 Postop follow up visit related to original px Kenisha Alan [facility] Start: 08-24-2021 End: 08-24-2021 ambulatory Kenisha Alan Other [facility] Other Start: 08-24-2021 Telephone encounter Kenisha VILLEGAS [facility] Start: 08-04-2021 End: 08-04-2021 ambulatory Kenisha Alan Other [facility] Other Start: 08-04-2021 Office outpatient visit 25 minutes Kenisha Alan [facility] Start: 03-29-2021 End: 03-30-[address] RAJESH SOLO Facility:[facility] Start: 03-24-2021 End: 03-25-[address] RAJESH SOLO Facility:[facility] Start: 06-06-2017 End: 06-06-2017 Ambulatory [facility] Start: 05-22-2017 End: 05-23-2017 Ambulatory [facility] Procedures Date Procedure Procedure [...] Detail Author Patient Education Crush Injury (DC) [facility] Work Phone: Patient referral [facility] Work Phone: Payers Date Payer Category Payer Medicaid [id number] 2023 Self-pay [id number] 2014 Unknown [id number] 1975 Unknown [id number] 2.16.84 [id number] 1975 Unknown [id number] 2.16.84 [id number] 1975 Unknown [id number] 2.16.84 [id number] 1959 Unknown [id number] Unknown [id number] 2.16.8 [id number] Worker's Compensation [id number] Social History Date Type Detail Facility Sex Assigned At [facility] Other Start: 04-28-2022 Tobacco smoking stat [facility] Smoker (finding) [facility] Start: 1975 Sex Assigned At Female F [facility] Evaluation note 12-31-2021 Note Date & Type Note Facility 12-31-2021 Evaluation note Encounter Date Diagnosis Assessment Notes December, Small bowel obstruction (ICD-10 - K56.609) December, Diverticulitis (ICD-10 - K57.92) START MESALAMINE 1.2 GRAM 4 PO Q AM PATIENT ENCOURAGED TO STOP SMOKING RTO 6 WEEKS [facility] Other Evaluation note 09-01-2021 Note Date & [...] for removal of sutures (ICD-10 - Z48.02) [facility] Other Evaluation note 08-04-2021 Note Date & [...] as documented in the electronic medical record. [facility] Other Clinical Note 03-25-2021 Note Date & [...] by: MARGRET DOMINGO Date: 2021-03-25 07:50 [facility] Evaluation note Note Date & Type Note Facility Evaluation note No Information [facility]ral [facility] [employer] Other Evaluation note Note Date & Type Note Facility Evaluation note No assessment information availa ble [facility] Work Phone: History general Narrative - Reported Note Date & Type Note Facility History general Narrative - Reported Type Medical History diverticulitis Medical History irritable bowel syndrome Surgical History hysterectomy Surgical History gallbladder Surgical History neuroma removal x2 in left foot Hospitalization History PANCREATITIS 02/2020 Hospitalization History PANCREATITIS 2018 Hospitalization History ABDOMINAL PAIN Hospitalization History PANCREATITIS [facility] Other History general Narrative - Reported Note Date & Type Note Facility History general Narrative - Reported Type Medical History diverticulitis Medical History irritable bowel syndrome Surgical History hysterectomy Surgical History gallbladder Surgical History neuroma removal x2 in left foot Surgical History right knee scope med ial/lateral menisectemy Hospitalization History PANCREATITIS 02/2020 Hospitalization History PANCREATITIS 2018 Hospitalization History ABDOMINAL PAIN Hospitalization History PANCREATITIS [facility] Other Hospital Discharge instructions Note Date & [...] your hand is not improving please call [facility] to follow-up with a hand surgeon You can also follow-up with [facility] as needed for minor concerns Return to the ER for more severe pain loss of circulation in your fingers or any other concerns [facility] Work Phone: Summary Purpose Family [...] DATE CREATED AUTHOR AUTHOR'S ORGANIZ ATION 10/15/2019 [employer] [facility] DATE CREATED AUTHOR AUTHOR'S ORGANIZ ATION 10/29/2021 [facility] DATE CREATED AUTHOR AUTHOR'S ORGANIZ ATION 06/15/2023 [facility] REASON FOR VISIT (unrecogniz ed section and content) INCISION BLEEDINGRight Knee PainRecheck Right KneeINPATIENT FOLLOW UP-TO BE SEEN IN [address] VALLE FOR DIVERTICULITIS/ BOWEL OBSTRUCTION, SHE FISNISHED ANTIBIOTICS INSTRUCTED SHE IS STARTING TO FEEL BETTERclinical Care Teams (unrecognized sec tion and content) Team Status: Inactive Member Role Status Dates Rajesh Solo , Primary Care Provider Active Danica Nuñez [facility] Emergency Provider Active Team Status: [...] BE BASED ON THE PRIMARY CLINICAL RECORDS. [employer] [facility]. provides no warranty or guarantee of the accuracy or completeness of information in this document.
== END 2024-07-29 08:24 | disposition home or self-care (01) ==
LOC: EC 08:23
PROVIDERS: PCP Nurse Practitioner Family; Visit Provider Orthopaedic Surgery
DX: S52.572D Other intraarticular fracture of lower end of left radius, subsequent encounter for closed fracture with routine healing (principal); S52.602D Unspecified fracture of lower end of left ulna, subsequent encounter for closed fracture with routine healing
CPT/HCPCS: 73110

== ENCOUNTER 2024-11-25 08:28 | Outpatient (OUT) | payer OTHER, SELFPAY ==
--- OUTSIDE RECORDS SUMMARY | 2024-11-25 08:39 | XMS_ITS | CCD ---
Author Organization [facility] Care Team Providers Care Stock Chaser Name Role Phone GREG CORONADO Unavailable Unavailabl [...] Unavailable GERMANIA, DR HACKETT Primary Care Unavailable STANTON, DR HACKETT Admitting Unavailable GERMANIA, DR HACKETT Attending Unavailable STANTON, DR HACKETT Consulting Unavailable Good Alan Unavailable David Valle Unavailable DO aRjesh Solo Primary Care Provider Joaquin [facility] Danica Summers Emergency Provider Rajesh Solo Primary Care Unavailable Mable Curtis Attending Unavailable Mable Curtis Admitting Unavailable Medications Current Medications Medication Drug Class(es) Dates Sig (Normalized) Sig (Original) atenolol 50 mg oral tablet (4 sources) beta-Adrenergic Sofia Start: 01-10-2022 take 1 tablet by mouth once daily in the morning Atenolol 50 mg tablet Active 50 MG PO Every morning January 10, 2022 12:00am Atenolol Active cyclobenzaprine hydrochloride 10 mg oral tablet (1 source) Muscle Relaxant Start: 11-19-2024 take 1 tablet by mouth three times daily as needed for muscle spasms Cyclobenzaprine 10 mg tablet Active 10 MG PO Three times daily as needed for muscle spasm 21 7 November 19, 2024 12:00am meloxicam 15 mg oral tablet (2 [...] a day for 30 day(s) December, Active predniSONE 10 mg oral tablet (1 source) Start: 11-19-2024 Prednisone 10 mg tablet Active 0 PO daily 16 04November 19, 2024 12:00am 4 tablets x2 days, then 3 tab x2 days, then 2 tab x2 days, then 1 tab x2 days orally daily; Completed/Discontinued Medications Medication Drug Class(es) Dates Sig (Normalized) Sig (Original) Acetaminophen (5 sources) Tylenol Not-Taki ng Tylenol Active acetaminophen 325 mg / HYDROcodone bitartrate 5 mg oral tablet (5 sources) Opioid Agonist Start: 01-10-2022 End: 01-24-2022 take 1 tablet by mouth every four to six hours as needed for pain Hydrocodone-Acetaminophen 5-325 mg tablet Discontinued 1 - 2 TAB PO EVERY 4-6 HOURS as needed for pain 14 January 10, 2022 January 24, 2022 11:09am take 1 tablet by mikey th every four hours HYDROcodone-Acetaminophen 5-325 MG 1 tab let as needed Oral every 4 hrs for 7 days Not-Taking acetaminophen 325 mg / oxyCODONE hydrochloride 5 mg oral tablet (4 sources) Opioid Agonist Start: 04-28-2022 End: 11-19-2024 take 1 tablet by mouth every six hours as needed for pain Oxycodone-Acetaminophen 5-325 mg tablet Discontinued 1 TAB PO Q6H as needed for pain 10 April 28, 2022 November 19, 2024 11:46am Start: 08-24-2021 End: 12-19-2021 take 1 tablet by mouth every four hours Oxycodone-Acetaminophen (Percocet) 5-325 mg tablet Discontinued 1 TAB PO Q4H 26 03August 24, 2021 December 19, 2021 11:36am amoxicillin 875 mg / clavulanate 125 mg oral tablet (2 sources) Penicillin-class Antibacterial Start: 12-22-2021 End: 01-10-2022 take 1 tablet by mouth every twelve hours Amoxicillin-Pot Clavulanate 875-125 mg tablet Discontinued 1 TAB PO Q12H December 22, [...] y Not-Taking cephalexin 500 mg oral capsule (2 sources) Cephalosporin Antibacterial Start: 01-10-2022 End: 01-13-2022 take 2 capsules by mouth twice daily Cephalexin 500 mg capsule Discontinued 1000 MG PO Twice daily 40 January 10, 2022 12:00am January 13, 2022 3:09pm Start: 01-10-2022 End: 01-13-2022 take 1000 mg by mouth twice daily Cephalexin Discontinued 1000 MG PO Twice daily 40 January 10, 2022 12:00am January 13, 2022 3:09pm hyoscyamine sulfate 0.125 mg oral tablet (2 sources) Start: 12-19-2021 End: 01-10-2022 take 1 tablet by mouth every six hours Hyoscyamine Sulfate 0.125 mg tablet Discontinued 0.125 MG PO Q6H December 19, 2021 12:00am January 10, 2022 10:16am ibuprofen 800 mg oral tablet (2 sources) Nonsteroidal Anti-inflammatory Drug Start: 04-28-2022 End: 11-19-2024 take 1 tablet by mouth every six hours as needed for pain Ibuprofen 800 mg tablet Discontinued 800 MG PO Q6H as needed for pain April 28, 2022 12:00am November 19, 2024 11:45am ketorolac tromethamine 10 mg oral tablet (1 source) Nonsteroidal Anti-inflammatory Drug, Cyclooxygenase Inhibitor Start: 06-04-2023 End: 11-19-2024 take 1 tablet by mouth every six hours Ketorolac 10 mg tablet Discontinued 10 MG PO Q6H 14 01June 04, 2023 12:00am November 19, 2024 11:46am levoFLOXacin 750 mg oral tablet (2 sources) Quinolone Antimicrobial Start: 01-13-2022 End: 01-24-2022 take 1 tablet by mouth once daily in the morning Levofloxacin (Levaquin) 750 mg Tablet Discontinued 750 MG PO Every morning January 13, 2022 12:00am January 24, 2022 11:09am metroNIDAZOLE 500 mg oral tablet (4 sources) Nitroimidazole Antimicrobial Start: 01-13-2022 End: 01-24-2022 take 1 tablet by mouth three times daily Metronidazole 500 mg tablet Discontinued 500 MG PO Three times daily January 13, 2022 3:10pm January 24, 2022 11:09am Start: 01-10-2022 End: 01-13-2022 take 1 tablet by mouth twice daily Metronidazole 500 mg tablet Discontinued 500 MG PO Twice daily 16 06January 10, 2022 12:00am January 13, 2022 3:10pm ondansetron 4 mg oral tablet (2 sources) Serotonin-3 Receptor Antagonist Start: 01-20-2022 End: 11-19-2024 take 1 tablet by mouth every six hours as needed for nausea Ondansetron Hcl 4 mg tablet Discontinued 4 MG PO Q6H as needed for Nausea January 20, 2022 12:00am November 19, 2024 11:46am polyethylene glycol 3350 98000 mg powder for oral solution (4 sources) Osmotic Laxative Start: 01-20-2022 End: 01-24-2022 Polyethylene Glycol 3350 (Miralax) 17 gram/dose powder Discontinued 17 GM PO Three times daily as needed for Constipation January 20, 2022 2:04pm January 24, 2022 11:09am Start: 01-10-2022 End: 01-20-2022 Polyethylene Glycol 3350 (Mi ralax) 17 gram/dose powder Discontinued 17 GM PO Daily January 10, 2022 12:00am January 20, 2022 2:04pm sulfaSALAzine (1 source) Aminosalicylate Start: 05-26-2020 End: 08-24-2021 take 0.5 g by mouth four times daily Sulfasalazine Discontinued 0.5 GM PO Four times daily 120 May 26, 2020 12:00am August 24, 2021 7:20am Sulfasalazine 500 mg tablet,delayed release (DR/EC) (1 source) Start: 05-26-2020 End: 08-24-2021 take 0.5 g by mouth four times daily Sulfasalazine 500 mg tablet,delayed release (DR/EC) Discontinued 0.5 GM PO Four times daily 120 May 26, 2020 12:00am August 24, 2021 7:20am traMADol hydrochloride 50 mg oral tablet (2 sources) Opioid Agonist Start: 01-24-2022 End: 11-19-2024 take 1 tablet by mouth every four to six hours as needed for pain Tramadol (Ultram) 50 mg tablet Discontinued 50 MG PO EVERY 4-6 HOURS as needed for pain 20 03January 24, 2022 12:00am November 19, 2024 11:46am Triamcinolone (2 sources) Corticosteroid Start: 06-07-2021 Kenalog -40 mg May, 40 mg Problems Active Problems Problem Classification Problem Date Documented Da te Episodic/Chronic Abdominal pain (7 sources) Abdominal pain; Translations: [Unspecified abdominal pain] 01-10-2022 Episodic Crushing injury or internal injury (2 sources) Crushing injury of hand; Translations: [Crushing injury of unspecified hand, initial encounter] 04-28-2022 Episodic Diverticulosis and diverticulitis (5 sources) Diverticulitis; Translations: [Diverticulitis of intestine, part [...] 03-24-2021 Resolved: 09-01-2021 Chronic Other gastrointestinal disorders (2 sources) Disorder of colon; Translations: [Disease of intestine, unspecified] 01-10-2022 Episodic Other nutritional; endocrine; and metabolic disorders (5 sources) Weight loss; Translations: [Abnormal weight loss] Episodic Pancreatic disorders (not diabetes) (5 sources) Pancreatitis; Translations: [Acute pancreatitis without necrosis or infection, unspecified] Episodic Residual codes; unclassified (5 sources) Other specified postprocedural states; Translations: [OTH SPECIFIED POSTPROCEDURAL STATES] Onset: 09-01-2021 Resolved: 09-01-2021 Episodic Residual codes; unclassified (2 sources) History of arthroscopy of knee joint; Translations: [Other specified postprocedural states] 08-24-2021 Episodic Sprains and strains (2 sources) Strain of thoracic region; Translations: [Strain of muscle and tendon of back wall of thorax, initial encounter] 11-19-2024 Episodic Substance-related disorders (2 sources) Smoker; Translations: [Nicotine dependence, unspecified, uncomplicated] 12-24-2021 Chronic Superficial injury; contusion (1 source) Contusion of left foot; Translations: [Contusion of left foot, initial encounter] 06-12-2023 Episodic Unclassified (1 source) LEFT FOOT NEUROMA / [...] XR foot LT min 3V* [facility] Main [place] [address] [place] [address] XRay Report Signed Patient: Maggie Yip MR#: [id number] 9 : 1975 Acct:[id number] Age/Sex: 47 / F ADM Date: 06/04/23 Loc: ER Room: Type: [facility] ER Attending Dr: Copies to: [...] Jaylin Magallanes M.D.06/04/2023 12:32 PM Dictation Location: [place] [address] Transcribed By: [facility] 06/04/23 1232 Dictated By: Jaylin Magallanes MD 06/04/23 1231 Signed By: 06/04/[address] [facility] CYCLIC CITRULLINATED PEPTIDE AB (CCP)on 04-01-2021 CCP Antibodies IgG/IgA 5 units Normal 0-19 [facility] Comment on above: Result Comment: Nega tive <20 Weak positive 20 - 39 Moderate positive 40 - 59 Strong positive >59 Performed By: #### C CPAB #### [facility] [address] [address] Germán Mosqueda TAMI by IFAon 03-25-2021 Antinuclear Antibodies, IFA Negative Normal [facility] Comment on above: Result Comment: Nega tive <1:80 Borderline 1:80 Positive >1:80 ICAP nomenclature: AC-0 For more information about Hep-2 cell patterns use ANApatterns.org, the official website for the International Consensus on Antinuclear Antibody (TAMI) Patterns (ICAP). Performed By: #### A NGOZI #### [facility] [address] [place], [place] [id number] Germán Mosqueda RHEUMATOID FACTORon 03-25-20 RA Latex Turbid. <10.0 Normal 0.0-13.9 [facility] Comment on above: Performed By: #### R F #### [facility] [address] [place], [place] [id number] Germán Mosqueda CBC AUTO DIFFon 03-24-2021 BASO # 0.1 103/ul Normal 0.0-0.1 [facility] Comment on above: Performed By: #### C BC #### [facility] [address] [place] [address] Germán Mosqueda Basophils/100 WBC (Bld) 0.6 % Normal 0.2-2.0 [facility] Comment on above: Performed By: #### C BC #### [facility] [address] [place], [place] [address] Germán Mosqueda EO # 0.1 103/ul Normal 0.0-0.7 [facility] Comment on above: Performed By: #### C BC #### [facility] [address] [place], [place] [address] Germán Mosqueda Eosinophils/100 WBC (Bld) 1.2 % Normal 0.9-7.0 [facility] Comment on above: Performed By: #### C BC #### [facility] [address] [place], [place] [address] Germán Mosqueda Erythrocyte distribution width (RBC) [Ratio] 13.2 % Normal 11.0-15.0 [facility] Comment on above: Performed By: #### C BC #### [facility] [address] [place], [place] [address] Germán Jaylin Hematocrit (Bld) [Volume fraction] 45.3 % Normal 36.0-48.0 [facility] Comment on above: Performed By: #### C BC #### [facility] [address] [id number] Germán Jaylin Hemoglobin (Bld) [Mass/Vol] 15.1 g/dL Normal 12.0-16.0 [facility] Comment on above: Performed By: #### C BC #### [facility] [address] [id number] Germán Jaylin IG # 0.07 10e3/ul Critically high 0.00-0.03 [facility] Comment on above: Performed By: #### C BC #### [facility] [address] [id number] Germán Jaylin IG % 0.6 % Critically high 0.0-0.5 [facility] [place] Comment on above: Performed By: #### C BC #### [facility] [address] [id number] Germán Jaylin LYMPH # 3.4 103/ul Normal 1.2-3.8 [facility] Comment on above: Performed By: #### C BC #### [facility] [address] [place], [place] [address] Germán Mosqueda Lymphocytes/100 WBC (Bld) 30.1 % Normal 20.5-60.0 [facility] Comment on above: Performed By: #### C BC #### [facility] [address] [place], [place] [address] Germán Mosqueda MANUAL DIFF REQ NO Normal [facility] [place] [facility] Comment on above: Performed By: #### C BC #### [facility] [address] [place], [place] [address] Germánsimone Guoen MCH (RBC) [Entitic mass] 31.3 pg Normal 26.7-34.0 [facility] Comment on above: Performed By: #### C BC #### [facility] [address] [place], [place] [address] Germánsimone Mosqueda MCHC (RBC) [Mass/Vol] 33.3 g/dL Normal 29.9-35.2 [facility] Comment on above: Performed By: #### C BC #### [facility] [address] [place], [place] [address] Germán Jaylin MCV (RBC) [Entitic vol] 94.0 fL Normal 81.0-99.0 [facility] Comment on above: Performed By: #### C BC #### [facility] [address] [id number] Germán Jaylin MONO # 0.8 103/ul Normal 0.3-0.8 [facility] Comment on above: Performed By: #### C BC #### [facility] [address] [id number] Germán Jaylin Monocytes/100 WBC (Bld) 7.2 % Normal 1.7-12.0 [facility] Comment on above: Performed By: #### C BC #### [facility] [address] [id number] Germán Jaylin NEUT # 6.7 103/ul Critically high 1.4-6.5 [facility] [place] [facility] Comment on above: Performed By: #### C BC #### [facility] [address] [place], [place] [address] Germán Jaylin Neutrophils/100 WBC (Bld) 60.3 % Normal 43.0-75.0 [facility] Comment on above: Performed By: #### C BC #### [facility] [address] [id number] Germán Jaylin Platelet mean volume (Bld) [Entitic vol] 9.0 fL Critically low 9.5-13.5 [facility] Comment on above: Performed By: #### C BC #### [facility] [address] [place], [place] [address] Germán Jaylin PLT 288 103/ul Normal 150-450 [facility] Comment on above: Performed By: #### C BC #### [facility] [address] [id number] Germán Jaylin RBC 4.82 106/ul Normal 4.20-5.40 [facility] Comment on above: Performed By: #### C BC #### [facility] [address] [id number] Germán Jaylin WBC 11.2 103/ul Critically high 4.0-11.0 [facility] Comment on above: Performed By: #### C BC #### [facility] [address] [place], [place] [address] Germánsimone Guoen PROF 14(COMP METB)on 021 Albumin [Mass/Vol] 3.8 g/dL Normal 3.5-5.0 [facility] Comment on above: Performed By: #### C MP, URIC #### [facility] [address] [place], [place] [address] Germán Jaylin Albumin/Globulin [Mass ratio] 0.9 {ratio} Normal [facility] Comment on above: Performed By: #### C MP, URIC #### [facility] [address] [place], [place] [address] Germán Jaylin ALP [Catalytic activity/Vol] 109 U/L Normal 38-126 [facility] Comment on above: Performed By: #### C MP, URIC #### [facility] [address] [place], [place] [address] Germán Jaylin ALT [Catalytic activity/Vol] 56 U/L Critically high 9-52 [facility] Comment on above: Performed By: #### C MP, URIC #### [facility] [address] [place], [place] [address] Germán Jaylin Anion gap [Moles/Vol] 17.6 mmol/L Normal [facility] Comment on above: Performed By: #### C MP, URIC #### [facility] [address] [place], [place] [address] Germán Jaylin AST [Catalytic activity/Vol] 36 U/L Normal 14-36 [facility] Comment on above: Performed By: #### C MP, URIC #### [facility] [address] [place], [place] [address] Germán Jaylin Bilirubin [Mass/Vol] 0.3 mg/dL Normal 0.2-1.3 [facility] Comment on above: Performed By: #### C MP, URIC #### [facility] [address] [place], [place] [address] Germán Jaylin Calcium [Mass/Vol] 9.0 mg/dL Normal 8.4-10.2 [facility] Comment on above: Performed By: #### C MP, URIC #### [facility] [address] [place] [address] Germán Jaylin Chloride [Moles/Vol] 104 mmol/L Normal 98-107 [facility] Comment on above: Performed By: #### C MP, URIC #### [facility] [address] [place] [address] Germán Jaylin CO2 [Moles/Vol] 23.4 mmol/L Normal 22.0-30.0 [facility] Comment on above: Performed By: #### C MP, URIC #### [facility] [address] [place] [address] Germán Jaylin Creatinine [Mass/Vol] 0.61 mg/dL Normal 0.52-1.04 [facility] Comment on above: Performed By: #### C MP, URIC #### [facility] [address] [place] [address] Germán Jaylin EGFR-AF [place]OU[place]ORE[place] >60 Normal >=60 [facility] Comment on above: Performed By: #### C MP, URIC #### [facility] [address] [place] [address] Germán Jaylin EGFR-NON AF [place] >60 Normal >=60 [facility] Comment on above: Performed By: #### C MP, URIC #### [facility] [address] [place] [address] Germán Jaylin Globulin (S) [Mass/Vol] 4.2 g/dL Normal [facility] Comment on above: Performed By: #### C MP, URIC #### [facility] [address] [place] [address] Germán Jaylin Glucose [Mass/Vol] 90 mg/dL Normal 74-106 [facility] Comment on above: Performed By: #### C MP, URIC #### [facility] [address] [place] [address] Germán Jaylin Potassium [Moles/Vol] 4.0 mmol/L Normal 3.4-5.0 [facility] Comment on above: Performed By: #### C MP, URIC #### [facility] [address] [place], [place] [address] Germán Jaylin Protein [Mass/Vol] 8.0 g/dL Normal 6.1-8.2 [facility] Comment on above: Performed By: #### C MP, URIC #### [facility] [address] [id number] Germán Jaylin Sodium [Moles/Vol] 141 mmol/L Normal 137-145 [facility] Comment on above: Performed By: #### C MP, URIC #### [facility] [address] [id number] Germán Jaylin Urea nitrogen [Mass/Vol] 11.0 mg/dL Normal 7.0-17.0 [facility] Comment on above: Performed By: #### C MP, URIC #### [facility] [address] [id number] Germán Jaylin Urea nitrogen/Creatini ne [Mass ratio] 18.0 mg/mg Normal [facility] Comment on above: Performed By: #### C MP, URIC #### [facility] [address] [id number] Germán Jaylin [facility] mm/hr Critically high <=20 [facility] [place] Comment on above: Performed By: #### S EDR #### [facility] [address] [id number] Germán Jaylin URIC ACID SERUMon 03-24-2021 Urate [Mass/Vol] 4.9 mg/dL Normal 2.5-6.2 [facility] Comment on above: Performed By: #### C MP, URIC #### [facility] [address] [id number] Germán Jaylin Coding Summary.on 10-15-2019 Coding Summary. CODING DATE: 020 FINAL [facility] STATUS: Home (Routine DC) PAYOR: Medicaid [...] Revised Date Saved: 10/15/2019 01:45 pm Normal [facility] Auto Diffon 10-08-2019 Basophils/100 WBC (Bld) 0.2 % Normal 0.0-2.0 [facility] Comment on above: Order Comment: Order Added by Discern Expert. Performed By: #### 2 [id number] #### [facility] [address] [place] [address] Basophils/Leukocy cj Auto (Bld) [Pure # fraction] 0.0 E9/L Normal 0.0-0.2 [facility] Comment on above: Order Comment: Order Added by Discern Expert. Performed By: #### 2 [id number] #### [facility] [address] [place] [address] Eosinophils/100 WBC (Bld) 1.0 % Normal 0.0-8.0 [facility] Comment on above: Order Comment: Order Added by Discern Expert. Performed By: #### 2 [id number], [id number] #### [facility] [address] [place] [address] Eosinophils/Leuko cytes Auto (Bld) [Pure # fraction] 0.1 E9/L Normal 0.0-0.5 [facility] Comment on above: Order Comment: Order Added by Discern Expert. Performed By: #### 2 [id number], [id number] #### [facility] [address] [place] [address] Lymphocytes/100 WBC (Bld) 25.0 % Normal 14.0-50.0 [facility] Comment on above: Order Comment: Order Added by Discern Expert. Performed By: #### 2 [id number], [id number] #### [facility] [address] [place] [address] Lymphocytes/Leuko cytes Auto (Bld) [Pure # fraction] 2.9 E9/L Normal 1.0-4.0 [facility] Comment on above: Order Comment: Order Added by Discern Expert. Performed By: #### 2 [id number], [id number], [id number], [id number] #### [facility] [address] [place] [address] Monocytes/100 WBC (Bld) 6.9 % Normal 4.0-14.0 [facility] Comment on above: Order Comment: Order Added by Discern Expert. Performed By: #### 2 [id number], [id number], [id number], [id number] #### [facility] [address] [place] [address] Monocytes/Leukocy cj Auto (Bld) [Pure # fraction] 0.8 E9/L Normal 0.2-1.0 [facility] Comment on above: Order Comment: Order Added by Discern Expert. Performed By: #### 2 [id number], [id number], [id number] #### [facility] [address] [place] [address] Neutrophils/100 WBC (Bld) 66.9 % Normal 36.0-75.0 [facility] Comment on above: Order Comment: Order Added by Discern Expert. Performed By: #### 2 [id number], [id number], [id number], [id number] #### [facility] [address] [place] [address] Neutrophils/Leuko cytes Auto (Bld) [Pure # fraction] 7.9 E9/L High 2.0-7.5 [facility] Comment on above: Order Comment: Order Added by Discern Expert. Performed By: #### 2 [id number], [id number], [id number], [id number] #### [facility] [address] [place] [address] BMPon 10-08-2019 Creatinine [Mass/Vol] 0.6 mg/dL Normal 0.5-1.3 [facility] Comment on above: Performed By: #### 2 083672, 8061614, 5339470, 68470415 #### [facility] [address] [place] [address] Urea nitrogen [Mass/Vol] 12 mg/dL Normal 5-21 [facility] Comment on above: Performed By: #### 2 799658, 8106236, 7029026, 91080903 #### [facility] [address] [place] [address] Urea nitrogen/Creatini ne [Mass ratio] 20 No Units Normal 10-20 [facility] Comment on above: Performed By: #### 2 285765, 7099120, 5620151, 89408597 #### [facility] [address] [place] [address] Anion gap [Moles/Vol] 15 mmol/L Normal 6-16 [facility] Comment on above: Performed By: #### 2 185964, 7363526, 2795863, 88391256 #### [facility] [address] [place] [address] Calcium [Mass/Vol] 9.5 mg/dL Normal 8.9-11.1 [facility] Comment on above: Performed By: #### 2 327915, 6164375, 6308022, 33773429 #### [facility] [address] [place] [address] Chloride [Moles/Vol] 102 mmol/L Normal 101-111 [facility] Comment on above: Performed By: #### 2 494101, 8344553, 9108560, 31354733 #### [facility] [address] [place] [address] CO2 [Moles/Vol] 21 mmol/L Normal 21-31 [facility] Comment on above: Performed By: #### 2 817585, 6013818, 5059060, 89255626 #### [facility] [address] [place] [address] Glucose [Mass/Vol] 88 mg/dL Normal 55-199 [facility] Comment on above: Result Comment: If t his glucose result represents a fasting glucose, interpretation should refer to the following reference range: 55-99 mg/dL Performed By: #### 2 915347, 3463569, 6767075, 24177897 #### [facility] [address] [place] [address] Potassium [Moles/Vol] 4.1 mmol/L Normal 3.5-5.3 [facility] Comment on above: Performed By: #### 2 888895, 4294359, 0182144, 36480375 #### [facility] [address] [place] [address] Sodium [Moles/Vol] 134 mmol/L Low 135-145 [facility] Comment on above: Performed By: #### 2 180367, 7240973, 4679876, 97999190 #### [facility] [address] [place] [address] CBC w/ Auto Diffon 0 Erythrocyte distribution width (RBC) [Ratio] 13.7 % Normal 10.9-14.2 [facility] Comment on above: Performed By: #### 2 239333, 4763407, 7166875, 41692643 #### [facility] [address] [place] [address] Hematocrit (Bld) [Volume fraction] 44.6 % Normal 34.0-46.0 [facility] Comment on above: Performed By: #### 2 192198, 4321191, 8822706, 42043312 #### [facility] [address] [place] [address] Hemoglobin (Bld) [Mass/Vol] 15.3 g/dL Normal 12.0-16.0 [facility] Comment on above: Performed By: #### 2 520422, 8413240, 9387716, 32685315 #### [facility] [address] [place] [address] MCH (RBC) [Entitic mass] 32.6 pg Normal 27.0-34.0 [facility] Comment on above: Performed By: #### 2 779097, 3907356, 3962125, 18523363 #### [facility] [address] [place] [address] MCHC (RBC) [Mass/Vol] 34.4 g/dL Normal 31.4-36.0 [facility] Comment on above: Performed By: #### 2 328783, 4580981, 9015140, 29541949 #### [facility] [address] [place] [address] MCV (RBC) [Entitic vol] 94.9 fL Normal 80.0-100.0 [facility] Comment on above: Performed By: #### 2 659942, 7390965, 9802608, 75949005 #### [facility] [address] [place] [address] Platelet mean volume (Bld) [Entitic vol] 7.2 fL Normal 6.4-10.8 [facility] Comment on above: Performed By: #### 2 679613, 9185364, 1455670, 91274143 #### [facility] [address] [place] [address] Platelets (Bld) [#/Vol] 361.0 E9/L Normal 150.0-500.0 [facility] Comment on above: Performed By: #### 2 409699, 6976867, 3932766, 13074402 #### [facility] [address] [place] [address] RBC (Bld) [#/Vol] 4.7 E12/L Normal 4.3-5.9 [facility] Comment on above: Performed By: #### 2 102671, 4610337, 6360251, 71280223 #### [facility] [address] [place] [address] WBC corrected for nucl RBC Auto (Bld) [#/Vol] 11.8 E9/L High 4.0-11.0 [facility] Comment on above: Performed By: #### 2 977668, 4270889, 8184246, 57800187 #### [facility] [address] [place] [address] ED Clinical Summaryon 2019 ED Clinical Summary [address] [address] ED Clinical Summary Person Information Name: MAGGIE DEL ROSARIO [facility] Age: 43 Years : 1975 Sex: Female Language: Surinamese PCP: Rajesh Solo DO Marital Status: Phone: [phone] Visit Id: Visit Reason: Vomiting; Abdominal pain; [...] 10/08/2019 13:21:31 10/08/2019 13:21:31 10/08/2019 13:21:31 ADDRESS: [address] [facility] [place] [id number] PHYS DOC NOTES: MEDICAL INFORMATION: Prescriptions Given: [facility], [address] [facility] [place] [id number], [phone] sucralfate (Carafate 1 g/10 mL Susp-Oral) 10 Milliliter By Mouth 4 times a day for 7 Days. Refills: 0. PATIENT EDUCATION INFORMATION: Instructions: Gastritis, Adult; Abdominal Pain, Adult Follow up: With: Address: When: [facility], [address] [facility] [place] [address] Business (1) In 3 days 10/11/2019 With: Address: When: [address] [address] Business (1) In 3 days 10/11/2019 DIAGNOSIS: Right upper quadrant abdominal pain Normal [facility] ED Note-Physicianon 10-08-19 ED Note-Physician Basic Information [...] ultrasound was obtained. This is discussed with optical coating technician as negative for acute findings. Patient [...] day(s), # 280 mL, Refills(s) 0, Pharmacy: [facility], 165, cm, 10/08/19 10:25:00 EST, Height/Length [...] Information Yudelka RIOS In 3 days 10/11/2019 EST [facility] [address] [place] [address]- Business (1) Additional Instructions: Rajesh Solo In 3 days 10/11/2019 EST [address] [place] [address]- Business (1) Additional Instructions: Patient Education Gastritis, Adult Abdominal Pain, Adult Attestation Patient seen and evaluated by the physician bakery assistant. Attending physician was present in the emergency department and supervised care. This report was transcribed using voice recognition software. Every effort was made to ensure accuracy, however, inadvertently computerized bankruptcy attorney mistakes may be present. Problem List/Past Medical [...] 10:41:00) Lymph Auto: 25 % (10/08/19 10:41:00) [place] Auto: 6.9 % (10/08/19 10:41:00) Eos Auto: 1 % (10/08/19 10:41:00) Basophil Auto: 0.2 % (10/08/19 10:41:00) Neutro Absolute: 7.9 E9/L High (10/08/19 10:41:00) Lymph Absolute: 2.9 E9/L (10/08/19 10:41:00) [place] Absolute: 0.8 E9/L (10/08/19 10:41:00) Eos Absolute: 0.1 E9/L (10/08/19 10:41:00) Basophil Absolute: 0 E9/L (10/08/19 10:41:00) Glucose Lvl: 88 mg/dL (10/08/19 10:41:00) BUN: 12 mg/dL (10/08/19 10:41:00) Creatinine: 0.6 mg/dL (10/08/19 10:41:00) eGFR: >60 (10/08/19:41:00) eGFR AA: >60 (10/08/19 10:41:00) BUN/Creat Ratio: 20 (10/08/19::) Sodium Lvl: 134 mmol/L Low (10/08/19 10:41:00) [...] By: Trevin Esquivel DO 10/08/2019 10:57:10 Normal [facility] Comment on above: [...] discomfort you are experiencing: ? Only take ghbl-wkj-gdsrbzb or prescription medicines as directed by your [...] Document Reviewed: 04/23/2014 ExitCare? Patient Information ?2015 [employer]. This information is not intended to replace [...] (NSAIDs). HOME CARE INSTRUCTIONS ? Only take epor-cfx-temkxwe or prescription medicines as directed by your [...] Garlic and onions. ? Spicy foods. ? Whitley fruits, such as oranges, todd, or limes. [...] Document Reviewed: 09/26/2012 ExitCare? Patient Information ?2014 [employer]. This information is not intended to replace advice given to you by your health care provider. Make sure you discuss any questions you have with your health care provider. Normal [facility] ED Patient Summaryon 020 ED Patient Summary [address] [address] Patient Discharge Instructions Person Information Name: MAGGIE DEL ROSARIO Age: 43 Years Arrival Date: 10/08/2019 10:18:57 Discharge Diagnosis: Right upper quadrant abdominal pain Primary Care Physician: Rajesh Solo DO Provider Information Primary Provider: Trevin Esquivel DO Advanced Office Equipment Technician:Rishi Martinez PA-C The exam and treatment you received in the Emergency Department were for an urgent problem and are not intended as complete care. It is important that you follow up with a doctor, nurse practitioner, or physician?s bakery assistant for ongoing care. If your symptoms [...] [facility], [address] [place] [address] Business (1) In 3 days 10/11/2019 With: Address: When: Rajesh Solo [address] [place] [address] Business (1) In 3 days 10/11/2019 In the event that this physician does not participate in your insurance network, please consult with your insurance company to find a nearby participating provider. Patient Education Materials: Gastritis, Adult; Abdominal Pain, Adult A MESSAGE TO ALL PATIENTS REGARDING OPIOIDS PRESCRIPTION OPIOIDS: WHAT YOU NEED TO KNOW Prescription opioids can be used to help relieve emqrsico-cr-sljbhy pain and are often prescribed following a [...] be struggling with addiction, tell your health career specialist and ask for guidance or call [facility]S National Helpline at 1-062-821-MMUX. k Source: [place] Department of Health and Human Services/Center for Disease Control & Prevention Citizen Of [facility] Medications Given: Medication Dose Route [...] [facility], [address] [place], [place] [id number], [phone] sucralfate (Carafate 1 g/10 mL Susp-Oral) 10 Milliliter By Mouth 4 times a day for 7 Days. Refills: 0. Comment: Pharmacy Information: Thank you for choosing [facility] Patient Education Materials: Gastritis, Adult Gastritis [...] (NSAIDs). HOME CARE INSTRUCTIONS ? Only take speu-eui-onquwdr or prescription medicines as directed by your [...] Garlic and onions. ? Spicy foods. ? Whitley fruits, such as oranges, todd, or limes. [...] Document Reviewed: 09/26/2012 ExitCare? Patient Information ?2015 [employer] By [employer]. This information is not intended to replace [...] discomfort you are experiencing: ? Only take gsfk-vts-jrtadzu or prescription medicines as directed by your [...] Document Reviewed: 04/23/2014 ExitCare? Patient Information ?2015 [employer] By [employer]. This information is not intended to replace [...] [facility], [address] [place] [address] Business (1) In 3 days 10/11/2019 With: Address: When: [address] [address] Business (1) In 3 days 10/11/2019 Patient Signature Date Clinician/Nurse Signature Date 10/08/2019 13:21:33 Normal [facility] Hep Func Panelon 10-08-2019 Albumin [Mass/Vol] 4.2 g/dL Normal 3.3-5.0 [facility] Comment on above: Performed By: #### 2 584077, 4252619, 6249207, 46330735 #### [facility] [address] [place] [address] Albumin [Mass/Vol] 1.2 g/dL Normal 1.1-2.2 [facility] Comment on above: Performed By: #### 2 319661, 4205985, 2037953, 49777446 #### [facility] [address] [place] [address] Bilirubin [Mass/Vol] 0.4 mg/dL Normal 0.0-1.1 [facility] Comment on above: Performed By: #### 2 923616, 4329207, 2098889, 87668314 #### [facility] [address] [place] [address] Bilirubin.direct [Mass/Vol] 0.3 mg/dL Normal 0.1-0.9 [facility] Comment on above: Performed By: #### 2 471418, 6631165, 9760704, 55931117 #### [facility] [address] [place] [address] Globulin (S) [Mass/Vol] 3.6 g/dL Normal 1.4-4.0 [facility] Comment on above: Performed By: #### 2 874613, 2570462, 6784267, 54404933 #### [facility] [address] [place] [address] Protein [Mass/Vol] 7.8 g/dL Normal 6.0-7.8 [facility] Comment on above: Performed By: #### 2 810568, 3960783, 9101685, 10182035 #### [facility] [address] [place] [address] ALP [Catalytic activity/Vol] 77 Int._Unit/L Normal 21-98 [facility] Comment on above: Performed By: #### 2 641738, 1531480, 5316803, 57938987 #### [facility] [address] [place] [address] ALT No additional P-5'-P [Catalytic activity/Vol] 64 Int._Unit/L High 6-46 [facility] Comment on above: Performed By: #### 2 461457, 1265575, 1182255, 57360936 #### [facility] [address] [place] [address] AST [Catalytic activity/Vol] 47 Int._Unit/L High 5-43 [facility] Comment on above: Performed By: #### 2 753171, 3527663, 4038012, 37519669 #### [facility] [address] [place] [address] Bilirubin.direct [Mass/Vol] 0.1 mg/dL Normal 0.1-0.4 [facility] Comment on above: Performed By: #### 2 166850, 3904440, 4981971, 98264523 #### [facility] [address] [place] [address] Lipase Levelon 10-08-2019 Lipase [Catalytic activity/Vol] 50 unit/L Normal 13-58 [facility] Comment on above: Performed By: #### 2 155371, 6741537, 4783915, 15119510 #### [facility] [address] [place] [address] Troponin 0 Hr.on 10-08-2019 Troponin I.cardiac [Mass/Vol] ng/mL Normal <=0.03 [facility] Comment on above: Result Comment: New Troponin Assay 01/09/14 [facility] [place] Cutoff value > or = 0.03 ng/mL in conjunction with clinical conditions of myocardial infarction. ([email or web address].org/guidelines) Performed By: #### 2 366654, 5260046, 7426451, 12493804 #### [facility] [address] [place] [address] US Gallbladderon 10-08-2019 US Gallbladder Exam Date/Time: [...] Pillo Alejandro MD Transcribed by: IMAN Technologist: ROGELIO Normal [facility] eGFRon 10-08-2019 GFR/1.73 sq M predicted among blacks MDRD (S/P/Bld) [Vol rate/Area] mL/min/{1.73_m2} Normal >=59 [facility] Comment on above: Order Comment: Order added by Discern Expert. Result Comment: eGFR is race adjusted. AA=. Performed By: #### 2 312494, 8730214, 9806298, 38624195 #### [facility] [address] [place] [address] GFR/1.73 sq M predicted among non-blacks MDRD (S/P/Bld) [Vol rate/Area] mL/min/{1.73_m2} Normal >=59 [facility] Comment on above: Order Comment: Order added by Discern Expert. Result Comment: Steeple Jack bhavin kidney disease could be indicated at eGFR's of less than 60 mL/min/1.73m2. Kidney failure is indicated at less than 15 mL/min/1.73m2. Performed By: #### 2 033531, 8359287, 6402914, 57770027 #### [facility] [address] [place] [address] Coding Summary.on 12-24-2018 Coding Summary. CODING DATE: 019 FINAL [facility] STATUS: Home (Routine DC) PAYOR: Self [...] Revised Date Saved: 12/24/2018 08:11 am Normal [facility] Auto Diffon 12-23-2018 Basophils/100 WBC (Bld) 0.7 % Normal 0.0-2.0 [facility] Comment on above: Order Comment: Order Added by Discern Expert. Performed By: #### 2 993707, 3793649, 4294942, 14792261 #### [facility] [address] [place] [address] Basophils/Leukocy cj Auto (Bld) [Pure # fraction] 0.1 E9/L Normal 0.0-0.2 [facility] Comment on above: Order Comment: Order Added by Discern Expert. Performed By: #### 2 087163, 8138421, 2391235, 82975962 #### [facility] [address] [place] [address] Eosinophils/100 WBC (Bld) 1.1 % Normal 0.0-8.0 [facility] Comment on above: Order Comment: Order Added by Discern Expert. Performed By: #### 2 399599, 0233734, 5032159, 87884397 #### [facility] [address] [place] [address] Eosinophils/Leuko cytes Auto (Bld) [Pure # fraction] 0.1 E9/L Normal 0.0-0.5 [facility] Comment on above: Order Comment: Order Added by Discern Expert. Performed By: #### 2 877860, 4871811, 1661387, 93796559 #### [facility] [address] [place] [address] Lymphocytes/100 WBC (Bld) 37.9 % Normal 14.0-50.0 [facility] Comment on above: Order Comment: Order Added by Discern Expert. Performed By: #### 2 094397, 0762003, 6424407, 05472862 #### [facility] [address] [place] [address] Lymphocytes/Leuko cytes Auto (Bld) [Pure # fraction] 4.2 E9/L High 1.0-4.0 [facility] Comment on above: Order Comment: Order Added by Discern Expert. Performed By: #### 2 022234, 6884605, 8572027, 44172935 #### [facility] [address] [place] [address] Monocytes/100 WBC (Bld) 5.3 % Normal 4.0-14.0 [facility] Comment on above: Order Comment: Order Added by Discern Expert. Performed By: #### 2 699515, 3829563, 4675062, 76096653 #### [facility] [address] [place] [address] Monocytes/Leukocy cj Auto (Bld) [Pure # fraction] 0.6 E9/L Normal 0.2-1.0 [facility] Comment on above: Order Comment: Order Added by Discern Expert. Performed By: #### 2 089262, 3220340, 8701521, 40211650 #### [facility] [address] [place] [address] Neutrophils/100 WBC (Bld) 55.0 % Normal 36.0-75.0 [facility] Comment on above: Order Comment: Order Added by Discern Expert. Performed By: #### 2 241548, 0670366, 1626047, 10524806 #### [facility] [address] [place] [address] Neutrophils/Leuko cytes Auto (Bld) [Pure # fraction] 6.1 E9/L Normal 2.0-7.5 [facility] Comment on above: Order Comment: Order Added by Discern Expert. Performed By: #### 2 790087, 2983625, 8066257, 81293383 #### [facility] [address] [place] [address] BMPon 12-23-2018 Creatinine [Mass/Vol] 0.6 mg/dL Normal 0.5-1.3 [facility] Comment on above: Performed By: #### 2 732452, 5979778, 6720449, 96872971 #### [facility] [address] [place] [address] Urea nitrogen [Mass/Vol] 10 mg/dL Normal 5-21 [facility] Comment on above: Performed By: #### 2 092395, 6448886, 5769757, 91822776 #### [facility] [address] [place] [address] Urea nitrogen/Creatini ne [Mass ratio] 17 No Units Normal 10-20 [facility] Comment on above: Performed By: #### 2 619880, 1712939, 4641267, 10069721 #### [facility] [address] [place] [address] Anion gap [Moles/Vol] 15 mmol/L Normal 6-16 [facility] Comment on above: Performed By: #### 2 715924, 5645689, 2521487, 15875131 #### [facility] [address] [place] [address] Calcium [Mass/Vol] 10.1 mg/dL Normal 8.9-11.1 [facility] Comment on above: Performed By: #### 2 637977, 2105848, 9618941, 13128213 #### [facility] [address] [place] [address] Chloride [Moles/Vol] 99 mmol/L Low 101-111 [facility] Comment on above: Performed By: #### 2 935299, 9635151, 1271241, 98046142 #### [facility] [address] [place] [address] CO2 [Moles/Vol] 22 mmol/L Normal 21-31 [facility] Comment on above: Performed By: #### 2 966714, 2784992, 4801751, 78790885 #### [facility] [address] [place] [address] Glucose [Mass/Vol] 137 mg/dL Normal 55-199 [facility] Comment on above: Result Comment: If t his glucose result represents a fasting glucose, interpretation should refer to the following reference range: 55-99 mg/dL Performed By: #### 2 526895, 2101696, 4127679, 84277469 #### [facility] [address] [place] [address] Potassium [Moles/Vol] 3.1 mmol/L Low 3.5-5.3 [facility] Comment on above: Performed By: #### 2 665979, 5053986, 8361542, 07419873 #### [facility] [address] [place] [address] Sodium [Moles/Vol] 133 mmol/L Low 135-145 [facility] Comment on above: Performed By: #### 2 019591, 7999199, 3786720, 85252742 #### [facility] [address] [place] [address] CBC w/ Auto Diffon 9 Erythrocyte distribution width (RBC) [Ratio] 13.0 % Normal 10.9-14.2 [facility] Comment on above: Performed By: #### 2 843504, 5876698, 8755105, 77192623 #### [facility] [address] [place] [address] Hematocrit (Bld) [Volume fraction] 45.9 % Normal 34.0-46.0 [facility] Comment on above: Performed By: #### 2 038351, 8167094, 8282913, 58462851 #### [facility] [address] [place] [address] Hemoglobin (Bld) [Mass/Vol] 15.7 g/dL Normal 12.0-16.0 [facility] Comment on above: Performed By: #### 2 502232, 7383920, 0237197, 63400197 #### [facility] [address] [place] [address] MCH (RBC) [Entitic mass] 32.8 pg Normal 27.0-34.0 [facility] Comment on above: Performed By: #### 2 652181, 3651508, 9600708, 27768474 #### [facility] [address] [place] [address] MCHC (RBC) [Mass/Vol] 34.2 g/dL Normal 33.3-35.7 [facility] Comment on above: Performed By: #### 2 348040, 0205097, 3815748, 00562387 #### [facility] [address] [place] [address] MCV (RBC) [Entitic vol] 95.9 fL Normal 80.0-100.0 [facility] Comment on above: Performed By: #### 2 751707, 6309505, 5532317, 88657806 #### [facility] [address] [place] [address] Platelet mean volume (Bld) [Entitic vol] 7.5 fL Normal 6.4-10.8 [facility] Comment on above: Performed By: #### 2 395619, 7463385, 9990389, 05291300 #### [facility] [address] [place] [address] Platelets (Bld) [#/Vol] 373.0 E9/L Normal 150.0-500.0 [facility] Comment on above: Performed By: #### 2 484800, 1183469, 1776388, 98871495 #### [facility] [address] [place] [address] RBC (Bld) [#/Vol] 4.8 E12/L Normal 4.3-5.9 [facility] Comment on above: Performed By: #### 2 850872, 3288921, 8095626, 68141907 #### [facility] [address] [place] [address] WBC corrected for nucl RBC Auto (Bld) [#/Vol] 11.2 E9/L High 4.0-11.0 [facility] Comment on above: Performed By: #### 2 191689, 7988484, 7683075, 22040456 #### [facility] [address] [place] [address] CT Head or Brain w/o Contras ton [...] MD Transcribed by: IMAN Technologist: HAIDER Normal [facility] CT Spine Cervical w/o Contra ston 12-23-2018 [...] MD Transcribed by: IMAN Technologist: HAIDER Mcmanus [facility] ED Clinical Summaryon 2018 ED Clinical Summary [place] [id number] ED Clinical Summary Person Information Name: MAGGIE DEL ROSARIO Duyen/[facility] Age: 43 Years : 1975 12:00 AM Sex: Female Language: Surinamese PCP: Rajesh Solo DO Marital Status: Single Phone: [phone] Visit Id: Visit Reason: Fall; PT FELL [...] 3:33 AM 12/23/2018 3:33 AM ADDRESS: [address] [facility] [place] [id number] PHYS DOC NOTES: MEDICAL INFORMATION: Prescriptions Given: PATIENT EDUCATION INFORMATION: Instructions: Alcohol Intoxication; Concussion, Adult, Nkqc-kx-Nfsj; Open Wound, Lip, Ysla-id-Qfzx; Mouth Laceration, Wdum-lb-Dmbh Follow up: With: Address: When: [address] [facility] [address] Business (1) Within 1 to 2 days, only if needed DIAGNOSIS: 1:Acute alcohol intoxication; 2:Concussion with loss of consciousness <= 30 min; 3:Lip laceration Normal [facility] ED Note-Physicianon 12-24-19 ED Note-Physician Basic Information [...] 1 to 2 days, only if needed [address] [place] [address]- Business (1) Additional Instructions: Patient Education Alcohol Intoxication Concussion, Adult, Bjbo-ge-Yfok Open Wound, Lip, Jlfr-gx-Rhfh Mouth Laceration, Dytt-cj-Hmti Problem List/Past Medical History Ongoing No qualifying [...] Lymph Auto: 37.9 % (12/23/18 01:55:00 EDT) Gunnison Auto: 5.3 % (12/23/18 01:55:00 EDT) Eos Auto: 1.1 % (12/23/18 01:55:00 EDT) Basophil Auto: 0.7 % (12/23/18 01:55:00 EDT) Neutro Absolute: 6.1 E9/L (12/23/18 01:55:00 EDT) Lymph Absolute: 4.2 E9/L High (12/23/18 01:55:00 EDT) Gunnison Absolute: 0.6 E9/L (12/23/18 01:55:00 EDT) Eos [...] malalignment Read By: Juan Francisco Munoz MD [facility] Comment on above: Result Comment: Elec tronically Signed By: Juan Francisco Munoz MD\.br\Date and Time Signed: 12/23/18 03:15 EDT ED Patient Education Noteon 12-23-2018 ED Patient Education Note Qfqw-ls-Awbz Open Wound, Lip An open wound is [...] Document Reviewed: 11/30/2010 ExitCare? Patient Information ?2015 [employer]. This information is not intended to replace [...] Tell your teachers, school nurse, school counselor, head boys tennis coach, process trainer, or pack mule worker about your concussion. Tell them about [...] Document Reviewed: 03/06/2014 ExitCare? Patient Information ?2015 [employer]. This information is not intended to replace advice given to you by your health care provider. Make sure you discuss any questions you have with your health care provider. Mouth Laceration A mouth laceration is a cut inside the mouth. HOME CARE ? Rinse your mouth with warm salt water 4 to 6 times a day. ? Purdy your teeth as usual if you can. [...] Document Reviewed: 02/16/2012 ExitCare? Patient Information ?2015 [facility]. This information is not intended to replace [...] yellow. Avoid caffeine. ? ? Only take fodg-pii-zeypjjb or prescription medicines as directed by your [...] 04/16/2014 Document Reviewed: 01/17/2014 ExitCare? Patient Information ?2014 [employer], [employer]. This information is not intended to replace advice given to you by your health care provider. Make sure you discuss any questions you have with your health care provider. Normal [facility] ED Patient Summaryon 019 ED Patient Summary [address] [address] Patient Discharge Instructions Person Information Name: MAGGIE DEL ROSARIO Age: 43 Years Arrival Date: 12/23/2018 1:53 AM Discharge Diagnosis: 1:Acute alcohol intoxication; 2:Concussion with loss of consciousness <= 30 min; 3:Lip laceration Primary Care Physician: Rajesh Solo DO Provider Information Primary Provider: Juan Francisco Munoz MD Advanced Office Equipment Technician:None The exam and treatment you received in the Emergency Department were for an urgent problem and are not intended as complete care. It is important that you follow up with a doctor, nurse practitioner, or physician?s bakery assistant for ongoing care. If your symptoms [...] instructions: Follow-up Instructions: With: Address: When: [place] [id number] [facility] (1) Within 1 to 2 days, only if needed In the event that this physician does not participate in your insurance network, please consult with your insurance company to find a nearby participating provider. Patient Education Materials: Alcohol Intoxication; Concussion, Adult, Vqvc-zu-Cmas; Open Wound, Lip, Onab-hm-Rmlx; Mouth Laceration, Jxtv-fk-Rpjs A MESSAGE TO ALL PATIENTS REGARDING OPIOIDS PRESCRIPTION OPIOIDS: WHAT YOU NEED TO KNOW Prescription opioids can be used to help relieve cfjvwqas-vj-pdewdh pain and are often prescribed following a [...] be struggling with addiction, tell your health career specialist and ask for guidance or call [facility] Yo[facility] Helpline at 5-351-109-ORQO. l Source: US Department of Health and Human Services/Center for Disease Control & Prevention Citizen Of [facility] Medications Given: Medication Dose Route No medications found. Medication Information: Comment: Pharmacy Information: Thank you for choosing [facility] Patient Education Materials: Alcohol Intoxication Alcohol [...] yellow. Avoid caffeine. ? ? Only take kdab-vbn-naiymgj or prescription medicines as directed by your [...] Document Reviewed: 01/17/2014 ExitCare? Patient Information ?2015 [employer]. This information is not intended to replace [...] Tell your teachers, school nurse, school counselor, head boys tennis coach, process trainer, or pack mule worker about your concussion. Tell them about [...] Document Reviewed: 03/06/2014 ExitCare? Patient Information ?2015 [employer]. This information is not intended to replace [...] 11/05/2012 Document Reviewed: 11/30/2010 ExitCare? Patient Information ?2014 [employer]. This information is not intended to replace advice given to you by your health care provider. Make sure you discuss any questions you have with your health care provider. Mouth Laceration A mouth laceration is a cut inside the mouth. HOME CARE ? Rinse your mouth with warm salt water 4 to 6 times a day. ? Purdy your teeth as usual if you can. [...] 12/29/2014 Document Reviewed: 02/16/2012 ExitCare? Patient Information ?2014 [employer]. This information is not intended to replace advice given to you by your health care provider. Make sure you discuss any questions you have with your health care provider. MIGUEL ÁNGEL Aguirre LISA L , have received the following patient education materials/instructions and have verbalized understanding: Patient Education Materials: Alcohol Intoxication; Concussion, Adult, Tmsk-iv-Bcnb; Open Wound, Lip, Ymcr-em-Oiox; Mouth Laceration, Nhat-wp-Tjwo Follow-up Instructions: With: Address: When: [address] [facility] [place] [address] Business (1) Within 1 to 2 days, only if needed Prescriptions: Patient Signature Date Clinician/Nurse Signature Date 12/23/18 03:33:31 Normal [facility] Ethanolon 12-23-2018 Ethanol [Mass/Vol] 268 mg/dL Abnormal <=7 [facility] Comment on above: Result Comment: Crit ical Result S_ETOH:268.0 Called to [facility] AT ER by LLOYD ABBOTT And Read Back For Confirmation at: 12/23/2018 02:44:14\Critical Result verified by repeat analysis Performed By: #### 2 [id number] #### [facility] [address] [place] [address] Pre-Arrival Noteon 9 Pre-Arrival Note Pre-Arrival Summary Name: , Current Date: 12/23/2018 01:56:40 EDT Gender: Female Date of : Age: 43 Pre-Arrival Type: EMS ETA: 12/23/2018 02:14:00 EDT Primary Care Physician: Presenting Problem: fall stairs 5min eta Pre-Arrival User: Harry Aragon RN Referring Source: Location: [place] Completion Date/Time: 12/23/18 01:44:00 [facility] Emergency Department Pre-Hospital Report Form Vital Signs: Pre-Hospital Report: Treatment in Route: Response to Treatment: Misc. Issues: Normal [facility] eGFRon 12-23-2018 GFR/1.73 sq M predicted among blacks MDRD (S/P/Bld) [Vol rate/Area] mL/min/{1.73_m2} Normal >=59 [facility] Comment on above: Order Comment: Order added by Discern Expert. Result Comment: eGFR is race adjusted. AA=. Performed By: #### 2 [id number] #### [facility] [address] [place] [address] GFR/1.73 sq M predicted among non-blacks MDRD (S/P/Bld) [Vol rate/Area] mL/min/{1.73_m2} Normal >=59 [facility] Comment on above: Order Comment: Order added by Discern Expert. Result Comment: Steeple Jack bhavin kidney disease could be indicated at eGFR's of less than 60 mL/min/1.73m2. Kidney failure is indicated at less than 15 mL/min/1.73m2. Performed By: #### 2 [id number] #### [facility] [address] [place] [address] Interval History and Physion 06-06-2017 HIM IP Note OR Vehicle Controls Engineer Normal [facility] OPERATIVE REPORTon 7 OPERATIVE REPORT [facility] [address] [place] [address] OPERATIVE REPORTPATIENT NAME: MAGGIE YIP : 1975MED REC NO: [id number] ROOM:ACCOUNT NO: [id number] ADMISSION DATE:06/06/2017PROVIDER: Greg Beltre OF PROCEDURE: 06/06/2017PREOPERATIVE [...] digits. The procedure wastolerated quite well and Philo was prescribed for pain management withfollowup on Monday in our office.GREG CORONADOD: 06/06/2017 9:38:09 [id number]#: [id number] Doc#: [id number] [facility] Surgical Pathologyon 017 Surgical Pathology (NOTE)[id number] LABORATORIESCONSULTING PATHOLOGISTS [facility] [id number] [place] [address]. [place], [place] [address] Fax: SURGICAL PATHOLOGY CONSULTATIONPatient Name: Carroll YIP Rec: [id number] Number: [id number]: 06/06/2017Received: 06/06/2017Reported: 06/07/2017 11:51-- Diagnosis --SOFT TISSUE, [...] and perineural fibrosis, compatible withtraumatic-type neuroma. 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 Additional eGFR calculator available at:http://www.[employer].Neiron/multiple_crcl_2012.htmPerformed at [facility] [address] [place] [address] (546) Performed By: #### C BC, BMP ####[facility] [place] [address](936) Anion gap 14 mmol/L Normal - [facility] Comment on above: Performed By: #### C BC, BMP ####[facility] [place] [address](655) BUN/CRE Ratio 31 High - [facility] Comment on above: Performed By: #### C BC, BMP ####[facility] [place] [address] Calcium 9.4 mg/dL Normal 8.6-10.4 [facility] Comment on above: Performed By: #### C BC, BMP ####[facility] [place] [address] Chloride 101 mmol/L Normal 98-107 [facility] Comment on above: Performed By: #### C BC, BMP ####[facility] [place] [address] CO2 22 mmol/L Normal 20-31 [facility] Comment on above: Performed By: #### C BC, BMP ####[facility] [place] [address] Creatinine 0.55 mg/dL Normal 0.50-0.90 [facility] Comment on above: Performed By: #### C BC, BMP ####[facility] [place] [address] eGFR (non-black) mL/min/{1.73_m2} Normal >60 [facility] Comment on above: Performed By: #### C BC, BMP ####[facility] [place] [address] Glucose mass conc 99 mg/dL Normal 70-99 [facility] Comment on above: Performed By: #### C BC, BMP ####[facility] [place] [address] Potassium molar conc 4.3 mmol/L Normal 3.7-5.3 [facility] Comment on above: Performed By: #### C BC, BMP ####[facility] [place] [address] Sodium 137 mmol/L Normal 135-144 [facility] Comment on above: Performed By: #### C BC, BMP ####[facility] [place] [address] Urea nitrogen 17 mg/dL Normal 6-20 [facility] Comment on above: Performed By: #### C BC, BMP ####[facility] [place] [address] Staging: NOT REPORTED Normal [facility] Comment on above: Performed By: #### C BC, BMP ####[facility] [place] [address] CBCon 05-22-2017 Erythrocyte distribution width Auto Ratio (RBC) 13.1 % Normal 12.1-15.2 [facility] Comment on above: Performed By: #### C BC, BMP ####[facility] [place] [address] Erythrocytes (RBC) 4.59 10*6/uL Normal 4.0-5.2 [facility] Comment on above: Performed By: #### C BC, BMP ####[facility] [place] [address] Hematocrit (HCT) 42.8 % Normal 36-46 [facility] Comment on above: Performed By: #### C BC, BMP ####[facility] [place] [address] Hemoglobin mass conc (Bld) 14.6 g/dL Normal 12.0-16.0 [facility] Comment on above: Performed By: #### C BC, BMP ####[facility] [place] [address] MCH 31.9 pg Normal 26-34 [facility] Comment on above: Performed By: #### C BC, BMP ####[facility] [place] [address] MCHC mass conc (RBC) 34.2 g/dL Normal 31-37 [facility] Comment on above: Performed By: #### C BC, BMP ####[facility] [place] [address] MCV 93.3 fL Normal 80-100 [facility] Comment on above: Performed By: #### C BC, BMP ####[facility] [address] Platelets 366 10*3/uL Normal 140-450 [facility] Comment on above: Result Comment: Perf ormed at [facility] [address] [place] [address] Performed By: #### C BC, BMP ####[facility] [place] [address] WBC (Leukocytes) 9.3 10*3/uL Normal 3.5-11.0 [facility] Comment on above: Performed By: #### C BC, BMP ####[facility] [address] Platelet mean volume (PMV) NOT REPORTED Normal 6.0-12.0 [facility] Comment on above: Performed By: #### C BC, BMP ####[facility] [place] [address] Vital Signs Date Time Vital Sign Value Performing Clinician Facility 11-19-2024 11:47-0400 Body height 165.1 cm [facility] 11-19-2024 11:47-0400 Body mass index (BMI) [Ratio] 37.4 kg/m2 [facility] 11-19-2024 11:47-0400 Body temperature 97.7 [degF] [facility] 11-19-2024 11:47-0400 Body weight 102.05 kg [facility] 11-19-2024 11:47-0400 Diastolic blood pressure 82 mm[Hg] [facility] 11-19-2024 11:47-0400 Heart rate 77 /min [facility] 11-19-2024 11:47-0400 SaO2% (BldA) [Mass fraction] 96 % [facility] 11-19-2024 11:47-0400 Systolic blood pressure 131 mm[Hg] [facility] 04-28-2022 15:01-0400 Body height 167.64 cm DO [employer] Work Phone: [facility] 04-28-2022 15:01-0400 Body temperature 97.9 [degF] DO Rajesh House Work Phone: [facility] 04-28-2022 15:01-0400 Body weight 89.81 kg DO Rajesh House Work Phone: [facility] 04-28-2022 15:01-0400 Diastolic blood pressure 107 mm[Hg] DO Rajesh House Work Phone: [facility] 04-28-2022 15:01-0400 Heart rate 113 /min DO Rajesh House Work Phone: [facility] 04-28-2022 15:01-0400 Respiratory rate 18 /min DO Rajesh House Work Phone: [facility] 04-28-2022 15:01-0400 SaO2% (BldA) [Mass fraction] 94 % DO Rajesh House Work Phone: [facility] 04-28-2022 15:01-0400 Systolic blood pressure 181 mm[Hg] DO Rajesh House Work Phone: [facility] 12-31-2021 10:00-0400 Body height 167.64 cm David Valle Other [facility] Other 12-31-2021 10:00-0400 Body mass index (BMI) [Ratio] 29.86 kg/m2 David Valle Other [facility] Other 05-06-2022 10:00-0400 Body weight 83.92 kg David Valle Other [facility] Other 08-04-2021 16:00-0500 Body height 167.64 cm Good Alan Other [facility] Other 08-04-2021 16:00-0500 Body mass index (BMI) [Ratio] 32.12 kg/m2 Good Alan Other [facility] Other 08-04-2021 16:00-0500 Body weight 90.27 kg Good Alan Other [facility] Other Encounters Encounter Date Encounter Type Care Provider Facility Start: 11-19-2024 End: 11-19-[address] [facility] Work Phone: Start: 11-19-2024 End: 11-19-2024 Patient encounter procedure [facility] Work Phone: Start: 06-04-2023 End: 06-04-2023 Emergency department patient visit Rajesh Solo Facility:[facility] Start: 04-28-2022 End: 04-28-2022 Emergency department patient visit DO Rajesh Solo Work Phone: [facility] Start: 01-06-2022 End: 01-06-2022 ambulatory David Valle Other [facility] Other Start: 01-06-2022 Telephone encounter David anderson [facility] Start: 12-31-2021 End: 12-31-2021 ambulatory David Valle Other [facility] Other Start: 12-31-2021 Office outpatient visit 15 minutes David Valle [facility] Start: 09-14-2021 End: 10-22-[address] RAJESH SOLO Facility:[facility] Start: 09-01-2021 End: 09-01-2021 ambulatory Good Meme Other [facility] Other Start: 09-01-2021 Postop follow up visit related to original px Good Meme [facility] Start: 08-24-2021 End: 08-24-2021 ambulatory Good Alan Other [facility] Other Start: 08-24-2021 Telephone encounter Good VILLEGAS G [facility] Start: 08-04-2021 End: 08-04-2021 ambulatory Good Alan Other [facility] Other Start: 08-04-2021 Office outpatient visit 25 minutes Good Alan [facility] Start: 03-29-2021 End: 03-30-[address] [...] Detail Author Patient Education Crush Injury (DC) [facility] Work Phone: Patient referral [facility] Work Phone: Payers Date Payer Category Payer Medicaid [id number] 2023 Self-pay [id number] 2014 Unknown [id number] 1975 Unknown [id number] 2.16.84 [id number] 1975 Unknown [id number] 2.16.84 [id number] 1975 Unknown [id number] 2.16.84 [id number] 1959 Unknown [id number] Unknown [id number] 2.16.8 [id number] Worker's Compensation [id number] Social History Date Type Detail Facility Sex Assigned At [employer] [facility] Other Start: 04-28-2022 End: 06-04-2023 Tobacco smoking status NHIS Smoker (finding) [facility] Start: 1975 Sex Assigned At Female F [facility] Start: 11-19-2024 Sex Female (finding) [facility] Evaluation note 12-31-2021 Note Date & Type Note Facility 12-31-2021 Evaluation note Encounter Date Diagnosis Assessment Notes December, Small bowel obstruction (ICD-10 - K56.609) December, Diverticulitis (ICD-10 - K57.92) START MESALAMINE 1.2 GRAM 4 PO Q AM PATIENT ENCOURAGED TO STOP SMOKING RTO 6 WEEKS [facility] [employer] [facility] Other Evaluation note 09-01-2021 Note Date & [...] for removal of sutures (ICD-10 - Z48.02) [facility] Other Evaluation note 08-04-2021 Note Date & [...] poor healing. I have advised against the care home use of narcotic pain medication. I [...] as documented in the electronic medical record. [facility] Other Clinical Note 03-25-2021 Note Date & [...] authenticated by: MARGRET DOMINGO Date: 2021-03-25 07:50 [facility] Evaluation note Note Date & Type Note Facility Evaluation note No Information [employer] Other Evaluation note Note Date & Type Note Facility Evaluation note No assessment information availa [facility] Work Phone: Evaluation note Note Date & Type Note Facility Evaluation note Diagnosis Onset Date Resolution Strain of thoracic back region acute November 19, 2024 11:36am [facility] Work Phone: History general Narrative - Reported Note Date & Type Note Facility History general Narrative - Reported Type Medical History diverticulitis Medical History irritable bowel syndrome Surgical History hysterectomy Surgical History gallbladder Surgical History neuroma removal x2 in left foot Hospitalization History PANCREATITIS 02/2020 Hospitalization History PANCREATITIS 2018 Hospitalization History ABDOMINAL PAIN Hospitalization History PANCREATITIS [facility] Other History general Narrative - Reported Note Date & Type Note Facility History general Narrative - Reported Type Medical History diverticulitis Medical History irritable bowel syndrome Surgical History hysterectomy Surgical History gallbladder Surgical History neuroma removal x2 in left foot Surgical History right knee scope med ial/lateral menisectemy Hospitalization History PANCREATITIS 02/2020 Hospitalization History PANCREATITIS 2018 Hospitalization History ABDOMINAL PAIN Hospitalization History PANCREATITIS [facility] Other Hospital Discharge instructions Note Date & [...] your hand is not improving please call [facility] to follow-up with a hand surgeon You can also follow-up with [facility] as needed for minor concerns Return to the ER for more severe pain loss of circulation in your fingers or any other concerns [facility] Work Phone: Summary Purpose Family History Relationship Condition Age at Onset Recorded Date/T pat Not Specified Diverticulitis Unknown grandparent Malignant neoplasm of pancreas Unknown father Medical history unknown Unknown Relationship Condition Age at Onset Recorded Date/T pat mother Diverticulitis Unknown grandparent Malignant neoplasm of pancreas Unknown father Medical history unknown Unknown Advance Directives Advance Directive Response Recorded Date/ Time Advance Directives No April 9:13am Chief Complaint and Reason for Visit Chief Complaint rt hand caught in pi zza ico bar i01 Chief Complaint Admit Date Pain in shoulder November 19, 2024 11: 36am Reason for Visit Admit Date Strain of thoracic back region October 11:36am Additional Source Comments INFORMATION SOURCE (unrecogn ized section and content) DATE CREATED AUTHOR 02/23/2018 Sindy Shell spiela DATE CREATED AUTHOR AUTHOR'S ORGANIZ ATION 10/15/2019 [facility] DATE CREATED AUTHOR AUTHOR'S ORGANIZ ATION 10/29/2021 [facility] DATE CREATED AUTHOR AUTHOR'S ORGANIZ ATION 06/15/2023 [facility] REASON FOR VISIT (unrecogniz ed section and content) INCISION BLEEDINGRight Knee PainRecheck Right KneeINPATIENT FOLLOW UP-TO BE SEEN IN [address] VALLE FOR DIVERTICULITIS/ BOWEL OBSTRUCTION, SHE FISNISHED ANTIBIOTICS INSTRUCTED SHE IS STARTING TO FEEL BETTERclinical Care Teams (unrecognized sec tion and content) Team Status: Inactive Member Role Status Dates Rajesh Solo DO Primary Care Provider Active Danica Nuñez [facility]- Emergency Provider Active Team Status: Active Member Role Status Dates Rajesh Solo , Primary Care Provider Active Team Status: Active Member Role Status Dates NON STAFF Primary Care Provider Active Team Status: Inactive Member Role Status Dates Marco Antonio Moreno PA-C Attending Provider Active St art: November 19, 2024 End: November 19, 2024 NON STAFF Primary Care Provider Active Start: November 19, 2024 End: November 19, 2024 Goals (unrecognized section and content) Goals may [...] BE BASED ON THE PRIMARY CLINICAL RECORDS. [facility] [employer] provides no warranty or guarantee of the accuracy or completeness of information in this document.
[2024-11-25 09:11] LABS: Basophils Absolute Auto 0.1 10^3/uL (0.0-0.1); Basophils Percent Auto 0.6 % (0.2-2.0); Eosinophils Absolute Auto 0.2 10^3/uL (0.0-0.7); Eosinophils Percent Auto 2.2 % (0.9-7.0); Hematocrit 42.3 % (36.0-48.0); Hemoglobin 14.9 g/dL (12.0-16.0); Immature Granulocytes Abs Auto 0.03 10^3/uL (0.00-0.03); Immature Granulocytes Pct Auto 0.4 % (0.0-0.5); Lymphocytes Absolute Auto 2.4 10^3/uL (1.2-3.8); Lymphocytes Percent Auto 29.2 % (20.5-60.0); Mean Corpuscular HGB Conc 35.2 g/dL (29.9-35.2); Mean Corpuscular Hemoglobin 32.8 pg (26.7-34.0); Mean Corpuscular Volume 93.2 fL (81.0-99.0); Monocytes Absolute Auto 0.5 10^3/uL (0.3-0.8); Monocytes Percent Auto 6.4 % (1.7-12.0); Neutrophils Percent Auto 61.2 % (43.0-75.0); Platelet Count 274 10^3/uL (150-450); Red Blood Count 4.54 10^6/uL (4.20-5.40); Red Cell Distribution Width 11.9 % (11.0-15.0); White Blood Count 8.2 10^3/uL (4.0-11.0)
[2024-11-25 09:14] LABS: Estimated Average Glucose 214 mg/dL; Glycohemoglobin A1C 9.1 % (4.5-6.2)
[2024-11-25 09:52] LABS: Alanine Aminotransferase 83 U/L (14-59); Albumin Level 3.4 g/dL (3.4-5.0); Alkaline Phosphatase 98 U/L (46-116); Anion Gap 14.1; Aspartate Amino Transferase 42 U/L (15-37); BUN Creatinine Ratio 13.4; Bilirubin Total 0.5 mg/dL (0.2-1.0); Calcium 9.1 mg/dL (8.5-10.1); Carbon Dioxide 27.1 mmol/L (21.0-32.0); Chloride 100 mmol/L (98-107); Chol HDL Ratio 5.2; Cholesterol 215 mg/dL (<=200); Estimated GFR (African America >60 (>=60 mL/min/1.73m^2); Estimated GFR (Non-African Ame >60 (>=60 mL/min/1.73m^2); Free T3 2.77 pg/mL (2.18-3.98); Globulin 3.5 g/dL; Glucose 188 mg/dL (74-106); HDL Cholesterol 41 mg/dL (40-60); Potassium 4.2 mmol/L (3.5-5.1); Sodium 137 mmol/L (136-145); Thyroid Stimulating Hormone 1.051 uIU/mL (0.358-3.740); Total Protein 6.9 g/dL (6.4-8.2); Triglycerides 401 mg/dL (<=150); VLDL CHOLESTEROL 80.2 mg/dL
[2024-11-25 09:58] LABS: LDL Cholesterol Direct 116 mg/dL
== END 2024-11-25 08:29 | disposition home or self-care (01) ==
LOC: LAB 08:30
PROVIDERS: PCP Nurse Practitioner Family; Visit Provider Nurse Practitioner Family
DX: Z00.00 Encounter for general adult medical examination without abnormal findings (principal)
CPT/HCPCS: 36415; 80053; 80061; 82306; 83036; 83525; 83540; 83721; 84436; 84443; 84481; 85025

== ENCOUNTER 2024-11-26 07:48 | Outpatient (RCR) | payer OTHER, SELFPAY | END 2024-12-05 14:34 | disposition home or self-care (01) | LOC: PT 07:48 | PROVIDERS: PCP Nurse Practitioner Family; Visit Provider Nurse Practitioner Family | DX: T14.8XXD Other injury of unspecified body region, subsequent encounter (principal); M25.511 Pain in right shoulder | CPT/HCPCS: 97035; 97110; 97140; 97161 ==